=== PATIENT | male | born 1975 | race Caucasian/White ===

== ENCOUNTER 2022-01-27 23:40 | Inpatient (IN) | payer SELFPAY ==
[2022-01-27] MEDS ORDERED: NITROGLYCERIN OINT 1 INCH/GM PACKET TOPICAL STA (23:46)
[2022-01-27] MEDS ORDERED: ASPIRIN 81 MG PO STA (23:46)
--- NOTE | 2022-01-27 23:49 | ED ---
General Adult HPI - General Chief complaint: Chest Pain Stated complaint: Chest pain Time Seen by Provider: 01/27/22 23:41 Source: patient, EMS, RN notes reviewed Mode of arrival: EMS Limitations: no limitations - History of Present Illness Initial comments: Patient is a pleasant 46-year-old male presenting to the emergency Department with chest discomfort. Onset of symptoms was prior to arrival while mopping at work. Patient had pressure in his chest that was rated 7/10. Discomfort is now resolved with nitroglycerin by EMS. A marroquin did have some mild dyspnea, nausea and was diaphoretic. No history of previous cardiac disease. No leg pain or leg swelling. No radiation of pain. - Related Data Allergies Allergy/AdvReac Type Severity Reaction Status Date / Time No Known Allergies Allergy Verified 01/27/22 23:44 Review of Systems ROS Statement: Those systems with pertinent positive or pertinent negative responses have been documented in the HPI. ROS Other: All systems not noted in ROS Statement are negative. Constitutional: Denies: fever Eyes: Denies: eye pain ENT: Denies: ear pain Respiratory: Reports: as per HPI. Denies: cough Cardiovascular: Reports: as per HPI, chest pain Endocrine: Denies: fatigue Gastrointestinal: Reports: nausea. Denies: abdominal pain, vomiting Genitourinary: Denies: dysuria Musculoskeletal: Denies: back pain Skin: Denies: rash Neurological: Denies: weakness Past Medical History History of Any Multi-Drug Resistant Organisms: None Reported Past Psychological History: No Psychological Hx Reported Smoking Status: Current every day smoker Past Alcohol Use History: Occasional Past Drug Use History: Heroin General Exam Limitations: no limitations General appearance: alert, in no apparent distress Head exam: Present: normocephalic Eye exam: Present: normal appearance Neck exam: Present: normal inspection Respiratory exam: Present: normal lung sounds bilaterally Cardiovascular Exam: Present: regular rate, normal rhythm Expanded Peripheral pulses: 2+: Radial (R), Radial (L), Dorsalis Pedis (R), Dorsalis Pedis (L) GI/Abdominal exam: Present: soft. Absent: tenderness Extremities exam: Present: normal inspection. Absent: pedal edema, calf tenderness Neurological exam: Present: alert Psychiatric exam: Present: normal affect, normal mood Skin exam: Present: normal color Course Vital Signs 01/27/22 23:40 Temperature 98.2 F Pulse Rate 105 H Respiratory 22 Rate Blood Pressure 169/100 O2 Sat by Pulse 98 Oximetry EKG Findings - EKG Comments: EKG Findings:: Sinus tachycardia 104. ND 149. QRS 96. QT 326. QTc 37. Normal axis. Normal QRS. No acute ST change. Medical Decision Making - Medical Decision Making Patient reevaluated and updated. [facility] physician group has been paged covering for hospital admission. Case was discussed with Dr. blue, who will admit - Lab Data Result diagrams: 01/27/22 23:47 01/27/22 23:47 Lab Results 01/27/22 01/27/22 01/27/22 Range/Units 23:47 23:47 23:47 WBC 15.5 H (3.8-10.6) k/uL RBC 5.29 (4.30-5.90) m/uL Hgb 16.1 (13.0-17.5) gm/dL Hct 48.2 (39.0-53.0) % MCV 91.1 (80.0-100.0) fL MCH 30.5 (25.0-35.0) pg MCHC 33.5 (31.0-37.0) g/dL RDW 12.8 (11.5-15.5) % Plt Count 300 (150-450) k/uL MPV 7.7 Neutrophils % 84 % Lymphocytes % 7 % Monocytes % 6 % Eosinophils % 1 % Basophils % 1 % Neutrophils # 13.1 H (1.3-7.7) k/uL Lymphocytes # 1.1 (1.0-4.8) k/uL Monocytes # 1.0 (0-1.0) k/uL Eosinophils # 0.1 (0-0.7) k/uL Basophils # 0.1 (0-0.2) k/uL PT 9.7 (9.0-12.0) sec INR 0.9 (<1.2) APTT 22.5 (22.0-30.0) sec Sodium 132 L (137-145) mmol/L Potassium 4.2 (3.5-5.1) mmol/L Chloride 103 (98-107) mmol/L Carbon Dioxide 22 (22-30) mmol/L Anion Gap 7 mmol/L BUN 20 (9-20) mg/dL Creatinine 0.85 (0.66-1.25) mg/dL Est GFR (CKD-EPI)AfAm >90 (>60 ml/min/1.73 sqM) Est GFR (CKD-EPI)NonAf >90 (>60 ml/min/1.73 sqM) Glucose 125 H (74-99) mg/dL Calcium 9.9 (8.4-10.2) mg/dL Magnesium 1.6 (1.6-2.3) mg/dL Total Bilirubin 0.6 (0.2-1.3) mg/dL AST 28 (17-59) U/L ALT 22 (4-49) U/L Alkaline Phosphatase 47 (38-126) U/L Troponin I (0.000-0.034) ng/mL Total Protein 7.2 (6.3-8.2) g/dL Albumin 4.7 (3.5-5.0) g/dL 01/27/22 Range/Units 23:47 WBC (3.8-10.6) k/uL RBC (4.30-5.90) m/uL Hgb (13.0-17.5) gm/dL Hct (39.0-53.0) % MCV (80.0-100.0) fL MCH (25.0-35.0) pg MCHC (31.0-37.0) g/dL RDW (11.5-15.5) % Plt Count (150-450) k/uL MPV Neutrophils % % Lymphocytes % % Monocytes % % Eosinophils % % Basophils % % Neutrophils # (1.3-7.7) k/uL Lymphocytes # (1.0-4.8) k/uL Monocytes # (0-1.0) k/uL Eosinophils # (0-0.7) k/uL Basophils # (0-0.2) k/uL PT (9.0-12.0) sec INR (<1.2) APTT (22.0-30.0) sec Sodium (137-145) mmol/L Potassium (3.5-5.1) mmol/L Chloride (98-107) mmol/L Carbon Dioxide (22-30) mmol/L Anion Gap mmol/L BUN (9-20) mg/dL Creatinine (0.66-1.25) mg/dL Est GFR (CKD-EPI)AfAm (>60 ml/min/1.73 sqM) Est GFR (CKD-EPI)NonAf (>60 ml/min/1.73 sqM) Glucose (74-99) mg/dL Calcium (8.4-10.2) mg/dL Magnesium (1.6-2.3) mg/dL Total Bilirubin (0.2-1.3) mg/dL AST (17-59) U/L ALT (4-49) U/L Alkaline Phosphatase (38-126) U/L Troponin I 0.034 (0.000-0.034) ng/mL Total Protein (6.3-8.2) g/dL Albumin (3.5-5.0) g/dL - Radiology Data Radiology results: image reviewed (Chest x-ray shows no acute process) Disposition Clinical Impression: Chest pain Disposition: ADMITTED IP TO THIS HOSP Is patient prescribed a controlled substance at d/c from ED?: No Time of Disposition: 00:27
[2022-01-28] LABS: Basophils # (A) 0.1 k/uL (0-0.2); Basophils % (A) 1 %; Eosinophils # (A) 0.1 k/uL (0-0.7); Eosinophils % (A) 1 %; HCT 48.2 % (39.0-53.0); HGB 16.1 gm/dL (13.0-17.5); Lymphocytes # (A) 1.1 k/uL (1.0-4.8); Lymphocytes % (A) 7 %; MCH 30.5 pg (25.0-35.0); MCHC 33.5 g/dL (31.0-37.0); MCV 91.1 fL (80.0-100.0); Mean Platelet Volume 7.7; Monocytes % (A) 6 %; Neutrophils # (A) 13.1 k/uL (1.3-7.7); Neutrophils % (A) 84 %; Platelet Count 300 k/uL (150-450); RBC 5.29 m/uL (4.30-5.90); RDW 12.8 % (11.5-15.5); WBC 15.5 k/uL (3.8-10.6)
[2022-01-28 00:12] LABS: ALT 22 U/L (4-49); AST 28 U/L (17-59); African American GFR (CKD) >90 (>60 ml/min/1.73 sqM); Albumin 4.7 g/dL (3.5-5.0); Alkaline Phosphatase 47 U/L (38-126); Anion Gap 7 mmol/L; Blood Urea Nitrogen 20 mg/dL (9-20); Calcium 9.9 mg/dL (8.4-10.2); Carbon Dioxide 22 mmol/L (22-30); Chloride 103 mmol/L (98-107); Glucose 125 mg/dL (74-99); Magnesium 1.6 mg/dL (1.6-2.3); Non-African American GFR(CKD) >90 (>60 ml/min/1.73 sqM); Potassium 4.2 mmol/L (3.5-5.1); Sodium 132 mmol/L (137-145); Total Bilirubin 0.6 mg/dL (0.2-1.3); Total Protein 7.2 g/dL (6.3-8.2)
--- NOTE | 2022-01-28 00:16 | XR ---
EXAMINATION TYPE: XR chest 2V DATE OF EXAM: 01/27/2022 COMPARISON: NONE HISTORY: Chest pain TECHNIQUE: 2 views FINDINGS: Heart and mediastinum are normal. Lungs are clear. Diaphragm is normal. Bony thorax appears normal. There are chest leads. IMPRESSION: Normal chest.
[2022-01-28 00:17] LABS: INR 0.9 (<1.2); Partial Thromboplastin Time 22.5 sec (22.0-30.0); Prothrombin Time 9.7 sec (9.0-12.0)
[2022-01-28] MEDS ORDERED: NITROGLYCERIN SL TABS 0.4 MG TAB SUBLINGUAL PRN (00:27)
[2022-01-28] MEDS ORDERED: hydrALAZINE HCL 25 MG TAB PO STA (02:17)
--- NOTE | 2022-01-28 02:19 | P.HPIM ---
History of Present Illness H&P Date: 01/28/22 The patient is a 46-year-old male with a PMH of hypertension who presented to the emergency room with complaints of chest discomfort. Patient reports that he was in his usual state of health until about 11 PM earlier tonight when he arrived at his work and attempted to mop that he suddenly developed substernal chest tightness. He reports that the tightness was 10 out of 10 at maximal intensity, exertional, substernal, relieved with rest, nonpleuritic, nonradiating, with associated diaphoresis and nausea. Patient reports that his pain had resolved at the time of interview. Denied experiencing shortness of breath, dizziness, vomiting. He reports smoking 1 pack of cigarettes daily. Denied experiencing fever, chills, cough, lower extremity swelling, or extremity pain. Chest x-ray the emergency room was unremarkable. EKG showing sinus tachycardia 104 bpm with no acute ST/T-wave changes noted as reviewed by me. Laboratory evaluation was remarkable for troponin 0.034, sodium 132, and WBC count 15.5. Review of systems: Pertinent positives and negatives as discussed in HPI, a complete review of systems was performed and all other systems are negative. Physical examination: General: non toxic, no distress, appears at stated age, obese Derm: no unusual rashes/lesions, warm Head: atraumatic, normocephalic, symmetric Eyes: EOMI, no lid lag, anicteric sclera, pupils equal round reactive to light ENT: Nose and ears atraumatic Neck: No cervical lymphadenopathy, trachea midline, supple Mouth: no lip lesion, mucus membranes moist Cardiovascular: S1S2 reg, no murmur, positive dorsalis pedis pulse bilateral, no edema Lungs: CTA bilateral, no rhonchi, no rales, no accessory muscle use Abdominal: soft, nontender to palpation, no guarding Ext: muscle strength 5 out of 5 in all 4 extremities grossly, no gross muscle atrophy, no contractures, Neuro: CN II-XI grossly intact, no gross focal neuro deficits Psych: Alert, oriented, appropriate affect Assessment/plan Chest pain, rule out ACS -Cardiology consulted -Cardiac monitoring -Continue with aspirin, statin -Trend troponin Leukocytosis -Likely due to acute distress her -No signs of active infection at this time Chronic conditions: Hypertension -Patient notes that he has not been taking his antihypertensive medications for several month -Start Norvasc 10 mg by mouth daily DVT prophylaxis -Heparin subcu The patient is admitted with an anticipated less than 2 midnight stay for evaluation of chest pain. CODE STATUS: Full Code Discussed with: Patient Anticipated discharge date: In a.m. Anticipated discharge place: Home Past Medical History History of Any Multi-Drug Resistant Organisms: None Reported Past Psychological History: No Psychological Hx Reported Smoking Status: Current every day smoker Past Alcohol Use History: Occasional Past Drug Use History: Heroin - Past Family History Mother Family Medical History: Diabetes Mellitus Medications and Allergies Allergies Allergy/AdvReac Type Severity Reaction Status Date / Time No Known Allergies Allergy Verified 01/27/22 23:44 Physical Exam Vitals: Vital Signs Temp Pulse Resp BP Pulse Ox 01/28/22 01:14 77 22 157/81 97 01/27/22 23:40 98.2 F 105 H 22 169/100 98 Intake and Output 01/27/22 01/27/22 01/28/22 14:59 22:59 06:59 Other: Weight 81.647 kg Results CBC & Chem 7: 01/27/22 23:47 01/27/22 23:47 Labs: Abnormal Lab Results - Last 24 Hours (Table) 01/27/22 01/27/22 Range/Units 23:47 23:47 WBC 15.5 H (3.8-10.6) k/uL Neutrophils # 13.1 H (1.3-7.7) k/uL Sodium 132 L (137-145) mmol/L Glucose 125 H (74-99) mg/dL
[2022-01-28] MEDS ORDERED: HEPARIN SODIUM 1,000 UN/ML (10ML VL) IV ONE (03:29)
[2022-01-28] MEDS: HEPARIN SOD,PORK IN 0.45% NACL 25,000 UNIT in 0.45% NACL 1 250ML.BAG IV SCH (03:41)
[2022-01-28] MEDS: NITROGLYCERIN OINT 1 INCH/GM PACKET TOPICAL SCH ×3 (06:26→19:25)
[2022-01-28] MEDS ORDERED: ALPRAZolam 0.25 MG TAB PO PRN (07:46)
[2022-01-28] MEDS ORDERED: IV FLUID CONTINUATION 1,000 ML IV ONE (08:16)
[2022-01-28] MEDS ORDERED: LIDOCAINE 1% INJ 10MG/ML (5 ML VIAL-PF) SQ ONE (08:39)
[2022-01-28] MEDS ORDERED: METOPROLOL TARTRATE 5 MG/5 ML VIAL IVP ONE (08:40)
[2022-01-28] MEDS ORDERED: hydrALAZINE HCL 20 MG/ML 1 ML VIAL IV ONE (08:40)
[2022-01-28] MEDS: MIDAZOLAM 2 MG/2 ML VIAL IV ONE ×2 (08:41→08:42)
[2022-01-28] MEDS ORDERED: VERAPAMIL SYRINGE (5 MG/10 ML) INTRAARTER ONE (08:42)
[2022-01-28] MEDS ORDERED: IOPAMIDOL-370 125ML BTL INJ ONE (08:56)
[2022-01-28] MEDS ORDERED: RX INFO: IV CONTRAST WAS GIVEN 1 EACH MISC MISCELLANE PRN (08:59)
[2022-01-28] MEDS ORDERED: SODIUM CHLORIDE 0.9% 1,000 ML IV SCH (09:00)
--- NOTE | 2022-01-28 09:06 | P.PCN ---
Date of Procedure: 01/28/22 Operative Findings: CARDIAC CATHETERIZATION PERFORMING PHYSICIAN: Erick Woo MD, RPVI PROCEDURE PERFORMED: 1. Selective right and left coronary angiogram 2. Left heart catheterization INDICATION: This is a 46-year-old gentleman with significant history of smoking as well as hypertension who was not receiving any medication presented to the hospital with chest discomfort and ruled in for acute coronary syndrome. Also his pressure was elevated. In the light of that heart catheterization was advised to rule out severe CAD COMPLICATION: None APPROACH: Right radial artery LEVEL OF SEDATION: Moderate with a sedation length of 17 minutes PROCEDURE DESCRIPTION: After obtaining an informed consent, the patient was brought to cardiac photo lab technician. Local anesthesia was performed using lidocaine subcutaneously. The right radial artery was cannulated using Seldinger technique, the guidewire passed easily, following that we advanced a 5-[place] sheath dilator assembly, the wire and dilator were removed and sheath was flushed. Selective right and left coronary angiogram using a 6-[place] JR4 and JL 3.5 catheters. Following that we did left heart catheterization using 6-[place] pigtail catheter. The procedure was completed there was no complication. SELECTIVE CORONARY ANGIOGRAM: The right coronary artery: Is a large caliber vessel and a dominant vessel. The RCA is chronically occluded in the midportion and fills by contralateral collaterals. Left main: Large fiber vessel with mild disease. Bifurcates into LCx and ramus intermedius and LAD The left circumflex: Is a large caliber vessel and appears to be codominant vessel. The proximal LCx has mild disease only. Gives rises into an OM1 which has mild disease. The left circumflex distally is chronically occluded and fills by bridging collateral. The ramus intermedius, Is a large caliber vessel. It does have intermediate to severe lesion appeared to be tubular in the proximal portion The left anterior descending artery: Is a large caliber vessel. The proximal LAD has a tubular lesion appeared to be in the range of 80-90%. The LAD proximally gives rises into a medium size diagonal branch which has intermediate to severe disease as well. The mid LAD has a focal lesion appears to be in the range of 80-90%. The LAD distal to that is diffusely disease. HEMODYNAMICS: The LVEDP was 12 mmHg was no significant gradient across aortic valve CONCLUSION: 1. Severe triple-vessel coronary artery disease. Chronic total occlusion of the RCA and LCx. Critical disease involving the proximal and mid LAD 2. Normal left-sided filling pressure POSTPROCEDURE MANAGEMENT: Giving the above anatomy advised the patient to be seen by cardiothoracic a surgeon for the evaluation off coronary artery bypass grafting
[2022-01-28 09:52] LABS: Glucose,Whole Blood 94 mg/dL (70-110)
[2022-01-28] MEDS: amLODIPine 10 MG TAB PO SCH (10:25)
--- NOTE | 2022-01-28 10:29 | P.CRDCN ---
History of Present Illness History of present illness: This is a pleasant 46 year old male with a past medical history of hypertension (not on medications secondary to insurance issues), chronic nicotine dependence. He does not follow with a data analyst. We are consulted for NSTEMI. He presented to the emergency room with complaints of chest discomfort. Patient states yesterday around 11 PM he arrived at his work and attempted to mop that he suddenly developed substernal chest tightness. He rates pain 10/10. It was exertional. Located substernal. Relieved with rest. Non-radiating. He had associated diaphoresis and nausea, some mild shortness of breath. In ER his pain was also relieved by Nitro. Denied lightheadedness, dizziness, syncope or near syncope. No abdominal pain, vomiting. He denies any history of CAD, CT, Stroke, Diabetes. He does smoke 1 PPD. Family history includes mother and father both had coronary artery disease. DIAGNOSTICS * EKG this morning revealed sinus rhythm, heart rate 67, biphasic T waves noted, progressive ST changes in inferior and anterior leads. No prior EKG to compare * Telemetry tracings at bedside indicate sinus rhythm * Chest xray no acute cardiopulmonary process * Laboratory reviewed, troponin 0.034, 0.85, 1.9, sodium 132, potassium 4.3, BUN 20, serum and 0.8, magnesium 1.6, WBC 15.5, hemoglobin 16.1, platelets 300 * Current home medications include none REVIEW OF SYSTEMS At the time of my exam: CONSTITUTIONAL: Denies fever or chills. CARDIOVASCULAR: + chest pain, +shortness of breath, Denies orthopnea, PND or palpitations. RESPIRATORY: Denies cough. GASTROINTESTINAL: Denies abdominal pain, diarrhea, constipation, +nausea Denies vomiting. MUSCULOSKELETAL: Denies myalgias. NEUROLOGIC: Denies numbness, tingling, headacbe or weakness. ENDOCRINE: Denies fatigue, weight change, polydipsia or polyurina. GENITOURINARY: Denies burning, hematuria or urgency with micturation. HEMATOLOGIC: Denies history of anemia or bleeding. PHYSICAL EXAMINATION Blood pressure 177/88, heart rate 74, afebrile, oxygen saturation 79% on 2 L nasal cannula CONSTITUTIONAL: No apparent distress. HEENT: Head is normocephalic. Pupils are equal, round. Sclerae anicteric. Mucous membranes of the mouth are moist. No JVD. No carotid bruit. CHEST EXAMINATION: Lungs are clear to auscultation. No chest wall tenderness is noted on palpation or with deep breathing. HEART EXAMINATION: Regular rate and rhythm. S1, S2 heard. No murmurs, gallops or rub. ABDOMEN: Soft, nontender. Positive bowel sounds. EXTREMITIES: 2+ peripheral pulses, no lower extremity edema and no calf tenderness. NEUROLOGIC EXAMINATION: Patient is awake, alert and oriented x3. ASSESSMENT NSTEMI Hypertension Chronic nicotine dependence Family history of coronary artery disease PLAN Plan for cardiac catheterization with Dr. Woo this morning, patient is agreeable. Continue IV heparin, statin, aspirin I have discussed the risks, benefits and alternative therapies for the above- mentioned procedure and for both sedation/analgesia as well as necessary blood product administration, if indicated, as they pertain to this patient. The patient has indicated understanding and acceptance of the risks and procedures discussed. Questions have been answered appropriately and he is agreeable to move forward with the above-stated procedure. Obtain 2D echocardiogram and doppler study to assess cardiac structure and function. Further recommendations based on clinical course Nurse practitioner note has been reviewed by physician. Signing provider agrees with the documented findings, assessment, and plan of care. Past Medical History History of Any Multi-Drug Resistant Organisms: None Reported Past Psychological History: No Psychological Hx Reported Smoking Status: Current every day smoker Past Alcohol Use History: Occasional Past Drug Use History: Heroin - Past Family History Mother Family Medical History: Diabetes Mellitus Medications and Allergies Home Medications Medication Instructions Recorded Confirmed Type No Known Home Medications 01/28/22 01/28/22 History Allergies Allergy/AdvReac Type Severity Reaction Status Date / Time No Known Allergies Allergy Verified 01/28/22 07:28 Physical Exam Vitals: Vital Signs Temp Pulse Resp BP Pulse Ox 01/28/22 06:46 74 22 177/88 99 01/28/22 06:00 98.3 F 77 20 163/87 100 01/28/22 05:00 99 20 145/79 98 01/28/22 03:00 101 H 22 148/82 96 01/28/22 02:00 98.5 F 82 20 155/78 97 01/28/22 01:14 77 22 157/81 97 01/27/22 23:40 98.2 F 105 H 22 169/100 98 Intake and Output 01/27/22 01/28/22 01/28/22 22:59 06:59 14:59 Other: Weight 81.647 kg Results 01/27/22 23:47 01/27/22 23:47 Cardiac Enzymes 01/27/22 01/27/22 01/28/22 Range/Units 23:47 23:47 02:33 AST 28 (17-59) U/L Troponin I 0.034 0.850 H* (0.000-0.034) ng/mL 01/28/22 Range/Units 05:33 AST (17-59) U/L Troponin I 1.930 H* (0.000-0.034) ng/mL Coagulation 01/27/22 Range/Units 23:47 PT 9.7 (9.0-12.0) sec APTT 22.5 (22.0-30.0) sec CBC 01/27/22 Range/Units 23:47 WBC 15.5 H (3.8-10.6) k/uL RBC 5.29 (4.30-5.90) m/uL Hgb 16.1 (13.0-17.5) gm/dL Hct 48.2 (39.0-53.0) % Plt Count 300 (150-450) k/uL Comprehensive Metabolic Panel 01/27/22 Range/Units 23:47 Sodium 132 L (137-145) mmol/L Potassium 4.2 (3.5-5.1) mmol/L Chloride 103 (98-107) mmol/L Carbon Dioxide 22 (22-30) mmol/L BUN 20 (9-20) mg/dL Creatinine 0.85 (0.66-1.25) mg/dL Glucose 125 H (74-99) mg/dL Calcium 9.9 (8.4-10.2) mg/dL AST 28 (17-59) U/L ALT 22 (4-49) U/L Alkaline Phosphatase 47 (38-126) U/L Total Protein 7.2 (6.3-8.2) g/dL Albumin 4.7 (3.5-5.0) g/dL Current Medications Generic Name Dose Route Start Last Admin Trade Name Freq PRN Reason Stop Dose Admin Amlodipine Besylate 10 mg 01/28/22 09:00 Amlodipine 10 Mg Tab PO DAILY [facility] Aspirin 325 mg 01/29/22 09:00 Aspirin 325 Mg Tab PO DAILY [facility] Atorvastatin Calcium 80 mg 01/28/22 21:00 Atorvastatin 80 Mg Tab PO HS NUBIA Heparin Sodium/Sodium Chloride 250 mls @ 9.798 mls/hr 01/28/22 03:30 01/28/22 03:41 25,000 unit/ Sodium Chloride IV 12 units/kg/hr .Q24H NUBIA 9.798 mls/hr Administration Protocol 12 UNITS/KG/HR Nitroglycerin 0.4 mg 01/28/22 00:27 Nitroglycerin Sl Tabs 0.4 Mg Tab SUBLINGUAL Q5M PRN Chest Pain Nitroglycerin 1 inch 01/28/22 06:00 01/28/22 06:26 Nitroglycerin Oint 1 Inch/Gm Packet TOPICAL 1 inch Q6HR [facility] Administration Sodium Chloride 10 ml 01/28/22 09:00 Sodium Chloride 0.9% Flush 10 Ml Syringe IV BID [facility] Intake and Output 01/27/22 01/28/22 01/28/22 22:59 06:59 14:59 Other: Weight 81.647 kg 01/27/22 23:47 01/27/22 23:47
--- NOTE | 2022-01-28 11:09 | P.GSCN ---
History of Present Illness Consult date: 01/28/22 Reason for Consult: Coronary artery disease, recommendations for surgical revascularization Requesting physician: Erick Woo History of present illness: This is a 46-year-old gentleman who does not follow on an outpatient basis with a primary care physician. He has a previous medical history of hypertension, current tobacco dependence, current marijuana use, current EtOH use greater than 8 drinks per week, seizure approximately 3 years ago, neurofibromatosis, and previous heroin use with cessation 10 years ago, as well as family history of premature coronary artery disease with father having PCI in his 50s and mother from SC/CVA at 51 years old. He presented to [facility] emergency room with complaints of chest pain with radiation down his left arm, relieved with sublingual nitroglycerin. Denied any significant shortness of breath, nausea, lower extremity edema, or any other symptomatology. WBC 15.5, hemoglobin 16.1, creatinine 0.85. Chest x-ray demonstrated no acute process. EKG demonstrated sinus rhythm with nonspecific T-wave changes. Troponins were drawn, elevated as high as 1.93 and patient was ruled in for non-STEMI. He went to the [facility] today with Dr. Woo revealing mid RCA complete occlusion which filled by collaterals, chronic total occlusion of the distal circumflex coronary artery, severe disease in the proximal ramus, and 80-90% stenosis to the proximal and mid LAD with no gradient across the aortic valve. Due to these findings consultation was placed to cardiothoracic surgery for revascularization recommendations. Review of Systems Review of systems was completed and was negative except as noted Past Medical History Past Medical History: Coronary Artery Disease (CAD), Hypertension Additional Past Medical History / Comment(s): Seizure approximately 3 years ago; neurofibromatosis History of Any Multi-Drug Resistant Organisms: None Reported Past Surgical History: No Surgical Hx Reported Past Psychological History: No Psychological Hx Reported Smoking Status: Current every day smoker Past Alcohol Use History: Occasional Additional Past Alcohol Use History / Comment(s): Greater than 8 drinks per week Past Drug Use History: Heroin, Marijuana Additional Drug Use History / Comment(s): Uses marijuana regularly; quit heroin approximately 10 years ago Additional History: Smokes 1 pack per day 30 years - Past Family History Mother Family Medical History: Coronary Artery Disease (CAD), CVA/TIA, Diabetes Mellitus, Myocardial Infarction ([place]) Additional Family Medical History / Comment(s): from myocardial infarction/CVA at 51 years old Father Family Medical History: Coronary Artery Disease (CAD) Additional Family Medical History / Comment(s): Brother had PCI in his 50s; from sepsis Medications and Allergies Home Medications Medication Instructions Recorded Confirmed Type No Known Home Medications 01/28/22 01/28/22 History Allergies Allergy/AdvReac Type Severity Reaction Status Date / Time No Known Allergies Allergy Verified 01/28/22 07:28 Surgical - Exam Vital Signs Temp Pulse Resp BP Pulse Ox 98.2 F 105 H 22 169/100 98 01/27/22 23:40 01/27/22 23:40 01/27/22 23:40 01/27/22 23:40 01/27/22 23:40 CONSTITUTIONAL: Awake and alert, appears comfortable, cooperative, well- developed, well-nourished, no pain, no acute distress EYES: Pupils equal, round, reactive to light, normal ocular movement ENT: Moist mucous membranes; very poor dentition with broken/missing teeth NECK: No masses, no bruits, trachea midline RESPIRATORY: Lungs sounds diminished bilaterally. Respirations even, nonlabored. Currently on room air with oxygen saturation 96%. Strong cough. CARDIOVASCULAR: S1, S2 present. Regular rate and rhythm, sinus rhythm on telemetry. Palpable peripheral pulses bilaterally. No edema present. No calf pain or tenderness noted. No significant lower extremity varicosities noted. Left radial Ludin's test less than 8 seconds. GASTROINTESTINAL: Abdomen soft, nontender, nondistended without masses or organomegaly noted. There is no rebound or guarding present. Active bowel sounds present 4 quadrants. GENITOURINARY: Deferred INTEGUMENTARY: Skin is warm and dry with evidence of good perfusion. NEUROLOGIC: Cranial nerves II through XII intact, normal coordination, no ob vious motor or sensory deficits, speech is normal MUSKULOSKELETAL: Able to move all extremities, strength equal bilaterally, normal posture PSYCHIATRIC: Alert and oriented to person place and time, appropriate affect, intact judgment and insight Results - Labs 01/29/22 03:56 01/29/22 03:56 Abnormal Lab Results - Last 24 Hours (Table) 01/27/22 01/27/22 01/28/22 Range/Units 23:47 23:47 02:33 WBC 15.5 H (3.8-10.6) k/uL Neutrophils # 13.1 H (1.3-7.7) k/uL Sodium 132 L (137-145) mmol/L Glucose 125 H (74-99) mg/dL Troponin I 0.850 H* (0.000-0.034) ng/mL 01/28/22 Range/Units 05:33 WBC (3.8-10.6) k/uL Neutrophils # (1.3-7.7) k/uL Sodium (137-145) mmol/L Glucose (74-99) mg/dL Troponin I 1.930 H* (0.000-0.034) ng/mL Diabetes panel 01/27/22 Range/Units 23:47 Sodium 132 L (137-145) mmol/L Potassium 4.2 (3.5-5.1) mmol/L Chloride 103 (98-107) mmol/L Carbon Dioxide 22 (22-30) mmol/L BUN 20 (9-20) mg/dL Creatinine 0.85 (0.66-1.25) mg/dL Glucose 125 H (74-99) mg/dL Calcium 9.9 (8.4-10.2) mg/dL AST 28 (17-59) U/L ALT 22 (4-49) U/L Alkaline Phosphatase 47 (38-126) U/L Total Protein 7.2 (6.3-8.2) g/dL Albumin 4.7 (3.5-5.0) g/dL Calcium panel 01/27/22 Range/Units 23:47 Calcium 9.9 (8.4-10.2) mg/dL Albumin 4.7 (3.5-5.0) g/dL Pituitary panel 01/27/22 Range/Units 23:47 Sodium 132 L (137-145) mmol/L Potassium 4.2 (3.5-5.1) mmol/L Chloride 103 (98-107) mmol/L Carbon Dioxide 22 (22-30) mmol/L BUN 20 (9-20) mg/dL Creatinine 0.85 (0.66-1.25) mg/dL Glucose 125 H (74-99) mg/dL Calcium 9.9 (8.4-10.2) mg/dL Adrenal panel 01/27/22 Range/Units 23:47 Sodium 132 L (137-145) mmol/L Potassium 4.2 (3.5-5.1) mmol/L Chloride 103 (98-107) mmol/L Carbon Dioxide 22 (22-30) mmol/L BUN 20 (9-20) mg/dL Creatinine 0.85 (0.66-1.25) mg/dL Glucose 125 H (74-99) mg/dL Calcium 9.9 (8.4-10.2) mg/dL Total Bilirubin 0.6 (0.2-1.3) mg/dL AST 28 (17-59) U/L ALT 22 (4-49) U/L Alkaline Phosphatase 47 (38-126) U/L Total Protein 7.2 (6.3-8.2) g/dL Albumin 4.7 (3.5-5.0) g/dL - Imaging Chest x-ray: report reviewed, image reviewed Additional studies: Cardiac catheterization films reviewed Assessment and Plan Assessment: 1. Triple-vessel coronary artery disease, non-STEMI this admission 2. Hypertension 3. Current tobacco dependence 4. Current marijuana use 5. Current EtOH use greater than 8 drinks per week 6. Seizure approximately 3 years ago 7. Neurofibromatosis 8. Previous heroin use with cessation 10 years ago 9. Family history of premature coronary artery disease Plan: The patient was seen and examined at the bedside in the intensive care unit where he is currently a 3 S. overflow patient. Chart/diagnostics were reviewed. The case will be discussed in detail with Dr. Aragon. The usual perioperative course of open heart surgery was discussed with the patient, risks and benefits were reviewed, all questions were answered. Preoperative testing was initiated, once completed will calculate STS risk score and discuss with the patient. 5 m walk test will be completed. Recommend aspirin, statin, beta marie therapy. Smoking cessation counseling offered, will provide educational materials and resources. Patient was also counseled regarding the need to cut back his drinking, cut out smoking marijuana, and continue to refrain from heroin use. Pulmonology consult placed. Medical management of other comorbidities per primary care service. Thank you Dr. Woo for this consult. More recommendations to follow. I have personally seen and examined the patient, performed the documentation and the assessment and plan as written. Number of minutes spent on the visit: 30. PAVAN Martínez Time with Patient: Greater than 30 (Patient studies were reviewed and patient was examined and counseled. I agree with the findings as noted by the RELATIONS COORDINATOR. Time spent with patient over 45 minutes.)
[2022-01-28 11:10] LABS: Basophils # (A) 0.1 k/uL (0-0.2); Basophils % (A) 1 %; Eosinophils % (A) 0 %; HCT 48.9 % (39.0-53.0); HGB 16.3 gm/dL (13.0-17.5); Lymphocytes # (A) 0.7 k/uL (1.0-4.8); Lymphocytes % (A) 8 %; MCH 31.1 pg (25.0-35.0); MCHC 33.4 g/dL (31.0-37.0); MCV 93.1 fL (80.0-100.0); Mean Platelet Volume 8.2; Monocytes # (A) 0.6 k/uL (0-1.0); Monocytes % (A) 6 %; Neutrophils # (A) 7.7 k/uL (1.3-7.7); Neutrophils % (A) 84 %; Platelet Count 267 k/uL (150-450); RBC 5.26 m/uL (4.30-5.90); RDW 13.3 % (11.5-15.5); WBC 9.1 k/uL (3.8-10.6)
[2022-01-28 11:15] LABS: ALT 21 U/L (4-49); AST 41 U/L (17-59); African American GFR (CKD) >90 (>60 ml/min/1.73 sqM); Albumin 4.2 g/dL (3.5-5.0); Alkaline Phosphatase 44 U/L (38-126); Anion Gap 4 mmol/L; Blood Urea Nitrogen 17 mg/dL (9-20); Calcium 9.1 mg/dL (8.4-10.2); Carbon Dioxide 19 mmol/L (22-30); Chloride 110 mmol/L (98-107); Glucose 95 mg/dL (74-99); Magnesium 1.8 mg/dL (1.6-2.3); Non-African American GFR(CKD) >90 (>60 ml/min/1.73 sqM); Potassium 3.9 mmol/L (3.5-5.1); Sodium 133 mmol/L (137-145); Total Bilirubin 1.1 mg/dL (0.2-1.3); Total Protein 6.7 g/dL (6.3-8.2)
[2022-01-28 11:22] LABS: INR 0.9 (<1.2); Prothrombin Time 10.2 sec (9.0-12.0)
[2022-01-28] MEDS: lisinopriL 10 MG TAB PO SCH (12:13)
[2022-01-28] MEDS: METOPROLOL SUCCINATE (ER) 25 MG TAB.ER.24H PO SCH (12:13)
[2022-01-28] MEDS: SODIUM CHLORIDE 0.9% 1,000 ML in EMPTY BAG 1 BAG IV SCH ×2 (12:14→21:50)
--- NOTE | 2022-01-28 13:32 | US ---
EXAMINATION TYPE: US carotid duplex BILAT DATE OF EXAM: 01/28/2022 COMPARISON: NONE CLINICAL HISTORY: preop cardiac surgery. no h/o stroke TECHNIQUE: Carotid duplex ultrasound examination. Indirect Doppler criteria was utilized. FINDINGS: EXAM MEASUREMENTS: RIGHT: Peak Systolic Velocity (PSV) cm/sec ----- Right CCA: 103 ----- Right ICA: 269 ----- Right ECA: 269 ICA/CCA ratio: 2.6 RIGHT: End Diastole cm/sec ----- Right CCA: 14.3 ----- Right ICA: 59 ----- Right ECA: 16.6 LEFT: Peak Systolic Velocity (PSV) cm/sec ----- Left CCA: 113.0 ----- Left ICA: 154 ----- Left ECA: 167 ICA/CCA ratio: 1.4 LEFT: End Diastole cm/sec ----- Left CCA: 14.9 ----- Left ICA: 41.0 ----- Left ECA: 14.5 VERTEBRALS (direction of flow): Right Vertebral: Antegrade Left Vertebral: Antegrade Rhythm: Normal LIFT SUPERVISOR NOTES: Heterogeneous plaque with increased velocities seen at distal right ICA Grayscale, color Doppler, spectral Doppler imaging performed of the carotid arteries. Waveform analys is shows hemodynamic significant stenosis of the internal carotid artery on the right. There is spect ral broadening, loss of the systolic window on waveform analysis. Mild elevation of the systolic [place] in an outside velocity of the proximal internal carotid artery on the left as well, ICA/CCA rati o is not elevated IMPRESSION: Hemodynamic significant stenosis of the proximal internal carotid artery corresponds to approximately 50-69% diameter reduction by Doppler criteria, an indirect measurement of carotid stenosis Criteria for Assigning % of Stenosis / Diameter reduction (Estimation based on the indirect measurements of the internal carotid artery velocities (ICA PSV). 1. Normal (no stenosis)=ICA PSV < 125 cm/s: ratio < 2.0: ICA EDV<40 cm/s. 2. Less than 50% stenosis=ICA PSV < 125 cm/s: ratio < 2.0: ICA EDV<40 cm/s. 3. 50 to 69% stenosis=ICA PSV of 125 to 230 cm/s: ration 2.0 ? 4.0: ICA EDV 40-100 cm/s. 4. Greater than 70% stenosis to near occlusion= ICA PSV > 230 cm/s: ratio > 4.0: ICA EDV > 100 cm/s. 5. Near occlusion= ICA PSV velocities may be low or undetectable: variable ratio and ICA EDV. 6. Total occlusion=unable to detect flow.
[2022-01-28 13:36] LABS: Appearance,Urine Clear (Clear); Bacteria,Urine Rare /hpf; Bilirubin,Urine Negative (Negative); Blood,Urine Trace (Negative); Color,Urine Yellow; Glucose,Urine (UA) Negative (Negative); Ketones,Urine 2+ (Negative); Leukocyte Esterase,Urine Negative (Negative); Nitrite,Urine Negative (Negative); Protein,Urine Negative (Negative); RBC,Urine 28 /hpf (0-5); Specific Gravity,Urine 1.041 (1.001-1.035); Urobilinogen,Urine <2.0 mg/dL (<2.0); WBC,Urine 1 /hpf (0-5)
--- NOTE | 2022-01-28 13:52 | P.CNPUL ---
History of Present Illness Consult date: 01/28/22 Requesting physician: Brenda Bella Reason for consult: chest pain Chief complaint: Chest pain History of present illness: Pulmonary consult dated 01/28/2022. 46-year-old male admitted to the emergency department, on January 27. The patient apparently came to the emergency room complaining of chest discomfort. The patient described the pain as a pressure, rated 7 out of 10. The patient apparently received nitroglycerin from EMS, and the pain went away. The patient also admitted to some mild shortness of breath, nausea, and diaphoresis. The patient apparently has no prior history of cardiac disease. We were asked to see the patient for preoperative evaluation. Currently, the patient's getting saline at 75 mL an hour, and not receiving any supplemental oxygen. A spirometry was ordered. The patient is a current every day smoker, and apparently she was IV drugs in the past. He has no known ALLERGIES. He takes no medications at home on a regular basis. His cardiac catheterization showed severe triple vessel disease, with chronic total occlusion of right coronary artery and circumflex coronary artery, critical disease involving the proximal and mid LAD. The patient's chest x-ray was normal. Laboratory data includes a white count of 9.1, hemoglobin 16.3, hematocrit 48.9, and a platelet count of 267,000. Coagulation studies were normal. Sodium was 133, potassium 3.9, ch lorides 110, CO2 19, BUN 17, and creatinine 0.63. Troponins were 0.034, 0.850, and 1.930. Thyroid function was normal. Review of Systems REVIEW OF SYSTEMS: CONSTITUTIONAL: Diaphoresis. NEUROLOGIC: [ Negative.] HEENT: [ Negative.] CARDIAC: Chest pressure. PULMONARY: Shortness of breath. GI: Mild nausea. : [Negative.] RHEUMATOLOGIC: [ Negative.] IMMUNOLOGIC: [ Negative.] ENDOCRINE: [Negative. ] DERMATOLOGIC: [Negative.] Past Medical History Past Medical History: Coronary Artery Disease (CAD), Hypertension Additional Past Medical History / Comment(s): Seizure approximately 3 years ago; neurofibromatosis History of Any Multi-Drug Resistant Organisms: None Reported Past Surgical History: No Surgical Hx Reported Past Anesthesia/Blood Transfusion Reactions: No Reported Reaction Past Psychological History: No Psychological Hx Reported Smoking Status: Current every day smoker Past Alcohol Use History: Occasional Additional Past Alcohol Use History / Comment(s): Greater than 8 drinks per week Past Drug Use History: Heroin, Marijuana Additional Drug Use History / Comment(s): Uses marijuana regularly; quit heroin approximately 10 years ago - Past Family History Mother Family Medical History: Coronary Artery Disease (CAD), CVA/TIA, Diabetes Mellitus, Myocardial Infarction ([place]) Additional Family Medical History / Comment(s): from myocardial infarction/CVA at 51 years old Father Family Medical History: Coronary Artery Disease (CAD) Additional Family Medical History / Comment(s): Brother had PCI in his 50s; from sepsis Medications and Allergies Home Medications Medication Instructions Recorded Confirmed Type No Known Home Medications 01/28/22 01/28/22 History Allergies Allergy/AdvReac Type Severity Reaction Status Date / Time No Known Allergies Allergy Verified 01/28/22 07:28 Physical Exam Osteopathic Statement: *. No significant issues noted on an osteopathic structural exam other than those noted in the History and Physical/Consult. Vitals: Vital Signs Temp Pulse Resp BP Pulse Ox 01/28/22 12:30 82 24 163/112 96 01/28/22 12:00 98.4 F 85 18 169/88 96 01/28/22 11:30 101 H 171/90 96 01/28/22 11:00 81 22 164/89 96 01/28/22 10:30 76 161/89 96 01/28/22 10:00 98.2 F 85 19 117/84 96 01/28/22 07:40 75 16 187/108 100 01/28/22 06:46 74 22 177/88 99 01/28/22 06:00 98.3 F 77 20 163/87 100 01/28/22 05:00 99 20 145/79 98 01/28/22 03:00 101 H 22 148/82 96 01/28/22 02:00 98.5 F 82 20 155/78 97 01/28/22 01:14 77 22 157/81 97 01/27/22 23:40 98.2 F 105 H 22 169/100 98 Intake and Output 01/27/22 01/28/22 01/28/22 22:59 06:59 14:59 Intake Total 100 Balance 100 Intake: IV 100 Other: Weight 81.647 kg 81.647 kg No acute distress, oriented 3. Room air saturation is 96%. HEENT examination is grossly unremarkable. Neck supple. Full range of motion. No adenopathy thyromegaly or neck vein distention. Cardiovascular examination reveals regular rhythm rate. S1-S2 normal. No S3 or S4. No discernible murmur noted. Heart rate 82 bpm. Lungs reveal clear breath sounds. Breath sounds are equal bilaterally. No adventitious lung sounds including wheezes rhonchi or crackles. Abdomen soft bowel sounds are heard. No masses or tenderness. Extremities are intact. No cyanosis clubbing or edema. Skin is without rash or lesion. Neurologic examination is brief but nonfocal. Results - Laboratory Findings CBC and BMP: 01/28/22 09:54 01/28/22 09:54 PT/INR, D-dimer PT 10.2 sec (9.0-12.0) 01/28/22 09:54 INR 0.9 (<1.2) 01/28/22 09:54 Abnormal lab findings: Abnormal Labs 01/27/22 01/27/22 01/28/22 23:47 23:47 02:33 WBC 15.5 H Neutrophils # 13.1 H Lymphocytes # Sodium 132 L Chloride Carbon Dioxide Creatinine Glucose 125 H Troponin I 0.850 H* Ur Specific Loris Urine Ketones Urine Blood Urine RBC Urine Bacteria 01/28/22 01/28/22 01/28/22 05:33 09:54 09:54 WBC Neutrophils # Lymphocytes # 0.7 L Sodium 133 L Chloride 110 H Carbon Dioxide 19 L Creatinine 0.63 L Glucose Troponin I 1.930 H* Ur Specific [place] Urine Ketones Urine Blood Urine RBC Urine Bacteria 01/28/22 13:05 WBC Neutrophils # Lymphocytes # Sodium Chloride Carbon Dioxide Creatinine Glucose Troponin I Ur Specific [place] 1.041 H Urine Ketones 2+ H Urine Blood Trace H Urine RBC 28 H Urine Bacteria Rare H - Diagnostic Findings Chest x-ray: image reviewed Assessment and Plan Assessment: Non-ST segment elevation myocardial infarction. Severe three-vessel coronary disease. History of chronic nicotine dependence. Family history of CAD. Prior history of heroin use. Plan: Plan dated 01/28/2022. The patient is seen and evaluated. A spirometry has been ordered but have not seen it as yet. The patient does smoke cigarettes on a daily basis. Apparently he has no prior history of any medical issues. He was not taking any medications at home on a regular basis. He has used heroin in the past. We'll await the results of the spirometry. Anticipated bypass grafting this week. Time with Patient: Greater than 30
--- NOTE | 2022-01-28 14:10 | P.PN ---
Subjective Progress Note Date: 01/28/22 Principal diagnosis: chest pain The patient is a 46-year-old male withhypertension who presented to the emergency room with complaints of chest discomfort. On arrival to the emergency department his pulse was 105 and blood pressure was 169/100. He was satting 98% on room air. Chest x-ray the emergency room was unremarkable. EKG showed sinus tachycardia 104 bpm with no acute ST/T-wave changes noted as reviewed by me. Laboratory evaluation was remarkable for troponin 0.034, sodium 132, and WBC count 15.5. He is admitted for chest pain observation. His troponin began to elevate on the morning of was 1.93. He was taken urgently for cardiac catheterization was found to have triple-vessel disease, with total occlusion of the RCA and left circumflex. There is critical disease involving the proximal and mid LAD. Cardiology did recommend cardiothoracic consult which has been obtained. Pulmonary consulted for pre-op PFTs. Patient seen and examined at bedside. He denies any current chest pain but is feeling very tired and overwhelmed. He is currently have carotid dopplers completed. General: non toxic, no distress, appears at stated age Derm: warm, dry Head: atraumatic, normocephalic, symmetric Eyes: EOMI, no lid lag, anicteric sclera Mouth: no lip lesion, mucus membranes moist Psych: Alert, oriented, appropriate affect Assessment/plan: NSTEMI with triple-vessel CAD HTN urgency - ASA, Lipitor, Lisinopril, metoprolol - await echo - CT surgery recs: testing underway for pre-op evaluation Hyponatremia, mild - increasing chloride, change to LR - repeat labs in AM Nicotine dependency ETOH misuse Marijuana use - encourage cessation Leukocytosis, resolved 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 No charge associated with this note, patient's admission done after mid night by Dr. Bella. Objective - Vital Signs Vital signs: Vital Signs Temp 98.4 F 01/28/22 12:00 Pulse 82 01/28/22 12:30 Resp 24 01/28/22 12:30 BP 163/112 01/28/22 12:30 Pulse Ox 96 01/28/22 12:30 FiO2 Intake & Output 01/27/22 01/28/22 01/28/22 18:59 06:59 18:59 Intake Total 100 Balance 100 Weight 81.647 kg 81.647 kg Intake: IV 100 - Labs CBC & Chem 7: 01/28/22 09:54 01/28/22 09:54 Labs: Abnormal Lab Results - Last 24 Hours (Table) 01/27/22 01/27/22 01/28/22 Range/Units 23:47 23:47 02:33 WBC 15.5 H (3.8-10.6) k/uL Neutrophils # 13.1 H (1.3-7.7) k/uL Lymphocytes # (1.0-4.8) k/uL Sodium 132 L (137-145) mmol/L Chloride (98-107) mmol/L Carbon Dioxide (22-30) mmol/L Creatinine (0.66-1.25) mg/dL Glucose 125 H (74-99) mg/dL Troponin I 0.850 H* (0.000-0.034) ng/mL Ur Specific Isabel (1.001-1.035) Urine Ketones (Negative) Urine Blood (Negative) Urine RBC (0-5) /hpf Urine Bacteria (None) /hpf 01/28/22 01/28/22 01/28/22 Range/Units 05:33 09:54 09:54 WBC (3.8-10.6) k/uL Neutrophils # (1.3-7.7) k/uL Lymphocytes # 0.7 L (1.0-4.8) k/uL Sodium 133 L (137-145) mmol/L Chloride 110 H (98-107) mmol/L Carbon Dioxide 19 L (22-30) mmol/L Creatinine 0.63 L (0.66-1.25) mg/dL Glucose (74-99) mg/dL Troponin I 1.930 H* (0.000-0.034) ng/mL Ur Specific [place] (1.001-1.035) Urine Ketones (Negative) Urine Blood (Negative) Urine RBC (0-5) /hpf Urine Bacteria (None) /hpf 01/28/22 Range/Units 13:05 WBC (3.8-10.6) k/uL Neutrophils # (1.3-7.7) k/uL Lymphocytes # (1.0-4.8) k/uL Sodium (137-145) mmol/L Chloride (98-107) mmol/L Carbon Dioxide (22-30) mmol/L Creatinine (0.66-1.25) mg/dL Glucose (74-99) mg/dL Troponin I (0.000-0.034) ng/mL Ur Specific Isabel 1.041 H (1.001-1.035) Urine Ketones 2+ H (Negative) Urine Blood Trace H (Negative) Urine RBC 28 H (0-5) /hpf Urine Bacteria Rare H (None) /hpf
--- NOTE | 2022-01-28 17:03 | CA ---
Transthoracic Echo Report Name: Dong López Age: 46 Gender: M : 1975 Exam Date: 01/28/2022 13:34 Exam Location: [facility] Ht (in): 64 Wt (lb): 180 Ordering Physician: Sandy Dougherty Attending/Referring Phys: Collision Repair Technician Tabitha Hudson RDCS Procedure CPT: Indications: nstemi Cardiac Hx: Cath Technical Quality: Good Contrast 1: Total Dose (mL): Contrast 2: Total Dose (mL): MEASUREMENTS (Male / Female) Normal Values 2D ECHO LV Diastolic Diameter PLAX 4.5 cm 4.2 - 5.9 / 3.9 - 5.3 cm LV Systolic Diameter PLAX 2.1 cm IVS Diastolic Thickness 1.3 cm 0.6 - 1.0 / 0.6 - 0.9 cm LVPW Diastolic Thickness 1.4 cm 0.6 - 1.0 / 0.6 - 0.9 cm LV Relative Wall Thickness 0.6 LA Volume 37.4 cm??? 18 - 58 / 22 - 52 cm??? M-MODE Aortic Root Diameter MM 3.5 cm LA Systolic Diameter MM 3.1 cm LA Ao Ratio MM 0.9 MV E Point Septal Separation 0.6 cm AV Cusp Separation MM 2.1 cm DOPPLER AV Peak Velocity 126.7 cm/s AV Peak Gradient 6.4 mmHg MV Area PHT 3.0 cm??? Mitral E Point Velocity 96.0 cm/s Mitral A Point Velocity 83.4 cm/s Mitral E to A Ratio 1.2 MV Deceleration Time 249.4 ms MV E' Velocity 6.5 cm/s Mitral E to MV E' Ratio 14.8 TR Peak Velocity 106.0 cm/s TR Peak Gradient 4.5 mmHg Right Ventricular Systolic Press 9.0 mmHg FINDINGS Left Ventricle Mildly increased septal wall thickness. Left ventricular ejection fraction is estimated at 50-55%. Grade 1 diastolic dysfunction. Mild Apical Septal hypokinesis Right Ventricle The right ventricle is normal in size and function. Right Atrium The right atrium is normal in size. Left Atrium The left atrium is normal in size. Mitral Valve Structurally normal mitral valve without significant stenosis or prolapse. There is trace mitral regurgitation. Mitral valve thickened. Aortic Valve Structurally normal aortic valve without significant sclerosis or stenosis. There is no aortic regurgitation. Tricuspid Valve Structurally normal tricuspid valve without significant stenosis. Pulmonary artery systolic pressure is normal. Trace tricuspid regurgitation. Pulmonic Valve Structurally normal pulmonic valve without significant stenosis. There is no pulmonic regurgitation. Pericardium Normal pericardium without effusion. Aorta Normal aortic root dimension. CONCLUSIONS Left total hypertrophy Preserved LV systolic function Mild septal hypokinesis extending into the apex Previewed by: Dr. Jhonny Griggs MD (Electronically Signed) Final Date: 28 January 2022 17:02
[2022-01-28 18:05] LABS: Hepatitis A Antibody IgM Nonreactive (Nonreactive); Hepatitis B Core IgM Nonreactive (Nonreactive); Hepatitis C IgG Antibody Reactive (Nonreactive)
[2022-01-28 18:12] LABS: Chol/HDL Ratio 2.81 Ratio; LDL Cholesterol,Calculated 144.3 mg/dL (0.0-131.0)
[2022-01-28] MEDS ORDERED: LORazepam 2 MG/ML INJ IV PRN ×3 (18:44)
[2022-01-28] MEDS: THIAMINE 100 MG TAB PO SCH (19:25)
[2022-01-28] MEDS: ATORVASTATIN 80 MG TAB PO SCH (20:47)
[2022-01-28] MEDS: ACETAMINOPHEN TAB 325 MG TAB PO PRN (20:49)
[2022-01-28] MEDS ORDERED: ATORVASTATIN 80 MG TAB PO SCH (21:00)
--- NOTE | 2022-01-28 21:59 | US ---
EXAMINATION TYPE: Pre-Operative Non-Invasive Evaluation of the hand for Potential Radial Artery Kayleen ramirez, Measurements only DATE OF EXAM: 01/28/2022 1:03 PM CLINICAL HISTORY: measurements only. pre open heart SIDE PERFORMED: left TECHNIQUE: Radial artery is measured utilizing real time linear array sonography. Dominant hand: right Duplex Findings: Radial Artery: Color flow seen Measurements in mm, transverse view: Right Radial: heart cath site Left Radial: Proximal: 3.0 x 3.5 mm Mid: 3.0 x 3.4 mm Distal: 3.1 x 3.3 mm IMPRESSION: 1. Left radial artery measurements as listed above. 2. Performing surgeon to determine viability as conduit.
--- NOTE | 2022-01-28 21:59 | US ---
EXAMINATION TYPE: US vein mapping BIL DATE OF EXAM: 01/28/2022 1:03 PM COMPARISON: NONE CLINICAL HISTORY: preop cardiac surgery. pre bypass SIDE PERFORMED: Bilateral TECHNIQUE: Lower extremity saphenous vein is examined and measured utilizing real time linear array sonography. Patient History: Smoker: y Heart Disease: y Previous DVT: n Vascular Surgery: n Discoloration: n Hypertension: y Diabetes: n Paralysis: n Varicosities: n Edema: n DUPLEX FINDINGS: Greater Saphenous: Color flow seen Measurements in mm: Right Greater Saphenous: Groin: 7.0 x 5.6 mm High Thigh: 2.5 x 2.4 mm Mid Thigh: too small to see Above Knee: too small to see Knee: too small to see Below Knee: too small to see Mid Calf: too small to see At Ankle: 1.5 x 2.1 mm Left Greater Saphenous: Groin: 3.8 x 3.7 mm High Thigh: 1.2 x 1.8 mm Mid Thigh: 2.1 x 3.5 mm Above Knee: 3.5 x 3.5 mm Knee: 3.3 x 3.4 mm Below Knee: 1.5 x 1.5 mm Mid Calf: 1.1 x 1.1 mm At Ankle: 2.3 x 2.4 mm IMPRESSION: 1. Bilateral GSV measurements listed above. 2. Performing surgeon to determine viability as conduit.
[2022-01-29] MEDS: NITROGLYCERIN OINT 1 INCH/GM PACKET TOPICAL SCH ×4 (00:33→17:00)
[2022-01-29 04:16] LABS: INR 0.9 (<1.2); Partial Thromboplastin Time 32.1 sec (22.0-30.0); Prothrombin Time 10.1 sec (9.0-12.0)
[2022-01-29 04:28] LABS: African American GFR (CKD) >90 (>60 ml/min/1.73 sqM); Anion Gap 4 mmol/L; Blood Urea Nitrogen 13 mg/dL (9-20); Calcium 8.6 mg/dL (8.4-10.2); Carbon Dioxide 19 mmol/L (22-30); Chloride 112 mmol/L (98-107); Glucose 100 mg/dL (74-99); Non-African American GFR(CKD) >90 (>60 ml/min/1.73 sqM); Potassium 4.1 mmol/L (3.5-5.1); Sodium 135 mmol/L (137-145)
[2022-01-29 04:34] LABS: Basophils % (A) 1 %; Eosinophils # (A) 0.1 k/uL (0-0.7); Eosinophils % (A) 1 %; HCT 48.8 % (39.0-53.0); HGB 16.5 gm/dL (13.0-17.5); Lymphocytes # (A) 0.8 k/uL (1.0-4.8); Lymphocytes % (A) 11 %; MCH 31.2 pg (25.0-35.0); MCHC 33.8 g/dL (31.0-37.0); MCV 92.4 fL (80.0-100.0); Mean Platelet Volume 8.1; Monocytes # (A) 0.6 k/uL (0-1.0); Monocytes % (A) 8 %; Neutrophils # (A) 5.9 k/uL (1.3-7.7); Neutrophils % (A) 78 %; Platelet Count 260 k/uL (150-450); RBC 5.28 m/uL (4.30-5.90); RDW 13.4 % (11.5-15.5); WBC 7.6 k/uL (3.8-10.6)
[2022-01-29] MEDS: HEPARIN SOD,PORK IN 0.45% NACL 25,000 UNIT in 0.45% NACL 1 250ML.BAG IV SCH ×2 (04:56→11:49)
[2022-01-29] MEDS: HEPARIN SODIUM 1,000 UN/ML (10ML VL) IV PRN (05:37)
[2022-01-29] MEDS: ACETAMINOPHEN TAB 325 MG TAB PO PRN (05:46)
[2022-01-29] MEDS: THIAMINE 100 MG TAB PO SCH ×2 (06:30→17:00)
[2022-01-29] MEDS ORDERED: HEPARIN SODIUM,PORCINE 2,500 UNIT in SODIUM CHLORIDE 0.9% 250 ML IRRIGATION PRN (07:00)
[2022-01-29] MEDS ORDERED: HEPARIN SODIUM,PORCINE 10,000 UNIT in SODIUM CHLORIDE 0.9% 1,000 ML IRRIGATION PRN (07:00)
--- NOTE | 2022-01-29 07:38 | P.PN ---
Subjective Progress Note Date: 01/29/22 Principal diagnosis: Acute coronary event This is a 46-year-old gentleman with significant history of smoking as well as hypertension and dyslipidemia presented to the hospital with a chest discomfort and ruled in for acute coronary event. He underwent heart catheterization and was found to have severe triple-vessel coronary artery disease. Cardiothoracic surgeon evaluated the patient and the plan is to pursue with coronary artery bypass grafting this coming Friday. The patient was seen this morning. Currently he is asymptomatic. He has no more chest pain or chest discomfort. He is hemodynamically stable and the pressure has improved significantly. Currently he is on aspirin as well as high intensity statin as well as beta marie as well as LOPEZ inhibitor. Currently also he is on heparin IV which I would continue for additional 24 hours. He underwent an echo which revealed normal LV function was no significant valvular pathology. Objective - Vital Signs Vital signs: Vital Signs Temp 98.0 F 01/29/22 00:00 Pulse 71 01/29/22 03:00 Resp 37 H 01/29/22 03:00 BP 136/85 01/29/22 03:00 Pulse Ox 96 01/29/22 03:00 FiO2 Intake & Output 01/28/22 01/29/22 01/29/22 18:59 06:59 18:59 Intake Total 1035.258 717.739 Output Total 650 800 Balance 385.258 -82.261 Weight 81.647 kg 77.7 kg Intake: IV 775 600 Sodium Chloride 0.9% 1, 675 600 000 ml @ 75 mls/hr IV . [id number] [facility] Rx#:[id number] Intake, IV Titration 60.258 117.739 Amount Heparin Sod,Pork in 0.45% 60.258 117.739 NaCl 25,000 unit In 0.45 % NaCl 1 250ml.bag @ 12 UNITS/KG/HR 9.798 mls/hr IV .Q24H [facility] Rx#: [id number] Oral 200 Output: Urine 650 800 - Constitutional General appearance: Present: no acute distress - Respiratory Respiratory: bilateral: CTA - Cardiovascular Rhythm: regular Heart sounds: normal: S1, S2 - Labs CBC & Chem 7: 01/29/22 03:56 01/29/22 03:56 Labs: Abnormal Lab Results - Last 24 Hours (Table) 01/28/22 01/28/22 01/28/22 Range/Units 09:54 09:54 09:54 Lymphocytes # 0.7 L (1.0-4.8) k/uL APTT (22.0-30.0) sec Sodium 133 L (137-145) mmol/L Chloride 110 H (98-107) mmol/L Carbon Dioxide 19 L (22-30) mmol/L Creatinine 0.63 L (0.66-1.25) mg/dL Glucose (74-99) mg/dL Troponin I (0.000-0.034) ng/mL Cholesterol 264.00 H (0.00-200.00) mg/dL LDL Cholesterol, Calc 144.3 H (0.0-131.0) mg/dL HDL Cholesterol 94.10 H (40.00-60.00) mg/dL Ur Specific [place] (1.001-1.035) Urine Ketones (Negative) Urine Blood (Negative) Urine RBC (0-5) /hpf Urine Bacteria (None) /hpf Hep C IgG Ab Reactive A (Nonreactive) 01/28/22 01/29/22 01/29/22 Range/Units 13:05 03:56 03:56 Lymphocytes # 0.8 L (1.0-4.8) k/uL APTT (22.0-30.0) sec Sodium 135 L (137-145) mmol/L Chloride 112 H (98-107) mmol/L Carbon Dioxide 19 L (22-30) mmol/L Creatinine 0.62 L (0.66-1.25) mg/dL Glucose 100 H (74-99) mg/dL Troponin I (0.000-0.034) ng/mL Cholesterol (0.00-200.00) mg/dL LDL Cholesterol, Calc (0.0-131.0) mg/dL HDL Cholesterol (40.00-60.00) mg/dL Ur Specific [place] 1.041 H (1.001-1.035) Urine Ketones 2+ H (Negative) Urine Blood Trace H (Negative) Urine RBC 28 H (0-5) /hpf Urine Bacteria Rare H (None) /hpf Hep C IgG Ab (Nonreactive) 01/29/22 01/29/22 Range/Units 03:56 03:56 Lymphocytes # (1.0-4.8) k/uL APTT 32.1 H (22.0-30.0) sec Sodium (137-145) mmol/L Chloride (98-107) mmol/L Carbon Dioxide (22-30) mmol/L Creatinine (0.66-1.25) mg/dL Glucose (74-99) mg/dL Troponin I 0.634 H* (0.000-0.034) ng/mL Cholesterol (0.00-200.00) mg/dL LDL Cholesterol, Calc (0.0-131.0) mg/dL HDL Cholesterol (40.00-60.00) mg/dL Ur Specific [place] (1.001-1.035) Urine Ketones (Negative) Urine Blood (Negative) Urine RBC (0-5) /hpf Urine Bacteria (None) /hpf Hep C IgG Ab (Nonreactive) Microbiology - Last 24 Hours (Table) 01/28/22 22:10 Nasal Screen MRSA/MSSA - Preliminary Nasal Swab Assessment and Plan Assessment: Assessment #1 acute coronary event #2 severe triple-vessel CAD #3 significant history of smoking #4 hypertension #5 dyslipidemia #6 carotid atherosclerosis Plan #1 continue the current medical regimen including aspirin and high intensity statin as well as beta marie and also LOPEZ inhibitor #2 the echo was reviewed with and showed preserved left ventricular systolic function with no significant valvular abnormalities #3 continue IV heparin for additional 24 hours #4 the patient is going to undergo bypass surgery this coming Friday
[2022-01-29] MEDS ORDERED: lisinopriL 10 MG TAB PO SCH (09:00)
[2022-01-29] MEDS ORDERED: METOPROLOL SUCCINATE (ER) 25 MG TAB.ER.24H PO SCH (09:00)
--- NOTE | 2022-01-29 09:36 | P.PN ---
Subjective Progress Note Date: 01/29/22 Principal diagnosis: Coronary artery disease. Pulmonary consult dated 01/28/2022. 46-year-old male admitted to the emergency department, on January 27. The patient apparently came to the emergency room complaining of chest discomfort. The patient described the pain as a pressure, rated 7 out of 10. The patient apparently received nitroglycerin from EMS, and the pain went away. The patient also admitted to some mild shortness of breath, nausea, and diaphoresis. The patient apparently has no prior history of cardiac disease. We were asked to see the patient for preoperative evaluation. Currently, the patient's getting saline at 75 mL an hour, and not receiving any supplemental oxygen. A spirometry was ordered. The patient is a current every day smoker, and apparen tly she was IV drugs in the past. He has no known ALLERGIES. He takes no medications at home on a regular basis. His cardiac catheterization showed severe triple vessel disease, with chronic total occlusion of right coronary artery and circumflex coronary artery, critical disease involving the proximal and mid LAD. The patient's chest x-ray was normal. Laboratory data includes a white count of 9.1, hemoglobin 16.3, hematocrit 48.9, and a platelet count of 267,000. Coagulation studies were normal. Sodium was 133, potassium 3.9, chlorides 110, CO2 19, BUN 17, and creatinine 0.63. Troponins were 0.034, 0.850, and 1.930. Thyroid function was normal. Progress note dated 01/29/2022. 46-year-old male the emergency department on January 27. He came with chest discomfort. The patient was found to have significant coronary disease, and cardiothoracic surgery is planning to do a bypass grafting on him sometime this week. Because he is a current every day smoker, I was asked to see him for preoperative clearance. His FEV1 was 3.79 L. His FVC was 4.96 L. His MVV was 142 L/m. Based on these data, the patient said no increased operative risk. Currently, he's on room air, IV heparin via weightbase protocol, and saline at 75 mL an hour. He did smoke one pack a day for 31-32 years. He was smoking up until the time of his admission. White count 7.6, hemoglobin 16.5, hematocrit 48.8, and platelet count 2 years 60,000. PTT is 32.1. Sodium 135, potassium 4.1, chlorides 112, CO2 19, anion gap 4, BUN 13, and creatinine 0.62. Objective - Vital Signs Vital signs: Vital Signs Temp 98.0 F 01/29/22 00:00 Pulse 71 01/29/22 03:00 Resp 37 H 01/29/22 03:00 BP 136/85 01/29/22 03:00 Pulse Ox 96 01/29/22 03:00 FiO2 Intake & Output 01/28/22 01/29/22 01/29/22 18:59 06:59 18:59 Intake Total 1035.258 717.739 Output Total 650 800 Balance 385.258 -82.261 Weight 81.647 kg 77.7 kg Intake: IV 775 600 Sodium Chloride 0.9% 1, 675 600 000 ml @ 75 mls/hr IV . [id number] [facility] Rx#:[id number] Intake, IV Titration 60.258 117.739 Amount Heparin Sod,Pork in 0.45% 60.258 117.739 NaCl 25,000 unit In 0.45 % NaCl 1 250ml.bag @ 12 UNITS/KG/HR 9.798 mls/hr IV .Q24H [facility] Rx#: [id number] Oral 200 Output: Urine 650 800 - Exam No acute distress, oriented 3. Room air saturation is 96%. HEENT examination is grossly unremarkable. Neck supple. Full range of motion. No adenopathy thyromegaly or neck vein distention. Cardiovascular examination reveals regular rhythm rate. S1-S2 normal. No S3 or S4. No discernible murmur noted. Heart rate 71 bpm. Lungs reveal clear breath sounds. Breath sounds are equal bilaterally. No adventitious lung sounds including wheezes rhonchi or crackles. Abdomen soft bowel sounds are heard. No masses or tenderness. Extremities are intact. No cyanosis clubbing or edema. Skin is without rash or lesion. Neurologic examination is brief but nonfocal. - Labs CBC & Chem 7: 01/29/22 03:56 01/29/22 03:56 Labs: Abnormal Lab Results - Last 24 Hours (Table) 01/28/22 01/28/22 01/28/22 Range/Units 09:54 09:54 09:54 Lymphocytes # 0.7 L (1.0-4.8) k/uL APTT (22.0-30.0) sec Sodium 133 L (137-145) mmol/L Chloride 110 H (98-107) mmol/L Carbon Dioxide 19 L (22-30) mmol/L Creatinine 0.63 L (0.66-1.25) mg/dL Glucose (74-99) mg/dL Troponin I (0.000-0.034) ng/mL Cholesterol 264.00 H (0.00-200.00) mg/dL LDL Cholesterol, Calc 144.3 H (0.0-131.0) mg/dL HDL Cholesterol 94.10 H (40.00-60.00) mg/dL Ur Specific [place] (1.001-1.035) Urine Ketones (Negative) Urine Blood (Negative) Urine RBC (0-5) /hpf Urine Bacteria (None) /hpf Hep C IgG Ab Reactive A (Nonreactive) 01/28/22 01/29/22 01/29/22 Range/Units 13:05 03:56 03:56 Lymphocytes # 0.8 L (1.0-4.8) k/uL APTT (22.0-30.0) sec Sodium 135 L (137-145) mmol/L Chloride 112 H (98-107) mmol/L Carbon Dioxide 19 L (22-30) mmol/L Creatinine 0.62 L (0.66-1.25) mg/dL Glucose 100 H (74-99) mg/dL Troponin I (0.000-0.034) ng/mL Cholesterol (0.00-200.00) mg/dL LDL Cholesterol, Calc (0.0-131.0) mg/dL HDL Cholesterol (40.00-60.00) mg/dL Ur Specific [place] 1.041 H (1.001-1.035) Urine Ketones 2+ H (Negative) Urine Blood Trace H (Negative) Urine RBC 28 H (0-5) /hpf Urine Bacteria Rare H (None) /hpf Hep C IgG Ab (Nonreactive) 01/29/22 01/29/22 Range/Units 03:56 03:56 Lymphocytes # (1.0-4.8) k/uL APTT 32.1 H (22.0-30.0) sec Sodium (137-145) mmol/L Chloride (98-107) mmol/L Carbon Dioxide (22-30) mmol/L Creatinine (0.66-1.25) mg/dL Glucose (74-99) mg/dL Troponin I 0.634 H* (0.000-0.034) ng/mL Cholesterol (0.00-200.00) mg/dL LDL Cholesterol, Calc (0.0-131.0) mg/dL HDL Cholesterol (40.00-60.00) mg/dL Ur Specific [place] (1.001-1.035) Urine Ketones (Negative) Urine Blood (Negative) Urine RBC (0-5) /hpf Urine Bacteria (None) /hpf Hep C IgG Ab (Nonreactive) Microbiology - Last 24 Hours (Table) 01/28/22 22:10 Nasal Screen MRSA/MSSA - Preliminary Nasal Swab Assessment and Plan Assessment: Non-ST segment elevation myocardial infarction. Severe three-vessel coronary disease. History of chronic nicotine dependence. Excellent pulmonary function testing, suggesting the patient at no increased o perative risk for bypass grafting. Family history of CAD. Prior history of heroin use. Plan: Plan dated 01/28/2022. The patient is seen and evaluated. A spirometry has been ordered but have not seen it as yet. The patient does smoke cigarettes on a daily basis. Apparently he has no prior history of any medical issues. He was not taking any medications at home on a regular basis. He has used heroin in the past. We'll await the results of the spirometry. Anticipated bypass grafting this week. Plan dated 01/29/2022. The patient is doing well. The patient's on room air, and IV heparin. Lung function were reviewed, and are excellent. Based on the FEV1, and the MVV, the patient is at no increased operative risk for general anesthesia or bypass grafting. No surgical date has been set as yet. We will continue to follow along and make recommendations. Time with Patient: Less than 30
[2022-01-29] MEDS: ASPIRIN 325 MG TAB PO SCH (10:31)
[2022-01-29] MEDS: amLODIPine 10 MG TAB PO SCH (10:31)
[2022-01-29] MEDS: lisinopriL 10 MG TAB PO SCH (10:31)
[2022-01-29] MEDS ORDERED: MD COMMUNICATION TO PHARMACY 1 EACH MISC PO ONE ×2 (10:31)
[2022-01-29] MEDS: METOPROLOL SUCCINATE (ER) 25 MG TAB.ER.24H PO SCH (10:31)
--- NOTE | 2022-01-29 11:37 | P.PN ---
Subjective Progress Note Date: 01/29/22 Principal diagnosis: Coronary artery disease with non-ST elevated myocardial infarction this admission and hepatitis C IgG Ab reactive. Past medical history significant for hypertension, chronic ongoing tobacco dependence, current marijuana use, EtOH use with greater than 8 drinks per week, seizure approximately 3 years ago, neurofibromatosis, remote history of heroin use with cessation 10 years ago, and family history of premature coronary artery disease with his father having PCI in his 50s and his mother from [place]/CVA at age 5151 years old. The patient was seen and examined today 01/29/2022 at his bedside in the intensive care unit. He denies any further complaints of pain or shortness of breath at this time. Currently he is lying in bed, is awake, alert, oriented 3 and is in no acute distress. Oxygen saturation are 96% on room air and he is achieving 4000 mL on his incentive spirometry. Bedside telemetry showing normal sinus rhythm heart rate 71 BPM. Heparin drip remains infusing per protocol. He remains cemented in a medically stable and is currently on no inotropic pressor support. The patient has been having some continued hypertension with his current blood pressure 179/106 mmHg. He continues on aspirin, high-intensity statin, LOPEZ inhibitor and beta marie. A transthoracic 2-D echocardiogram was completed yesterday which showed mildly increased septal wall thickness, left ventricular ejection fraction estimated at 50-55% with a grade 1 diastolic dysfunction, mild apical septal hypokinesis, trace mitral valve regurgitation, trace tricuspid valve regurgitation, no pericardial effusion and a normal aortic root dimension. As part of his preoperative workup he underwent a carotid duplex study which showed a hemodynamically significant stenosis of the proximal internal carotid artery corresponds to approximately 50-69% diameter reduction by Doppler criteria. A bedside FEV1 was completed with the patient which showed a predictive value of 113% with a base of 3.79 L. Preoperative teaching has been reinforced with the patient as he is tentatively scheduled for off-pump coronary artery bypass grafting surgery for 02/01/2022 to be performed by Dr. Dong Aragon. Preoperative workup is in progress. Objective - Vital Signs Vital signs: Vital Signs Temp 97.9 F 01/29/22 08:00 Pulse 68 01/29/22 09:00 Resp 16 01/29/22 09:00 BP 139/74 01/29/22 09:00 Pulse Ox 96 01/29/22 09:00 FiO2 Intake & Output 01/28/22 01/29/22 01/29/22 18:59 06:59 18:59 Intake Total 1035.258 717.739 Output Total 650 800 Balance 385.258 -82.261 Weight 81.647 kg 77.7 kg Intake: IV 775 600 Sodium Chloride 0.9% 1, 675 600 000 ml @ 75 mls/hr IV . [id number] [facility] Rx#:[id number] Intake, IV Titration 60.258 117.739 Amount Heparin Sod,Pork in 0.45% 60.258 117.739 NaCl 25,000 unit In 0.45 % NaCl 1 250ml.bag @ 12 UNITS/KG/HR 9.798 mls/hr IV .Q24H [facility] Rx#: [id number] Oral 200 Output: Urine 650 800 - Exam CONSTITUTIONAL: Awake and alert, appears comfortable, cooperative, well-develope d, well-nourished, no pain, no acute distress. EYES: Pupils equal, round, reactive to light, normal ocular movement. ENT: Moist mucous membranes; very poor dentition with broken/missing teeth. NECK: No masses, no bruits, trachea midline. RESPIRATORY: Lungs sounds diminished bilaterally. Respirations are symmetrical and nonlabored. Currently on room air with oxygen saturation 96% on room air. Achieving 4000 mL on his incentive spirometry. Strong cough. CARDIOVASCULAR: S1, S2 present. Regular rate and rhythm, sinus rhythm on telemetry. Palpable peripheral pulses bilaterally. No edema present. No calf pain or tenderness noted. No significant lower extremity varicosities noted. GASTROINTESTINAL: Abdomen soft, nontender, nondistended without masses or organomegaly appreciated. There is no rebound or guarding present. Active bowel sounds present 4 quadrants. GENITOURINARY: Continues to void. INTEGUMENTARY: Skin is warm and dry, no clubbing or cyanosis is present. NEUROLOGIC: Cranial nerves II through XII intact, normal coordination, no obvious motor or sensory deficits, speech is normal MUSKULOSKELETAL: Able to move all extremities, strength equal bilaterally, n ormal posture. PSYCHIATRIC: Alert and oriented to person place and time, appropriate affect, intact judgment and insight. - Allied health notes Allied health notes reviewed: nursing - Labs CBC & Chem 7: 01/29/22 03:56 01/29/22 03:56 Labs: Abnormal Lab Results - Last 24 Hours (Table) 01/28/22 01/28/22 01/28/22 Range/Units 09:54 09:54 09:54 Lymphocytes # 0.7 L (1.0-4.8) k/uL APTT (22.0-30.0) sec Sodium 133 L (137-145) mmol/L Chloride 110 H (98-107) mmol/L Carbon Dioxide 19 L (22-30) mmol/L Creatinine 0.63 L (0.66-1.25) mg/dL Glucose (74-99) mg/dL Troponin I (0.000-0.034) ng/mL Cholesterol 264.00 H (0.00-200.00) mg/dL LDL Cholesterol, Calc 144.3 H (0.0-131.0) mg/dL HDL Cholesterol 94.10 H (40.00-60.00) mg/dL Ur Specific [place] (1.001-1.035) Urine Ketones (Negative) Urine Blood (Negative) Urine RBC (0-5) /hpf Urine Bacteria (None) /hpf Hep C IgG Ab Reactive A (Nonreactive) 01/28/22 01/29/22 01/29/22 Range/Units 13:05 03:56 03:56 Lymphocytes # 0.8 L (1.0-4.8) k/uL APTT (22.0-30.0) sec Sodium 135 L (137-145) mmol/L Chloride 112 H (98-107) mmol/L Carbon Dioxide 19 L (22-30) mmol/L Creatinine 0.62 L (0.66-1.25) mg/dL Glucose 100 H (74-99) mg/dL Troponin I (0.000-0.034) ng/mL Cholesterol (0.00-200.00) mg/dL LDL Cholesterol, Calc (0.0-131.0) mg/dL HDL Cholesterol (40.00-60.00) mg/dL Ur Specific [place] 1.041 H (1.001-1.035) Urine Ketones 2+ H (Negative) Urine Blood Trace H (Negative) Urine RBC 28 H (0-5) /hpf Urine Bacteria Rare H (None) /hpf Hep C IgG Ab (Nonreactive) 01/29/22 01/29/22 Range/Units 03:56 03:56 Lymphocytes # (1.0-4.8) k/uL APTT 32.1 H (22.0-30.0) sec Sodium (137-145) mmol/L Chloride (98-107) mmol/L Carbon Dioxide (22-30) mmol/L Creatinine (0.66-1.25) mg/dL Glucose (74-99) mg/dL Troponin I 0.634 H* (0.000-0.034) ng/mL Cholesterol (0.00-200.00) mg/dL LDL Cholesterol, Calc (0.0-131.0) mg/dL HDL Cholesterol (40.00-60.00) mg/dL Ur Specific [place] (1.001-1.035) Urine Ketones (Negative) Urine Blood (Negative) Urine RBC (0-5) /hpf Urine Bacteria (None) /hpf Hep C IgG Ab (Nonreactive) Microbiology - Last 24 Hours (Table) 01/28/22 22:10 Nasal Screen MRSA/MSSA - Preliminary Nasal Swab - Imaging and Cardiology Transthoracic 2-D echocardiogram results reviewed. Carotid duplex study results reviewed. Assessment and Plan Assessment: 1. Triple-vessel coronary artery disease, non-STEMI this admission 2. Hypertension 3. Current tobacco dependence, preoperative FEV1 113% predicted value with a base volume of 3.79 L 4. Current marijuana use 5. Current EtOH use greater than 8 drinks per week 6. Seizure approximately 3 years ago 7. Neurofibromatosis 8. Previous heroin use with cessation 10 years ago 9. Family history of premature coronary artery disease 10. Hepatitis C IgG Ab reactive on his preoperative lab workup Plan: 1. The patient is tentatively scheduled for myocardial revascularization surgery with left internal mammary artery, right internal mammary artery, left radial endoscopic harvest, exclusion of left atrial appendage and intraoperative transesophageal echocardiogram for 02/01/2022 to be performed by Dr. Dong Aragon. 2. Preoperative teaching has been reinforced with the patient. 3. Once all of his preoperative testing has been collected an STS risk score will be calculated and discussed with the patient. 4. A 5 m walk test was completed with the patient, Time 1: 2.35 Seconds, Time 2: 2.55 Seconds, Time 3: 2.78 Seconds. 5. Continue to encourage use of his incentive spirometry 10 times every hour while awake. Bedside FEV1 was completed. 6. Continue to maximize medical therapy with aspirin, statin, LOPEZ inhibitor and beta marie. 7. Heparin drip management per cardiology recommendations. 8. Medical management and other comorbidities per primary care service. 9. Importance of risk modification including smoking cessation, cessation of smoking marijuana and cutting back on his EtOH use has been discussed with the patient. He has been provided with educational materials and resources. 10. More recommendations to follow based on patient's clinical course. Time with Patient: Greater than 30
--- NOTE | 2022-01-29 12:21 | P.PN ---
Subjective Progress Note Date: 01/29/22 Principal diagnosis: chest pain The patient is a 46-year-old male withhypertension who presented to the emergency room with complaints of chest discomfort. On arrival to the emergency department his pulse was 105 and blood pressure was 169/100. He was satting 98% on room air. Chest x-ray the emergency room was unremarkable. EKG showed sinus tachycardia 104 bpm with no acute ST/T-wave changes noted as reviewed by me. Laboratory evaluation was remarkable for troponin 0.034, sodium 132, and WBC count 15.5. He is admitted for chest pain observation. His troponin began to elevate on the morning of 81 was 1.93. He was taken urgently for cardiac catheterization was found to have triple-vessel disease, with total occlusion of the RCA and left circumflex. There is critical disease involving the proximal and mid LAD. Cardiology did recommend cardiothoracic consult which has been obtained. Pulmonary consulted for pre-op PFTs which came back normal Patient seen and examined at bedside. He denies any current chest pain but is feeling very tired and overwhelmed. General: nontoxic, no distress, appears at stated age Derm: warm, dry Head: atraumatic, normocephalic, symmetric Eyes: EOMI, no lid lag, anicteric sclera Mouth: no lip lesion, mucus membranes moist Cardiovascular: S1S2 reg, no murmur, positive posterior tibial pulse bilateral, Lungs: CTA bilateral, no rhonchi, no rales , no accessory muscle use Abdominal: soft, nontender to palpation, no guarding, no appreciable organomegaly Ext: no gross muscle atrophy, no edema, no contractures Neuro: CN II-XI grossly intact, no focal neuro deficits Psych: Alert, oriented, appropriate affect Assessment/plan: NSTEMI with triple-vessel CAD HTN urgency RIght ICA stenosis HLD - ASA, Lipitor, Lisinopril, metoprolol, norvasc - echo with preserved EF, PFT with normal lung function - CT surgery recs: Plan is for CABG on 02/01/22 Nicotine dependency ETOH misuse Marijuana use - encourage cessation Hep C Antibody + - check viral RNA to assess if current or past infection Leukocytosis, resolved 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 Hyponatremia, improved Active Medications Generic Name Dose Route Start Last Admin Trade Name Freq PRN Reason Stop Dose Admin Acetaminophen 650 mg 01/28/22 18:43 01/29/22 05:46 Acetaminophen Tab 325 Mg Tab PO 650 mg Q6HR PRN Administration Fever and/ or Pain Alprazolam 0.25 mg 01/28/22 07:46 Alprazolam 0.25 Mg Tab PO Q6HR PRN Mild Anxiety Alprazolam 0.5 mg 01/28/22 07:46 Alprazolam 0.5 Mg Tab PO Q6HR PRN Moderate Anxiety Amlodipine Besylate 10 mg 01/28/22 09:00 01/29/22 10:31 Amlodipine 10 Mg Tab PO 10 mg DAILY NUBIA Administration Aspirin 325 mg 01/29/22 09:00 01/29/22 10:31 Aspirin 325 Mg Tab PO 325 mg DAILY NUBIA Administration Atorvastatin Calcium 80 mg 01/28/22 21:00 01/28/22 20:47 Atorvastatin 80 Mg Tab PO 80 mg HS NUBIA Administration Heparin Sodium (Porcine) 0 unit 01/29/22 04:58 01/29/22 05:37 Heparin Sodium 1,000 Un/Ml (10ml Vl) IV 3,885 unit PER PROTOCOL PRN Administration Low PTT Protocol Heparin Sodium/Sodium Chloride 250 mls @ 9.798 mls/hr 01/28/22 03:30 01/29/22 11:49 25,000 unit/ Sodium Chloride IV 15 units/kg/hr .Q24H NUBIA 12.247 mls/hr Administration Protocol 12 UNITS/KG/HR Heparin Sodium (Porcine) 10, 1,001 mls @ 999 mls/hr 01/29/22 07:00 000 unit/ Sodium Chloride IRRIGATION 01/29/22 23:00 ONCE PRN INTRA-OP Heparin Sodium (Porcine) 2,500 250.5 mls @ 250 mls/hr 01/29/22 07:00 unit/ Sodium Chloride IRRIGATION 01/29/22 23:00 ONCE PRN INTRA-OP Sodium Chloride 1,000 ml/ IV 1,000 mls @ 81.647 mls/hr 01/28/22 08:00 01/28/22 21:50 Solution IV Not Given .[id number] NUBIA 1 ML/KG/HR Lisinopril 10 mg 01/28/22 12:08 01/29/22 10:31 Lisinopril 10 Mg Tab PO 10 mg DAILY NUBIA Administration Lorazepam 1 mg 01/28/22 18:44 Lorazepam 2 Mg/Ml Inj IV Q2HR PRN CIWA 8 or 9 Lorazepam 1 mg 01/28/22 18:44 Lorazepam 2 Mg/Ml Inj IV Q1HR PRN CIWA 10 to 15 Lorazepam 2 mg 01/28/22 18:44 Lorazepam 2 Mg/Ml Inj IV 01/30/22 18:44 Q10M PRN CIWA 16 or higher Metoprolol Succinate 25 mg 01/28/22 11:58 01/29/22 10:31 Metoprolol Succinate (Er) 25 Mg Tab.Er.24h PO 25 mg DAILY NUBIA Administration Miscellaneous Information 1 each 01/28/22 08:59 Rx Info: Iv Contrast Was Given 1 Each Mis MISCELLANE 01/30/22 08:59 DAILY PRN Per Protocol Mupirocin 1 applic 01/29/22 21:00 Mupirocin 2% Oint 22 Gm Tube NASAL 02/03/22 21:01 BID NUBIA Nitroglycerin 0.4 mg 01/28/22 00:27 Nitroglycerin Sl Tabs 0.4 Mg Tab SUBLINGUAL Q5M PRN Chest Pain Nitroglycerin 1 inch 01/28/22 06:00 01/29/22 05:37 Nitroglycerin Oint 1 Inch/Gm Packet TOPICAL 1 inch Q6HR NUBIA Administration Sodium Chloride 10 ml 01/28/22 09:00 01/29/22 10:31 Sodium Chloride 0.9% Flush 10 Ml Syringe IV 10 ml BID NUBIA Administration Thiamine HCl 100 mg 01/28/22 17:30 01/29/22 06:30 Thiamine 100 Mg Tab PO 100 mg BID-W/MEALS NUBIA Administration Objective - Vital Signs Vital signs: Vital Signs Temp 97.9 F 01/29/22 08:00 Pulse 68 01/29/22 09:00 Resp 16 01/29/22 09:00 BP 139/74 01/29/22 09:00 Pulse Ox 96 01/29/22 09:00 FiO2 Intake & Output 01/28/22 01/29/22 01/29/22 18:59 06:59 18:59 Intake Total 1035.258 717.739 72.003 Output Total 650 800 Balance 385.258 -82.261 72.003 Weight 81.647 kg 77.7 kg Intake: IV 775 600 Sodium Chloride 0.9% 1, 675 600 000 ml @ 75 mls/hr IV . [id number] NUBIA Rx#:[id number] Intake, IV Titration 60.258 117.739 72.003 Amount Heparin Sod,Pork in 0.45% 60.258 117.739 72.003 NaCl 25,000 unit In 0.45 % NaCl 1 250ml.bag @ 12 UNITS/KG/HR 9.798 mls/hr IV .Q24H NUBIA Rx#: [id number] Oral 200 Output: Urine 650 800 - Labs CBC & Chem 7: 01/29/22 03:56 01/29/22 03:56 Labs: Abnormal Lab Results - Last 24 Hours (Table) 01/28/22 01/28/22 01/28/22 Range/Units 09:54 09:54 13:05 Lymphocytes # (1.0-4.8) k/uL APTT (22.0-30.0) sec Sodium (137-145) mmol/L Chloride (98-107) mmol/L Carbon Dioxide (22-30) mmol/L Creatinine (0.66-1.25) mg/dL Glucose (74-99) mg/dL Troponin I (0.000-0.034) ng/mL Cholesterol 264.00 H (0.00-200.00) mg/dL LDL Cholesterol, Calc 144.3 H (0.0-131.0) mg/dL HDL Cholesterol 94.10 H (40.00-60.00) mg/dL Ur Specific Williams 1.041 H (1.001-1.035) Urine Ketones 2+ H (Negative) Urine Blood Trace H (Negative) Urine RBC 28 H (0-5) /hpf Urine Bacteria Rare H (None) /hpf Hep C IgG Ab Reactive A (Nonreactive) 01/29/22 01/29/22 01/29/22 Range/Units 03:56 03:56 03:56 Lymphocytes # 0.8 L (1.0-4.8) k/uL APTT (22.0-30.0) sec Sodium 135 L (137-145) mmol/L Chloride 112 H (98-107) mmol/L Carbon Dioxide 19 L (22-30) mmol/L Creatinine 0.62 L (0.66-1.25) mg/dL Glucose 100 H (74-99) mg/dL Troponin I 0.634 H* (0.000-0.034) ng/mL Cholesterol (0.00-200.00) mg/dL LDL Cholesterol, Calc (0.0-131.0) mg/dL HDL Cholesterol (40.00-60.00) mg/dL Ur Specific Williams (1.001-1.035) Urine Ketones (Negative) Urine Blood (Negative) Urine RBC (0-5) /hpf Urine Bacteria (None) /hpf Hep C IgG Ab (Nonreactive) 01/29/22 01/29/22 Range/Units 03:56 10:47 Lymphocytes # (1.0-4.8) k/uL APTT 32.1 H 53.4 H (22.0-30.0) sec Sodium (137-145) mmol/L Chloride (98-107) mmol/L Carbon Dioxide (22-30) mmol/L Creatinine (0.66-1.25) mg/dL Glucose (74-99) mg/dL Troponin I (0.000-0.034) ng/mL Cholesterol (0.00-200.00) mg/dL LDL Cholesterol, Calc (0.0-131.0) mg/dL HDL Cholesterol (40.00-60.00) mg/dL Ur Specific Williams (1.001-1.035) Urine Ketones (Negative) Urine Blood (Negative) Urine RBC (0-5) /hpf Urine Bacteria (None) /hpf Hep C IgG Ab (Nonreactive) Microbiology - Last 24 Hours (Table) 01/28/22 22:10 Nasal Screen MRSA/MSSA - Preliminary Nasal Swab
[2022-01-29] MEDS: SODIUM CHLORIDE 0.9% 1,000 ML in EMPTY BAG 1 BAG IV SCH (16:19)
[2022-01-29] MEDS: ATORVASTATIN 80 MG TAB PO SCH (20:31)
[2022-01-29] MEDS: MUPIROCIN 2% OINT 22 GM TUBE NASAL SCH (20:32)
[2022-01-29 21:58] LABS: Hepatitis B Surface Antigen Nonreactive (Nonreactive)
[2022-01-30] MEDS: NITROGLYCERIN OINT 1 INCH/GM PACKET TOPICAL SCH ×5 (00:07→23:22)
[2022-01-30] MEDS: ALPRAZolam 0.5 MG TAB PO PRN ×2 (00:19→21:22)
[2022-01-30] MEDS: HEPARIN SODIUM 1,000 UN/ML (10ML VL) IV PRN (06:37)
[2022-01-30] MEDS: THIAMINE 100 MG TAB PO SCH ×2 (06:40→16:12)
--- NOTE | 2022-01-30 07:27 | P.PN ---
Subjective Progress Note Date: 01/30/22 Principal diagnosis: Acute coronary event This is a 46-year-old gentleman with significant history of smoking as well as hypertension and dyslipidemia presented to the hospital with a chest discomfort and ruled in for acute coronary event. He underwent heart catheterization and was found to have severe triple-vessel coronary artery disease. Cardiothoracic surgeon evaluated the patient and the plan is to pursue with coronary artery bypass grafting this coming Friday. The patient was seen this morning. He was sitting in the chair and seems very constable. He denies any chest pain or chest discomfort or shortness of breath. He is euvolemic on examination. The pressure continues to be slightly elevated and seems to be consistent with stage II hypertension. Currently he is on beta marie as well as LOPEZ inhibitor and also he is on amlodipine. I would avoid any aggressive blood pressure lowering at this point. Continue aspirin as well as high intensity statin. An echo was performed and revealed preserved left ventricular systolic function. Carotid duplex study was performed and showed an intermediate disease bilaterally. The ratio was below 4. The plan is to pursue with the surgery this coming Friday. Objective - Vital Signs Vital signs: Vital Signs Temp 98.3 F 01/30/22 00:00 Pulse 65 01/30/22 02:00 Resp 13 01/30/22 02:00 BP 143/79 01/30/22 02:00 Pulse Ox 92 L 01/30/22 02:00 FiO2 Intake & Output 01/29/22 01/30/22 01/30/22 18:59 06:59 18:59 Intake Total 997.003 409.631 Output Total 600 750 Balance 397.003 -340.369 Weight 77.3 kg Intake: IV 675 180 Sodium Chloride 0.9% 1, 675 180 000 ml @ 75 mls/hr IV . [id number] NUBIA Rx#:[id number] Intake, IV Titration 72.003 229.631 Amount Heparin Sod,Pork in 0.45% 72.003 229.631 NaCl 25,000 unit In 0.45 % NaCl 1 250ml.bag @ 12 UNITS/KG/HR 9.798 mls/hr IV .Q24H NUBIA Rx#: [id number] Oral 250 Output: Urine 600 750 Other: Voiding Method Toilet Toilet Urinal Urinal # Voids 1 - Constitutional General appearance: Present: no acute distress - Respiratory Respiratory: bilateral: CTA - Cardiovascular Rhythm: regular Heart sounds: normal: S1, S2 - Labs CBC & Chem 7: 01/29/22 03:56 01/29/22 03:56 Labs: Abnormal Lab Results - Last 24 Hours (Table) 01/29/22 01/30/22 01/30/22 Range/Units 10:47 05:50 05:50 APTT 53.4 H 42.9 H (22.0-30.0) sec Troponin I 0.401 H* (0.000-0.034) ng/mL Assessment and Plan Assessment: Assessment #1 acute coronary event #2 severe triple-vessel CAD #3 significant history of smoking #4 hypertension #5 dyslipidemia #6 carotid atherosclerosis Plan #1 continue the current medical regimen including aspirin and high intensity statin as well as beta marie and also LOPEZ inhibitor #2 the echo was reviewed with and showed preserved left ventricular systolic function with no significant valvular abnormalities #3 DC heparin. The patient has been on heparin for 48 hours. #4 avoid aggressive blood pressure control at this point #5 carotid duplex study was reviewed and showed intermediate disease bilaterally #6 follow-up with the patient
--- NOTE | 2022-01-30 08:26 | P.PN ---
Subjective Progress Note Date: 01/30/22 Patient's only complaint is mild headache today. Otherwise, no chest pain, palpitations. Gen: awake, alert HEENT: normocephalic, atraumatic, good hearing acuity, moist mucous membranes Resp: good air exchange, breathing comfortably with no accessory muscle use CVS: good distal perfusion x 4, GI: soft, NTTP, ND : no SPT, no CVAT, stack catheter not present MSK: no pitting edema, no clubbing Neuro: non-focal, moving all extremities Psych: cooperative, euthymic mood Assessment/plan: NSTEMI with triple-vessel CAD HTN urgency RIght ICA stenosis HLD - ASA, Lipitor, Lisinopril, metoprolol, norvasc - echo with preserved EF, PFT with normal lung function - CT surgery recs: Plan is for CABG on 02/01/22 Nicotine dependency ETOH misuse Marijuana use - encourage cessation Hep C Antibody + - check viral RNA to assess if current or past infection, pending Leukocytosis, resolved 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 Hyponatremia, improved Objective - Vital Signs Vital signs: Vital Signs Temp 98.3 F 01/30/22 00:00 Pulse 65 01/30/22 02:00 Resp 13 01/30/22 02:00 BP 143/79 01/30/22 02:00 Pulse Ox 92 L 01/30/22 02:00 FiO2 Intake & Output 01/29/22 01/30/22 01/30/22 18:59 06:59 18:59 Intake Total 997.003 409.631 Output Total 600 750 Balance 397.003 -340.369 Weight 77.3 kg Intake: IV 675 180 Sodium Chloride 0.9% 1, 675 180 000 ml @ 75 mls/hr IV . [id number] NUBIA Rx#:[id number] Intake, IV Titration 72.003 229.631 Amount Heparin Sod,Pork in 0.45% 72.003 229.631 NaCl 25,000 unit In 0.45 % NaCl 1 250ml.bag @ 12 UNITS/KG/HR 9.798 mls/hr IV .Q24H NUBIA Rx#: [id number] Oral 250 Output: Urine 600 750 Other: Voiding Method Toilet Toilet Urinal Urinal # Voids 1 - Labs CBC & Chem 7: 01/29/22 03:56 01/29/22 03:56 Labs: Abnormal Lab Results - Last 24 Hours (Table) 01/29/22 01/30/22 01/30/22 Range/Units 10:47 05:50 05:50 APTT 53.4 H 42.9 H (22.0-30.0) sec Troponin I 0.401 H* (0.000-0.034) ng/mL
--- NOTE | 2022-01-30 08:34 | P.PN ---
Subjective Progress Note Date: 01/30/22 Principal diagnosis: Coronary artery disease. Pulmonary consult dated 01/28/2022. 46-year-old male admitted to the emergency department, on January 27. The patient apparently came to the emergency room complaining of chest discomfort. The patient described the pain as a pressure, rated 7 out of 10. The patient apparently received nitroglycerin from EMS, and the pain went away. The patient also admitted to some mild shortness of breath, nausea, and diaphoresis. The patient apparently has no prior history of cardiac disease. We were asked to see the patient for preoperative evaluation. Currently, the patient's getting saline at 75 mL an hour, and not receiving any supplemental oxygen. A spirometry was ordered. The patient is a current every day smoker, and apparen tly she was IV drugs in the past. He has no known ALLERGIES. He takes no medications at home on a regular basis. His cardiac catheterization showed severe triple vessel disease, with chronic total occlusion of right coronary artery and circumflex coronary artery, critical disease involving the proximal and mid LAD. The patient's chest x-ray was normal. Laboratory data includes a white count of 9.1, hemoglobin 16.3, hematocrit 48.9, and a platelet count of 267,000. Coagulation studies were normal. Sodium was 133, potassium 3.9, chlorides 110, CO2 19, BUN 17, and creatinine 0.63. Troponins were 0.034, 0.850, and 1.930. Thyroid function was normal. Progress note dated 01/29/2022. 46-year-old male the emergency department on January 27. He came with chest discomfort. The patient was found to have significant coronary disease, and cardiothoracic surgery is planning to do a bypass grafting on him sometime this week. Because he is a current every day smoker, I was asked to see him for preoperative clearance. His FEV1 was 3.79 L. His FVC was 4.96 L. His MVV was 142 L/m. Based on these data, the patient said no increased operative risk. Currently, he's on room air, IV heparin via weightbase protocol, and saline at 75 mL an hour. He did smoke one pack a day for 31-32 years. He was smoking up until the time of his admission. White count 7.6, hemoglobin 16.5, hematocrit 48.8, and platelet count 2 years 60,000. PTT is 32.1. Sodium 135, potassium 4.1, chlorides 112, CO2 19, anion gap 4, BUN 13, and creatinine 0.62. Progress note dated 01/30/2022. 46-year-old male who is going to have open heart surgery on Friday. The patient is currently on room air. He's getting saline at 20 mL an hour. He is on IV heparin. He is resting comfortably in the intensive care unit, without any chest pain or chest discomfort. PTT is 42.9. Troponin 0.401. According to the nurse, the patient had a very uneventful night. Objective - Vital Signs Vital signs: Vital Signs Temp 98.3 F 01/30/22 00:00 Pulse 65 01/30/22 02:00 Resp 13 01/30/22 02:00 BP 143/79 01/30/22 02:00 Pulse Ox 92 L 01/30/22 02:00 FiO2 Intake & Output 01/29/22 01/30/22 01/30/22 18:59 06:59 18:59 Intake Total 997.003 409.631 Output Total 600 750 Balance 397.003 -340.369 Weight 77.3 kg Intake: IV 675 180 Sodium Chloride 0.9% 1, 675 180 000 ml @ 75 mls/hr IV . [id number] NUBIA Rx#:[id number] Intake, IV Titration 72.003 229.631 Amount Heparin Sod,Pork in 0.45% 72.003 229.631 NaCl 25,000 unit In 0.45 % NaCl 1 250ml.bag @ 12 UNITS/KG/HR 9.798 mls/hr IV .Q24H NUBIA Rx#: [id number] Oral 250 Output: Urine 600 750 Other: Voiding Method Toilet Toilet Urinal Urinal # Voids 1 - Exam No acute distress, oriented 3. Room air saturation is 95%. HEENT examination is grossly unremarkable. Neck supple. Full range of motion. No adenopathy thyromegaly or neck vein distention. Cardiovascular examination reveals regular rhythm rate. S1-S2 normal. No S3 or S4. No discernible murmur noted. Heart rate 65 bpm. Lungs reveal clear breath sounds. Breath sounds are equal bilaterally. No adventitious lung sounds including wheezes rhonchi or crackles. Abdomen soft bowel sounds are heard. No masses or tenderness. Extremities are intact. No cyanosis clubbing or edema. Skin is without rash or lesion. Neurologic examination is brief but nonfocal. - Labs CBC & Chem 7: 01/29/22 03:56 01/29/22 03:56 Labs: Abnormal Lab Results - Last 24 Hours (Table) 01/29/22 01/30/22 01/30/22 Range/Units 10:47 05:50 05:50 APTT 53.4 H 42.9 H (22.0-30.0) sec Troponin I 0.401 H* (0.000-0.034) ng/mL Assessment and Plan Assessment: Non-ST segment elevation myocardial infarction. Severe three-vessel coronary disease. History of chronic nicotine dependence. Excellent pulmonary function testing, suggesting the patient at no increased operative risk for bypass grafting. Family history of CAD. Prior history of heroin use. Plan: Plan dated 01/28/2022. The patient is seen and evaluated. A spirometry has been ordered but have not seen it as yet. The patient does smoke cigarettes on a daily basis. Apparently he has no prior history of any medical issues. He was not taking any medications at home on a regular basis. He has used heroin in the past. We'll await the results of the spirometry. Anticipated bypass grafting this week. Plan dated 01/29/2022. The patient is doing well. The patient's on room air, and IV heparin. Lung function were reviewed, and are excellent. Based on the FEV1, and the MVV, the patient is at no increased operative risk for general anesthesia or bypass grafting. No surgical date has been set as yet. We will continue to follow along and make recommendations. Plan dated 01/30/2022. The patient is doing well. He remains on room air. He is receiving saline at 20 mL an hour. He is also receiving IV heparin. The patient will apparently have open heart surgery on Friday. Based on lung function, that I shared with the patient today, the patient is at no increased operative risk. Since he is so very stable, I will see him again until Friday, after surgery. Time with Patient: Less than 30
--- NOTE | 2022-01-30 09:15 | P.PN ---
Subjective Progress Note Date: 01/30/22 Principal diagnosis: Triple-vessel coronary artery disease, non-STEMI this admission. Previous medical history of hypertension, hyperlipidemia, bilateral internal carotid artery stenosis 50-69%, hepatitis C, current tobacco dependence, current marijuana use, current EtOH use, seizure approximately 3 years ago, neurofibromatosis, previous heroin use with cessation 10 years ago and family history of premature coronary artery disease The patient was seen and examined this morning laying in bed in the intensive care unit in no acute distress. Denies any chest pain or shortness of breath in the last 24 hours. States he has been ambulatory in his room and to the bathroom without any difficulty. Preoperative teaching continues, patient anticipate surgery this Friday, no new questions at this time. Remains on room air, in sinus rhythm. Hepatitis C IgG antibody was reactive, hep C virus RNA sent. No other new concerns. Objective - Vital Signs Vital signs: Vital Signs Temp 98.3 F 01/30/22 00:00 Pulse 65 01/30/22 02:00 Resp 13 01/30/22 02:00 BP 143/79 01/30/22 02:00 Pulse Ox 92 L 01/30/22 02:00 FiO2 Intake & Output 01/29/22 01/30/22 01/30/22 18:59 06:59 18:59 Intake Total 997.003 409.631 Output Total 600 750 Balance 397.003 -340.369 Weight 77.3 kg Intake: IV 675 180 Sodium Chloride 0.9% 1, 675 180 000 ml @ 75 mls/hr IV . [id number] NUBIA Rx#:[id number] Intake, IV Titration 72.003 229.631 Amount Heparin Sod,Pork in 0.45% 72.003 229.631 NaCl 25,000 unit In 0.45 % NaCl 1 250ml.bag @ 12 UNITS/KG/HR 9.798 mls/hr IV .Q24H NUBIA Rx#: [id number] Oral 250 Output: Urine 600 750 Other: Voiding Method Toilet Toilet Urinal Urinal # Voids 1 - Exam CONSTITUTIONAL: Appears comfortable, cooperative, no acute distress RESPIRATORY: Lungs sounds diminished bilaterally. Respirations even, nonlabored. Currently on room air with oxygen saturation 92%. Able to achieve 2000 mL on incentive spirometry. Strong cough. CARDIOVASCULAR: S1, S2 present. Regular rate and rhythm, sinus rhythm on telemetry. Palpable peripheral pulses bilaterally. No edema present. No calf pain or tenderness noted. GASTROINTESTINAL: Abdomen soft, nontender, nondistended. Active bowel sounds present 4 quadrants. Tolerating diet. GENITOURINARY: Continues to void INTEGUMENTARY: Skin is warm and dry with evidence of good perfusion NEUROLOGIC: Cranial nerves II through XII intact MUSKULOSKELETAL: Able to move all extremities, strength equal bilaterally, gait normal PSYCHIATRIC: Alert and oriented to person place and time, appropriate affect, intact judgment and insight - Allied health notes Allied health notes reviewed: nursing - Labs CBC & Chem 7: 01/29/22 03:56 01/29/22 03:56 Labs: Abnormal Lab Results - Last 24 Hours (Table) 01/29/22 01/30/22 01/30/22 Range/Units 10:47 05:50 05:50 APTT 53.4 H 42.9 H (22.0-30.0) sec Troponin I 0.401 H* (0.000-0.034) ng/mL Assessment and Plan Assessment: 1. Triple-vessel coronary artery disease, non-STEMI this admission 2. Hypertension 3. Hyperlipidemia, previously untreated, cholesterol 264, LDL 144 4. Bilateral internal carotid artery stenosis 50-69% 5. Hepatitis C, IgG Ab reactive, hep C virus RNA sent to determine current versus past infection 6. Current tobacco dependence, preoperative FEV1 113% of predicted 7. Current marijuana use 8. Current EtOH use greater than 8 drinks per week 9. Seizure approximately 3 years ago 10. Neurofibromatosis 11. Previous heroin use with cessation 10 years ago 12. Family history of premature coronary artery disease Plan: 1. The patient is tentatively scheduled for off-pump myocardial revascularization surgery with left internal mammary artery, right internal mammary artery, left radial endoscopic harvest, exclusion of left atrial appendage and intraoperative transesophageal echocardiogram for 02/01/[address] Aragon. 2. Continue preoperative teaching 3. Continue to encourage use of his incentive spirometry 10 times every hour while awake 4. Continue to maximize medical therapy with aspirin, statin, beta marie 5. Heparin drip management per cardiology 6. Smoking cessation education and counseling provided, patient strongly encouraged to quit smoking including marijuana, decrease 7. Increase activity, ambulate as tolerated EtOH use 8. Medical management of other comorbidities per primary care service 9. More recommendations to follow
[2022-01-30] MEDS: ASPIRIN 325 MG TAB PO SCH (09:27)
[2022-01-30] MEDS: METOPROLOL SUCCINATE (ER) 25 MG TAB.ER.24H PO SCH (09:27)
[2022-01-30] MEDS: amLODIPine 10 MG TAB PO SCH (09:27)
[2022-01-30] MEDS: lisinopriL 10 MG TAB PO SCH (09:27)
[2022-01-30] MEDS: MUPIROCIN 2% OINT 22 GM TUBE NASAL SCH ×2 (09:28→20:14)
[2022-01-30] MEDS: ATORVASTATIN 80 MG TAB PO SCH (20:14)
[2022-01-31] MEDS: ACETAMINOPHEN TAB 325 MG TAB PO PRN (03:30)
[2022-01-31] MEDS ORDERED: CLEVIDIPINE BUTYRATE 25 MG in EMPTY BAG 1 BAG IV ONE (05:00)
[2022-01-31 06:20] LABS: Basophils # (A) 0.1 k/uL (0-0.2); Basophils % (A) 1 %; Eosinophils # (A) 0.1 k/uL (0-0.7); Eosinophils % (A) 2 %; HCT 52.4 % (39.0-53.0); HGB 17.1 gm/dL (13.0-17.5); Lymphocytes # (A) 0.8 k/uL (1.0-4.8); Lymphocytes % (A) 13 %; MCH 30.5 pg (25.0-35.0); MCHC 32.6 g/dL (31.0-37.0); MCV 93.6 fL (80.0-100.0); Mean Platelet Volume 7.7; Monocytes # (A) 0.7 k/uL (0-1.0); Monocytes % (A) 11 %; Neutrophils # (A) 4.5 k/uL (1.3-7.7); Neutrophils % (A) 70 %; Platelet Count 253 k/uL (150-450); RBC 5.59 m/uL (4.30-5.90); RDW 13.1 % (11.5-15.5); WBC 6.4 k/uL (3.8-10.6)
[2022-01-31] MEDS: NITROGLYCERIN OINT 1 INCH/GM PACKET TOPICAL SCH ×4 (06:27→23:36)
[2022-01-31] MEDS: THIAMINE 100 MG TAB PO SCH ×2 (06:30→18:05)
[2022-01-31 06:43] LABS: ALT 25 U/L (4-49); AST 26 U/L (17-59); African American GFR (CKD) >90 (>60 ml/min/1.73 sqM); Albumin 4.4 g/dL (3.5-5.0); Alkaline Phosphatase 45 U/L (38-126); Anion Gap 4 mmol/L; Blood Urea Nitrogen 15 mg/dL (9-20); Calcium 9.2 mg/dL (8.4-10.2); Carbon Dioxide 22 mmol/L (22-30); Chloride 109 mmol/L (98-107); Glucose 93 mg/dL (74-99); Magnesium 1.9 mg/dL (1.6-2.3); Non-African American GFR(CKD) >90 (>60 ml/min/1.73 sqM); Potassium 4.2 mmol/L (3.5-5.1); Sodium 135 mmol/L (137-145); Total Bilirubin 0.9 mg/dL (0.2-1.3); Total Protein 6.9 g/dL (6.3-8.2)
[2022-01-31 06:51] LABS: INR 0.9 (<1.2); Partial Thromboplastin Time 25.1 sec (22.0-30.0); Prothrombin Time 10.1 sec (9.0-12.0)
--- NOTE | 2022-01-31 07:52 | P.PN ---
Subjective Progress Note Date: 01/31/22 Principal diagnosis: Acute coronary event This is a 46-year-old gentleman with significant history of smoking as well as hypertension and dyslipidemia presented to the hospital with a chest discomfort and ruled in for acute coronary event. He underwent heart catheterization and was found to have severe triple-vessel coronary artery disease. Cardiothoracic surgeon evaluated the patient and the plan is to pursue with coronary artery bypass grafting this coming Friday. He was seen this morning. He is asymptomatic from a cardiovascular standpoint overview. He is hemodynamically stable beside being slightly hypertensive and finding consistent with stage II hypertension with a systolic pressure of 1 40 mmHg. Currently he is on maximize medical treatment. I would avoid aggressive blood pressure lowering on this patient before the open-heart surgery. He underwent an echocardiogram which revealed normal LV function with evidence of hypertensive heart disease and no significant valvular abnormalities. He also underwent carotid duplex study which revealed intermediate disease bilaterally. At this point I would continue the current medical regimen and follow-up with the patient. Objective - Vital Signs Vital signs: Vital Signs Temp 98.4 F 01/31/22 02:00 Pulse 59 L 01/31/22 04:00 Resp 15 01/31/22 04:00 BP 152/86 01/31/22 03:00 Pulse Ox 96 01/31/22 04:00 FiO2 Intake & Output 01/30/22 01/31/22 01/31/22 18:59 06:59 18:59 Intake Total 1040.369 Output Total 1250 500 Balance -209.631 -500 Intake: Intake, IV Titration 20.369 Amount Heparin Sod,Pork in 0.45% 20.369 NaCl 25,000 unit In 0.45 % NaCl 1 250ml.bag @ 12 UNITS/KG/HR 9.798 mls/hr IV .Q24H [facility] Rx#: [id number] Oral 1020 Output: Urine 1250 500 Other: Voiding Method Toilet Toilet Urinal Urinal # Bowel Movements 1 - Constitutional General appearance: Present: no acute distress - Respiratory Respiratory: bilateral: CTA - Cardiovascular Rhythm: regular Heart sounds: normal: S1, S2 - Labs CBC & Chem 7: 01/31/22 05:46 01/31/22 05:46 Labs: Abnormal Lab Results - Last 24 Hours (Table) 01/31/22 01/31/22 Range/Units 05:46 05:46 Lymphocytes # 0.8 L (1.0-4.8) k/uL Sodium 135 L (137-145) mmol/L Chloride 109 H (98-107) mmol/L Microbiology - Last 24 Hours (Table) 01/28/22 22:10 Nasal Screen MRSA/MSSA - Final Nasal Swab Assessment and Plan Assessment: Assessment #1 acute coronary event #2 severe triple-vessel CAD #3 significant history of smoking #4 hypertension #5 dyslipidemia #6 carotid atherosclerosis Plan #1 continue the current medical regimen including aspirin and high intensity statin as well as beta marie and also LOPEZ inhibitor #2 the echo was reviewed with and showed preserved left ventricular systolic function with no significant valvular abnormalities #3 avoid aggressive blood pressure lowering #4 follow-up with the patient
--- NOTE | 2022-01-31 08:24 | P.PN ---
Subjective Progress Note Date: 01/31/22 Principal diagnosis: Triple-vessel coronary artery disease, non-STEMI this admission. Previous medical history of hypertension, hyperlipidemia, bilateral internal carotid artery stenosis 50-69%, hepatitis C, current tobacco dependence, current marijuana use, current EtOH use, seizure approximately 3 years ago, neurofibromatosis, previous heroin use with cessation 10 years ago and family history of premature coronary artery disease The patient was seen and examined this morning sitting up in a recliner in the intensive care unit in no acute distress eating breakfast. Denies any chest pain or shortness of breath in the last 24 hours. States he has been ambulatory in his room and to the bathroom without any difficulty. Preoperative teaching continues, patient anticipate surgery tomorrow, no new questions at this time. Remains on room air, in sinus rhythm. STS risk was calculated, patient was felt to be low risk. No other new concerns. Objective - Vital Signs Vital signs: Vital Signs Temp 98.4 F 01/31/22 02:00 Pulse 59 L 01/31/22 04:00 Resp 15 01/31/22 04:00 BP 152/86 01/31/22 03:00 Pulse Ox 96 01/31/22 04:00 FiO2 Intake & Output 01/30/22 01/31/22 01/31/22 18:59 06:59 18:59 Intake Total 1040.369 Output Total 1250 500 Balance -209.631 -500 Intake: Intake, IV Titration 20.369 Amount Heparin Sod,Pork in 0.45% 20.369 NaCl 25,000 unit In 0.45 % NaCl 1 250ml.bag @ 12 UNITS/KG/HR 9.798 mls/hr IV .Q24H [facility] Rx#: [id number] Oral 1020 Output: Urine 1250 500 Other: Voiding Method Toilet Toilet Urinal Urinal # Bowel Movements 1 - Exam CONSTITUTIONAL: Appears comfortable, cooperative, no acute distress RESPIRATORY: Lungs sounds diminished bilaterally. Respirations even, nonlabored. Currently on room air with oxygen saturation 96%. Able to achieve 2750 mL on incentive spirometry. Strong cough. CARDIOVASCULAR: S1, S2 present. Regular rate and rhythm, sinus rhythm on telemetry. Palpable peripheral pulses bilaterally. No edema present. No calf pain or tenderness noted. GASTROINTESTINAL: Abdomen soft, nontender, nondistended. Active bowel sounds present 4 quadrants. Tolerating diet. GENITOURINARY: Continues to void INTEGUMENTARY: Skin is warm and dry with evidence of good perfusion NEUROLOGIC: Cranial nerves II through XII intact MUSKULOSKELETAL: Able to move all extremities, strength equal bilaterally, gait normal PSYCHIATRIC: Alert and oriented to person place and time, appropriate affect, intact judgment and insight - Allied health notes Allied health notes reviewed: nursing - Labs CBC & Chem 7: 01/31/22 05:46 01/31/22 05:46 Labs: Abnormal Lab Results - Last 24 Hours (Table) 01/31/22 01/31/22 Range/Units 05:46 05:46 Lymphocytes # 0.8 L (1.0-4.8) k/uL Sodium 135 L (137-145) mmol/L Chloride 109 H (98-107) mmol/L Microbiology - Last 24 Hours (Table) 01/28/22 22:10 Nasal Screen MRSA/MSSA - Final Nasal Swab Assessment and Plan Assessment: 1. Triple-vessel coronary artery disease, non-STEMI this admission 2. Hypertension 3. Hyperlipidemia, previously untreated, cholesterol 264, LDL 144 4. Bilateral internal carotid artery stenosis 50-69% 5. Hepatitis C, IgG Ab reactive, hep C virus RNA sent to determine current versus past infection 6. Current tobacco dependence, preoperative FEV1 113% of predicted 7. Current marijuana use 8. Current EtOH use greater than 8 drinks per week 9. Seizure approximately 3 years ago 10. Neurofibromatosis 11. Previous heroin use with cessation 10 years ago 12. Family history of premature coronary artery disease Plan: 1. The patient is scheduled for off-pump myocardial revascularization surgery with left internal mammary artery, right internal mammary artery, left radial endoscopic harvest, exclusion of left atrial appendage and intraoperative harvey sesophageal echocardiogram for 02/01/[address] Aragon. NPO after midnight 2. Continue preoperative teaching 3. Continue to encourage use of his incentive spirometry 10 times every hour wh ile awake 4. Continue to maximize medical therapy with aspirin, statin, beta marie 5. Smoking cessation education and counseling provided, patient strongly encouraged to quit smoking including marijuana, decrease 6. Increase activity, ambulate as tolerated EtOH use 7. Medical management of other comorbidities per primary care service 8. More recommendations to follow
[2022-01-31] MEDS: MUPIROCIN 2% OINT 22 GM TUBE NASAL SCH ×2 (09:05→20:45)
[2022-01-31] MEDS: lisinopriL 10 MG TAB PO SCH (09:05)
[2022-01-31] MEDS: METOPROLOL SUCCINATE (ER) 25 MG TAB.ER.24H PO SCH (09:05)
[2022-01-31] MEDS: ASPIRIN 325 MG TAB PO SCH (09:05)
[2022-01-31] MEDS: amLODIPine 10 MG TAB PO SCH (09:05)
--- NOTE | 2022-01-31 09:39 | P.PN ---
Subjective Progress Note Date: 01/31/22 Principal diagnosis: Coronary artery disease. Pulmonary consult dated 01/28/2022. 46-year-old male admitted to the emergency department, on January 27. The patient apparently came to the emergency room complaining of chest discomfort. The patient described the pain as a pressure, rated 7 out of 10. The patient apparently received nitroglycerin from EMS, and the pain went away. The patient also admitted to some mild shortness of breath, nausea, and diaphoresis. The patient apparently has no prior history of cardiac disease. We were asked to see the patient for preoperative evaluation. Currently, the patient's getting saline at 75 mL an hour, and not receiving any supplemental oxygen. A spirometry was ordered. The patient is a current every day smoker, and apparen tly she was IV drugs in the past. He has no known ALLERGIES. He takes no medications at home on a regular basis. His cardiac catheterization showed severe triple vessel disease, with chronic total occlusion of right coronary artery and circumflex coronary artery, critical disease involving the proximal and mid LAD. The patient's chest x-ray was normal. Laboratory data includes a white count of 9.1, hemoglobin 16.3, hematocrit 48.9, and a platelet count of 267,000. Coagulation studies were normal. Sodium was 133, potassium 3.9, chlorides 110, CO2 19, BUN 17, and creatinine 0.63. Troponins were 0.034, 0.850, and 1.930. Thyroid function was normal. Progress note dated 01/29/2022. 46-year-old male the emergency department on January 27. He came with chest discomfort. The patient was found to have significant coronary disease, and cardiothoracic surgery is planning to do a bypass grafting on him sometime this week. Because he is a current every day smoker, I was asked to see him for preoperative clearance. His FEV1 was 3.79 L. His FVC was 4.96 L. His MVV was 142 L/m. Based on these data, the patient said no increased operative risk. Currently, he's on room air, IV heparin via weightbase protocol, and saline at 75 mL an hour. He did smoke one pack a day for 31-32 years. He was smoking up until the time of his admission. White count 7.6, hemoglobin 16.5, hematocrit 48.8, and platelet count 2 years 60,000. PTT is 32.1. Sodium 135, potassium 4.1, chlorides 112, CO2 19, anion gap 4, BUN 13, and creatinine 0.62. Progress note dated 01/30/2022. 46-year-old male who is going to have open heart surgery on Friday. The patient is currently on room air. He's getting saline at 20 mL an hour. He is on IV heparin. He is resting comfortably in the intensive care unit, without any chest pain or chest discomfort. PTT is 42.9. Troponin 0.401. According to the nurse, the patient had a very uneventful night. [place] note dated 01/31/2022. This patient is a 46-year-old male, scheduled for bypass grafting, on February 01. The patient's currently on room air. IV heparin has been turned off. There are no fluids running at this time. Labs include a normal CBC. PTT is normal. INR and PT are normal. Sodium 135, potassium 4.2, chlorides 109, CO2 22, with a no rmal anion gap, BUN, and creatinine. Objective - Vital Signs Vital signs: Vital Signs Temp 97.9 F 01/31/22 08:00 Pulse 66 01/31/22 08:00 Resp 16 01/31/22 08:00 BP 175/87 01/31/22 08:00 Pulse Ox 96 01/31/22 08:26 FiO2 Intake & Output 01/30/22 01/31/22 01/31/22 18:59 06:59 18:59 Intake Total 1040.369 240 Output Total 1250 500 150 Balance -209.631 -500 90 Intake: Intake, IV Titration 20.369 Amount Heparin Sod,Pork in 0.45% 20.369 NaCl 25,000 unit In 0.45 % NaCl 1 250ml.bag @ 12 UNITS/KG/HR 9.798 mls/hr IV .Q24H [facility] Rx#: [id number] Oral 1020 240 Output: Urine 1250 500 150 Other: Voiding Method Toilet Toilet Toilet Urinal Urinal Urinal # Bowel Movements 1 - Exam No acute distress, oriented 3. Room air saturation is 96 %. HEENT examination is grossly unremarkable. Neck supple. Full range of motion. No adenopathy thyromegaly or neck vein distention. Cardiovascular examination reveals regular rhythm rate. S1-S2 normal. No S3 or S4. No discernible murmur noted. Heart rate 71 bpm. Lungs reveal clear breath sounds. Breath sounds are equal bilaterally. No adventitious lung sounds including wheezes rhonchi or crackles. Abdomen soft bowel sounds are heard. No masses or tenderness. Extremities are intact. No cyanosis clubbing or edema. Skin is without rash or lesion. Neurologic examination is brief but nonfocal. - Labs CBC & Chem 7: 01/31/22 05:46 01/31/22 05:46 Labs: Abnormal Lab Results - Last 24 Hours (Table) 01/31/22 01/31/22 Range/Units 05:46 05:46 Lymphocytes # 0.8 L (1.0-4.8) k/uL Sodium 135 L (137-145) mmol/L Chloride 109 H (98-107) mmol/L Microbiology - Last 24 Hours (Table) 01/28/22 22:10 Nasal Screen MRSA/MSSA - Final Nasal Swab Assessment and Plan Assessment: Non-ST segment elevation myocardial infarction. Severe three-vessel coronary disease, with anticipated bypass grafting, 02/02/20 22. History of chronic nicotine dependence. Excellent pulmonary function testing, suggesting the patient at no increased operative risk for bypass grafting. Family history of CAD. Prior history of heroin use. Plan: Plan dated 01/28/2022. The patient is seen and evaluated. A spirometry has been ordered but have not seen it as yet. The patient does smoke cigarettes on a daily basis. Apparently he has no prior history of any medical issues. He was not taking any medications at home on a regular basis. He has used heroin in the past. We'll await the results of the spirometry. Anticipated bypass grafting this week. Plan dated 01/29/2022. The patient is doing well. The patient's on room air, and IV heparin. Lung function were reviewed, and are excellent. Based on the FEV1, and the MVV, the patient is at no increased operative risk for general anesthesia or bypass grafting. No surgical date has been set as yet. We will continue to follow along and make recommendations. Plan dated 01/30/2022. The patient is doing well. He remains on room air. He is receiving saline at 20 mL an hour. He is also receiving IV heparin. The patient will apparently have open heart surgery on Friday. Based on lung function, that I shared with the patient today, the patient is at no increased operative risk. Since he is so very stable, I will see him again until Friday, after surgery. Plan dated 01/31/2022. Labs, x-rays, and medications are reviewed. Lung function are excellent. Based on lung function, the patient's at no increased operative risk for the proce dure, and general anesthetic. We will continue to follow. I explained my role to the patient. He understands the importance of incentive spirometry. No additional recommendations are made. The patient's IV heparin has been discontinued. The patient is not receiving any IV fluids. Time with Patient: Less than 30
--- NOTE | 2022-01-31 11:01 | P.PN ---
Subjective Progress Note Date: 01/31/22 Patient has no complaints today. Hep gtt was turned off. Plan is for surgery tomorrow. Gen: awake, alert HEENT: normocephalic, atraumatic, good hearing acuity, moist mucous membranes Resp: good air exchange, breathing comfortably with no accessory muscle use CVS: good distal perfusion x 4, GI: soft, NTTP, ND : no SPT, no CVAT, stack catheter not present MSK: no pitting edema, no clubbing Neuro: non-focal, moving all extremities Psych: cooperative, euthymic mood Assessment/plan: NSTEMI with triple-vessel CAD HTN urgency RIght ICA stenosis HLD - ASA, Lipitor, Lisinopril, metoprolol, norvasc - echo with preserved EF, PFT with normal lung function - CT surgery recs: Plan is for CABG on 02/01/22 Nicotine dependency ETOH misuse Marijuana use - encourage cessation Hep C Antibody + - check viral RNA to assess if current or past infection, pending Leukocytosis, resolved 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 Hyponatremia, improved Objective - Vital Signs Vital signs: Vital Signs Temp 97.9 F 01/31/22 08:00 Pulse 66 01/31/22 08:00 Resp 16 01/31/22 08:00 BP 175/87 01/31/22 08:00 Pulse Ox 96 01/31/22 08:26 FiO2 Intake & Output 01/30/22 01/31/22 01/31/22 18:59 06:59 18:59 Intake Total 1040.369 240 Output Total 1250 500 400 Balance -209.631 -500 -160 Intake: Intake, IV Titration 20.369 Amount Heparin Sod,Pork in 0.45% 20.369 NaCl 25,000 unit In 0.45 % NaCl 1 250ml.bag @ 12 UNITS/KG/HR 9.798 mls/hr IV .Q24H [facility] Rx#: [id number] Oral 1020 240 Output: Urine 1250 500 400 Other: Voiding Method Toilet Toilet Toilet Urinal Urinal Urinal # Bowel Movements 1 - Labs CBC & Chem 7: 01/31/22 05:46 01/31/22 05:46 Labs: Abnormal Lab Results - Last 24 Hours (Table) 01/31/22 01/31/22 01/31/22 Range/Units 05:46 05:46 05:46 Lymphocytes # 0.8 L (1.0-4.8) k/uL Sodium 135 L (137-145) mmol/L Chloride 109 H (98-107) mmol/L Crossmatch See Detail Microbiology - Last 24 Hours (Table) 01/28/22 22:10 Nasal Screen MRSA/MSSA - Final Nasal Swab
[2022-01-31] MEDS: ALPRAZolam 0.5 MG TAB PO PRN ×2 (12:09→20:37)
[2022-01-31] MEDS: ATORVASTATIN 80 MG TAB PO SCH (20:36)
[2022-02-01] MEDS ORDERED: ALBUMIN HUMAN 25% 50 ML in EMPTY BAG 1 BAG IVPB ONE (05:00)
[2022-02-01] MEDS ORDERED: CHLORHEXIDINE GLUCONATE 15 ML CUP MUCOUS MEM ONE (05:00)
[2022-02-01] MEDS ORDERED: PAPAVERINE 360 MG in SODIUM CHLORIDE 0.9% 90 ML IV ONE ×2 (05:00→09:19)
[2022-02-01] MEDS ORDERED: CLEVIDIPINE BUTYRATE 25 MG in EMPTY BAG 1 BAG IV ONE (05:00)
[2022-02-01] MEDS ORDERED: ceFAZolin 1,000 MG in SODIUM CHLORIDE 0.9% IRRIGATIO 1,000 ML IRRIGATION ONE (05:00)
[2022-02-01] MEDS ORDERED: ASPIRIN 325 MG TAB PO ONE (05:00)
[2022-02-01] MEDS ORDERED: HEPARIN SODIUM 1,000 UN/ML (10ML VL) IV ONE (05:00)
[2022-02-01] MEDS ORDERED: CARDIOPLEGIC SOLN (K+ 16 MEQ/L 1,000 ML with SOD BICARB SYR 8.4% (1 MEQ/ML) 20 ML, LIDO... PERFUSION NR ×3 (05:00)
[2022-02-01] MEDS ORDERED: LACTATED RINGERS 1,000 ML IV ONE (05:00)
[2022-02-01] MEDS ORDERED: TRANEXAMIC ACID 2,000 MG in SODIUM CHLORIDE 0.9% 80 ML IV ONE (05:00)
[2022-02-01] MEDS ORDERED: ALBUMIN HUMAN 5% 500 ML in EMPTY BAG 1 BAG IVPB ONE ×7 (05:00→06:31)
[2022-02-01] MEDS ORDERED: DILTIAZEM 125 MG in SODIUM CHLORIDE 0.9% 100 ML IV ONE (05:00)
[2022-02-01] MEDS ORDERED: INSULIN REGULAR 100 UNIT in SODIUM CHLORIDE 0.9% 100 ML IV ONE (05:00)
[2022-02-01] MEDS ORDERED: NITROGLYCERIN-D5W PMX 25 MG/250 ML BTL IV ONE (05:00)
[2022-02-01] MEDS ORDERED: PROTAMINE SULFATE 10 MG/ML 25 ML VIAL IV ONE ×2 (05:00→07:40)
[2022-02-01] MEDS ORDERED: CALCIUM CHLORIDE 100 MG/ML 10 ML SYRINGE IVP ONE (05:00)
[2022-02-01] MEDS ORDERED: NITROGLYCERIN-D5W PMX 50 MG in DEXTROSE/WATER 1 250ML.BAG IV ONE (05:00)
[2022-02-01] MEDS ORDERED: METOPROLOL TARTRATE 12.5 MG TAB PO ONE (05:00)
[2022-02-01] MEDS ORDERED: MANNITOL 25% 12.5 GM/50 ML VIAL IV ONE ×2 (05:00)
[2022-02-01] MEDS ORDERED: ATORVASTATIN 10 MG TAB PO ONE (05:00)
[2022-02-01] MEDS ORDERED: SODIUM BICARB 8.4% 50 ML SYR (1 MEQ/ML) IV ONE (05:00)
[2022-02-01] MEDS ORDERED: NOREPINEPHRINE 4 MG in SODIUM CHLORIDE 0.9% 250 ML IV ONE (05:00)
[2022-02-01] MEDS ORDERED: MAGNESIUM SULFATE 16.24 MEQ in EMPTY SYRINGE 1 SYR IV ONE (05:00)
[2022-02-01] MEDS ORDERED: PHENYLEPHRINE 40 MG in SODIUM CHLORIDE 0.9% 250 ML IV ONE (05:00)
[2022-02-01] MEDS ORDERED: HEPARIN SODIUM,PORCINE 5,000 UNIT in SODIUM CHLORIDE 0.9% 500 ML 500 ML IV ONE (05:00)
[2022-02-01] MEDS ORDERED: PROTAMINE SULFATE 250 MG in EMPTY BAG 1 BAG IV ONE (05:00)
[2022-02-01] MEDS ORDERED: PHENYLEPHRINE 10 MG/ML VIAL IV ONE (05:22)
[2022-02-01] MEDS: NITROGLYCERIN OINT 1 INCH/GM PACKET TOPICAL SCH (05:42)
[2022-02-01] MEDS ORDERED: POTASSIUM CHLORIDE 20 MEQ in WATER FOR INJECTION 1 100ML.BAG IVPB ONE (07:00)
--- NOTE | 2022-02-01 07:34 | P.PN ---
Subjective Progress Note Date: 02/01/22 Principal diagnosis: Acute coronary event This is a 46-year-old gentleman with significant history of smoking as well as hypertension and dyslipidemia presented to the hospital with a chest discomfort and ruled in for acute coronary event. He underwent heart catheterization and was found to have severe triple-vessel coronary artery disease. Cardiothoracic surgeon evaluated the patient and the plan is to pursue with coronary artery bypass grafting this coming Friday. The patient was seen this morning. He is in process of having open heart surgery later on today. He denies any chest pain or chest discomfort or shortness of breath. He is hemodynamically stable with the pressure being on the higher side. Objective - Vital Signs Vital signs: Vital Signs Temp 98.2 F 02/01/22 04:00 Pulse 69 02/01/22 04:00 Resp 10 L 02/01/22 04:00 BP 162/98 02/01/22 04:00 Pulse Ox 97 02/01/22 04:00 FiO2 Intake & Output 01/31/22 02/01/22 02/01/22 18:59 06:59 18:59 Intake Total 240 Output Total 1300 1300 Balance -1060 -1300 Weight 76.8 kg Intake: Oral 240 Output: Urine 1300 1300 Other: Voiding Method Toilet Toilet Urinal Urinal - Constitutional General appearance: Present: no acute distress - Respiratory Respiratory: bilateral: CTA - Cardiovascular Rhythm: regular Heart sounds: normal: S1, S2 - Labs CBC & Chem 7: 01/31/22 05:46 01/31/22 05:46 Labs: Abnormal Lab Results - Last 24 Hours (Table) 01/31/22 Range/Units 05:46 Crossmatch See Detail Assessment and Plan Assessment: Assessment #1 acute coronary event #2 severe triple-vessel CAD #3 significant history of smoking #4 hypertension #5 dyslipidemia #6 carotid atherosclerosis Plan #1 continue the current medical regimen including aspirin and high intensity statin as well as beta marie and also LOPEZ inhibitor #2 the echo was reviewed with and showed preserved left ventricular systolic function with no significant valvular abnormalities #3 the patient is in process of having open heart surgery later on today
[2022-02-01] MEDS ORDERED: MIDAZOLAM 2 MG/2 ML VIAL ONE (07:40)
[2022-02-01] MEDS ORDERED: ceFAZolin 1,000 MG VIAL ONE (07:40)
[2022-02-01] MEDS ORDERED: HEPARIN SODIUM,PORCINE 10,000 UNIT/ML 1 ML VIAL ONE (07:40)
[2022-02-01] MEDS ORDERED: SODIUM CHLORIDE 0.9% IRRIG 1,000 ML BTL IRRIGATION ONE (07:40)
[2022-02-01] MEDS ORDERED: PROPOFOL 10 MG/ML 20 ML VIAL IV ONE (07:40)
[2022-02-01] MEDS ORDERED: WATER FOR INJECTION, STERILE 10 ML VIAL IV ONE (07:40)
[2022-02-01] MEDS ORDERED: PHENYLEPHRINE-0.9% NACL SYG 1,000 MCG/10 ML SYRINGE ONE (07:40)
[2022-02-01] MEDS ORDERED: POTASSIUM CHLORIDE OPEN HEART 20 MEQ/50 ML BAG IVPB ONE (07:40)
[2022-02-01] MEDS ORDERED: CALCIUM CHLORIDE 100 MG/ML 10 ML SYRINGE ONE (07:40)
[2022-02-01] MEDS ORDERED: fentaNYL (PF) 50 MCG/ML 50 ML VIAL ONE (07:40)
[2022-02-01] MEDS ORDERED: ALBUMIN HUMAN 5% (25gm) 500 ML VIAL IVPB ONE (07:40)
[2022-02-01] MEDS ORDERED: SODIUM BICARB 8.4% 50 ML SYR (1 MEQ/ML) ONE (07:40)
[2022-02-01] MEDS ORDERED: SODIUM CHLORIDE 0.9% 100 ML BAG ONE (07:40)
[2022-02-01] MEDS ORDERED: LIDOCAINE 2% SYG (PF) 100 MG/5 ML ONE (07:40)
[2022-02-01] MEDS ORDERED: VECURONIUM 10 MG VIAL IV ONE (07:40)
[2022-02-01] MEDS ORDERED: FUROSEMIDE 10 MG/ML 2 ML VIAL ONE (07:40)
[2022-02-01 08:30] LABS: ABG Base Excess -2.7 mmol/L; ABG Glucose Whole Blood 96 mg/dL (75-99); ABG HCO3 23 mmol/L (21-25); ABG Hematocrit 50 % (34.0-46.0); ABG Ionized Calcium 4.8 mg/dL (4.5-5.3); ABG Lactic Acid Whole Blood 0.8 mmol/L (0.5-1.6); ABG Oxygen Saturation 99.6 % (94-97); ABG PCO2 40 mmHg (35-45); ABG PH 7.36 (7.35-7.45); ABG PO2 257 mmHg (83-108); ABG Potassium Whole Blood 3.7 mmol/L (3.4-4.5); ABG Sodium Whole Blood 139 mmol/L (135-146); ABG TCO2 24 mmol/L (19-24)
[2022-02-01] MEDS ORDERED: SODIUM CHLORIDE 0.9% 500 ML 500 ML with HEPARIN SODIUM,PORCINE 5,000 UNIT IV ONE ×2 (09:18)
[2022-02-01] MEDS ORDERED: ceFAZolin 1,000 MG in SODIUM CHLORIDE 0.9% 1,000 ML IRRIGATION ONE ×2 (09:19→09:36)
--- NOTE | 2022-02-01 09:22 | P.PN ---
Subjective Progress Note Date: 02/01/22 Principal diagnosis: Coronary artery disease. Pulmonary consult dated 01/28/2022. 46-year-old male admitted to the emergency department, on January 27. The patient apparently came to the emergency room complaining of chest discomfort. The patient described the pain as a pressure, rated 7 out of 10. The patient apparently received nitroglycerin from EMS, and the pain went away. The patient also admitted to some mild shortness of breath, nausea, and diaphoresis. The patient apparently has no prior history of cardiac disease. We were asked to see the patient for preoperative evaluation. Currently, the patient's getting saline at 75 mL an hour, and not receiving any supplemental oxygen. A spirometry was ordered. The patient is a current every day smoker, and apparen tly she was IV drugs in the past. He has no known ALLERGIES. He takes no medications at home on a regular basis. His cardiac catheterization showed severe triple vessel disease, with chronic total occlusion of right coronary artery and circumflex coronary artery, critical disease involving the proximal and mid LAD. The patient's chest x-ray was normal. Laboratory data includes a white count of 9.1, hemoglobin 16.3, hematocrit 48.9, and a platelet count of 267,000. Coagulation studies were normal. Sodium was 133, potassium 3.9, chlorides 110, CO2 19, BUN 17, and creatinine 0.63. Troponins were 0.034, 0.850, and 1.930. Thyroid function was normal. Progress note dated 01/29/2022. 46-year-old male the emergency department on January 27. He came with chest discomfort. The patient was found to have significant coronary disease, and cardiothoracic surgery is planning to do a bypass grafting on him sometime this week. Because he is a current every day smoker, I was asked to see him for preoperative clearance. His FEV1 was 3.79 L. His FVC was 4.96 L. His MVV was 142 L/m. Based on these data, the patient said no increased operative risk. Currently, he's on room air, IV heparin via weightbase protocol, and saline at 75 mL an hour. He did smoke one pack a day for 31-32 years. He was smoking up until the time of his admission. White count 7.6, hemoglobin 16.5, hematocrit 48.8, and platelet count 2 years 60,000. PTT is 32.1. Sodium 135, potassium 4.1, chlorides 112, CO2 19, anion gap 4, BUN 13, and creatinine 0.62. Progress note dated 01/30/2022. 46-year-old male who is going to have open heart surgery on Friday. The patient is currently on room air. He's getting saline at 20 mL an hour. He is on IV heparin. He is resting comfortably in the intensive care unit, without any chest pain or chest discomfort. PTT is 42.9. Troponin 0.401. According to the nurse, the patient had a very uneventful night. Equality note dated 01/31/2022. This patient is a 46-year-old male, scheduled for bypass grafting, on February 01. The patient's currently on room air. IV heparin has been turned off. There are no fluids running at this time. Labs include a normal CBC. PTT is normal. INR and PT are normal. Sodium 135, potassium 4.2, chlorides 109, CO2 22, with a no rmal anion gap, BUN, and creatinine. Progress note dated January 2022. 46-year-old male, scheduled for bypass grafting today. Patient is currently on room air. He is not receiving any IV fluids. Labs, x-rays, and medications are all reviewed. In addition, preoperative spirometry were excellent. Lab data from January 31 shows a white count 6.4, hemoglobin 17.1, hematocrit 52.4, and a platelet count was normal. Sodium 135, potassium 4.2, chlorides 109, CO2 22, with a BUN of 15 and creatinine 0.66. Objective - Vital Signs Vital signs: Vital Signs Temp 98.2 F 02/01/22 04:00 Pulse 69 02/01/22 04:00 Resp 10 L 02/01/22 04:00 BP 162/98 02/01/22 04:00 Pulse Ox 97 02/01/22 04:00 FiO2 Intake & Output 01/31/22 02/01/22 02/01/22 18:59 06:59 18:59 Intake Total 240 Output Total 1300 1300 Balance -1060 -1300 Weight 76.8 kg Intake: Oral 240 Output: Urine 1300 1300 Other: Voiding Method Toilet Toilet Urinal Urinal - Exam No acute distress, oriented 3. Room air saturation is 97 %. HEENT examination is grossly unremarkable. Neck supple. Full range of motion. No adenopathy thyromegaly or neck vein distention. Cardiovascular examination reveals regular rhythm rate. S1-S2 normal. No S3 or S4. No discernible murmur noted. Heart rate 69 bpm. Lungs reveal clear breath sounds. Breath sounds are equal bilaterally. No adventitious lung sounds including wheezes rhonchi or crackles. Abdomen soft bowel sounds are heard. No masses or tenderness. Extremities are intact. No cyanosis clubbing or edema. Skin is without rash or lesion. Neurologic examination is brief but nonfocal. - Labs CBC & Chem 7: 01/31/22 05:46 01/31/22 05:46 Labs: Abnormal Lab Results - Last 24 Hours (Table) 01/31/22 Range/Units 05:46 Crossmatch See Detail Assessment and Plan Assessment: Non-ST segment elevation myocardial infarction. Severe three-vessel coronary disease, with anticipated bypass grafting, 02/01/2022. History of chronic nicotine dependence. Excellent pulmonary function testing, suggesting the patient at no increased operative risk for bypass grafting. Family history of CAD. Prior history of heroin use. Plan: Plan dated 01/28/2022. The patient is seen and evaluated. A spirometry has been ordered but have not seen it as yet. The patient does smoke cigarettes on a daily basis. Apparently he has no prior history of any medical issues. He was not taking any medications at home on a regular basis. He has used heroin in the past. We'll await the results of the spirometry. Anticipated bypass grafting this week. Plan dated 01/29/2022. The patient is doing well. The patient's on room air, and IV heparin. Lung function were reviewed, and are excellent. Based on the FEV1, and the MVV, the patient is at no increased operative risk for general anesthesia or bypass grafting. No surgical date has been set as yet. We will continue to follow along and make recommendations. Plan dated 01/30/2022. The patient is doing well. He remains on room air. He is receiving saline at 20 mL an hour. He is also receiving IV heparin. The patient will apparently have open heart surgery on Friday. Based on lung function, that I shared with the patient today, the patient is at no increased operative risk. Since he is so very stable, I will see him again until Friday, after surgery. Plan dated 01/31/2022. Labs, x-rays, and medications are reviewed. Lung function are excellent. Based on lung function, the patient's at no increased operative risk for the procedure, and general anesthetic. We will continue to follow. I explained my role to the patient. He understands the importance of incentive spirometry. No additional recommendations are made. The patient's IV heparin has been di scontinued. The patient is not receiving any IV fluids. Plan dated 02/01/2022. Labs, x-rays, and medications reviewed. Also, preoperative spirometry were reviewed, and are excellent. That was passed along to the patient. I explained my role in this case, to the patient, and explained to him that we would attempt to get the patient extubated as soon as possible, and also follow him throughout his hospitalization, to make sure that his long stay healthy. This would include deep breathing, coughing, clearing of secretions, breathing treatments, and hourly use of incentive spirometer. Time with Patient: Less than 30
--- NOTE | 2022-02-01 10:29 | P.PN ---
Progress Note - Text Progress Note Date: 02/01/22 Pt not seen today, as he was in the OR during my rounds.
[2022-02-01 11:00] LABS: ABG Base Excess -4.7 mmol/L; ABG Glucose Whole Blood 106 mg/dL (75-99); ABG HCO3 23 mmol/L (21-25); ABG Hematocrit 43 % (34.0-46.0); ABG Ionized Calcium 4.5 mg/dL (4.5-5.3); ABG Lactic Acid Whole Blood <0.4 mmol/L (0.5-1.6); ABG Oxygen Saturation 99.1 % (94-97); ABG PCO2 49 mmHg (35-45); ABG PH 7.27 (7.35-7.45); ABG PO2 201 mmHg (83-108); ABG Potassium Whole Blood 4.4 mmol/L (3.4-4.5); ABG Sodium Whole Blood 139 mmol/L (135-146); ABG TCO2 24 mmol/L (19-24)
[2022-02-01 11:28] LABS: ABG Base Excess -3.3 mmol/L; ABG Glucose Whole Blood 116 mg/dL (75-99); ABG HCO3 24 mmol/L (21-25); ABG Hematocrit 40 % (34.0-46.0); ABG Ionized Calcium 4.4 mg/dL (4.5-5.3); ABG Lactic Acid Whole Blood 0.6 mmol/L (0.5-1.6); ABG Oxygen Saturation 99.1 % (94-97); ABG PCO2 48 mmHg (35-45); ABG PO2 184 mmHg (83-108); ABG Potassium Whole Blood 4.3 mmol/L (3.4-4.5); ABG Sodium Whole Blood 140 mmol/L (135-146); ABG TCO2 25 mmol/L (19-24)
[2022-02-01 12:07] LABS: ABG Base Excess -2.8 mmol/L; ABG Glucose Whole Blood 122 mg/dL (75-99); ABG HCO3 24 mmol/L (21-25); ABG Hematocrit 40 % (34.0-46.0); ABG Ionized Calcium 4.4 mg/dL (4.5-5.3); ABG Lactic Acid Whole Blood 0.6 mmol/L (0.5-1.6); ABG Oxygen Saturation 98.7 % (94-97); ABG PCO2 46 mmHg (35-45); ABG PH 7.32 (7.35-7.45); ABG PO2 146 mmHg (83-108); ABG Potassium Whole Blood 4.1 mmol/L (3.4-4.5); ABG Sodium Whole Blood 141 mmol/L (135-146); ABG TCO2 25 mmol/L (19-24)
--- NOTE | 2022-02-01 12:20 | P.ANPRN ---
Procedure Note - Anesthesia - Invasive Line Right Central Line Time Out Performed: Yes (0732) Date of Procedure: 02/01/22 Time of Procedure: 07:33 Location of Patient: PreOp Preparation: Sterile Prep, Sterile Dressing Arterial Line Location: Radial Ultrasound Used: Yes Purpose - Visualization and Identification of Vasculature: Yes Needle Guage: [id number] Image Stored and Saved: Yes Narrative: Central line placement per sterile protocol utilized. +local +us +angio + cvp +jwire + uneventful dilation and introduction right IJ cordis. Lumen bled and flushed. Non pulsitle
--- NOTE | 2022-02-01 12:22 | P.ANPRN ---
Procedure Note - Anesthesia - Invasive Line Right [place] Daija Time Out Performed: Yes (0733) Date of Procedure: 02/01/22 Time of Procedure: 07:45 Location of Patient: PreOp Preparation: Sterile Prep, Sterile Dressing Arterial Line Location: Radial Ultrasound Used: No Purpose - Visualization and Identification of Vasculature: No Image Stored and Saved: No Narrative: Central line placement per sterile protocol utilized. swan floated in sheath in one attempt to wedge at 53cm. b/d. w/d 5cm. Left at 47cm. patient tolerated procedure well.
[2022-02-01 12:45] LABS: ABG Glucose Whole Blood 125 mg/dL (75-99); ABG HCO3 23 mmol/L (21-25); ABG Hematocrit 36 % (34.0-46.0); ABG Ionized Calcium 4.9 mg/dL (4.5-5.3); ABG Lactic Acid Whole Blood 0.4 mmol/L (0.5-1.6); ABG Oxygen Saturation 98.8 % (94-97); ABG PCO2 45 mmHg (35-45); ABG PH 7.32 (7.35-7.45); ABG PO2 129 mmHg (83-108); ABG Potassium Whole Blood 3.8 mmol/L (3.4-4.5); ABG Sodium Whole Blood 141 mmol/L (135-146); ABG TCO2 25 mmol/L (19-24)
--- NOTE | 2022-02-01 13:13 | P.OP ---
Date of Procedure: 02/01/22 Preoperative Diagnosis: [place] artery disease, non-ST elevation myocardial infarction Postoperative Diagnosis: Same Procedure(s) Performed: Off-pump CABG 3 with NICHOLS to LAD, TOMMY to RCA, left radial artery graft to intermediate coronary artery with Endo radial harvest and ligation of the left atrial appendage with a 40 mm AtriCure clip Implants: 40 mm AtriCure clip Anesthesia: GETA Surgeon: Dong Aragon Marriage And Family Counselor #1: Олег Magallanes Marriage And Family Counselor #2: Viet Warren Estimated Blood Loss (ml): 500 IV fluids (ml): 3,000 Urine output (ml): 75 Pathology: none sent Condition: stable Disposition: ICU Indications for Procedure: 46-year-old male known history of hypertension noncompliant with medical therapy long history of drug and substance abuse presents with unstable anginal symptomatology. Troponins were markedly elevated. Catheterization demonstrated left main and triple-vessel coronary artery disease. Patient was recommended to undergo bypass surgery. He was given several days to allow his troponins to normalize and brought to the operating room. Operative Findings: Preoperative testing had demonstrated poor saphenous vein. 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 Left radial and bilateral internal mammary arteries were good conduits. Left ventricular function was essentially normal as was valvular function by ALEKSEY. Coronary arteries were diffusely diseased and calcific. Good spots were identified for coronary anastomosis. Description of Procedure: Patient was brought to the operating room, placed supine on the operating table, anesthetized and intubated. Monitoring lines been started in preop holding. Aldrich catheter was placed. The anterior torso and bilateral lower extremities and left upper extremity were sterilely prepped and draped. Preoperative testing demonstrated good collateral flow to the hand with intact palmar arch by modified Ludin's testing with pulse oximetry. Following appropriate timeout the left radial artery was harvested with minimally invasive endovascular technique. Was an excellent conduit. Was prepared on the back table. The wound was closed with Vicryl suture and the arm tucked at the side. Simultaneously midline sternotomy was performed. The left hemisternum was retracted upwards. The left pleural space was entered and partial lysis of the pleural adhesions was performed in order to allow for VIVI takedown, mobilization of the heart, drainage of the pleural space. The left internal mammary artery was harvested on a vascularized pedicle left intact on its origin from the subclavian. Was an excellent conduit. Left pleural space was drained with a 32-Burmese chest tube. Following completion of the radial harvested tucking of the left arm, Rultract retractor was moved from the left to the right side and the right internal mammary artery was harvested on a vascularized pedicle, left intact on its origin from the subclavian and divided distally. Adhesions within the pleural space were taken down and were not as extensive as on the left side. The right internal mammary was an excellent conduit. Right pleural space was drained with a 32-Burmese chest tube. Standard sternal retractor was placed. Midline pericardiotomy was performed. The heart was exposed with pericardial sutures. Patient was systemically heparinized and a CTs were maintained greater than 250 during grafting. We began with the placement of a 40 mm AtriCure clip at the base of the left atrial appendage. This proceeded without event. Next the LAD was explored it was a heavily calcified vessel there was a soft area in the midportion and the vessel was stabilized and opened here. Blood flow was controlled with a 1.5 mm flow through was a 1.75 mm vessel. End-to-side anastomosis between the NICHOLS and the LAD was performed with running 8-0 Prolene suture. On completion anastomosis the flow through was removed effectively probing the proximal and distal portion of the anastomosis. Suture was tied with good result and hemostasis. VIVI pedicle was tacked surrounding epicardium with 6-0 silk sutures. Next the right coronary artery was explored. It was also a diffusely diseased and somewhat calcified vessel. It was grafted on the inferior wall beyond the acute margin of the heart but prior to its bifurcation. Here a soft area was identified and opened and blood flow control with a 1.5 mm flow through. Distal branches of the right coronary artery on the inferior wall the heart were quite small. The internal mammary artery was anastomosed to the right coronary artery in end-to-side fashion with running 8-0 Prolene suture. On completion of the anastomosis the flow through was removed effectively probing the proximal distal portion of the anastomosis. Suture was tied with good result and hemostasis and the inflow was open. The VIVI pedicle was tacked surrounding epicardium with 6-0 silk sutures. Heart was lowered into anatomic position and the TOMMY graft was noted to be of adequate length without tension. Next the lateral wall of the heart was exposed. The lateral circumflex branch was a very small vessel not appropriate for bypass surgery. There was a large intermediate branch which ran intramyocardially and subserve the lateral wall. This was diffusely diseased. We dissected it out from its intramyocardial position and identified a soft portion of the vessel about half way along its length. Here we opened it and blood flow was controlled with a 2 mm flow through was a 2.25 mm vessel. The radial artery was anastomosed in end-to-side fashion with running 7-0 Prolene suture. On completion of the anastomosis the flow through was removed effectively probing the proximal distal portion anastomosis. Good backbleeding was noted into the radial artery graft controlled with a bulldog clamp. The heart was lowered into anatomic position the radial cut to appropriately to reach the ascending aorta. The heartstring device was placed in the mid ascending aorta. Proximal anastomosis was constructed with running 5-0 Prolene suture. On completion anastomosis the heartstring device was removed and the inflow open. Good hemostasis was obtained throughout. Heparin was reversed with protamine. Chest was irrigated gated with antibiotic solution. The mediastinum was drained with a 36-Burmese chest tube. Sternum was closed with 8 sternal wires. Fascia was closed with 0 Ethibond. Subcutaneous and subcuticular layers were closed with layers of Vicryl suture. Dry sterile dressings were applied the patient was transferred to the ICU in stable condition.
[2022-02-01] MEDS ORDERED: NITROGLYCERIN-D5W PMX 50 MG in DEXTROSE/WATER 1 250ML.BAG IV SCH (13:28)
[2022-02-01] MEDS ORDERED: Potassium Replacement Protocol 1 EACH MISC MISCELLANE PRN (13:28)
[2022-02-01] MEDS ORDERED: BENZOCAINE/MENTHOL LOZENG 1 EACH LOZENGE MUCOUS MEM PRN (13:28)
[2022-02-01] MEDS ORDERED: DEXMEDETOMIDINE/0.9% NACL(PMX) 400 MCG in EMPTY BAG 1 BAG IV SCH (13:28)
[2022-02-01] MEDS ORDERED: Magnesium Replacement Protocol 1 EACH MISC MISCELLANE PRN (13:28)
[2022-02-01] MEDS ORDERED: DEXTROSE 50% SYRINGE 50 ML IVP PRN ×2 (13:28)
[2022-02-01] MEDS ORDERED: hydrALAZINE HCL 20 MG/ML 1 ML VIAL IVP PRN (13:28)
[2022-02-01] MEDS ORDERED: IPRATROPIUM-ALBUTEROL 3 ML NEB INHALATION PRN (13:28)
[2022-02-01] MEDS ORDERED: AMIODARONE 360 MG in DEXTROSE 5% IN WATER 200 ML IV ONE ×2 (13:28)
[2022-02-01] MEDS ORDERED: DEXTROSE 5% IN WATER 100 ML with AMIODARONE 150 MG IV PRN (13:28)
[2022-02-01] MEDS ORDERED: CALCIUM GLUCONATE IN NACL 2 GM in SALINE 1 100ML.BAG IVPB PRN (13:28)
[2022-02-01] MEDS ORDERED: INSULIN REGULAR 100 UNIT in SODIUM CHLORIDE 0.9% 100 ML IV SCH (13:28)
[2022-02-01] MEDS ORDERED: ONDANSETRON 4 MG/2 ML VIAL IVP PRN (13:28)
[2022-02-01] MEDS ORDERED: METOCLOPRAMIDE 5 MG/ML 2 ML VIAL IVP PRN (13:28)
[2022-02-01] MEDS: THIAMINE 100 MG TAB PO SCH ×2 (13:35→18:11)
[2022-02-01] MEDS: LACTATED RINGERS 1,000 ML IV SCH (13:40)
[2022-02-01] MEDS: CLEVIDIPINE BUTYRATE 25 MG in EMPTY BAG 1 BAG IV SCH ×2 (13:50→16:03)
[2022-02-01] MEDS: hydrALAZINE HCL 20 MG/ML 1 ML VIAL IVP PRN (13:59)
[2022-02-01] MEDS ORDERED: fentaNYL (PF) 50 MCG/ML 2 ML AMP IVP PRN (13:59)
[2022-02-01 14:06] LABS: Glucose,Whole Blood 149 mg/dL (70-110)
[2022-02-01] MEDS ORDERED: METOPROLOL TARTRATE 5 MG/5 ML VIAL IVP ONE (14:21)
[2022-02-01] MEDS ORDERED: BENZOCAINE SPRAY 1 CAN TOPICAL STA (14:21)
[2022-02-01 14:24] LABS: ABG HCO3 23 mmol/L (21-25); ABG Oxygen Saturation 98.1 % (94-97); ABG PCO2 48 mmHg (35-45); ABG PO2 101 mmHg (83-108); ABG TCO2 25 mmol/L (19-24)
[2022-02-01 14:25] LABS: Allen Test Performed? no
[2022-02-01] MEDS: METOPROLOL TARTRATE 5 MG/5 ML VIAL IVP SCH ×3 (14:25→18:11)
[2022-02-01 14:28] LABS: Basophils # (A) 0.1 k/uL (0-0.2); Basophils % (A) 0 %; Eosinophils # (A) 0.2 k/uL (0-0.7); Eosinophils % (A) 1 %; HCT 41.6 % (39.0-53.0); Lymphocytes # (A) 1.1 k/uL (1.0-4.8); Lymphocytes % (A) 7 %; MCH 31.4 pg (25.0-35.0); MCHC 33.4 g/dL (31.0-37.0); MCV 93.9 fL (80.0-100.0); Mean Platelet Volume 7.6; Monocytes # (A) 1.1 k/uL (0-1.0); Monocytes % (A) 7 %; Neutrophils % (A) 84 %; Platelet Count 228 k/uL (150-450); RBC 4.43 m/uL (4.30-5.90); RDW 13.2 % (11.5-15.5); WBC 16.7 k/uL (3.8-10.6)
[2022-02-01 14:29] LABS: Ionized Calcium 4.7 mg/dL (4.5-5.3)
[2022-02-01 14:30] LABS: HGB 13.9 gm/dL (13.0-17.5)
--- NOTE | 2022-02-01 14:30 | XR ---
EXAMINATION TYPE: XR chest 1V portable DATE OF EXAM: 02/01/2022 2:21 PM COMPARISON: Multiple radiographs, with the most recent on 01/27/2022 TECHNIQUE: XR chest 1V portable Portable AP radiograph of the chest. CLINICAL INDICATION:Male, 46 years old with history of Post Operative Cardiac Surgery; FINDINGS: Lungs/Pleura: There is no evidence of pleural effusion, focal consolidation, or pneumothorax. Pulmonary vascularity: Unremarkable. Heart/mediastinum: Cardiomediastinal silhouette is enlarged and stable. Left atrial appendage occlusi on device is present. Musculoskeletal: No acute osseous pathology. Lines/Tubes: Endotracheal tube with distal tip 5.6 cm above the lobo Nasogastric tube with its distal tip and side-port projecting under the diaphragm. Drainage tubes with tips projecting over the mediastinum. There is a [place]-Daija catheter with tip projecting over the spine. Bilateral thoracotomy tubes are present without evidence of pneumothorax. IMPRESSION: Postsurgical changes without evidence of pneumothorax.
[2022-02-01 14:32] LABS: Partial Thromboplastin Time 29.2 sec (22.0-30.0); Prothrombin Time 11.2 sec (9.0-12.0)
[2022-02-01 14:37] LABS: ALT 28 U/L (4-49); AST 36 U/L (17-59); African American GFR (CKD) >90 (>60 ml/min/1.73 sqM); Albumin 4.2 g/dL (3.5-5.0); Alkaline Phosphatase 29 U/L (38-126); Anion Gap 8 mmol/L; Blood Urea Nitrogen 18 mg/dL (9-20); Carbon Dioxide 23 mmol/L (22-30); Chloride 110 mmol/L (98-107); Glucose 141 mg/dL (74-99); Magnesium 1.4 mg/dL (1.6-2.3); Non-African American GFR(CKD) >90 (>60 ml/min/1.73 sqM); Potassium 4.2 mmol/L (3.5-5.1); Sodium 141 mmol/L (137-145); Total Bilirubin 1.2 mg/dL (0.2-1.3); Total Protein 5.8 g/dL (6.3-8.2)
[2022-02-01] MEDS: MAGNESIUM SULFATE-D5W PMX 1 GM in DEXTROSE/WATER 1 100ML.BAG IVPB SCH ×4 (15:04→18:40)
[2022-02-01 15:18] LABS: Glucose,Whole Blood 158 mg/dL (70-110)
[2022-02-01] MEDS ORDERED: IPRATROPIUM-ALBUTEROL 3 ML NEB INHALATION SCH (16:00)
[2022-02-01 16:19] LABS: Glucose,Whole Blood 164 mg/dL (70-110)
[2022-02-01] MEDS ORDERED: ALBUMIN HUMAN 5% 250 ML IVPB ONE (16:22)
[2022-02-01] MEDS ORDERED: ALBUMIN HUMAN 5% 250 ML in EMPTY BAG 1 BAG IVPB ONE ×3 (16:45→18:16)
--- NOTE | 2022-02-01 16:45 | P.PN ---
Subjective Progress Note Date: 02/01/22 Pt was seen s/p CABG, which went well. Has 2 pleural chest tubes, 1 mediastinal tube, stack, swan noble. Pt is doing well, but nursing tells me they are having some sedation issues which are improving. Gen: intubated, sedated HEENT: normocephalic, atraumatic, good hearing acuity, moist mucous membranes Resp: ventilator AC 500, FiO2 50%, CVS: good distal perfusion x 4, GI: soft, NTTP, ND : no SPT, no CVAT, stack catheter not present MSK: no pitting edema, no clubbing Neuro: non-focal, moving all extremities Assessment/plan: NSTEMI with triple-vessel CAD HTN urgency RIght ICA stenosis HLD - ASA, Lipitor, Lisinopril, metoprolol, norvasc - echo with preserved EF, PFT with normal lung function - CT surgery recs: Plan is for CABG on 02/01/22 - insulin gtt for tight BS control Nicotine dependency ETOH misuse Marijuana use - encourage cessation Hep C Antibody + - check viral RNA to assess if current or past infection, pending Leukocytosis, resolved 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 Hyponatremia, improved Objective - Vital Signs Vital signs: Vital Signs Temp 99.0 F 02/01/22 16:00 Pulse 66 02/01/22 16:20 Resp 22 02/01/22 16:00 BP 86/43 02/01/22 16:00 Pulse Ox 100 02/01/22 16:00 FiO2 80 02/01/22 16:21 Intake & Output 01/31/22 02/01/22 02/01/22 18:59 06:59 18:59 Intake Total 240 569.976 Output Total 1300 1300 2910 Balance -1060 -1300 -2340.024 Weight 76.8 kg Intake: IV 5 Intake, IV Titration 564.976 Amount Amiodarone 360 mg In 66.6 Dextrose 5% in Water 200 ml @ 1 MG/MIN 33.333 mls/ hr IV .Q6H [facility] Rx#: [id number] Clevidipine Butyrate 25 54.034 mg In Empty Bag 1 bag @ 1 MG/HR 2 mls/hr IV .Q24H [facility] Rx#:[id number] Dexmedetomidine/0.9% NaCl 22.144 (Pmx) 400 mcg In Empty Bag 1 bag @ Titrate IV . Q0M [facility] Rx#:[id number] Insulin Regular 100 unit 2.636 In Sodium Chloride 0.9% 100 ml @ Per Protocol IV .Q0M [facility] Rx#:[id number] Lactated Ringers 1,000 ml 100 @ 50 mls/hr IV .Q20H [facility] Rx#:[id number] Magnesium Sulfate-D5w Pmx 200 1 gm In Dextrose/Water 1 100ml.bag @ 100 mls/hr IVPB Q1H [facility] Rx#: [id number] Nitroglycerin-D5w Pmx 50 3.0 mg In Dextrose/Water 1 250ml.bag @ 5 MCG/MIN 1.5 mls/hr IV .Q24H [facility] Rx#: [id number] ceFAZolin 2 gm In Sodium 50 Chloride 0.9% 50 ml @ 100 mls/hr IVPB Q8HR [facility] Rx# :[id number] propofoL 1,000 mg In 66.562 Empty Bag 1 bag @ Titrate IV .Q0M [facility] Rx#: [id number] Oral 240 Output: Chest Tube Drainage 505 RT and LT Pleural 105 medistinal 400 Drainage 20 Left Arm 20 Urine 1300 1300 785 Estimated Blood Loss 1600 Other: Voiding Method Toilet Toilet Urinal Urinal ABP, PAP, CO, CI - Last Documented Arterial Blood Pressure 107/42 Pulmonary Artery Pressure 25/14 Cardiac Output 6.9 Cardiac Index 3.8 - Labs CBC & Chem 7: 02/01/22 14:02 02/01/22 14:02 Labs: Abnormal Lab Results - Last 24 Hours (Table) 01/31/22 02/01/22 02/01/22 Range/Units 05:46 08:32 11:02 WBC (3.8-10.6) k/uL Neutrophils # (1.3-7.7) k/uL Monocytes # (0-1.0) k/uL ABG pH 7.27 L (7.35-7.45) ABG pCO2 49 H (35-45) mmHg ABG pO2 257 H 201 H (83-108) mmHg ABG Total CO2 (19-24) mmol/L ABG O2 Saturation 99.6 H 99.1 H (94-97) % ABG Hematocrit 50 H (34.0-46.0) % ABG Ionized Calcium (4.5-5.3) mg/dL ABG Glucose 106 H (75-99) mg/dL ABG Lactic Acid <0.4 L (0.5-1.6) mmol/L Hemoglobin (13.0-17.5) gm/dL Chloride (98-107) mmol/L Glucose (74-99) mg/dL POC Glucose (mg/dL) (70-110) mg/dL Calcium (8.4-10.2) mg/dL Magnesium (1.6-2.3) mg/dL Alkaline Phosphatase (38-126) U/L Total Protein (6.3-8.2) g/dL Arterial Blood Glucose 106 H (75-99) mg/dL Crossmatch See Detail 02/01/22 02/01/22 02/01/22 Range/Units 11:30 12:09 12:47 WBC (3.8-10.6) k/uL Neutrophils # (1.3-7.7) k/uL Monocytes # (0-1.0) k/uL ABG pH 7.30 L 7.32 L 7.32 L (7.35-7.45) ABG pCO2 48 H 46 H (35-45) mmHg ABG pO2 184 H 146 H 129 H (83-108) mmHg ABG Total CO2 25 H 25 H 25 H (19-24) mmol/L ABG O2 Saturation 99.1 H 98.7 H 98.8 H (94-97) % ABG Hematocrit (34.0-46.0) % ABG Ionized Calcium 4.4 L 4.4 L (4.5-5.3) mg/dL ABG Glucose 116 H 122 H 125 H (75-99) mg/dL ABG Lactic Acid 0.4 L (0.5-1.6) mmol/L Hemoglobin 11.7 L (13.0-17.5) gm/dL Chloride (98-107) mmol/L Glucose (74-99) mg/dL POC Glucose (mg/dL) (70-110) mg/dL Calcium (8.4-10.2) mg/dL Magnesium (1.6-2.3) mg/dL Alkaline Phosphatase (38-126) U/L Total Protein (6.3-8.2) g/dL Arterial Blood Glucose 116 H 122 H 125 H (75-99) mg/dL Crossmatch 02/01/22 02/01/22 02/01/22 Range/Units 14:02 14:02 14:04 WBC 16.7 H (3.8-10.6) k/uL Neutrophils # 14.0 H (1.3-7.7) k/uL Monocytes # 1.1 H (0-1.0) k/uL ABG pH (7.35-7.45) ABG pCO2 (35-45) mmHg ABG pO2 (83-108) mmHg ABG Total CO2 (19-24) mmol/L ABG O2 Saturation (94-97) % ABG Hematocrit (34.0-46.0) % ABG Ionized Calcium (4.5-5.3) mg/dL ABG Glucose (75-99) mg/dL ABG Lactic Acid (0.5-1.6) mmol/L Hemoglobin (13.0-17.5) gm/dL Chloride 110 H (98-107) mmol/L Glucose 141 H (74-99) mg/dL POC Glucose (mg/dL) 149 H (70-110) mg/dL Calcium 8.0 L (8.4-10.2) mg/dL Magnesium 1.4 L (1.6-2.3) mg/dL Alkaline Phosphatase 29 L (38-126) U/L Total Protein 5.8 L (6.3-8.2) g/dL Arterial Blood Glucose (75-99) mg/dL Crossmatch 02/01/22 02/01/22 02/01/22 Range/Units 14:19 15:17 16:17 WBC (3.8-10.6) k/uL Neutrophils # (1.3-7.7) k/uL Monocytes # (0-1.0) k/uL ABG pH 7.30 L (7.35-7.45) ABG pCO2 48 H (35-45) mmHg ABG pO2 (83-108) mmHg ABG Total CO2 25 H (19-24) mmol/L ABG O2 Saturation 98.1 H (94-97) % ABG Hematocrit (34.0-46.0) % ABG Ionized Calcium (4.5-5.3) mg/dL ABG Glucose (75-99) mg/dL ABG Lactic Acid (0.5-1.6) mmol/L Hemoglobin (13.0-17.5) gm/dL Chloride (98-107) mmol/L Glucose (74-99) mg/dL POC Glucose (mg/dL) 158 H 164 H (70-110) mg/dL Calcium (8.4-10.2) mg/dL Magnesium (1.6-2.3) mg/dL Alkaline Phosphatase (38-126) U/L Total Protein (6.3-8.2) g/dL Arterial Blood Glucose (75-99) mg/dL Crossmatch
[2022-02-01] MEDS: HEPARIN SODIUM,PORCINE/PF 5,000 UNIT/0.5 ML SYRINGE SQ SCH ×2 (16:51→23:26)
[2022-02-01 17:16] LABS: Glucose,Whole Blood 150 mg/dL (70-110)
[2022-02-01] MEDS: KETOROLAC 15 MG/ML 1 ML VIAL IVP SCH ×2 (17:19→23:25)
[2022-02-01] MEDS: ACETAMINOPHEN IV (For NPO) 1,000 MG in EMPTY BAG 1 BAG IVPB SCH ×2 (17:20→23:25)
[2022-02-01 17:46] LABS: Basophils % (A) 0 %; Eosinophils % (A) 0 %; Lymphocytes # (A) 0.3 k/uL (1.0-4.8); Lymphocytes % (A) 3 %; MCH 31.9 pg (25.0-35.0); MCHC 34.3 g/dL (31.0-37.0); MCV 93.1 fL (80.0-100.0); Mean Platelet Volume 7.8; Monocytes # (A) 0.8 k/uL (0-1.0); Monocytes % (A) 7 %; Neutrophils # (A) 10.2 k/uL (1.3-7.7); Neutrophils % (A) 89 %; Platelet Count 201 k/uL (150-450); RBC 3.76 m/uL (4.30-5.90); RDW 13.3 % (11.5-15.5); WBC 11.5 k/uL (3.8-10.6)
[2022-02-01 18:28] LABS: Glucose,Whole Blood 137 mg/dL (70-110)
[2022-02-01 18:46] LABS: ABG HCO3 25 mmol/L (21-25); ABG Oxygen Saturation 99.7 % (94-97); ABG PCO2 35 mmHg (35-45); ABG PH 7.46 (7.35-7.45); ABG PO2 131 mmHg (83-108); ABG TCO2 26 mmol/L (19-24); Allen Test Performed? Yes
[2022-02-01 19:49] LABS: Glucose,Whole Blood 148 mg/dL (70-110)
[2022-02-01] MEDS: IPRATROPIUM-ALBUTEROL 3 ML NEB INHALATION SCH (19:57)
[2022-02-01] MEDS: AMIODARONE 450 MG in DEXTROSE 5% IN WATER 250 ML IV SCH ×2 (20:02)
[2022-02-01 20:03] LABS: Basophils % (A) 0 %; Eosinophils % (A) 0 %; HGB 11.7 gm/dL (13.0-17.5); Lymphocytes # (A) 0.3 k/uL (1.0-4.8); Lymphocytes % (A) 3 %; MCH 31.8 pg (25.0-35.0); MCHC 34.5 g/dL (31.0-37.0); MCV 92.2 fL (80.0-100.0); Mean Platelet Volume 8.7; Monocytes # (A) 0.8 k/uL (0-1.0); Monocytes % (A) 7 %; Neutrophils # (A) 9.6 k/uL (1.3-7.7); Neutrophils % (A) 89 %; Platelet Count 192 k/uL (150-450); RBC 3.69 m/uL (4.30-5.90); RDW 13.1 % (11.5-15.5); WBC 10.8 k/uL (3.8-10.6)
[2022-02-01 21:03] LABS: Glucose,Whole Blood 137 mg/dL (70-110)
[2022-02-01 21:54] LABS: Glucose,Whole Blood 123 mg/dL (70-110)
[2022-02-01 22:54] LABS: Glucose,Whole Blood 124 mg/dL (70-110)
[2022-02-02 00:01] LABS: Glucose,Whole Blood 125 mg/dL (70-110)
[2022-02-02 01:27] LABS: Glucose,Whole Blood 127 mg/dL (70-110)
[2022-02-02 01:57] LABS: Glucose,Whole Blood 115 mg/dL (70-110)
[2022-02-02 02:58] LABS: Glucose,Whole Blood 113 mg/dL (70-110)
[2022-02-02 03:55] LABS: Glucose,Whole Blood 126 mg/dL (70-110)
[2022-02-02] MEDS: hydrALAZINE HCL 20 MG/ML 1 ML VIAL IVP PRN (04:03)
[2022-02-02 04:05] LABS: Basophils % (A) 0 %; Eosinophils % (A) 0 %; HGB 11.6 gm/dL (13.0-17.5); Lymphocytes # (A) 0.6 k/uL (1.0-4.8); Lymphocytes % (A) 5 %; MCH 31.5 pg (25.0-35.0); MCHC 34.1 g/dL (31.0-37.0); MCV 92.3 fL (80.0-100.0); Mean Platelet Volume 8.8; Monocytes # (A) 0.9 k/uL (0-1.0); Monocytes % (A) 8 %; Neutrophils # (A) 10.3 k/uL (1.3-7.7); Neutrophils % (A) 86 %; Platelet Count 180 k/uL (150-450); RBC 3.68 m/uL (4.30-5.90); RDW 13.2 % (11.5-15.5)
[2022-02-02 04:16] LABS: Ionized Calcium 4.4 mg/dL (4.5-5.3)
[2022-02-02 04:23] LABS: ALT 25 U/L (4-49); AST 40 U/L (17-59); African American GFR (CKD) >90 (>60 ml/min/1.73 sqM); Albumin 3.8 g/dL (3.5-5.0); Alkaline Phosphatase 26 U/L (38-126); Anion Gap 6 mmol/L; Blood Urea Nitrogen 19 mg/dL (9-20); Calcium 7.9 mg/dL (8.4-10.2); Carbon Dioxide 23 mmol/L (22-30); Chloride 106 mmol/L (98-107); Glucose 107 mg/dL (74-99); Magnesium 2.5 mg/dL (1.6-2.3); Non-African American GFR(CKD) >90 (>60 ml/min/1.73 sqM); Potassium 3.5 mmol/L (3.5-5.1); Sodium 135 mmol/L (137-145); Total Bilirubin 1.1 mg/dL (0.2-1.3); Total Protein 5.3 g/dL (6.3-8.2)
[2022-02-02] MEDS: POTASSIUM BICARBONATE/CIT AC 20 MEQ TABLET.EFF NG-TUBE SCH ×2 (04:34→06:06)
[2022-02-02 04:56] LABS: Glucose,Whole Blood 121 mg/dL (70-110)
[2022-02-02 05:59] LABS: Glucose,Whole Blood 127 mg/dL (70-110)
[2022-02-02] MEDS: KETOROLAC 15 MG/ML 1 ML VIAL IVP SCH ×3 (06:06→18:13)
[2022-02-02 06:54] LABS: Glucose,Whole Blood 123 mg/dL (70-110)
[2022-02-02] MEDS: THIAMINE 100 MG TAB PO SCH ×2 (06:56→18:14)
[2022-02-02] MEDS: HYDROcodone/APAP 5-325MG 1 EACH TAB PO PRN ×3 (07:09→18:13)
[2022-02-02] MEDS: CLEVIDIPINE BUTYRATE 25 MG in EMPTY BAG 1 BAG IV SCH ×2 (07:11→10:05)
--- NOTE | 2022-02-02 07:21 | XR ---
EXAMINATION TYPE: XR chest 1V portable DATE OF EXAM: 02/02/2022 5:25 AM COMPARISON: Chest radiographs from 02/01/2022. TECHNIQUE: XR chest 1V portable Frontal view of the chest. CLINICAL INDICATION:Male, 46 years old with history of Post Operative Cardiac Surgery; FINDINGS: Lungs/Pleura: Or scattered atelectasis seen throughout the lungs. There is no evidence of pleural eff usion, focal consolidation, or pneumothorax. Pulmonary vascularity: Pulmonary vascular congestion. Heart/mediastinum: Cardiomediastinal silhouette is prominent in size. Left atrial appendage occlusion device is present. Musculoskeletal: No acute osseous pathology. Midline sternotomy wires are noted and stable. Other findings: None Lines/Tubes: Endotracheal tube with distal tip xx cm above the lobo Nasogastric tube with its distal tip and side-port projecting under the diaphragm. There is a [place]-Daija catheter with tip projecting over the spine. Drainage tubes with tips projecting over the mediastinum. Bilateral thoracotomy tube is present without evidence of pneumothorax. IMPRESSION: Stable support lines and tubes, stable scattered atelectasis/pulmonary edema.
[2022-02-02] MEDS: IPRATROPIUM-ALBUTEROL 3 ML NEB INHALATION SCH ×4 (08:02→19:39)
[2022-02-02 08:19] LABS: Glucose,Whole Blood 169 mg/dL (70-110)
[2022-02-02] MEDS: HEPARIN SODIUM,PORCINE/PF 5,000 UNIT/0.5 ML SYRINGE SQ SCH ×2 (08:20→18:13)
[2022-02-02] MEDS: ASPIRIN 325 MG TAB PO SCH (08:21)
[2022-02-02] MEDS: CLOPIDOGREL 75 MG TAB PO SCH (08:21)
[2022-02-02] MEDS ORDERED: METOPROLOL TARTRATE 12.5 MG TAB PO SCH (09:00)
[2022-02-02] MEDS ORDERED: MAGNESIUM HYDROXIDE 2,400 MG/10 ML CUP PO PRN (09:00)
[2022-02-02] MEDS ORDERED: METOPROLOL SUCCINATE (ER) 25 MG TAB.ER.24H PO SCH (09:00)
[2022-02-02] MEDS ORDERED: amLODIPine 5 MG TAB PO SCH (09:00)
[2022-02-02] MEDS ORDERED: PANTOPRAZOLE 40 MG/10 ML VIAL IVP SCH (09:00)
[2022-02-02] MEDS ORDERED: bisacodyL 10 MG SUPP RECTAL PRN (09:00)
[2022-02-02] MEDS ORDERED: METOPROLOL TARTRATE 25 MG TAB PO SCH (09:00)
[2022-02-02] MEDS ORDERED: ATORVASTATIN 40 MG TAB PO SCH (09:00)
--- NOTE | 2022-02-02 09:08 | P.PN ---
Subjective Progress Note Date: 02/02/22 Principal diagnosis: Acute coronary event This is a 46-year-old gentleman with significant history of smoking as well as hypertension and dyslipidemia presented to the hospital with a chest discomfort and ruled in for acute coronary event. He underwent heart catheterization and was found to have severe triple-vessel coronary artery disease. The patient underwent yesterday CABG 3 with NICHOLS to LAD and TOMMY to RCA and radiated graft to intermediate artery. He was seen this morning. He was extubated yesterday. Overall he's stable beside the blood pressure being elevated. He is on aspirin as well as intermediate intensity statin become going to increase the dose of statin to high intensity. The hemoglobin is a stable with the kidney function is stable. We need to continue adjusting his blood pressure medication to get the pressure under control. The pressure through the A-line is more than 200 mmHg systolic Objective - Vital Signs Vital signs: Vital Signs Temp 99.9 F H 02/02/22 08:00 Pulse 98 02/02/22 08:14 Resp 18 02/02/22 08:00 BP 140/65 02/02/22 08:00 Pulse Ox 93 L 02/02/22 08:00 FiO2 50 02/01/22 18:06 Intake & Output 02/01/22 02/02/22 02/02/22 18:59 06:59 18:59 Intake Total 6799.661 1524.823 1.956 Output Total 3300 1390 Balance -1819.022 -388.177 1.956 Weight 75.296 kg Intake: IV 5 740 Co/CI 140 Lactated Ringers 1,000 ml 600 @ 50 mls/hr IV .Q20H [facility] Rx#:[id number] Intake, IV Titration 1475.978 211.823 1.956 Amount ACETAMINOPHEN IV (For NPO 100 ) 1,000 mg In Empty Bag 1 bag @ 400 mls/hr IVPB Q6HR [facility] Rx#:[id number] Albumin Human 5% 250 ml 250 In Empty Bag 1 bag @ 250 mls/hr IVPB ONCE ONE Rx#: [id number] Albumin Human 5% 250 ml 250 In Empty Bag 1 bag @ 250 mls/hr IVPB ONCE ONE Rx#: [id number] Amiodarone 360 mg In 133.2 33.3 Dextrose 5% in Water 200 ml @ 1 MG/MIN 33.333 mls/ hr IV .Q6H [facility] Rx#: [id number] Clevidipine Butyrate 25 57.434 1.266 mg In Empty Bag 1 bag @ 1 MG/HR 2 mls/hr IV .Q24H [facility] Rx#:[id number] Dexmedetomidine/0.9% NaCl 52.544 13.472 (Pmx) 400 mcg In Empty Bag 1 bag @ Titrate IV . Q0M [facility] Rx#:[id number] Insulin Regular 100 unit 7.089 13.551 0.69 In Sodium Chloride 0.9% 100 ml @ Per Protocol IV .Q0M [facility] Rx#:[id number] Lactated Ringers 1,000 ml 200 50 @ 50 mls/hr IV .Q20H [facility] Rx#:[id number] Magnesium Sulfate-D5w Pmx 300 100 1 gm In Dextrose/Water 1 100ml.bag @ 100 mls/hr IVPB Q1H [facility] Rx#: [id number] Nitroglycerin-D5w Pmx 50 6.0 1.5 mg In Dextrose/Water 1 250ml.bag @ 5 MCG/MIN 1.5 mls/hr IV .Q24H [facility] Rx#: [id number] ceFAZolin 2 gm In Sodium 50 Chloride 0.9% 50 ml @ 100 mls/hr IVPB Q8HR [facility] Rx# :[id number] propofoL 1,000 mg In 69.711 Empty Bag 1 bag @ Titrate IV .Q0M [facility] Rx#: [id number] Oral 50 Output: Chest Tube Drainage 745 610 RT and LT Pleural 205 200 medistinal 540 410 Drainage 20 Left Arm 20 Urine 935 780 Estimated Blood Loss 1600 Other: Voiding Method Indwelling Catheter Indwelling Catheter ABP, PAP, CO, CI - Last Documented Arterial Blood Pressure 171/63 Pulmonary Artery Pressure 17/8 Cardiac Output 12.2 Cardiac Index 6.7 - Constitutional General appearance: Present: no acute distress - Respiratory Respiratory: bilateral: diminished - Cardiovascular Rhythm: regular - Labs CBC & Chem 7: 02/02/22 03:05 02/02/22 03:05 Labs: Abnormal Lab Results - Last 24 Hours (Table) 01/31/22 02/01/22 02/01/22 Range/Units 05:46 08:32 11:02 WBC (3.8-10.6) k/uL RBC (4.30-5.90) m/uL Hgb (13.0-17.5) gm/dL Hct (39.0-53.0) % Neutrophils # (1.3-7.7) k/uL Lymphocytes # (1.0-4.8) k/uL Monocytes # (0-1.0) k/uL ABG pH 7.27 L (7.35-7.45) ABG pCO2 49 H (35-45) mmHg ABG pO2 257 H 201 H (83-108) mmHg ABG Total CO2 (19-24) mmol/L ABG O2 Saturation 99.6 H 99.1 H (94-97) % ABG Hematocrit 50 H (34.0-46.0) % ABG Ionized Calcium (4.5-5.3) mg/dL ABG Glucose 106 H (75-99) mg/dL ABG Lactic Acid <0.4 L (0.5-1.6) mmol/L Hemoglobin (13.0-17.5) gm/dL Sodium (137-145) mmol/L Chloride (98-107) mmol/L Glucose (74-99) mg/dL POC Glucose (mg/dL) (70-110) mg/dL Calcium (8.4-10.2) mg/dL Ionized Calcium Debra (4.5-5.3) mg/dL Magnesium (1.6-2.3) mg/dL Alkaline Phosphatase (38-126) U/L Total Protein (6.3-8.2) g/dL Arterial Blood Glucose 106 H (75-99) mg/dL Crossmatch See Detail 02/01/22 02/01/22 02/01/22 Range/Units 11:30 12:09 12:47 WBC (3.8-10.6) k/uL RBC (4.30-5.90) m/uL Hgb (13.0-17.5) gm/dL Hct (39.0-53.0) % Neutrophils # (1.3-7.7) k/uL Lymphocytes # (1.0-4.8) k/uL Monocytes # (0-1.0) k/uL ABG pH 7.30 L 7.32 L 7.32 L (7.35-7.45) ABG pCO2 48 H 46 H (35-45) mmHg ABG pO2 184 H 146 H 129 H (83-108) mmHg ABG Total CO2 25 H 25 H 25 H (19-24) mmol/L ABG O2 Saturation 99.1 H 98.7 H 98.8 H (94-97) % ABG Hematocrit (34.0-46.0) % ABG Ionized Calcium 4.4 L 4.4 L (4.5-5.3) mg/dL ABG Glucose 116 H 122 H 125 H (75-99) mg/dL ABG Lactic Acid 0.4 L (0.5-1.6) mmol/L Hemoglobin 11.7 L (13.0-17.5) gm/dL Sodium (137-145) mmol/L Chloride (98-107) mmol/L Glucose (74-99) mg/dL POC Glucose (mg/dL) (70-110) mg/dL Calcium (8.4-10.2) mg/dL Ionized Calcium Debra (4.5-5.3) mg/dL Magnesium (1.6-2.3) mg/dL Alkaline Phosphatase (38-126) U/L Total Protein (6.3-8.2) g/dL Arterial Blood Glucose 116 H 122 H 125 H (75-99) mg/dL Crossmatch 02/01/22 02/01/22 02/01/22 Range/Units 14:02 14:02 14:04 WBC 16.7 H (3.8-10.6) k/uL RBC (4.30-5.90) m/uL Hgb (13.0-17.5) gm/dL Hct (39.0-53.0) % Neutrophils # 14.0 H (1.3-7.7) k/uL Lymphocytes # (1.0-4.8) k/uL Monocytes # 1.1 H (0-1.0) k/uL ABG pH (7.35-7.45) ABG pCO2 (35-45) mmHg ABG pO2 (83-108) mmHg ABG Total CO2 (19-24) mmol/L ABG O2 Saturation (94-97) % ABG Hematocrit (34.0-46.0) % ABG Ionized Calcium (4.5-5.3) mg/dL ABG Glucose (75-99) mg/dL ABG Lactic Acid (0.5-1.6) mmol/L Hemoglobin (13.0-17.5) gm/dL Sodium (137-145) mmol/L Chloride 110 H (98-107) mmol/L Glucose 141 H (74-99) mg/dL POC Glucose (mg/dL) 149 H (70-110) mg/dL Calcium 8.0 L (8.4-10.2) mg/dL Ionized Calcium Debra (4.5-5.3) mg/dL Magnesium 1.4 L (1.6-2.3) mg/dL Alkaline Phosphatase 29 L (38-126) U/L Total Protein 5.8 L (6.3-8.2) g/dL Arterial Blood Glucose (75-99) mg/dL Crossmatch 02/01/22 02/01/22 02/01/22 Range/Units 14:19 15:17 16:17 WBC (3.8-10.6) k/uL RBC (4.30-5.90) m/uL Hgb (13.0-17.5) gm/dL Hct (39.0-53.0) % Neutrophils # (1.3-7.7) k/uL Lymphocytes # (1.0-4.8) k/uL Monocytes # (0-1.0) k/uL ABG pH 7.30 L (7.35-7.45) ABG pCO2 48 H (35-45) mmHg ABG pO2 (83-108) mmHg ABG Total CO2 25 H (19-24) mmol/L ABG O2 Saturation 98.1 H (94-97) % ABG Hematocrit (34.0-46.0) % ABG Ionized Calcium (4.5-5.3) mg/dL ABG Glucose (75-99) mg/dL ABG Lactic Acid (0.5-1.6) mmol/L Hemoglobin (13.0-17.5) gm/dL Sodium (137-145) mmol/L Chloride (98-107) mmol/L Glucose (74-99) mg/dL POC Glucose (mg/dL) 158 H 164 H (70-110) mg/dL Calcium (8.4-10.2) mg/dL Ionized Calcium Debra (4.5-5.3) mg/dL Magnesium (1.6-2.3) mg/dL Alkaline Phosphatase (38-126) U/L Total Protein (6.3-8.2) g/dL Arterial Blood Glucose (75-99) mg/dL Crossmatch 02/01/22 02/01/22 02/01/22 Range/Units 16:55 17:15 18:27 WBC 11.5 H (3.8-10.6) k/uL RBC 3.76 L (4.30-5.90) m/uL Hgb 12.0 L (13.0-17.5) gm/dL Hct 35.0 L (39.0-53.0) % Neutrophils # 10.2 H (1.3-7.7) k/uL Lymphocytes # 0.3 L (1.0-4.8) k/uL Monocytes # (0-1.0) k/uL ABG pH (7.35-7.45) ABG pCO2 (35-45) mmHg ABG pO2 (83-108) mmHg ABG Total CO2 (19-24) mmol/L ABG O2 Saturation (94-97) % ABG Hematocrit (34.0-46.0) % ABG Ionized Calcium (4.5-5.3) mg/dL ABG Glucose (75-99) mg/dL ABG Lactic Acid (0.5-1.6) mmol/L Hemoglobin (13.0-17.5) gm/dL Sodium (137-145) mmol/L Chloride (98-107) mmol/L Glucose (74-99) mg/dL POC Glucose (mg/dL) 150 H 137 H (70-110) mg/dL Calcium (8.4-10.2) mg/dL Ionized Calcium Debra (4.5-5.3) mg/dL Magnesium (1.6-2.3) mg/dL Alkaline Phosphatase (38-126) U/L Total Protein (6.3-8.2) g/dL Arterial Blood Glucose (75-99) mg/dL Crossmatch 02/01/22 02/01/22 02/01/22 Range/Units 18:38 19:48 19:48 WBC 10.8 H (3.8-10.6) k/uL RBC 3.69 L (4.30-5.90) m/uL Hgb 11.7 L (13.0-17.5) gm/dL Hct 34.0 L (39.0-53.0) % Neutrophils # 9.6 H (1.3-7.7) k/uL Lymphocytes # 0.3 L (1.0-4.8) k/uL Monocytes # (0-1.0) k/uL ABG pH 7.46 H (7.35-7.45) ABG pCO2 (35-45) mmHg ABG pO2 131 H (83-108) mmHg ABG Total CO2 26 H (19-24) mmol/L ABG O2 Saturation 99.7 H (94-97) % ABG Hematocrit (34.0-46.0) % ABG Ionized Calcium (4.5-5.3) mg/dL ABG Glucose (75-99) mg/dL ABG Lactic Acid (0.5-1.6) mmol/L Hemoglobin (13.0-17.5) gm/dL Sodium (137-145) mmol/L Chloride (98-107) mmol/L Glucose (74-99) mg/dL POC Glucose (mg/dL) 148 H (70-110) mg/dL Calcium (8.4-10.2) mg/dL Ionized Calcium Debra (4.5-5.3) mg/dL Magnesium (1.6-2.3) mg/dL Alkaline Phosphatase (38-126) U/L Total Protein (6.3-8.2) g/dL Arterial Blood Glucose (75-99) mg/dL Crossmatch 02/01/22 02/01/22 02/01/22 Range/Units 21:01 21:52 22:52 WBC (3.8-10.6) k/uL RBC (4.30-5.90) m/uL Hgb (13.0-17.5) gm/dL Hct (39.0-53.0) % Neutrophils # (1.3-7.7) k/uL Lymphocytes # (1.0-4.8) k/uL Monocytes # (0-1.0) k/uL ABG pH (7.35-7.45) ABG pCO2 (35-45) mmHg ABG pO2 (83-108) mmHg ABG Total CO2 (19-24) mmol/L ABG O2 Saturation (94-97) % ABG Hematocrit (34.0-46.0) % ABG Ionized Calcium (4.5-5.3) mg/dL ABG Glucose (75-99) mg/dL ABG Lactic Acid (0.5-1.6) mmol/L Hemoglobin (13.0-17.5) gm/dL Sodium (137-145) mmol/L Chloride (98-107) mmol/L Glucose (74-99) mg/dL POC Glucose (mg/dL) 137 H 123 H 124 H (70-110) mg/dL Calcium (8.4-10.2) mg/dL Ionized Calcium Debra (4.5-5.3) mg/dL Magnesium (1.6-2.3) mg/dL Alkaline Phosphatase (38-126) U/L Total Protein (6.3-8.2) g/dL Arterial Blood Glucose (75-99) mg/dL Crossmatch 02/01/22 02/02/22 02/02/22 Range/Units 23:59 01:26 01:56 WBC (3.8-10.6) k/uL RBC (4.30-5.90) m/uL Hgb (13.0-17.5) gm/dL Hct (39.0-53.0) % Neutrophils # (1.3-7.7) k/uL Lymphocytes # (1.0-4.8) k/uL Monocytes # (0-1.0) k/uL ABG pH (7.35-7.45) ABG pCO2 (35-45) mmHg ABG pO2 (83-108) mmHg ABG Total CO2 (19-24) mmol/L ABG O2 Saturation (94-97) % ABG Hematocrit (34.0-46.0) % ABG Ionized Calcium (4.5-5.3) mg/dL ABG Glucose (75-99) mg/dL ABG Lactic Acid (0.5-1.6) mmol/L Hemoglobin (13.0-17.5) gm/dL Sodium (137-145) mmol/L Chloride (98-107) mmol/L Glucose (74-99) mg/dL POC Glucose (mg/dL) 125 H 127 H 115 H (70-110) mg/dL Calcium (8.4-10.2) mg/dL Ionized Calcium Debra (4.5-5.3) mg/dL Magnesium (1.6-2.3) mg/dL Alkaline Phosphatase (38-126) U/L Total Protein (6.3-8.2) g/dL Arterial Blood Glucose (75-99) mg/dL Crossmatch 02/02/22 02/02/22 02/02/22 Range/Units 02:56 03:05 03:05 WBC 12.0 H (3.8-10.6) k/uL RBC 3.68 L (4.30-5.90) m/uL Hgb 11.6 L (13.0-17.5) gm/dL Hct 34.0 L (39.0-53.0) % Neutrophils # 10.3 H (1.3-7.7) k/uL Lymphocytes # 0.6 L (1.0-4.8) k/uL Monocytes # (0-1.0) k/uL ABG pH (7.35-7.45) ABG pCO2 (35-45) mmHg ABG pO2 (83-108) mmHg ABG Total CO2 (19-24) mmol/L ABG O2 Saturation (94-97) % ABG Hematocrit (34.0-46.0) % ABG Ionized Calcium (4.5-5.3) mg/dL ABG Glucose (75-99) mg/dL ABG Lactic Acid (0.5-1.6) mmol/L Hemoglobin (13.0-17.5) gm/dL Sodium 135 L (137-145) mmol/L Chloride (98-107) mmol/L Glucose 107 H (74-99) mg/dL POC Glucose (mg/dL) 113 H (70-110) mg/dL Calcium 7.9 L (8.4-10.2) mg/dL Ionized Calcium Debra 4.4 L (4.5-5.3) mg/dL Magnesium 2.5 H (1.6-2.3) mg/dL Alkaline Phosphatase 26 L (38-126) U/L Total Protein 5.3 L (6.3-8.2) g/dL Arterial Blood Glucose (75-99) mg/dL Crossmatch 02/02/22 02/02/22 02/02/22 Range/Units 03:50 04:54 05:58 WBC (3.8-10.6) k/uL RBC (4.30-5.90) m/uL Hgb (13.0-17.5) gm/dL Hct (39.0-53.0) % Neutrophils # (1.3-7.7) k/uL Lymphocytes # (1.0-4.8) k/uL Monocytes # (0-1.0) k/uL ABG pH (7.35-7.45) ABG pCO2 (35-45) mmHg ABG pO2 (83-108) mmHg ABG Total CO2 (19-24) mmol/L ABG O2 Saturation (94-97) % ABG Hematocrit (34.0-46.0) % ABG Ionized Calcium (4.5-5.3) mg/dL ABG Glucose (75-99) mg/dL ABG Lactic Acid (0.5-1.6) mmol/L Hemoglobin (13.0-17.5) gm/dL Sodium (137-145) mmol/L Chloride (98-107) mmol/L Glucose (74-99) mg/dL POC Glucose (mg/dL) 126 H 121 H 127 H (70-110) mg/dL Calcium (8.4-10.2) mg/dL Ionized Calcium Debra (4.5-5.3) mg/dL Magnesium (1.6-2.3) mg/dL Alkaline Phosphatase (38-126) U/L Total Protein (6.3-8.2) g/dL Arterial Blood Glucose (75-99) mg/dL Crossmatch 02/02/22 02/02/22 Range/Units 06:52 08:17 WBC (3.8-10.6) k/uL RBC (4.30-5.90) m/uL Hgb (13.0-17.5) gm/dL Hct (39.0-53.0) % Neutrophils # (1.3-7.7) k/uL Lymphocytes # (1.0-4.8) k/uL Monocytes # (0-1.0) k/uL ABG pH (7.35-7.45) ABG pCO2 (35-45) mmHg ABG pO2 (83-108) mmHg ABG Total CO2 (19-24) mmol/L ABG O2 Saturation (94-97) % ABG Hematocrit (34.0-46.0) % ABG Ionized Calcium (4.5-5.3) mg/dL ABG Glucose (75-99) mg/dL ABG Lactic Acid (0.5-1.6) mmol/L Hemoglobin (13.0-17.5) gm/dL Sodium (137-145) mmol/L Chloride (98-107) mmol/L Glucose (74-99) mg/dL POC Glucose (mg/dL) 123 H 169 H (70-110) mg/dL Calcium (8.4-10.2) mg/dL Ionized Calcium Debra (4.5-5.3) mg/dL Magnesium (1.6-2.3) mg/dL Alkaline Phosphatase (38-126) U/L Total Protein (6.3-8.2) g/dL Arterial Blood Glucose (75-99) mg/dL Crossmatch Assessment and Plan Assessment: Assessment #1 acute coronary event #2 severe triple-vessel CAD status post CABG #3 significant history of smoking #4 hypertension #5 dyslipidemia #6 carotid atherosclerosis Plan #1 continue adjusting the pressure medication to get the pressure under control #2 continue antiplatelet #3 increase the dose of statin
[2022-02-02] MEDS ORDERED: METOPROLOL TARTRATE 25 MG TAB PO STA (09:11)
[2022-02-02] MEDS: AMIODARONE 200 MG TAB PO SCH ×2 (10:05→20:49)
[2022-02-02 10:10] LABS: Glucose,Whole Blood 130 mg/dL (70-110)
--- NOTE | 2022-02-02 10:51 | P.PN ---
Subjective Progress Note Date: 02/02/22 Principal diagnosis: Triple-vessel coronary artery disease, non-STEMI this admission. Previous medical history of hypertension, hyperlipidemia, bilateral internal carotid artery stenosis 50-69%, hepatitis C, current tobacco dependence, current marijuana use, current EtOH use, seizure approximately 3 years ago, neurofibromatosis, previous heroin use with cessation 10 years ago and family history of premature coronary artery disease POD #1 off-pump CABG 3 with left internal mammary artery to the left anterior descending artery, right internal mammary artery to the right coronary artery, left radial artery graft to the intermediate coronary artery with endovascular radial artery harvest and ligation of the left atrial appendage with 40 mm AtriCure clip The patient was seen and examined this morning with Dr. Cat sitting up in a recliner in the intensive care unit in no acute distress. He was successfully extubated yesterday at 18:55. Remains in sinus rhythm to sinus tach with hypertension on arterial line (felt to be inaccurate due to with whip on the arterial line), on IV Cleviprex and amiodarone as well as IV nitro. Patient states pain is controlled on current medication regimen, denies shortness of breath. Currently on room air with oxygen saturation in the mid 90s, able to achieve 2500 mL on his incentive spirometry. Good urine output. Right internal jugular Foley/Cordis, right radial arterial line, mediastinal/left/right pleural chest tubes all remaining present. No other new concerns. Objective - Vital Signs Vital signs: Vital Signs Temp 99.9 F H 02/02/22 08:00 Pulse 99 02/02/22 09:00 Resp 19 02/02/22 09:00 BP 117/57 02/02/22 09:00 Pulse Ox 96 02/02/22 09:00 FiO2 50 02/01/22 18:06 Intake & Output 02/01/22 02/02/22 02/02/22 18:59 06:59 18:59 Intake Total 4806.081 5131.823 61.956 Output Total 3300 1390 295 Balance -1819.022 -388.177 -233.044 Weight 75.296 kg Intake: IV 5 740 60 Co/CI 140 10 Lactated Ringers 1,000 ml 600 50 @ 20 mls/hr IV .Q24H [facility] Rx#:[id number] Intake, IV Titration 1475.978 211.823 1.956 Amount ACETAMINOPHEN IV (For NPO 100 ) 1,000 mg In Empty Bag 1 bag @ 400 mls/hr IVPB Q6HR [facility] Rx#:[id number] Albumin Human 5% 250 ml 250 In Empty Bag 1 bag @ 250 mls/hr IVPB ONCE ONE Rx#: [id number] Albumin Human 5% 250 ml 250 In Empty Bag 1 bag @ 250 mls/hr IVPB ONCE ONE Rx#: [id number] Amiodarone 360 mg In 133.2 33.3 Dextrose 5% in Water 200 ml @ 1 MG/MIN 33.333 mls/ hr IV .Q6H ONE Rx#: [id number] Clevidipine Butyrate 25 57.434 1.266 mg In Empty Bag 1 bag @ 1 MG/HR 2 mls/hr IV .Q24H [facility] Rx#:[id number] Dexmedetomidine/0.9% NaCl 52.544 13.472 (Pmx) 400 mcg In Empty Bag 1 bag @ Titrate IV . Q0M [facility] Rx#:[id number] Insulin Regular 100 unit 7.089 13.551 0.69 In Sodium Chloride 0.9% 100 ml @ Per Protocol IV .Q0M [facility] Rx#:[id number] Lactated Ringers 1,000 ml 200 50 @ 20 mls/hr IV .Q24H [facility] Rx#:[id number] Magnesium Sulfate-D5w Pmx 300 100 1 gm In Dextrose/Water 1 100ml.bag @ 100 mls/hr IVPB Q1H [facility] Rx#: [id number] Nitroglycerin-D5w Pmx 50 6.0 1.5 mg In Dextrose/Water 1 250ml.bag @ 5 MCG/MIN 1.5 mls/hr IV .Q24H [facility] Rx#: [id number] ceFAZolin 2 gm In Sodium 50 Chloride 0.9% 50 ml @ 100 mls/hr IVPB Q8HR [facility] Rx# :[id number] propofoL 1,000 mg In 69.711 Empty Bag 1 bag @ Titrate IV .Q0M [facility] Rx#: [id number] Oral 50 Output: Chest Tube Drainage 745 610 50 RT and LT Pleural 205 200 10 medistinal 540 410 40 Drainage 20 20 Left Arm 20 20 Urine 935 780 225 Estimated Blood Loss 1600 Other: Voiding Method Indwelling Catheter Indwelling Catheter Indwelling Catheter ABP, PAP, CO, CI - Last Documented Arterial Blood Pressure 171/63 Pulmonary Artery Pressure 19/7 Cardiac Output 12.2 Cardiac Index 6.7 - Exam CONSTITUTIONAL: Appears comfortable, cooperative, no acute distress RESPIRATORY: Lungs sounds diminished bilaterally. Respirations even, nonlabore d. Currently on room air with oxygen saturation 94%. Able to achieve 2500 mL on incentive spirometry. Strong cough. CARDIOVASCULAR: S1, S2 present. Regular rate and rhythm, sinus rhythm to sinus tach on telemetry. Sternum stable. Palpable peripheral pulses bilaterally. No edema present. No calf pain or tenderness noted. Heart hugger in place with patient demonstrating appropriate use. Antiembolism stockings, SCDs present. GASTROINTESTINAL: Abdomen soft, nontender, nondistended. Active bowel sounds present 4 quadrants. Tolerating diet. Positive flatus GENITOURINARY: Aldrich present draining clear, yellow urine. Output overnight 45-100 mL per hour INTEGUMENTARY: Skin is warm and dry with evidence of good perfusion. Anterior chest incision well approximated and covered with dry intact dressing. Left radial artery harvest site site well approximated without redness, minimal drainage in KELLIE drain NEUROLOGIC: Cranial nerves II through XII intact MUSKULOSKELETAL: Able to move all extremities, strength equal bilaterally, gait normal PSYCHIATRIC: Alert and oriented to person place and time, appropriate affect, intact judgment and insight INVASIVE LINES AND TUBES: Mediastinal/left/right pleural chest tubes present and connected to wall suction, intermittent air leak present in the mediastinal chest tube. Mediastinal tube with 290 mL serosanguineous drainage overnight, 1050 mL since surgery. Left/right pleural chest tubes with 150 mL serosanguineous drainage overnight, 400 mL since surgery. Right internal jugular Foley/Cordis, right radial arterial line present. Last CO/CI 12.2/6.7, PA 19/8, CVP 5. - Allied health notes Allied health notes reviewed: nursing - Labs CBC & Chem 7: 02/02/22 03:05 02/02/22 03:05 Labs: Abnormal Lab Results - Last 24 Hours (Table) 01/31/22 02/01/22 02/01/22 Range/Units 05:46 08:32 11:02 WBC (3.8-10.6) k/uL RBC (4.30-5.90) m/uL Hgb (13.0-17.5) gm/dL Hct (39.0-53.0) % Neutrophils # (1.3-7.7) k/uL Lymphocytes # (1.0-4.8) k/uL Monocytes # (0-1.0) k/uL ABG pH 7.27 L (7.35-7.45) ABG pCO2 49 H (35-45) mmHg ABG pO2 257 H 201 H (83-108) mmHg ABG Total CO2 (19-24) mmol/L ABG O2 Saturation 99.6 H 99.1 H (94-97) % ABG Hematocrit 50 H (34.0-46.0) % ABG Ionized Calcium (4.5-5.3) mg/dL ABG Glucose 106 H (75-99) mg/dL ABG Lactic Acid <0.4 L (0.5-1.6) mmol/L Hemoglobin (13.0-17.5) gm/dL Sodium (137-145) mmol/L Chloride (98-107) mmol/L Glucose (74-99) mg/dL POC Glucose (mg/dL) (70-110) mg/dL Calcium (8.4-10.2) mg/dL Ionized Calcium Debra (4.5-5.3) mg/dL Magnesium (1.6-2.3) mg/dL Alkaline Phosphatase (38-126) U/L Total Protein (6.3-8.2) g/dL Arterial Blood Glucose 106 H (75-99) mg/dL Crossmatch See Detail 02/01/22 02/01/22 02/01/22 Range/Units 11:30 12:09 12:47 WBC (3.8-10.6) k/uL RBC (4.30-5.90) m/uL Hgb (13.0-17.5) gm/dL Hct (39.0-53.0) % Neutrophils # (1.3-7.7) k/uL Lymphocytes # (1.0-4.8) k/uL Monocytes # (0-1.0) k/uL ABG pH 7.30 L 7.32 L 7.32 L (7.35-7.45) ABG pCO2 48 H 46 H (35-45) mmHg ABG pO2 184 H 146 H 129 H (83-108) mmHg ABG Total CO2 25 H 25 H 25 H (19-24) mmol/L ABG O2 Saturation 99.1 H 98.7 H 98.8 H (94-97) % ABG Hematocrit (34.0-46.0) % ABG Ionized Calcium 4.4 L 4.4 L (4.5-5.3) mg/dL ABG Glucose 116 H 122 H 125 H (75-99) mg/dL ABG Lactic Acid 0.4 L (0.5-1.6) mmol/L Hemoglobin 11.7 L (13.0-17.5) gm/dL Sodium (137-145) mmol/L Chloride (98-107) mmol/L Glucose (74-99) mg/dL POC Glucose (mg/dL) (70-110) mg/dL Calcium (8.4-10.2) mg/dL Ionized Calcium Debra (4.5-5.3) mg/dL Magnesium (1.6-2.3) mg/dL Alkaline Phosphatase (38-126) U/L Total Protein (6.3-8.2) g/dL Arterial Blood Glucose 116 H 122 H 125 H (75-99) mg/dL Crossmatch 02/01/22 02/01/22 02/01/22 Range/Units 14:02 14:02 14:04 WBC 16.7 H (3.8-10.6) k/uL RBC (4.30-5.90) m/uL Hgb (13.0-17.5) gm/dL Hct (39.0-53.0) % Neutrophils # 14.0 H (1.3-7.7) k/uL Lymphocytes # (1.0-4.8) k/uL Monocytes # 1.1 H (0-1.0) k/uL ABG pH (7.35-7.45) ABG pCO2 (35-45) mmHg ABG pO2 (83-108) mmHg ABG Total CO2 (19-24) mmol/L ABG O2 Saturation (94-97) % ABG Hematocrit (34.0-46.0) % ABG Ionized Calcium (4.5-5.3) mg/dL ABG Glucose (75-99) mg/dL ABG Lactic Acid (0.5-1.6) mmol/L Hemoglobin (13.0-17.5) gm/dL Sodium (137-145) mmol/L Chloride 110 H (98-107) mmol/L Glucose 141 H (74-99) mg/dL POC Glucose (mg/dL) 149 H (70-110) mg/dL Calcium 8.0 L (8.4-10.2) mg/dL Ionized Calcium Debra (4.5-5.3) mg/dL Magnesium 1.4 L (1.6-2.3) mg/dL Alkaline Phosphatase 29 L (38-126) U/L Total Protein 5.8 L (6.3-8.2) g/dL Arterial Blood Glucose (75-99) mg/dL Crossmatch 02/01/22 02/01/22 02/01/22 Range/Units 14:19 15:17 16:17 WBC (3.8-10.6) k/uL RBC (4.30-5.90) m/uL Hgb (13.0-17.5) gm/dL Hct (39.0-53.0) % Neutrophils # (1.3-7.7) k/uL Lymphocytes # (1.0-4.8) k/uL Monocytes # (0-1.0) k/uL ABG pH 7.30 L (7.35-7.45) ABG pCO2 48 H (35-45) mmHg ABG pO2 (83-108) mmHg ABG Total CO2 25 H (19-24) mmol/L ABG O2 Saturation 98.1 H (94-97) % ABG Hematocrit (34.0-46.0) % ABG Ionized Calcium (4.5-5.3) mg/dL ABG Glucose (75-99) mg/dL ABG Lactic Acid (0.5-1.6) mmol/L Hemoglobin (13.0-17.5) gm/dL Sodium (137-145) mmol/L Chloride (98-107) mmol/L Glucose (74-99) mg/dL POC Glucose (mg/dL) 158 H 164 H (70-110) mg/dL Calcium (8.4-10.2) mg/dL Ionized Calcium Debra (4.5-5.3) mg/dL Magnesium (1.6-2.3) mg/dL Alkaline Phosphatase (38-126) U/L Total Protein (6.3-8.2) g/dL Arterial Blood Glucose (75-99) mg/dL Crossmatch 02/01/22 02/01/22 02/01/22 Range/Units 16:55 17:15 18:27 WBC 11.5 H (3.8-10.6) k/uL RBC 3.76 L (4.30-5.90) m/uL Hgb 12.0 L (13.0-17.5) gm/dL Hct 35.0 L (39.0-53.0) % Neutrophils # 10.2 H (1.3-7.7) k/uL Lymphocytes # 0.3 L (1.0-4.8) k/uL Monocytes # (0-1.0) k/uL ABG pH (7.35-7.45) ABG pCO2 (35-45) mmHg ABG pO2 (83-108) mmHg ABG Total CO2 (19-24) mmol/L ABG O2 Saturation (94-97) % ABG Hematocrit (34.0-46.0) % ABG Ionized Calcium (4.5-5.3) mg/dL ABG Glucose (75-99) mg/dL ABG Lactic Acid (0.5-1.6) mmol/L Hemoglobin (13.0-17.5) gm/dL Sodium (137-145) mmol/L Chloride (98-107) mmol/L Glucose (74-99) mg/dL POC Glucose (mg/dL) 150 H 137 H (70-110) mg/dL Calcium (8.4-10.2) mg/dL Ionized Calcium Debra (4.5-5.3) mg/dL Magnesium (1.6-2.3) mg/dL Alkaline Phosphatase (38-126) U/L Total Protein (6.3-8.2) g/dL Arterial Blood Glucose (75-99) mg/dL Crossmatch 02/01/22 02/01/22 02/01/22 Range/Units 18:38 19:48 19:48 WBC 10.8 H (3.8-10.6) k/uL RBC 3.69 L (4.30-5.90) m/uL Hgb 11.7 L (13.0-17.5) gm/dL Hct 34.0 L (39.0-53.0) % Neutrophils # 9.6 H (1.3-7.7) k/uL Lymphocytes # 0.3 L (1.0-4.8) k/uL Monocytes # (0-1.0) k/uL ABG pH 7.46 H (7.35-7.45) ABG pCO2 (35-45) mmHg ABG pO2 131 H (83-108) mmHg ABG Total CO2 26 H (19-24) mmol/L ABG O2 Saturation 99.7 H (94-97) % ABG Hematocrit (34.0-46.0) % ABG Ionized Calcium (4.5-5.3) mg/dL ABG Glucose (75-99) mg/dL ABG Lactic Acid (0.5-1.6) mmol/L Hemoglobin (13.0-17.5) gm/dL Sodium (137-145) mmol/L Chloride (98-107) mmol/L Glucose (74-99) mg/dL POC Glucose (mg/dL) 148 H (70-110) mg/dL Calcium (8.4-10.2) mg/dL Ionized Calcium Debra (4.5-5.3) mg/dL Magnesium (1.6-2.3) mg/dL Alkaline Phosphatase (38-126) U/L Total Protein (6.3-8.2) g/dL Arterial Blood Glucose (75-99) mg/dL Crossmatch 02/01/22 02/01/22 02/01/22 Range/Units 21:01 21:52 22:52 WBC (3.8-10.6) k/uL RBC (4.30-5.90) m/uL Hgb (13.0-17.5) gm/dL Hct (39.0-53.0) % Neutrophils # (1.3-7.7) k/uL Lymphocytes # (1.0-4.8) k/uL Monocytes # (0-1.0) k/uL ABG pH (7.35-7.45) ABG pCO2 (35-45) mmHg ABG pO2 (83-108) mmHg ABG Total CO2 (19-24) mmol/L ABG O2 Saturation (94-97) % ABG Hematocrit (34.0-46.0) % ABG Ionized Calcium (4.5-5.3) mg/dL ABG Glucose (75-99) mg/dL ABG Lactic Acid (0.5-1.6) mmol/L Hemoglobin (13.0-17.5) gm/dL Sodium (137-145) mmol/L Chloride (98-107) mmol/L Glucose (74-99) mg/dL POC Glucose (mg/dL) 137 H 123 H 124 H (70-110) mg/dL Calcium (8.4-10.2) mg/dL Ionized Calcium Debra (4.5-5.3) mg/dL Magnesium (1.6-2.3) mg/dL Alkaline Phosphatase (38-126) U/L Total Protein (6.3-8.2) g/dL Arterial Blood Glucose (75-99) mg/dL Crossmatch 02/01/22 02/02/22 02/02/22 Range/Units 23:59 01:26 01:56 WBC (3.8-10.6) k/uL RBC (4.30-5.90) m/uL Hgb (13.0-17.5) gm/dL Hct (39.0-53.0) % Neutrophils # (1.3-7.7) k/uL Lymphocytes # (1.0-4.8) k/uL Monocytes # (0-1.0) k/uL ABG pH (7.35-7.45) ABG pCO2 (35-45) mmHg ABG pO2 (83-108) mmHg ABG Total CO2 (19-24) mmol/L ABG O2 Saturation (94-97) % ABG Hematocrit (34.0-46.0) % ABG Ionized Calcium (4.5-5.3) mg/dL ABG Glucose (75-99) mg/dL ABG Lactic Acid (0.5-1.6) mmol/L Hemoglobin (13.0-17.5) gm/dL Sodium (137-145) mmol/L Chloride (98-107) mmol/L Glucose (74-99) mg/dL POC Glucose (mg/dL) 125 H 127 H 115 H (70-110) mg/dL Calcium (8.4-10.2) mg/dL Ionized Calcium Debra (4.5-5.3) mg/dL Magnesium (1.6-2.3) mg/dL Alkaline Phosphatase (38-126) U/L Total Protein (6.3-8.2) g/dL Arterial Blood Glucose (75-99) mg/dL Crossmatch 02/02/22 02/02/22 02/02/22 Range/Units 02:56 03:05 03:05 WBC 12.0 H (3.8-10.6) k/uL RBC 3.68 L (4.30-5.90) m/uL Hgb 11.6 L (13.0-17.5) gm/dL Hct 34.0 L (39.0-53.0) % Neutrophils # 10.3 H (1.3-7.7) k/uL Lymphocytes # 0.6 L (1.0-4.8) k/uL Monocytes # (0-1.0) k/uL ABG pH (7.35-7.45) ABG pCO2 (35-45) mmHg ABG pO2 (83-108) mmHg ABG Total CO2 (19-24) mmol/L ABG O2 Saturation (94-97) % ABG Hematocrit (34.0-46.0) % ABG Ionized Calcium (4.5-5.3) mg/dL ABG Glucose (75-99) mg/dL ABG Lactic Acid (0.5-1.6) mmol/L Hemoglobin (13.0-17.5) gm/dL Sodium 135 L (137-145) mmol/L Chloride (98-107) mmol/L Glucose 107 H (74-99) mg/dL POC Glucose (mg/dL) 113 H (70-110) mg/dL Calcium 7.9 L (8.4-10.2) mg/dL Ionized Calcium Debra 4.4 L (4.5-5.3) mg/dL Magnesium 2.5 H (1.6-2.3) mg/dL Alkaline Phosphatase 26 L (38-126) U/L Total Protein 5.3 L (6.3-8.2) g/dL Arterial Blood Glucose (75-99) mg/dL Crossmatch 02/02/22 02/02/22 02/02/22 Range/Units 03:50 04:54 05:58 WBC (3.8-10.6) k/uL RBC (4.30-5.90) m/uL Hgb (13.0-17.5) gm/dL Hct (39.0-53.0) % Neutrophils # (1.3-7.7) k/uL Lymphocytes # (1.0-4.8) k/uL Monocytes # (0-1.0) k/uL ABG pH (7.35-7.45) ABG pCO2 (35-45) mmHg ABG pO2 (83-108) mmHg ABG Total CO2 (19-24) mmol/L ABG O2 Saturation (94-97) % ABG Hematocrit (34.0-46.0) % ABG Ionized Calcium (4.5-5.3) mg/dL ABG Glucose (75-99) mg/dL ABG Lactic Acid (0.5-1.6) mmol/L Hemoglobin (13.0-17.5) gm/dL Sodium (137-145) mmol/L Chloride (98-107) mmol/L Glucose (74-99) mg/dL POC Glucose (mg/dL) 126 H 121 H 127 H (70-110) mg/dL Calcium (8.4-10.2) mg/dL Ionized Calcium Debra (4.5-5.3) mg/dL Magnesium (1.6-2.3) mg/dL Alkaline Phosphatase (38-126) U/L Total Protein (6.3-8.2) g/dL Arterial Blood Glucose (75-99) mg/dL Crossmatch 02/02/22 02/02/22 Range/Units 06:52 08:17 WBC (3.8-10.6) k/uL RBC (4.30-5.90) m/uL Hgb (13.0-17.5) gm/dL Hct (39.0-53.0) % Neutrophils # (1.3-7.7) k/uL Lymphocytes # (1.0-4.8) k/uL Monocytes # (0-1.0) k/uL ABG pH (7.35-7.45) ABG pCO2 (35-45) mmHg ABG pO2 (83-108) mmHg ABG Total CO2 (19-24) mmol/L ABG O2 Saturation (94-97) % ABG Hematocrit (34.0-46.0) % ABG Ionized Calcium (4.5-5.3) mg/dL ABG Glucose (75-99) mg/dL ABG Lactic Acid (0.5-1.6) mmol/L Hemoglobin (13.0-17.5) gm/dL Sodium (137-145) mmol/L Chloride (98-107) mmol/L Glucose (74-99) mg/dL POC Glucose (mg/dL) 123 H 169 H (70-110) mg/dL Calcium (8.4-10.2) mg/dL Ionized Calcium Debra (4.5-5.3) mg/dL Magnesium (1.6-2.3) mg/dL Alkaline Phosphatase (38-126) U/L Total Protein (6.3-8.2) g/dL Arterial Blood Glucose (75-99) mg/dL Crossmatch - Imaging and Cardiology Chest x-ray: report reviewed, image reviewed Assessment and Plan Assessment: 1. Triple-vessel coronary artery disease, non-STEMI this admission, status post three-vessel CABG 2. Hypertension 3. Hyperlipidemia, previously untreated, cholesterol 264, LDL 144 4. Bilateral internal carotid artery stenosis 50-69% 5. Hepatitis C, IgG Ab reactive, hep C virus RNA negative 6. Current tobacco dependence, preoperative FEV1 113% of predicted 7. Current marijuana use 8. Current EtOH use greater than 8 drinks per week 9. Seizure approximately 3 years ago 10. Neurofibromatosis 11. Previous heroin use with cessation 10 years ago 12. Family history of premature coronary artery disease Plan: 1. Continue to maximize medical therapy with aspirin, statin, Plavix, beta marie. Will increase beta marie therapy as tolerated, increase to 50 mg twice daily today. 2. Discontinue IV nitro. Start oral calcium channel marie for radial artery spasm prophylaxis 3. Continue amiodarone for A. fib prophylaxis, will transition to oral 4. Encourage incentive spirometry 10 times every hour while awake. Bronchodilators per pulmonology 5. Increase activity, ambulate as tolerated. PT/OT/cardiac rehab consulted 6. Will monitor daily labs and x-rays. Electric replacement per protocol 7. Pain control with current medication regimen 8. Insulin management per primary care service. Patient is not a diabetic, hem oglobin A1c 4.9% 9. Discontinue Foley. Connect Cordis to continuous CVP monitoring. KELLIE drain discontinued 10. Continue chest tubes for another 24 hours. Monitor for cessation of air leak and mediastinal tube 11. Continue Aldrich catheter for another 24 hours for strict accurate intake and output. Daily weights 12. Smoking cessation education and counseling provided, patient strongly encouraged to quit smoking including marijuana, decrease EtOH use 13. More recommendations to follow
--- NOTE | 2022-02-02 10:59 | P.PN ---
Subjective Progress Note Date: 02/02/22 Principal diagnosis: Coronary artery disease. Pulmonary consult dated 01/28/2022. 46-year-old male admitted to the emergency department, on January 27. The patient apparently came to the emergency room complaining of chest discomfort. The patient described the pain as a pressure, rated 7 out of 10. The patient apparently received nitroglycerin from EMS, and the pain went away. The patient also admitted to some mild shortness of breath, nausea, and diaphoresis. The patient apparently has no prior history of cardiac disease. We were asked to see the patient for preoperative evaluation. Currently, the patient's getting saline at 75 mL an hour, and not receiving any supplemental oxygen. A spirometry was ordered. The patient is a current every day smoker, and apparen tly she was IV drugs in the past. He has no known ALLERGIES. He takes no medications at home on a regular basis. His cardiac catheterization showed severe triple vessel disease, with chronic total occlusion of right coronary artery and circumflex coronary artery, critical disease involving the proximal and mid LAD. The patient's chest x-ray was normal. Laboratory data includes a white count of 9.1, hemoglobin 16.3, hematocrit 48.9, and a platelet count of 267,000. Coagulation studies were normal. Sodium was 133, potassium 3.9, chlorides 110, CO2 19, BUN 17, and creatinine 0.63. Troponins were 0.034, 0.850, and 1.930. Thyroid function was normal. Progress note dated 01/29/2022. 46-year-old male the emergency department on January 27. He came with chest discomfort. The patient was found to have significant coronary disease, and cardiothoracic surgery is planning to do a bypass grafting on him sometime this week. Because he is a current every day smoker, I was asked to see him for preoperative clearance. His FEV1 was 3.79 L. His FVC was 4.96 L. His MVV was 142 L/m. Based on these data, the patient said no increased operative risk. Currently, he's on room air, IV heparin via weightbase protocol, and saline at 75 mL an hour. He did smoke one pack a day for 31-32 years. He was smoking up until the time of his admission. White count 7.6, hemoglobin 16.5, hematocrit 48.8, and platelet count 2 years 60,000. PTT is 32.1. Sodium 135, potassium 4.1, chlorides 112, CO2 19, anion gap 4, BUN 13, and creatinine 0.62. Progress note dated 01/30/2022. 46-year-old male who is going to have open heart surgery on Friday. The patient is currently on room air. He's getting saline at 20 mL an hour. He is on IV heparin. He is resting comfortably in the intensive care unit, without any chest pain or chest discomfort. PTT is 42.9. Troponin 0.401. According to the nurse, the patient had a very uneventful night. Laird note dated 01/31/2022. This patient is a 46-year-old male, scheduled for bypass grafting, on February 01. The patient's currently on room air. IV heparin has been turned off. There are no fluids running at this time. Labs include a normal CBC. PTT is normal. INR and PT are normal. Sodium 135, potassium 4.2, chlorides 109, CO2 22, with a no rmal anion gap, BUN, and creatinine. Progress note dated January 2022. 46-year-old male, scheduled for bypass grafting today. Patient is currently on room air. He is not receiving any IV fluids. Labs, x-rays, and medications are all reviewed. In addition, preoperative spirometry were excellent. Lab data from January 31 shows a white count 6.4, hemoglobin 17.1, hematocrit 52.4, and a platelet count was normal. Sodium 135, potassium 4.2, chlorides 109, CO2 22, with a BUN of 15 and creatinine 0.66. Progress note dated 02/02/2022. 46-year-old male, postop day #1, status post three-vessel bypass grafting. Currently, the patient's on room air. He is getting lactated Ringer's at 50 mL an hour, Cleveprex at 6 mg an hour, nitroglycerin at 5 mcg/m, amiodarone at 0.5 mg/m, and insulin drip 0.5 units an hour. Labs today include a white count of 12, hemoglobin 11.6, hematocrit 34, and a normal platelet count. Sodium 135, potassium 3.5, chlorides 106, CO2 23, BUN and creatinine were 19 and 0.78. Calcium 7.9. Ionized calcium 4.4. Chest x-ray show some postsurgical changes, and appropriate lines and tubes. Objective - Vital Signs Vital signs: Vital Signs Temp 99.9 F H 02/02/22 08:00 Pulse 89 02/02/22 10:00 Resp 25 H 02/02/22 10:00 BP 133/67 02/02/22 10:00 Pulse Ox 95 02/02/22 10:00 FiO2 50 02/01/22 18:06 Intake & Output 02/01/22 02/02/22 02/02/22 18:59 06:59 18:59 Intake Total 9770.676 3875.823 155.156 Output Total 3300 1390 620 Balance -1819.022 -388.177 -464.844 Weight 75.296 kg Intake: IV 5 740 120 Co/CI 140 30 Lactated Ringers 1,000 ml 600 90 @ 20 mls/hr IV .Q24H [facility] Rx#:[id number] Intake, IV Titration 1475.978 211.823 35.156 Amount ACETAMINOPHEN IV (For NPO 100 ) 1,000 mg In Empty Bag 1 bag @ 400 mls/hr IVPB Q6HR [facility] Rx#:[id number] Albumin Human 5% 250 ml 250 In Empty Bag 1 bag @ 250 mls/hr IVPB ONCE ONE Rx#: [id number] Albumin Human 5% 250 ml 250 In Empty Bag 1 bag @ 250 mls/hr IVPB ONCE ONE Rx#: [id number] Amiodarone 360 mg In 133.2 33.3 Dextrose 5% in Water 200 ml @ 1 MG/MIN 33.333 mls/ hr IV .Q6H ONE Rx#: [id number] Clevidipine Butyrate 25 57.434 34.466 mg In Empty Bag 1 bag @ 1 MG/HR 2 mls/hr IV .Q24H [facility] Rx#:[id number] Dexmedetomidine/0.9% NaCl 52.544 13.472 (Pmx) 400 mcg In Empty Bag 1 bag @ Titrate IV . Q0M [facility] Rx#:[id number] Insulin Regular 100 unit 7.089 13.551 0.69 In Sodium Chloride 0.9% 100 ml @ Per Protocol IV .Q0M [facility] Rx#:[id number] Lactated Ringers 1,000 ml 200 50 @ 20 mls/hr IV .Q24H [facility] Rx#:[id number] Magnesium Sulfate-D5w Pmx 300 100 1 gm In Dextrose/Water 1 100ml.bag @ 100 mls/hr IVPB Q1H [facility] Rx#: [id number] Nitroglycerin-D5w Pmx 50 6.0 1.5 mg In Dextrose/Water 1 250ml.bag @ 5 MCG/MIN 1.5 mls/hr IV .Q24H [facility] Rx#: [id number] ceFAZolin 2 gm In Sodium 50 Chloride 0.9% 50 ml @ 100 mls/hr IVPB Q8HR [facility] Rx# :[id number] propofoL 1,000 mg In 69.711 Empty Bag 1 bag @ Titrate IV .Q0M [facility] Rx#: [id number] Oral 50 Output: Chest Tube Drainage 745 610 50 RT and LT Pleural 205 200 10 medistinal 540 410 40 Drainage 20 20 Left Arm 20 20 Urine 935 780 550 Estimated Blood Loss 1600 Other: Voiding Method Indwelling Catheter Indwelling Catheter Indwelling Catheter ABP, PAP, CO, CI - Last Documented Arterial Blood Pressure 171/63 Pulmonary Artery Pressure 19/8 Cardiac Output 12.2 Cardiac Index 6.7 - Exam No acute distress, oriented 3. Room air saturation is 95 %. HEENT examination is grossly unremarkable. Neck supple. Full range of motion. No adenopathy thyromegaly or neck vein distention. Cardiovascular examination reveals regular rhythm rate. S1-S2 normal. No S3 or S4. No discernible murmur noted. Heart rate 89 bpm. Lungs reveal mostly clear breath sounds. Mild scattered rhonchi. No wheezes or crackles. Breath sounds equal bilaterally. Abdomen soft bowel sounds are heard. No masses or tenderness. Extremities are intact. No cyanosis clubbing or edema. Skin is without rash or lesion. Neurologic examination is brief but nonfocal. - Labs CBC & Chem 7: 02/02/22 03:05 02/02/22 03:05 Labs: Abnormal Lab Results - Last 24 Hours (Table) 01/31/22 02/01/22 02/01/22 Range/Units 05:46 08:32 11:02 WBC (3.8-10.6) k/uL RBC (4.30-5.90) m/uL Hgb (13.0-17.5) gm/dL Hct (39.0-53.0) % Neutrophils # (1.3-7.7) k/uL Lymphocytes # (1.0-4.8) k/uL Monocytes # (0-1.0) k/uL ABG pH 7.27 L (7.35-7.45) ABG pCO2 49 H (35-45) mmHg ABG pO2 257 H 201 H (83-108) mmHg ABG Total CO2 (19-24) mmol/L ABG O2 Saturation 99.6 H 99.1 H (94-97) % ABG Hematocrit 50 H (34.0-46.0) % ABG Ionized Calcium (4.5-5.3) mg/dL ABG Glucose 106 H (75-99) mg/dL ABG Lactic Acid <0.4 L (0.5-1.6) mmol/L Hemoglobin (13.0-17.5) gm/dL Sodium (137-145) mmol/L Chloride (98-107) mmol/L Glucose (74-99) mg/dL POC Glucose (mg/dL) (70-110) mg/dL Calcium (8.4-10.2) mg/dL Ionized Calcium Debra (4.5-5.3) mg/dL Magnesium (1.6-2.3) mg/dL Alkaline Phosphatase (38-126) U/L Total Protein (6.3-8.2) g/dL Arterial Blood Glucose 106 H (75-99) mg/dL Crossmatch See Detail 02/01/22 02/01/22 02/01/22 Range/Units 11:30 12:09 12:47 WBC (3.8-10.6) k/uL RBC (4.30-5.90) m/uL Hgb (13.0-17.5) gm/dL Hct (39.0-53.0) % Neutrophils # (1.3-7.7) k/uL Lymphocytes # (1.0-4.8) k/uL Monocytes # (0-1.0) k/uL ABG pH 7.30 L 7.32 L 7.32 L (7.35-7.45) ABG pCO2 48 H 46 H (35-45) mmHg ABG pO2 184 H 146 H 129 H (83-108) mmHg ABG Total CO2 25 H 25 H 25 H (19-24) mmol/L ABG O2 Saturation 99.1 H 98.7 H 98.8 H (94-97) % ABG Hematocrit (34.0-46.0) % ABG Ionized Calcium 4.4 L 4.4 L (4.5-5.3) mg/dL ABG Glucose 116 H 122 H 125 H (75-99) mg/dL ABG Lactic Acid 0.4 L (0.5-1.6) mmol/L Hemoglobin 11.7 L (13.0-17.5) gm/dL Sodium (137-145) mmol/L Chloride (98-107) mmol/L Glucose (74-99) mg/dL POC Glucose (mg/dL) (70-110) mg/dL Calcium (8.4-10.2) mg/dL Ionized Calcium Debra (4.5-5.3) mg/dL Magnesium (1.6-2.3) mg/dL Alkaline Phosphatase (38-126) U/L Total Protein (6.3-8.2) g/dL Arterial Blood Glucose 116 H 122 H 125 H (75-99) mg/dL Crossmatch 02/01/22 02/01/22 02/01/22 Range/Units 14:02 14:02 14:04 WBC 16.7 H (3.8-10.6) k/uL RBC (4.30-5.90) m/uL Hgb (13.0-17.5) gm/dL Hct (39.0-53.0) % Neutrophils # 14.0 H (1.3-7.7) k/uL Lymphocytes # (1.0-4.8) k/uL Monocytes # 1.1 H (0-1.0) k/uL ABG pH (7.35-7.45) ABG pCO2 (35-45) mmHg ABG pO2 (83-108) mmHg ABG Total CO2 (19-24) mmol/L ABG O2 Saturation (94-97) % ABG Hematocrit (34.0-46.0) % ABG Ionized Calcium (4.5-5.3) mg/dL ABG Glucose (75-99) mg/dL ABG Lactic Acid (0.5-1.6) mmol/L Hemoglobin (13.0-17.5) gm/dL Sodium (137-145) mmol/L Chloride 110 H (98-107) mmol/L Glucose 141 H (74-99) mg/dL POC Glucose (mg/dL) 149 H (70-110) mg/dL Calcium 8.0 L (8.4-10.2) mg/dL Ionized Calcium Debra (4.5-5.3) mg/dL Magnesium 1.4 L (1.6-2.3) mg/dL Alkaline Phosphatase 29 L (38-126) U/L Total Protein 5.8 L (6.3-8.2) g/dL Arterial Blood Glucose (75-99) mg/dL Crossmatch 02/01/22 02/01/22 02/01/22 Range/Units 14:19 15:17 16:17 WBC (3.8-10.6) k/uL RBC (4.30-5.90) m/uL Hgb (13.0-17.5) gm/dL Hct (39.0-53.0) % Neutrophils # (1.3-7.7) k/uL Lymphocytes # (1.0-4.8) k/uL Monocytes # (0-1.0) k/uL ABG pH 7.30 L (7.35-7.45) ABG pCO2 48 H (35-45) mmHg ABG pO2 (83-108) mmHg ABG Total CO2 25 H (19-24) mmol/L ABG O2 Saturation 98.1 H (94-97) % ABG Hematocrit (34.0-46.0) % ABG Ionized Calcium (4.5-5.3) mg/dL ABG Glucose (75-99) mg/dL ABG Lactic Acid (0.5-1.6) mmol/L Hemoglobin (13.0-17.5) gm/dL Sodium (137-145) mmol/L Chloride (98-107) mmol/L Glucose (74-99) mg/dL POC Glucose (mg/dL) 158 H 164 H (70-110) mg/dL Calcium (8.4-10.2) mg/dL Ionized Calcium Debra (4.5-5.3) mg/dL Magnesium (1.6-2.3) mg/dL Alkaline Phosphatase (38-126) U/L Total Protein (6.3-8.2) g/dL Arterial Blood Glucose (75-99) mg/dL Crossmatch 02/01/22 02/01/22 02/01/22 Range/Units 16:55 17:15 18:27 WBC 11.5 H (3.8-10.6) k/uL RBC 3.76 L (4.30-5.90) m/uL Hgb 12.0 L (13.0-17.5) gm/dL Hct 35.0 L (39.0-53.0) % Neutrophils # 10.2 H (1.3-7.7) k/uL Lymphocytes # 0.3 L (1.0-4.8) k/uL Monocytes # (0-1.0) k/uL ABG pH (7.35-7.45) ABG pCO2 (35-45) mmHg ABG pO2 (83-108) mmHg ABG Total CO2 (19-24) mmol/L ABG O2 Saturation (94-97) % ABG Hematocrit (34.0-46.0) % ABG Ionized Calcium (4.5-5.3) mg/dL ABG Glucose (75-99) mg/dL ABG Lactic Acid (0.5-1.6) mmol/L Hemoglobin (13.0-17.5) gm/dL Sodium (137-145) mmol/L Chloride (98-107) mmol/L Glucose (74-99) mg/dL POC Glucose (mg/dL) 150 H 137 H (70-110) mg/dL Calcium (8.4-10.2) mg/dL Ionized Calcium Debra (4.5-5.3) mg/dL Magnesium (1.6-2.3) mg/dL Alkaline Phosphatase (38-126) U/L Total Protein (6.3-8.2) g/dL Arterial Blood Glucose (75-99) mg/dL Crossmatch 02/01/22 02/01/22 02/01/22 Range/Units 18:38 19:48 19:48 WBC 10.8 H (3.8-10.6) k/uL RBC 3.69 L (4.30-5.90) m/uL Hgb 11.7 L (13.0-17.5) gm/dL Hct 34.0 L (39.0-53.0) % Neutrophils # 9.6 H (1.3-7.7) k/uL Lymphocytes # 0.3 L (1.0-4.8) k/uL Monocytes # (0-1.0) k/uL ABG pH 7.46 H (7.35-7.45) ABG pCO2 (35-45) mmHg ABG pO2 131 H (83-108) mmHg ABG Total CO2 26 H (19-24) mmol/L ABG O2 Saturation 99.7 H (94-97) % ABG Hematocrit (34.0-46.0) % ABG Ionized Calcium (4.5-5.3) mg/dL ABG Glucose (75-99) mg/dL ABG Lactic Acid (0.5-1.6) mmol/L Hemoglobin (13.0-17.5) gm/dL Sodium (137-145) mmol/L Chloride (98-107) mmol/L Glucose (74-99) mg/dL POC Glucose (mg/dL) 148 H (70-110) mg/dL Calcium (8.4-10.2) mg/dL Ionized Calcium Debra (4.5-5.3) mg/dL Magnesium (1.6-2.3) mg/dL Alkaline Phosphatase (38-126) U/L Total Protein (6.3-8.2) g/dL Arterial Blood Glucose (75-99) mg/dL Crossmatch 02/01/22 02/01/22 02/01/22 Range/Units 21:01 21:52 22:52 WBC (3.8-10.6) k/uL RBC (4.30-5.90) m/uL Hgb (13.0-17.5) gm/dL Hct (39.0-53.0) % Neutrophils # (1.3-7.7) k/uL Lymphocytes # (1.0-4.8) k/uL Monocytes # (0-1.0) k/uL ABG pH (7.35-7.45) ABG pCO2 (35-45) mmHg ABG pO2 (83-108) mmHg ABG Total CO2 (19-24) mmol/L ABG O2 Saturation (94-97) % ABG Hematocrit (34.0-46.0) % ABG Ionized Calcium (4.5-5.3) mg/dL ABG Glucose (75-99) mg/dL ABG Lactic Acid (0.5-1.6) mmol/L Hemoglobin (13.0-17.5) gm/dL Sodium (137-145) mmol/L Chloride (98-107) mmol/L Glucose (74-99) mg/dL POC Glucose (mg/dL) 137 H 123 H 124 H (70-110) mg/dL Calcium (8.4-10.2) mg/dL Ionized Calcium Debra (4.5-5.3) mg/dL Magnesium (1.6-2.3) mg/dL Alkaline Phosphatase (38-126) U/L Total Protein (6.3-8.2) g/dL Arterial Blood Glucose (75-99) mg/dL Crossmatch 02/01/22 02/02/22 02/02/22 Range/Units 23:59 01:26 01:56 WBC (3.8-10.6) k/uL RBC (4.30-5.90) m/uL Hgb (13.0-17.5) gm/dL Hct (39.0-53.0) % Neutrophils # (1.3-7.7) k/uL Lymphocytes # (1.0-4.8) k/uL Monocytes # (0-1.0) k/uL ABG pH (7.35-7.45) ABG pCO2 (35-45) mmHg ABG pO2 (83-108) mmHg ABG Total CO2 (19-24) mmol/L ABG O2 Saturation (94-97) % ABG Hematocrit (34.0-46.0) % ABG Ionized Calcium (4.5-5.3) mg/dL ABG Glucose (75-99) mg/dL ABG Lactic Acid (0.5-1.6) mmol/L Hemoglobin (13.0-17.5) gm/dL Sodium (137-145) mmol/L Chloride (98-107) mmol/L Glucose (74-99) mg/dL POC Glucose (mg/dL) 125 H 127 H 115 H (70-110) mg/dL Calcium (8.4-10.2) mg/dL Ionized Calcium Debra (4.5-5.3) mg/dL Magnesium (1.6-2.3) mg/dL Alkaline Phosphatase (38-126) U/L Total Protein (6.3-8.2) g/dL Arterial Blood Glucose (75-99) mg/dL Crossmatch 02/02/22 02/02/22 02/02/22 Range/Units 02:56 03:05 03:05 WBC 12.0 H (3.8-10.6) k/uL RBC 3.68 L (4.30-5.90) m/uL Hgb 11.6 L (13.0-17.5) gm/dL Hct 34.0 L (39.0-53.0) % Neutrophils # 10.3 H (1.3-7.7) k/uL Lymphocytes # 0.6 L (1.0-4.8) k/uL Monocytes # (0-1.0) k/uL ABG pH (7.35-7.45) ABG pCO2 (35-45) mmHg ABG pO2 (83-108) mmHg ABG Total CO2 (19-24) mmol/L ABG O2 Saturation (94-97) % ABG Hematocrit (34.0-46.0) % ABG Ionized Calcium (4.5-5.3) mg/dL ABG Glucose (75-99) mg/dL ABG Lactic Acid (0.5-1.6) mmol/L Hemoglobin (13.0-17.5) gm/dL Sodium 135 L (137-145) mmol/L Chloride (98-107) mmol/L Glucose 107 H (74-99) mg/dL POC Glucose (mg/dL) 113 H (70-110) mg/dL Calcium 7.9 L (8.4-10.2) mg/dL Ionized Calcium Debra 4.4 L (4.5-5.3) mg/dL Magnesium 2.5 H (1.6-2.3) mg/dL Alkaline Phosphatase 26 L (38-126) U/L Total Protein 5.3 L (6.3-8.2) g/dL Arterial Blood Glucose (75-99) mg/dL Crossmatch 02/02/22 02/02/22 02/02/22 Range/Units 03:50 04:54 05:58 WBC (3.8-10.6) k/uL RBC (4.30-5.90) m/uL Hgb (13.0-17.5) gm/dL Hct (39.0-53.0) % Neutrophils # (1.3-7.7) k/uL Lymphocytes # (1.0-4.8) k/uL Monocytes # (0-1.0) k/uL ABG pH (7.35-7.45) ABG pCO2 (35-45) mmHg ABG pO2 (83-108) mmHg ABG Total CO2 (19-24) mmol/L ABG O2 Saturation (94-97) % ABG Hematocrit (34.0-46.0) % ABG Ionized Calcium (4.5-5.3) mg/dL ABG Glucose (75-99) mg/dL ABG Lactic Acid (0.5-1.6) mmol/L Hemoglobin (13.0-17.5) gm/dL Sodium (137-145) mmol/L Chloride (98-107) mmol/L Glucose (74-99) mg/dL POC Glucose (mg/dL) 126 H 121 H 127 H (70-110) mg/dL Calcium (8.4-10.2) mg/dL Ionized Calcium Debra (4.5-5.3) mg/dL Magnesium (1.6-2.3) mg/dL Alkaline Phosphatase (38-126) U/L Total Protein (6.3-8.2) g/dL Arterial Blood Glucose (75-99) mg/dL Crossmatch 02/02/22 02/02/22 02/02/22 Range/Units 06:52 08:17 10:09 WBC (3.8-10.6) k/uL RBC (4.30-5.90) m/uL Hgb (13.0-17.5) gm/dL Hct (39.0-53.0) % Neutrophils # (1.3-7.7) k/uL Lymphocytes # (1.0-4.8) k/uL Monocytes # (0-1.0) k/uL ABG pH (7.35-7.45) ABG pCO2 (35-45) mmHg ABG pO2 (83-108) mmHg ABG Total CO2 (19-24) mmol/L ABG O2 Saturation (94-97) % ABG Hematocrit (34.0-46.0) % ABG Ionized Calcium (4.5-5.3) mg/dL ABG Glucose (75-99) mg/dL ABG Lactic Acid (0.5-1.6) mmol/L Hemoglobin (13.0-17.5) gm/dL Sodium (137-145) mmol/L Chloride (98-107) mmol/L Glucose (74-99) mg/dL POC Glucose (mg/dL) 123 H 169 H 130 H (70-110) mg/dL Calcium (8.4-10.2) mg/dL Ionized Calcium Debra (4.5-5.3) mg/dL Magnesium (1.6-2.3) mg/dL Alkaline Phosphatase (38-126) U/L Total Protein (6.3-8.2) g/dL Arterial Blood Glucose (75-99) mg/dL Crossmatch Assessment and Plan Assessment: Non-ST segment elevation myocardial infarction. Severe three-vessel coronary disease, S/P 3 vessel bypass grafting, including NICHOLS to LAD, TOMMY to RCA, and left radial artery to ramus intermedius. Routine postoperative ventilator management. History of chronic nicotine dependence. Excellent pulmonary function testing, suggesting the patient at no increased operative risk for bypass grafting. Family history of CAD. Prior history of heroin use. Plan: Plan dated 01/28/2022. The patient is seen and evaluated. A spirometry has been ordered but have not seen it as yet. The patient does smoke cigarettes on a daily basis. Apparently he has no prior history of any medical issues. He was not taking any medications at home on a regular basis. He has used heroin in the past. We'll await the results of the spirometry. Anticipated bypass grafting this week. Plan dated 01/29/2022. The patient is doing well. The patient's on room air, and IV heparin. Lung function were reviewed, and are excellent. Based on the FEV1, and the MVV, the patient is at no increased operative risk for general anesthesia or bypass grafting. No surgical date has been set as yet. We will continue to follow along and make recommendations. Plan dated 01/30/2022. The patient is doing well. He remains on room air. He is receiving saline at 20 mL an hour. He is also receiving IV heparin. The patient will apparently have open heart surgery on Friday. Based on lung function, that I shared with the patient today, the patient is at no increased operative risk. Since he is so very stable, I will see him again until Friday, after surgery. Plan dated 01/31/2022. Labs, x-rays, and medications are reviewed. Lung function are excellent. Based on lung function, the patient's at no increased operative risk for the procedure, and general anesthetic. We will continue to follow. I explained my role to the patient. He understands the importance of incentive spirometry. No additional recommendations are made. The patient's IV heparin has been discontinued. The patient is not receiving any IV fluids. Plan dated 02/01/2022. Labs, x-rays, and medications reviewed. Also, preoperative spirometry were reviewed, and are excellent. That was passed along to the patient. I explained my role in this case, to the patient, and explained to him that we would attempt to get the patient extubated as soon as possible, and also follow him throughout his hospitalization, to make sure that his long stay healthy. This would include deep breathing, coughing, clearing of secretions, breathing treatments, and hourly use of incentive spirometer. Plan dated 02/02/2022. The patient remains on lactated Ringer's at 50 mL an hour, Cleveprex at 6 mg an hour, nitroglycerin at 5 mcg/m, amiodarone at 0.5 mg/m, and insulin at 0.5 units an hour. Clinically, the patient looks reasonably well. He was extubated without difficulty. Chest x-ray shows postsurgical changes. He's currently on room air. He had a three-vessel bypass grafting as noted. We will continue to follow and make recommendations along the way. Prognosis is thought to be good. Encourage deep breathing, coughing, and clearing of secretions, along with hourly use of the incentive spirometer. Time with Patient: Greater than 30
--- NOTE | 2022-02-02 11:07 | P.PN ---
Subjective Progress Note Date: 02/02/22 Principal diagnosis: Follow-up CABG Patient is seen and examined by the bedside today. Patient is still in the surgical ICU. No evidence overnight. Patient is alert and oriented. Denied chest pain nausea vomiting or abdominal pain. Objective - Vital Signs Vital signs: Vital Signs Temp 99.9 F H 02/02/22 08:00 Pulse 89 02/02/22 10:00 Resp 25 H 02/02/22 10:00 BP 133/67 02/02/22 10:00 Pulse Ox 95 02/02/22 10:00 FiO2 50 02/01/22 18:06 Intake & Output 02/01/22 02/02/22 02/02/22 18:59 06:59 18:59 Intake Total 4509.702 2397.823 155.156 Output Total 3300 1390 620 Balance -1819.022 -388.177 -464.844 Weight 75.296 kg Intake: IV 5 740 120 Co/CI 140 30 Lactated Ringers 1,000 ml 600 90 @ 20 mls/hr IV .Q24H [facility] Rx#:[id number] Intake, IV Titration 1475.978 211.823 35.156 Amount ACETAMINOPHEN IV (For NPO 100 ) 1,000 mg In Empty Bag 1 bag @ 400 mls/hr IVPB Q6HR [facility] Rx#:[id number] Albumin Human 5% 250 ml 250 In Empty Bag 1 bag @ 250 mls/hr IVPB ONCE ONE Rx#: [id number] Albumin Human 5% 250 ml 250 In Empty Bag 1 bag @ 250 mls/hr IVPB ONCE ONE Rx#: [id number] Amiodarone 360 mg In 133.2 33.3 Dextrose 5% in Water 200 ml @ 1 MG/MIN 33.333 mls/ hr IV .Q6H ONE Rx#: [id number] Clevidipine Butyrate 25 57.434 34.466 mg In Empty Bag 1 bag @ 1 MG/HR 2 mls/hr IV .Q24H [facility] Rx#:[id number] Dexmedetomidine/0.9% NaCl 52.544 13.472 (Pmx) 400 mcg In Empty Bag 1 bag @ Titrate IV . Q0M [facility] Rx#:[id number] Insulin Regular 100 unit 7.089 13.551 0.69 In Sodium Chloride 0.9% 100 ml @ Per Protocol IV .Q0M [facility] Rx#:[id number] Lactated Ringers 1,000 ml 200 50 @ 20 mls/hr IV .Q24H [facility] Rx#:[id number] Magnesium Sulfate-D5w Pmx 300 100 1 gm In Dextrose/Water 1 100ml.bag @ 100 mls/hr IVPB Q1H [facility] Rx#: [id number] Nitroglycerin-D5w Pmx 50 6.0 1.5 mg In Dextrose/Water 1 250ml.bag @ 5 MCG/MIN 1.5 mls/hr IV .Q24H [facility] Rx#: [id number] ceFAZolin 2 gm In Sodium 50 Chloride 0.9% 50 ml @ 100 mls/hr IVPB Q8HR [facility] Rx# :[id number] propofoL 1,000 mg In 69.711 Empty Bag 1 bag @ Titrate IV .Q0M [facility] Rx#: [id number] Oral 50 Output: Chest Tube Drainage 745 610 50 RT and LT Pleural 205 200 10 medistinal 540 410 40 Drainage 20 20 Left Arm 20 20 Urine 935 780 550 Estimated Blood Loss 1600 Other: Voiding Method Indwelling Catheter Indwelling Catheter Indwelling Catheter ABP, PAP, CO, CI - Last Documented Arterial Blood Pressure 171/63 Pulmonary Artery Pressure 19/8 Cardiac Output 12.2 Cardiac Index 6.7 - Exam General: The patient is alert and oriented 4. Noted distress. Significant bed looks comfortable. Neck supple no JVD. Central line. Chest, multiple tubes. Surgical dressing. Heart in sinus rhythm. Lungs: There is auscultation. No crackles or wheezing Abdomen: Soft. Nondistended nontender positive bowel sounds genitourinary: Aldrich catheter in place. Extremities: No swelling bilaterally. - Labs CBC & Chem 7: 02/02/22 03:05 02/02/22 03:05 Labs: Abnormal Lab Results - Last 24 Hours (Table) 01/31/22 02/01/22 02/01/22 Range/Units 05:46 08:32 11:02 WBC (3.8-10.6) k/uL RBC (4.30-5.90) m/uL Hgb (13.0-17.5) gm/dL Hct (39.0-53.0) % Neutrophils # (1.3-7.7) k/uL Lymphocytes # (1.0-4.8) k/uL Monocytes # (0-1.0) k/uL ABG pH 7.27 L (7.35-7.45) ABG pCO2 49 H (35-45) mmHg ABG pO2 257 H 201 H (83-108) mmHg ABG Total CO2 (19-24) mmol/L ABG O2 Saturation 99.6 H 99.1 H (94-97) % ABG Hematocrit 50 H (34.0-46.0) % ABG Ionized Calcium (4.5-5.3) mg/dL ABG Glucose 106 H (75-99) mg/dL ABG Lactic Acid <0.4 L (0.5-1.6) mmol/L Hemoglobin (13.0-17.5) gm/dL Sodium (137-145) mmol/L Chloride (98-107) mmol/L Glucose (74-99) mg/dL POC Glucose (mg/dL) (70-110) mg/dL Calcium (8.4-10.2) mg/dL Ionized Calcium Debra (4.5-5.3) mg/dL Magnesium (1.6-2.3) mg/dL Alkaline Phosphatase (38-126) U/L Total Protein (6.3-8.2) g/dL Arterial Blood Glucose 106 H (75-99) mg/dL Crossmatch See Detail 02/01/22 02/01/22 02/01/22 Range/Units 11:30 12:09 12:47 WBC (3.8-10.6) k/uL RBC (4.30-5.90) m/uL Hgb (13.0-17.5) gm/dL Hct (39.0-53.0) % Neutrophils # (1.3-7.7) k/uL Lymphocytes # (1.0-4.8) k/uL Monocytes # (0-1.0) k/uL ABG pH 7.30 L 7.32 L 7.32 L (7.35-7.45) ABG pCO2 48 H 46 H (35-45) mmHg ABG pO2 184 H 146 H 129 H (83-108) mmHg ABG Total CO2 25 H 25 H 25 H (19-24) mmol/L ABG O2 Saturation 99.1 H 98.7 H 98.8 H (94-97) % ABG Hematocrit (34.0-46.0) % ABG Ionized Calcium 4.4 L 4.4 L (4.5-5.3) mg/dL ABG Glucose 116 H 122 H 125 H (75-99) mg/dL ABG Lactic Acid 0.4 L (0.5-1.6) mmol/L Hemoglobin 11.7 L (13.0-17.5) gm/dL Sodium (137-145) mmol/L Chloride (98-107) mmol/L Glucose (74-99) mg/dL POC Glucose (mg/dL) (70-110) mg/dL Calcium (8.4-10.2) mg/dL Ionized Calcium Debra (4.5-5.3) mg/dL Magnesium (1.6-2.3) mg/dL Alkaline Phosphatase (38-126) U/L Total Protein (6.3-8.2) g/dL Arterial Blood Glucose 116 H 122 H 125 H (75-99) mg/dL Crossmatch 02/01/22 02/01/22 02/01/22 Range/Units 14:02 14:02 14:04 WBC 16.7 H (3.8-10.6) k/uL RBC (4.30-5.90) m/uL Hgb (13.0-17.5) gm/dL Hct (39.0-53.0) % Neutrophils # 14.0 H (1.3-7.7) k/uL Lymphocytes # (1.0-4.8) k/uL Monocytes # 1.1 H (0-1.0) k/uL ABG pH (7.35-7.45) ABG pCO2 (35-45) mmHg ABG pO2 (83-108) mmHg ABG Total CO2 (19-24) mmol/L ABG O2 Saturation (94-97) % ABG Hematocrit (34.0-46.0) % ABG Ionized Calcium (4.5-5.3) mg/dL ABG Glucose (75-99) mg/dL ABG Lactic Acid (0.5-1.6) mmol/L Hemoglobin (13.0-17.5) gm/dL Sodium (137-145) mmol/L Chloride 110 H (98-107) mmol/L Glucose 141 H (74-99) mg/dL POC Glucose (mg/dL) 149 H (70-110) mg/dL Calcium 8.0 L (8.4-10.2) mg/dL Ionized Calcium Debra (4.5-5.3) mg/dL Magnesium 1.4 L (1.6-2.3) mg/dL Alkaline Phosphatase 29 L (38-126) U/L Total Protein 5.8 L (6.3-8.2) g/dL Arterial Blood Glucose (75-99) mg/dL Crossmatch 02/01/22 02/01/22 02/01/22 Range/Units 14:19 15:17 16:17 WBC (3.8-10.6) k/uL RBC (4.30-5.90) m/uL Hgb (13.0-17.5) gm/dL Hct (39.0-53.0) % Neutrophils # (1.3-7.7) k/uL Lymphocytes # (1.0-4.8) k/uL Monocytes # (0-1.0) k/uL ABG pH 7.30 L (7.35-7.45) ABG pCO2 48 H (35-45) mmHg ABG pO2 (83-108) mmHg ABG Total CO2 25 H (19-24) mmol/L ABG O2 Saturation 98.1 H (94-97) % ABG Hematocrit (34.0-46.0) % ABG Ionized Calcium (4.5-5.3) mg/dL ABG Glucose (75-99) mg/dL ABG Lactic Acid (0.5-1.6) mmol/L Hemoglobin (13.0-17.5) gm/dL Sodium (137-145) mmol/L Chloride (98-107) mmol/L Glucose (74-99) mg/dL POC Glucose (mg/dL) 158 H 164 H (70-110) mg/dL Calcium (8.4-10.2) mg/dL Ionized Calcium Debra (4.5-5.3) mg/dL Magnesium (1.6-2.3) mg/dL Alkaline Phosphatase (38-126) U/L Total Protein (6.3-8.2) g/dL Arterial Blood Glucose (75-99) mg/dL Crossmatch 02/01/22 02/01/22 02/01/22 Range/Units 16:55 17:15 18:27 WBC 11.5 H (3.8-10.6) k/uL RBC 3.76 L (4.30-5.90) m/uL Hgb 12.0 L (13.0-17.5) gm/dL Hct 35.0 L (39.0-53.0) % Neutrophils # 10.2 H (1.3-7.7) k/uL Lymphocytes # 0.3 L (1.0-4.8) k/uL Monocytes # (0-1.0) k/uL ABG pH (7.35-7.45) ABG pCO2 (35-45) mmHg ABG pO2 (83-108) mmHg ABG Total CO2 (19-24) mmol/L ABG O2 Saturation (94-97) % ABG Hematocrit (34.0-46.0) % ABG Ionized Calcium (4.5-5.3) mg/dL ABG Glucose (75-99) mg/dL ABG Lactic Acid (0.5-1.6) mmol/L Hemoglobin (13.0-17.5) gm/dL Sodium (137-145) mmol/L Chloride (98-107) mmol/L Glucose (74-99) mg/dL POC Glucose (mg/dL) 150 H 137 H (70-110) mg/dL Calcium (8.4-10.2) mg/dL Ionized Calcium Debra (4.5-5.3) mg/dL Magnesium (1.6-2.3) mg/dL Alkaline Phosphatase (38-126) U/L Total Protein (6.3-8.2) g/dL Arterial Blood Glucose (75-99) mg/dL Crossmatch 02/01/22 02/01/22 02/01/22 Range/Units 18:38 19:48 19:48 WBC 10.8 H (3.8-10.6) k/uL RBC 3.69 L (4.30-5.90) m/uL Hgb 11.7 L (13.0-17.5) gm/dL Hct 34.0 L (39.0-53.0) % Neutrophils # 9.6 H (1.3-7.7) k/uL Lymphocytes # 0.3 L (1.0-4.8) k/uL Monocytes # (0-1.0) k/uL ABG pH 7.46 H (7.35-7.45) ABG pCO2 (35-45) mmHg ABG pO2 131 H (83-108) mmHg ABG Total CO2 26 H (19-24) mmol/L ABG O2 Saturation 99.7 H (94-97) % ABG Hematocrit (34.0-46.0) % ABG Ionized Calcium (4.5-5.3) mg/dL ABG Glucose (75-99) mg/dL ABG Lactic Acid (0.5-1.6) mmol/L Hemoglobin (13.0-17.5) gm/dL Sodium (137-145) mmol/L Chloride (98-107) mmol/L Glucose (74-99) mg/dL POC Glucose (mg/dL) 148 H (70-110) mg/dL Calcium (8.4-10.2) mg/dL Ionized Calcium Debra (4.5-5.3) mg/dL Magnesium (1.6-2.3) mg/dL Alkaline Phosphatase (38-126) U/L Total Protein (6.3-8.2) g/dL Arterial Blood Glucose (75-99) mg/dL Crossmatch 02/01/22 02/01/22 02/01/22 Range/Units 21:01 21:52 22:52 WBC (3.8-10.6) k/uL RBC (4.30-5.90) m/uL Hgb (13.0-17.5) gm/dL Hct (39.0-53.0) % Neutrophils # (1.3-7.7) k/uL Lymphocytes # (1.0-4.8) k/uL Monocytes # (0-1.0) k/uL ABG pH (7.35-7.45) ABG pCO2 (35-45) mmHg ABG pO2 (83-108) mmHg ABG Total CO2 (19-24) mmol/L ABG O2 Saturation (94-97) % ABG Hematocrit (34.0-46.0) % ABG Ionized Calcium (4.5-5.3) mg/dL ABG Glucose (75-99) mg/dL ABG Lactic Acid (0.5-1.6) mmol/L Hemoglobin (13.0-17.5) gm/dL Sodium (137-145) mmol/L Chloride (98-107) mmol/L Glucose (74-99) mg/dL POC Glucose (mg/dL) 137 H 123 H 124 H (70-110) mg/dL Calcium (8.4-10.2) mg/dL Ionized Calcium Debra (4.5-5.3) mg/dL Magnesium (1.6-2.3) mg/dL Alkaline Phosphatase (38-126) U/L Total Protein (6.3-8.2) g/dL Arterial Blood Glucose (75-99) mg/dL Crossmatch 02/01/22 02/02/22 02/02/22 Range/Units 23:59 01:26 01:56 WBC (3.8-10.6) k/uL RBC (4.30-5.90) m/uL Hgb (13.0-17.5) gm/dL Hct (39.0-53.0) % Neutrophils # (1.3-7.7) k/uL Lymphocytes # (1.0-4.8) k/uL Monocytes # (0-1.0) k/uL ABG pH (7.35-7.45) ABG pCO2 (35-45) mmHg ABG pO2 (83-108) mmHg ABG Total CO2 (19-24) mmol/L ABG O2 Saturation (94-97) % ABG Hematocrit (34.0-46.0) % ABG Ionized Calcium (4.5-5.3) mg/dL ABG Glucose (75-99) mg/dL ABG Lactic Acid (0.5-1.6) mmol/L Hemoglobin (13.0-17.5) gm/dL Sodium (137-145) mmol/L Chloride (98-107) mmol/L Glucose (74-99) mg/dL POC Glucose (mg/dL) 125 H 127 H 115 H (70-110) mg/dL Calcium (8.4-10.2) mg/dL Ionized Calcium Debra (4.5-5.3) mg/dL Magnesium (1.6-2.3) mg/dL Alkaline Phosphatase (38-126) U/L Total Protein (6.3-8.2) g/dL Arterial Blood Glucose (75-99) mg/dL Crossmatch 02/02/22 02/02/22 02/02/22 Range/Units 02:56 03:05 03:05 WBC 12.0 H (3.8-10.6) k/uL RBC 3.68 L (4.30-5.90) m/uL Hgb 11.6 L (13.0-17.5) gm/dL Hct 34.0 L (39.0-53.0) % Neutrophils # 10.3 H (1.3-7.7) k/uL Lymphocytes # 0.6 L (1.0-4.8) k/uL Monocytes # (0-1.0) k/uL ABG pH (7.35-7.45) ABG pCO2 (35-45) mmHg ABG pO2 (83-108) mmHg ABG Total CO2 (19-24) mmol/L ABG O2 Saturation (94-97) % ABG Hematocrit (34.0-46.0) % ABG Ionized Calcium (4.5-5.3) mg/dL ABG Glucose (75-99) mg/dL ABG Lactic Acid (0.5-1.6) mmol/L Hemoglobin (13.0-17.5) gm/dL Sodium 135 L (137-145) mmol/L Chloride (98-107) mmol/L Glucose 107 H (74-99) mg/dL POC Glucose (mg/dL) 113 H (70-110) mg/dL Calcium 7.9 L (8.4-10.2) mg/dL Ionized Calcium Debra 4.4 L (4.5-5.3) mg/dL Magnesium 2.5 H (1.6-2.3) mg/dL Alkaline Phosphatase 26 L (38-126) U/L Total Protein 5.3 L (6.3-8.2) g/dL Arterial Blood Glucose (75-99) mg/dL Crossmatch 02/02/22 02/02/22 02/02/22 Range/Units 03:50 04:54 05:58 WBC (3.8-10.6) k/uL RBC (4.30-5.90) m/uL Hgb (13.0-17.5) gm/dL Hct (39.0-53.0) % Neutrophils # (1.3-7.7) k/uL Lymphocytes # (1.0-4.8) k/uL Monocytes # (0-1.0) k/uL ABG pH (7.35-7.45) ABG pCO2 (35-45) mmHg ABG pO2 (83-108) mmHg ABG Total CO2 (19-24) mmol/L ABG O2 Saturation (94-97) % ABG Hematocrit (34.0-46.0) % ABG Ionized Calcium (4.5-5.3) mg/dL ABG Glucose (75-99) mg/dL ABG Lactic Acid (0.5-1.6) mmol/L Hemoglobin (13.0-17.5) gm/dL Sodium (137-145) mmol/L Chloride (98-107) mmol/L Glucose (74-99) mg/dL POC Glucose (mg/dL) 126 H 121 H 127 H (70-110) mg/dL Calcium (8.4-10.2) mg/dL Ionized Calcium Debra (4.5-5.3) mg/dL Magnesium (1.6-2.3) mg/dL Alkaline Phosphatase (38-126) U/L Total Protein (6.3-8.2) g/dL Arterial Blood Glucose (75-99) mg/dL Crossmatch 02/02/22 02/02/22 02/02/22 Range/Units 06:52 08:17 10:09 WBC (3.8-10.6) k/uL RBC (4.30-5.90) m/uL Hgb (13.0-17.5) gm/dL Hct (39.0-53.0) % Neutrophils # (1.3-7.7) k/uL Lymphocytes # (1.0-4.8) k/uL Monocytes # (0-1.0) k/uL ABG pH (7.35-7.45) ABG pCO2 (35-45) mmHg ABG pO2 (83-108) mmHg ABG Total CO2 (19-24) mmol/L ABG O2 Saturation (94-97) % ABG Hematocrit (34.0-46.0) % ABG Ionized Calcium (4.5-5.3) mg/dL ABG Glucose (75-99) mg/dL ABG Lactic Acid (0.5-1.6) mmol/L Hemoglobin (13.0-17.5) gm/dL Sodium (137-145) mmol/L Chloride (98-107) mmol/L Glucose (74-99) mg/dL POC Glucose (mg/dL) 123 H 169 H 130 H (70-110) mg/dL Calcium (8.4-10.2) mg/dL Ionized Calcium Debra (4.5-5.3) mg/dL Magnesium (1.6-2.3) mg/dL Alkaline Phosphatase (38-126) U/L Total Protein (6.3-8.2) g/dL Arterial Blood Glucose (75-99) mg/dL Crossmatch Assessment and Plan Plan: NSTEMI with triple-vessel CAD HTN urgency RIght ICA stenosis HLD - ASA, Lipitor, Lisinopril, metoprolol, norvasc - echo with preserved EF, PFT with normal lung function - CT surgery recs: Status post CABG 02/01/2022. Currently management is under ICU care. - insulin gtt for tight BS control. 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
[2022-02-02] MEDS ORDERED: amLODIPine 5 MG TAB PO ONE (12:00)
[2022-02-02] MEDS: AMIODARONE 450 MG in DEXTROSE 5% IN WATER 250 ML IV SCH ×2 (12:05)
[2022-02-02 12:09] LABS: Glucose,Whole Blood 133 mg/dL (70-110)
[2022-02-02 12:41] VITALS: BMI 28.5
[2022-02-02 13:15] LABS: Glucose,Whole Blood 155 mg/dL (70-110)
[2022-02-02] MEDS: LACTATED RINGERS 1,000 ML IV SCH (14:57)
[2022-02-02 15:10] LABS: Glucose,Whole Blood 132 mg/dL (70-110)
[2022-02-02 17:04] LABS: Glucose,Whole Blood 147 mg/dL (70-110)
[2022-02-02] MEDS ORDERED: DEXTROSE 50% SYRINGE 50 ML IVP PRN ×2 (19:20)
[2022-02-02 19:22] LABS: Glucose,Whole Blood 145 mg/dL (70-110)
[2022-02-02 20:42] LABS: Glucose,Whole Blood 157 mg/dL (70-110)
[2022-02-02] MEDS: INSULIN ASPART (NovoLOG) 100 UNIT/ML VIAL SQ SCH (20:50)
[2022-02-02] MEDS: METOPROLOL TARTRATE 50 MG TAB PO SCH (20:50)
[2022-02-02] MEDS: SENNOSIDES-DOCUSATE SODIUM 1 EACH TAB PO SCH (20:50)
[2022-02-03] MEDS: HEPARIN SODIUM,PORCINE/PF 5,000 UNIT/0.5 ML SYRINGE SQ SCH ×4 (00:02→23:17)
[2022-02-03] MEDS: KETOROLAC 15 MG/ML 1 ML VIAL IVP SCH ×5 (00:02→23:17)
[2022-02-03] MEDS ORDERED: MELATONIN 3 MG TABLET PO ONE (00:28)
[2022-02-03] MEDS: HYDROcodone/APAP 5-325MG 1 EACH TAB PO PRN ×2 (01:54→19:42)
[2022-02-03 04:11] LABS: Basophils % (A) 0 %; Eosinophils # (A) 0.1 k/uL (0-0.7); Eosinophils % (A) 1 %; HCT 31.7 % (39.0-53.0); HGB 10.7 gm/dL (13.0-17.5); Lymphocytes # (A) 0.7 k/uL (1.0-4.8); Lymphocytes % (A) 5 %; MCH 31.6 pg (25.0-35.0); MCHC 33.9 g/dL (31.0-37.0); MCV 93.1 fL (80.0-100.0); Mean Platelet Volume 9.4; Monocytes % (A) 8 %; Neutrophils # (A) 11.5 k/uL (1.3-7.7); Neutrophils % (A) 85 %; Platelet Count 193 k/uL (150-450); RDW 13.4 % (11.5-15.5); WBC 13.5 k/uL (3.8-10.6)
[2022-02-03 04:22] LABS: Ionized Calcium 4.8 mg/dL (4.5-5.3)
[2022-02-03 04:28] LABS: ALT 21 U/L (4-49); AST 37 U/L (17-59); African American GFR (CKD) >90 (>60 ml/min/1.73 sqM); Albumin 3.1 g/dL (3.5-5.0); Alkaline Phosphatase 38 U/L (38-126); Anion Gap 6 mmol/L; Blood Urea Nitrogen 15 mg/dL (9-20); Carbon Dioxide 22 mmol/L (22-30); Chloride 105 mmol/L (98-107); Glucose 113 mg/dL (74-99); Magnesium 1.8 mg/dL (1.6-2.3); Non-African American GFR(CKD) >90 (>60 ml/min/1.73 sqM); Potassium 3.9 mmol/L (3.5-5.1); Sodium 133 mmol/L (137-145); Total Bilirubin 0.9 mg/dL (0.2-1.3)
[2022-02-03 05:50] LABS: Glucose,Whole Blood 116 mg/dL (70-110)
[2022-02-03] MEDS: INSULIN ASPART (NovoLOG) 100 UNIT/ML VIAL SQ SCH ×4 (05:51→20:50)
[2022-02-03] MEDS ORDERED: POTASSIUM CHLORIDE ER 20 MEQ TAB.ER PO SCH (06:00)
[2022-02-03] MEDS: PANTOPRAZOLE 40 MG TABLET PO SCH (06:02)
[2022-02-03] MEDS: MAGNESIUM SULFATE-D5W PMX 1 GM in DEXTROSE/WATER 1 100ML.BAG IVPB SCH ×2 (06:03→08:39)
[2022-02-03] MEDS: THIAMINE 100 MG TAB PO SCH ×2 (06:03→16:41)
--- NOTE | 2022-02-03 07:07 | XR ---
EXAMINATION TYPE: XR chest 1V portable DATE OF EXAM: 02/03/2022 5:55 AM COMPARISON: Chest radiographs from 02/02/2022 TECHNIQUE: XR chest 1V portable Portable AP radiograph of the chest. CLINICAL INDICATION:Male, 46 years old with history of Post Operative Cardiac Surgery; FINDINGS: Lungs/Pleura: There is no evidence of pleural effusion, focal consolidation, or pneumothorax. Pulmonary vascularity: Unremarkable. Heart/mediastinum: Cardiomediastinal silhouette is enlarged and stable. Left atrial appendage occlusi on device is present. Musculoskeletal: No acute osseous pathology. Midline sternotomy wires are noted. Other findings: None Lines/Tubes: Drainage tubes with tips projecting over the mediastinum. Bilateral thoracotomy tubes are present without evidence of pneumothorax. IMPRESSION: Postsurgical changes with thoracotomy tubes in place without evidence pneumothorax.
--- NOTE | 2022-02-03 07:42 | P.PN ---
Subjective Progress Note Date: 02/03/22 Principal diagnosis: Acute coronary event This is a 46-year-old gentleman with significant history of smoking as well as hypertension and dyslipidemia presented to the hospital with a chest discomfort and ruled in for acute coronary event. He underwent heart catheterization and was found to have severe triple-vessel coronary artery disease. The patient underwent yesterday CABG 3 with NICHOLS to LAD and TOMMY to RCA and radiated graft to intermediate artery. This is postoperative elevation day #2. The patient overall is a stable. He has been maintaining normal sinus mechanism. His pressure has improved. Hemoglobin this morning is 10.7. GFR remains above 60. Urine output has been normal. He is on dual antiplatelet therapy with aspirin as well as Plavix and also he is on high intensity statin as well as beta marie and calcium channel marie for the radial graft. He is in process of being transferred to the third floor. Objective - Vital Signs Vital signs: Vital Signs Temp 98.8 F 02/03/22 04:00 Pulse 90 02/03/22 07:00 Resp 23 02/03/22 07:00 BP 127/77 02/03/22 07:00 Pulse Ox 97 02/03/22 07:00 FiO2 50 02/01/22 18:06 Intake & Output 02/02/22 02/03/22 02/03/22 18:59 06:59 18:59 Intake Total 091.556 5561 Output Total 1930 1550 Balance -1584.828 -318 Weight 75.296 kg 75 kg Intake: IV 300 332 Co/CI 50 Lactated Ringers 1,000 ml 250 260 @ 20 mls/hr IV .Q24H [facility] Rx#:[id number] pressure bag 72 Intake, IV Titration 45.172 150 Amount Clevidipine Butyrate 25 34.466 50 mg In Empty Bag 1 bag @ 1 MG/HR 2 mls/hr IV .Q24H [facility] Rx#:[id number] Insulin Regular 100 unit 10.706 In Sodium Chloride 0.9% 100 ml @ Per Protocol IV .Q0M [facility] Rx#:[id number] Magnesium Sulfate-D5w Pmx 100 1 gm In Dextrose/Water 1 100ml.bag @ 100 mls/hr IVPB Q1H [facility] Rx#: [id number] Oral 750 Output: Chest Tube Drainage 410 400 RT and LT Pleural 40 150 medistinal 370 250 Drainage 20 Left Arm 20 Urine 1500 1150 Other: Voiding Method Indwelling Catheter Indwelling Catheter ABP, PAP, CO, CI - Last Documented Arterial Blood Pressure 156/68 Pulmonary Artery Pressure 19/8 Cardiac Output 11.1 Cardiac Index 6.1 - Constitutional General appearance: Present: no acute distress - Respiratory Respiratory: bilateral: diminished - Cardiovascular Rhythm: regular - Labs CBC & Chem 7: 02/03/22 04:00 02/03/22 04:00 Labs: Abnormal Lab Results - Last 24 Hours (Table) 02/02/22 02/02/22 02/02/22 Range/Units 08:17 10:09 12:07 WBC (3.8-10.6) k/uL RBC (4.30-5.90) m/uL Hgb (13.0-17.5) gm/dL Hct (39.0-53.0) % Neutrophils # (1.3-7.7) k/uL Lymphocytes # (1.0-4.8) k/uL Sodium (137-145) mmol/L Creatinine (0.66-1.25) mg/dL Glucose (74-99) mg/dL POC Glucose (mg/dL) 169 H 130 H 133 H (70-110) mg/dL Calcium (8.4-10.2) mg/dL Total Protein (6.3-8.2) g/dL Albumin (3.5-5.0) g/dL 02/02/22 02/02/22 02/02/22 Range/Units 13:13 15:08 17:01 WBC (3.8-10.6) k/uL RBC (4.30-5.90) m/uL Hgb (13.0-17.5) gm/dL Hct (39.0-53.0) % Neutrophils # (1.3-7.7) k/uL Lymphocytes # (1.0-4.8) k/uL Sodium (137-145) mmol/L Creatinine (0.66-1.25) mg/dL Glucose (74-99) mg/dL POC Glucose (mg/dL) 155 H 132 H 147 H (70-110) mg/dL Calcium (8.4-10.2) mg/dL Total Protein (6.3-8.2) g/dL Albumin (3.5-5.0) g/dL 02/02/22 02/02/22 02/03/22 Range/Units 19:20 20:40 04:00 WBC (3.8-10.6) k/uL RBC (4.30-5.90) m/uL Hgb (13.0-17.5) gm/dL Hct (39.0-53.0) % Neutrophils # (1.3-7.7) k/uL Lymphocytes # (1.0-4.8) k/uL Sodium 133 L (137-145) mmol/L Creatinine 0.64 L (0.66-1.25) mg/dL Glucose 113 H (74-99) mg/dL POC Glucose (mg/dL) 145 H 157 H (70-110) mg/dL Calcium 8.0 L (8.4-10.2) mg/dL Total Protein 5.0 L (6.3-8.2) g/dL Albumin 3.1 L (3.5-5.0) g/dL 02/03/22 02/03/22 Range/Units 04:00 05:49 WBC 13.5 H (3.8-10.6) k/uL RBC 3.40 L (4.30-5.90) m/uL Hgb 10.7 L (13.0-17.5) gm/dL Hct 31.7 L (39.0-53.0) % Neutrophils # 11.5 H (1.3-7.7) k/uL Lymphocytes # 0.7 L (1.0-4.8) k/uL Sodium (137-145) mmol/L Creatinine (0.66-1.25) mg/dL Glucose (74-99) mg/dL POC Glucose (mg/dL) 116 H (70-110) mg/dL Calcium (8.4-10.2) mg/dL Total Protein (6.3-8.2) g/dL Albumin (3.5-5.0) g/dL Assessment and Plan Assessment: Assessment #1 acute coronary event #2 severe triple-vessel CAD status post CABG 3 as described above #3 significant history of smoking #4 hypertension #5 dyslipidemia #6 carotid atherosclerosis Plan #1 continue the current medical regimen including dual antiplatelet therapy along with high intensity statin and beta marie and calcium channel marie for the radial graft #2 continue monitor the hemoglobin. This morning the hemoglobin is 10.7. #3 continue monitor the kidney function be GFR remains above 60 #4 the patient is in process to be transferred to the third floor #5 follow-up with the patient
--- NOTE | 2022-02-03 08:21 | P.PN ---
Subjective Progress Note Date: 02/03/22 Principal diagnosis: Triple-vessel coronary artery disease, non-STEMI this admission. Previous medical history of hypertension, hyperlipidemia, bilateral internal carotid artery stenosis 50-69%, hepatitis C, current tobacco dependence, current marijuana use, current EtOH use, seizure approximately 3 years ago, neurofibromatosis, previous heroin use with cessation 10 years ago and family history of premature coronary artery disease POD #2 off-pump CABG 3 with left internal mammary artery to the left anterior descending artery, right internal mammary artery to the right coronary artery, left radial artery graft to the intermediate coronary artery with endovascular radial artery harvest and ligation of the left atrial appendage with 40 mm AtriCure clip The patient was seen and examined this morning sitting up in a recliner in the intensive care unit in no acute distress eating breakfast. Remains in sinus rhythm and hemodynamically stable off Cleviprex since last night. Patient states pain is controlled on current medication regimen, denies shortness of breath. Currently on room air with oxygen saturation in the mid 90s, able to achieve 2250 mL on his incentive spirometry. Good urine output. Patient has ambulated multiple times all the way around the hallway without difficulty. Right internal jugular Cordis, right radial arterial line, mediastinal/lef t/right pleural chest tubes all remaining present. No other new concerns. Objective - Vital Signs Vital signs: Vital Signs Temp 98.8 F 02/03/22 04:00 Pulse 90 02/03/22 07:00 Resp 23 02/03/22 07:00 BP 127/77 02/03/22 07:00 Pulse Ox 97 02/03/22 07:00 FiO2 50 02/01/22 18:06 Intake & Output 02/02/22 02/03/22 02/03/22 18:59 06:59 18:59 Intake Total 937.172 8434 Output Total 1930 1550 Balance -1584.828 -318 Weight 75.296 kg 75 kg Intake: IV 300 332 Co/CI 50 Lactated Ringers 1,000 ml 250 260 @ 20 mls/hr IV .Q24H [facility] Rx#:[id number] pressure bag 72 Intake, IV Titration 45.172 150 Amount Clevidipine Butyrate 25 34.466 50 mg In Empty Bag 1 bag @ 1 MG/HR 2 mls/hr IV .Q24H [facility] Rx#:[id number] Insulin Regular 100 unit 10.706 In Sodium Chloride 0.9% 100 ml @ Per Protocol IV .Q0M [facility] Rx#:[id number] Magnesium Sulfate-D5w Pmx 100 1 gm In Dextrose/Water 1 100ml.bag @ 100 mls/hr IVPB Q1H [facility] Rx#: [id number] Oral 750 Output: Chest Tube Drainage 410 400 RT and LT Pleural 40 150 medistinal 370 250 Drainage 20 Left Arm 20 Urine 1500 1150 Other: Voiding Method Indwelling Catheter Indwelling Catheter ABP, PAP, CO, CI - Last Documented Arterial Blood Pressure 156/68 Pulmonary Artery Pressure 19/8 Cardiac Output 11.1 Cardiac Index 6.1 - Exam CONSTITUTIONAL: Appears comfortable, cooperative, no acute distress RESPIRATORY: Lungs sounds diminished bilaterally. Respirations even, nonlabored. Currently on room air with oxygen saturation 97%. Able to achieve 2250 mL on incentive spirometry. Strong cough. CARDIOVASCULAR: S1, S2 present. Regular rate and rhythm, sinus rhythm on telemetry. Sternum stable. Palpable peripheral pulses bilaterally. No edema present. No calf pain or tenderness noted. Heart hugger in place with patient demonstrating appropriate use. Antiembolism stockings, SCDs present. GASTROINTESTINAL: Abdomen soft, nontender, nondistended. Active bowel sounds present 4 quadrants. Tolerating diet. Positive flatus GENITOURINARY: Aldrich present draining clear, yellow urine. Output overnight 30-75 mL per hour, 2620 mL in the last 24 hours INTEGUMENTARY: Skin is warm and dry with evidence of good perfusion. Anterior chest incision well approximated and covered with dry intact dressing. Left radial artery harvest site site well approximated without redness NEUROLOGIC: Cranial nerves II through XII intact MUSKULOSKELETAL: Able to move all extremities, strength equal bilaterally, gait normal PSYCHIATRIC: Alert and oriented to person place and time, appropriate affect, intact judgment and insight INVASIVE LINES AND TUBES: Mediastinal/left/right pleural chest tubes present and connected to wall suction, intermittent air leak present in the mediastinal chest tube. Mediastinal tube with 190 mL serosanguineous drainage overnight, 550 mL in the last 24 hours. Left/right pleural chest tubes with 130 mL serosanguineous drainage overnight, 200 mL in the last 24 hours. Right internal jugular Cordis, right radial arterial line present. - Allied health notes Allied health notes reviewed: nursing - Labs CBC & Chem 7: 02/03/22 04:00 02/03/22 04:00 Labs: Abnormal Lab Results - Last 24 Hours (Table) 02/02/22 02/02/22 02/02/22 Range/Units 08:17 10:09 12:07 WBC (3.8-10.6) k/uL RBC (4.30-5.90) m/uL Hgb (13.0-17.5) gm/dL Hct (39.0-53.0) % Neutrophils # (1.3-7.7) k/uL Lymphocytes # (1.0-4.8) k/uL Sodium (137-145) mmol/L Creatinine (0.66-1.25) mg/dL Glucose (74-99) mg/dL POC Glucose (mg/dL) 169 H 130 H 133 H (70-110) mg/dL Calcium (8.4-10.2) mg/dL Total Protein (6.3-8.2) g/dL Albumin (3.5-5.0) g/dL 02/02/22 02/02/22 02/02/22 Range/Units 13:13 15:08 17:01 WBC (3.8-10.6) k/uL RBC (4.30-5.90) m/uL Hgb (13.0-17.5) gm/dL Hct (39.0-53.0) % Neutrophils # (1.3-7.7) k/uL Lymphocytes # (1.0-4.8) k/uL Sodium (137-145) mmol/L Creatinine (0.66-1.25) mg/dL Glucose (74-99) mg/dL POC Glucose (mg/dL) 155 H 132 H 147 H (70-110) mg/dL Calcium (8.4-10.2) mg/dL Total Protein (6.3-8.2) g/dL Albumin (3.5-5.0) g/dL 02/02/22 02/02/22 02/03/22 Range/Units 19:20 20:40 04:00 WBC (3.8-10.6) k/uL RBC (4.30-5.90) m/uL Hgb (13.0-17.5) gm/dL Hct (39.0-53.0) % Neutrophils # (1.3-7.7) k/uL Lymphocytes # (1.0-4.8) k/uL Sodium 133 L (137-145) mmol/L Creatinine 0.64 L (0.66-1.25) mg/dL Glucose 113 H (74-99) mg/dL POC Glucose (mg/dL) 145 H 157 H (70-110) mg/dL Calcium 8.0 L (8.4-10.2) mg/dL Total Protein 5.0 L (6.3-8.2) g/dL Albumin 3.1 L (3.5-5.0) g/dL 02/03/22 02/03/22 Range/Units 04:00 05:49 WBC 13.5 H (3.8-10.6) k/uL RBC 3.40 L (4.30-5.90) m/uL Hgb 10.7 L (13.0-17.5) gm/dL Hct 31.7 L (39.0-53.0) % Neutrophils # 11.5 H (1.3-7.7) k/uL Lymphocytes # 0.7 L (1.0-4.8) k/uL Sodium (137-145) mmol/L Creatinine (0.66-1.25) mg/dL Glucose (74-99) mg/dL POC Glucose (mg/dL) 116 H (70-110) mg/dL Calcium (8.4-10.2) mg/dL Total Protein (6.3-8.2) g/dL Albumin (3.5-5.0) g/dL - Imaging and Cardiology Chest x-ray: report reviewed, image reviewed Assessment and Plan Assessment: 1. Triple-vessel coronary artery disease, non-STEMI this admission, status post three-vessel CABG 2. Hypertension 3. Hyperlipidemia, previously untreated, cholesterol 264, LDL 144 4. Bilateral internal carotid artery stenosis 50-69% 5. Hepatitis C, IgG Ab reactive, hep C virus RNA negative 6. Current tobacco dependence, preoperative FEV1 113% of predicted 7. Current marijuana use 8. Current EtOH use greater than 8 drinks per week 9. Seizure approximately 3 years ago 10. Neurofibromatosis 11. Previous heroin use with cessation 10 years ago 12. Family history of premature coronary artery disease Plan: 1. Continue to maximize medical therapy with aspirin, statin, Plavix, beta marie. Will increase beta marie therapy as tolerated 2. Continue oral calcium channel marie for radial artery spasm prophylaxis 3. Continue amiodarone for A. fib prophylaxis 4. Encourage incentive spirometry 10 times every hour while awake. Bronchodilators per pulmonology 5. Increase activity, ambulate as tolerated. PT/OT/cardiac rehab following 6. Will monitor daily labs and x-rays. Electric replacement per protocol 7. Pain control with current medication regimen 8. Insulin management per primary care service. Patient is not a diabetic, hemoglobin A1c 4.9% 9. Discontinue Cordis, arterial line 10. Continue chest tubes for another 24 hours. Monitor for cessation of air leak in mediastinal tube 11. Discontinue Aldrich catheter, made bladder scan and straight cath for greater than 300 mL residual 12. Strict accurate intake and output. Daily weights 13. Smoking cessation education and counseling provided, patient strongly encouraged to quit smoking including marijuana, decrease EtOH use 14. Will place transfer orders for 3 [facility] cardiac stepdown unit. May transfer when bed available 15. More recommendations to follow
--- NOTE | 2022-02-03 08:22 | P.PN ---
Subjective Progress Note Date: 02/03/22 Principal diagnosis: Coronary artery disease. Pulmonary consult dated 01/28/2022. 46-year-old male admitted to the emergency department, on January 27. The patient apparently came to the emergency room complaining of chest discomfort. The patient described the pain as a pressure, rated 7 out of 10. The patient apparently received nitroglycerin from EMS, and the pain went away. The patient also admitted to some mild shortness of breath, nausea, and diaphoresis. The patient apparently has no prior history of cardiac disease. We were asked to see the patient for preoperative evaluation. Currently, the patient's getting saline at 75 mL an hour, and not receiving any supplemental oxygen. A spirometry was ordered. The patient is a current every day smoker, and apparen tly she was IV drugs in the past. He has no known ALLERGIES. He takes no medications at home on a regular basis. His cardiac catheterization showed severe triple vessel disease, with chronic total occlusion of right coronary artery and circumflex coronary artery, critical disease involving the proximal and mid LAD. The patient's chest x-ray was normal. Laboratory data includes a white count of 9.1, hemoglobin 16.3, hematocrit 48.9, and a platelet count of 267,000. Coagulation studies were normal. Sodium was 133, potassium 3.9, chlorides 110, CO2 19, BUN 17, and creatinine 0.63. Troponins were 0.034, 0.850, and 1.930. Thyroid function was normal. Progress note dated 01/29/2022. 46-year-old male the emergency department on January 27. He came with chest discomfort. The patient was found to have significant coronary disease, and cardiothoracic surgery is planning to do a bypass grafting on him sometime this week. Because he is a current every day smoker, I was asked to see him for preoperative clearance. His FEV1 was 3.79 L. His FVC was 4.96 L. His MVV was 142 L/m. Based on these data, the patient said no increased operative risk. Currently, he's on room air, IV heparin via weightbase protocol, and saline at 75 mL an hour. He did smoke one pack a day for 31-32 years. He was smoking up until the time of his admission. White count 7.6, hemoglobin 16.5, hematocrit 48.8, and platelet count 2 years 60,000. PTT is 32.1. Sodium 135, potassium 4.1, chlorides 112, CO2 19, anion gap 4, BUN 13, and creatinine 0.62. Progress note dated 01/30/2022. 46-year-old male who is going to have open heart surgery on Friday. The patient is currently on room air. He's getting saline at 20 mL an hour. He is on IV heparin. He is resting comfortably in the intensive care unit, without any chest pain or chest discomfort. PTT is 42.9. Troponin 0.401. According to the nurse, the patient had a very uneventful night. [place] note dated 01/31/2022. This patient is a 46-year-old male, scheduled for bypass grafting, on February 01. The patient's currently on room air. IV heparin has been turned off. There are no fluids running at this time. Labs include a normal CBC. PTT is normal. INR and PT are normal. Sodium 135, potassium 4.2, chlorides 109, CO2 22, with a no rmal anion gap, BUN, and creatinine. Progress note dated January 2022. 46-year-old male, scheduled for bypass grafting today. Patient is currently on room air. He is not receiving any IV fluids. Labs, x-rays, and medications are all reviewed. In addition, preoperative spirometry were excellent. Lab data from January 31 shows a white count 6.4, hemoglobin 17.1, hematocrit 52.4, and a platelet count was normal. Sodium 135, potassium 4.2, chlorides 109, CO2 22, with a BUN of 15 and creatinine 0.66. Progress note dated 02/02/2022. 46-year-old male, postop day #1, status post three-vessel bypass grafting. Currently, the patient's on room air. He is getting lactated Ringer's at 50 mL an hour, Cleveprex at 6 mg an hour, nitroglycerin at 5 mcg/m, amiodarone at 0.5 mg/m, and insulin drip 0.5 units an hour. Labs today include a white count of 12, hemoglobin 11.6, hematocrit 34, and a normal platelet count. Sodium 135, potassium 3.5, chlorides 106, CO2 23, BUN and creatinine were 19 and 0.78. Calcium 7.9. Ionized calcium 4.4. Chest x-ray show some postsurgical changes, and appropriate lines and tubes. Progress note dated 02/03/2022 46-year-old male who is postop day #2, status post three-vessel bypass grafting. Currently, he's on room air. He is getting lactated Ringer's at 20 mL an hour. Patient's doing well without complaints. No drips her other IVs running at this time. White count 13.5, hemoglobin 10.7, hematocrit 31.7, with a normal platelet count. Sodium 133, potassium 0.9, chlorides 105, CO2 22, BUN 15, creatinine 0.64. Chest x-ray shows postsurgical changes, without obvious pneumothorax. Objective - Vital Signs Vital signs: Vital Signs Temp 98.8 F 02/03/22 04:00 Pulse 90 02/03/22 07:00 Resp 23 02/03/22 07:00 BP 127/77 02/03/22 07:00 Pulse Ox 97 02/03/22 07:00 FiO2 50 02/01/22 18:06 Intake & Output 02/02/22 02/03/22 02/03/22 18:59 06:59 18:59 Intake Total 415.226 2368 Output Total 1930 1550 Balance -1584.828 -318 Weight 75.296 kg 75 kg Intake: IV 300 332 Co/CI 50 Lactated Ringers 1,000 ml 250 260 @ 20 mls/hr IV .Q24H [facility] Rx#:[id number] pressure bag 72 Intake, IV Titration 45.172 150 Amount Clevidipine Butyrate 25 34.466 50 mg In Empty Bag 1 bag @ 1 MG/HR 2 mls/hr IV .Q24H [facility] Rx#:[id number] Insulin Regular 100 unit 10.706 In Sodium Chloride 0.9% 100 ml @ Per Protocol IV .Q0M [facility] Rx#:[id number] Magnesium Sulfate-D5w Pmx 100 1 gm In Dextrose/Water 1 100ml.bag @ 100 mls/hr IVPB Q1H [facility] Rx#: [id number] Oral 750 Output: Chest Tube Drainage 410 400 RT and LT Pleural 40 150 medistinal 370 250 Drainage 20 Left Arm 20 Urine 1500 1150 Other: Voiding Method Indwelling Catheter Indwelling Catheter ABP, PAP, CO, CI - Last Documented Arterial Blood Pressure 156/68 Pulmonary Artery Pressure 19/8 Cardiac Output 11.1 Cardiac Index 6.1 - Exam No acute distress, oriented 3. Room air saturation is 96 %. HEENT examination is grossly unremarkable. Neck supple. Full range of motion. No adenopathy thyromegaly or neck vein distention. Cardiovascular examination reveals regular rhythm rate. S1-S2 normal. No S3 or S4. No discernible murmur noted. Heart rate 90 bpm. Lungs reveal mostly clear breath sounds. Mild scattered rhonchi. No wheezes or crackles. Breath sounds equal bilaterally. Abdomen soft bowel sounds are heard. No masses or tenderness. Extremities are intact. No cyanosis clubbing or edema. Skin is without rash or lesion. Neurologic examination is brief but nonfocal. - Labs CBC & Chem 7: 02/03/22 04:00 02/03/22 04:00 Labs: Abnormal Lab Results - Last 24 Hours (Table) 02/02/22 02/02/22 02/02/22 Range/Units 08:17 10:09 12:07 WBC (3.8-10.6) k/uL RBC (4.30-5.90) m/uL Hgb (13.0-17.5) gm/dL Hct (39.0-53.0) % Neutrophils # (1.3-7.7) k/uL Lymphocytes # (1.0-4.8) k/uL Sodium (137-145) mmol/L Creatinine (0.66-1.25) mg/dL Glucose (74-99) mg/dL POC Glucose (mg/dL) 169 H 130 H 133 H (70-110) mg/dL Calcium (8.4-10.2) mg/dL Total Protein (6.3-8.2) g/dL Albumin (3.5-5.0) g/dL 02/02/22 02/02/22 02/02/22 Range/Units 13:13 15:08 17:01 WBC (3.8-10.6) k/uL RBC (4.30-5.90) m/uL Hgb (13.0-17.5) gm/dL Hct (39.0-53.0) % Neutrophils # (1.3-7.7) k/uL Lymphocytes # (1.0-4.8) k/uL Sodium (137-145) mmol/L Creatinine (0.66-1.25) mg/dL Glucose (74-99) mg/dL POC Glucose (mg/dL) 155 H 132 H 147 H (70-110) mg/dL Calcium (8.4-10.2) mg/dL Total Protein (6.3-8.2) g/dL Albumin (3.5-5.0) g/dL 02/02/22 02/02/22 02/03/22 Range/Units 19:20 20:40 04:00 WBC (3.8-10.6) k/uL RBC (4.30-5.90) m/uL Hgb (13.0-17.5) gm/dL Hct (39.0-53.0) % Neutrophils # (1.3-7.7) k/uL Lymphocytes # (1.0-4.8) k/uL Sodium 133 L (137-145) mmol/L Creatinine 0.64 L (0.66-1.25) mg/dL Glucose 113 H (74-99) mg/dL POC Glucose (mg/dL) 145 H 157 H (70-110) mg/dL Calcium 8.0 L (8.4-10.2) mg/dL Total Protein 5.0 L (6.3-8.2) g/dL Albumin 3.1 L (3.5-5.0) g/dL 02/03/22 02/03/22 Range/Units 04:00 05:49 WBC 13.5 H (3.8-10.6) k/uL RBC 3.40 L (4.30-5.90) m/uL Hgb 10.7 L (13.0-17.5) gm/dL Hct 31.7 L (39.0-53.0) % Neutrophils # 11.5 H (1.3-7.7) k/uL Lymphocytes # 0.7 L (1.0-4.8) k/uL Sodium (137-145) mmol/L Creatinine (0.66-1.25) mg/dL Glucose (74-99) mg/dL POC Glucose (mg/dL) 116 H (70-110) mg/dL Calcium (8.4-10.2) mg/dL Total Protein (6.3-8.2) g/dL Albumin (3.5-5.0) g/dL Assessment and Plan Assessment: Non-ST segment elevation myocardial infarction. Severe three-vessel coronary disease, S/P 3 vessel bypass grafting, including NICHOLS to LAD, TOMMY to RCA, and left radial artery to ramus intermedius, Postop day # 2. the2 Routine postoperative ventilator management. History of chronic nicotine dependence. Excellent pulmonary function testing, suggesting the patient at no increased operative risk for bypass grafting. Family history of CAD. Prior history of heroin use. Plan: Plan dated 01/28/2022. The patient is seen and evaluated. A spirometry has been ordered but have not seen it as yet. The patient does smoke cigarettes on a daily basis. Apparently he has no prior history of any medical issues. He was not taking any medications at home on a regular basis. He has used heroin in the past. We'll await the results of the spirometry. Anticipated bypass grafting this week. Plan dated 01/29/2022. The patient is doing well. The patient's on room air, and IV heparin. Lung function were reviewed, and are excellent. Based on the FEV1, and the MVV, the patient is at no increased operative risk for general anesthesia or bypass grafting. No surgical date has been set as yet. We will continue to follow along and make recommendations. Plan dated 01/30/2022. The patient is doing well. He remains on room air. He is receiving saline at 20 mL an hour. He is also receiving IV heparin. The patient will apparently have open heart surgery on Friday. Based on lung function, that I shared with the patient today, the patient is at no increased operative risk. Since he is so very stable, I will see him again until Friday, after surgery. Plan dated 01/31/2022. Labs, x-rays, and medications are reviewed. Lung function are excellent. Based on lung function, the patient's at no increased operative risk for the procedure, and general anesthetic. We will continue to follow. I explained my role to the patient. He understands the importance of incentive spirometry. No additional recommendations are made. The patient's IV heparin has been discontinued. The patient is not receiving any IV fluids. Plan dated 02/01/2022. Labs, x-rays, and medications reviewed. Also, preoperative spirometry were reviewed, and are excellent. That was passed along to the patient. I explained my role in this case, to the patient, and explained to him that we would attempt to get the patient extubated as soon as possible, and also follow him throughout his hospitalization, to make sure that his long stay healthy. This would include deep breathing, coughing, clearing of secretions, breathing treatments, and hourly use of incentive spirometer. Plan dated 02/02/2022. The patient remains on lactated Ringer's at 50 mL an hour, Cleveprex at 6 mg an hour, nitroglycerin at 5 mcg/m, amiodarone at 0.5 mg/m, and insulin at 0.5 units an hour. Clinically, the patient looks reasonably well. He was extubated without difficulty. Chest x-ray shows postsurgical changes. He's currently on room air. He had a three-vessel bypass grafting as noted. We will continue to follow and make recommendations along the way. Prognosis is thought to be good. Encourage deep breathing, coughing, and clearing of secretions, along with hourly use of the incentive spirometer. Plan dated 02/03/2022. The patient's on room air. He is getting lactated Ringer's at 20 mL an hour. The patient's doing well on his incentive spirometer. Chest x-ray shows postsurgical changes, and some bibasilar atelectasis. Labs, x-rays, and medications are reviewed. We encourage deep breathing, coughing, clearing of secretions. We will continue to follow the patient. He may be discharged out of the intensive care unit today. We will leave that up to cardiothoracic surgery. Time with Patient: Less than 30
[2022-02-03] MEDS: ATORVASTATIN 80 MG TAB PO SCH (08:40)
[2022-02-03] MEDS: METOPROLOL TARTRATE 50 MG TAB PO SCH (08:40)
[2022-02-03] MEDS: AMIODARONE 200 MG TAB PO SCH ×2 (08:40→20:55)
[2022-02-03] MEDS: ASPIRIN 325 MG TAB PO SCH (08:40)
[2022-02-03] MEDS: CLOPIDOGREL 75 MG TAB PO SCH (08:40)
[2022-02-03] MEDS: IPRATROPIUM-ALBUTEROL 3 ML NEB INHALATION SCH ×4 (08:41→19:10)
[2022-02-03] MEDS ORDERED: METOPROLOL TARTRATE 25 MG TAB PO STA (09:23)
[2022-02-03 11:23] LABS: Glucose,Whole Blood 112 mg/dL (70-110)
[2022-02-03] MEDS: amLODIPine 10 MG TAB PO SCH (12:28)
[2022-02-03 16:39] LABS: Glucose,Whole Blood 132 mg/dL (70-110)
[2022-02-03 20:28] LABS: Glucose,Whole Blood 138 mg/dL (70-110)
[2022-02-03] MEDS: METOPROLOL TARTRATE 25 MG TAB PO SCH (20:55)
[2022-02-03] MEDS: SENNOSIDES-DOCUSATE SODIUM 1 EACH TAB PO SCH (20:55)
[2022-02-04 06:07] LABS: Glucose,Whole Blood 105 mg/dL (70-110)
[2022-02-04] MEDS: INSULIN ASPART (NovoLOG) 100 UNIT/ML VIAL SQ SCH ×4 (06:12→20:40)
[2022-02-04] MEDS: KETOROLAC 15 MG/ML 1 ML VIAL IVP SCH ×2 (06:18→12:08)
[2022-02-04] MEDS: THIAMINE 100 MG TAB PO SCH ×2 (06:18→16:40)
[2022-02-04] MEDS: PANTOPRAZOLE 40 MG TABLET PO SCH (06:18)
[2022-02-04 07:09] LABS: ALT 21 U/L (4-49); AST 29 U/L (17-59); African American GFR (CKD) >90 (>60 ml/min/1.73 sqM); Albumin 3.4 g/dL (3.5-5.0); Alkaline Phosphatase 45 U/L (38-126); Anion Gap 7 mmol/L; Blood Urea Nitrogen 18 mg/dL (9-20); Calcium 8.3 mg/dL (8.4-10.2); Carbon Dioxide 22 mmol/L (22-30); Chloride 107 mmol/L (98-107); Glucose 98 mg/dL (74-99); Non-African American GFR(CKD) >90 (>60 ml/min/1.73 sqM); Potassium 4.1 mmol/L (3.5-5.1); Sodium 136 mmol/L (137-145); Total Bilirubin 0.8 mg/dL (0.2-1.3); Total Protein 5.5 g/dL (6.3-8.2)
[2022-02-04 07:18] LABS: Basophils # (A) 0.1 k/uL (0-0.2); Basophils % (A) 0 %; Eosinophils # (A) 0.3 k/uL (0-0.7); Eosinophils % (A) 3 %; HCT 30.2 % (39.0-53.0); HGB 10.3 gm/dL (13.0-17.5); Lymphocytes # (A) 0.8 k/uL (1.0-4.8); Lymphocytes % (A) 7 %; MCH 32.4 pg (25.0-35.0); MCHC 34.2 g/dL (31.0-37.0); MCV 94.7 fL (80.0-100.0); Monocytes # (A) 0.9 k/uL (0-1.0); Monocytes % (A) 8 %; Neutrophils % (A) 79 %; Platelet Count 259 k/uL (150-450); RBC 3.19 m/uL (4.30-5.90); RDW 13.9 % (11.5-15.5); WBC 11.4 k/uL (3.8-10.6)
--- NOTE | 2022-02-04 07:20 | XR ---
EXAMINATION TYPE: XR chest 1V portable DATE OF EXAM: 02/04/2022 COMPARISON: 02/03/2022 HISTORY: Postop TECHNIQUE: Single frontal view of the chest is obtained. FINDINGS: Left-sided chest tube is seen with postsurgical changes. Mediastinal drain noted. Small am ount of pneumomediastinum suspected. Bilateral consolidation and small effusion. Right-sided chest tu be seen. There is subcutaneous emphysema. Suspect 5% right apical pneumothorax. Heart mildly enlarged . Correlate for mild venous congestion. Underlying COPD suspected. Chronic rib deformities noted. Sub cutaneous emphysema along the soft tissues of the right neck. IMPRESSION: 1. Postsurgical changes with bilateral small effusion greater on the left correlate for mild CHF. 2. Approximate 5% right-sided pneumothorax.
[2022-02-04] MEDS: IPRATROPIUM-ALBUTEROL 3 ML NEB INHALATION SCH ×4 (07:29→22:33)
--- NOTE | 2022-02-04 07:34 | P.PN ---
Subjective Progress Note Date: 02/04/22 PROGRESS NOTE The patient is a 46-year-old male who presented with non-STEMI, underwent cardiac catheterization and was found to have severe CAD, underwent CABG. He received a NICHOLS to the LAD, TOMMY to the RCA and left radial to the intermediate was closure of the appendix. His echocardiogram showed mild septal hypokinesis pre-surgery. He is feeling well this morning, sitting up in chair, he ambulated without difficulties. He is in sinus mechanism. He denies any anginal pain but has mild soreness in the chest. He has no PND or significant dyspnea. Hemodynamically stable. Medications: Aspirin, amlodipine 10 mg daily, Plavix 7580 mg daily, Lipitor 80 mg daily, insulin, metoprolol 75 mg twice a day. PHYSICAL EXAMINATION: Blood pressure 120/70 heart rate 70 LUNGS: Clear to auscultation HEART: Regular rate and rhythm, S1, S2. No S3. No systolic murmur ABDOMEN: Soft, nontender, no organomegaly EXTREMETIES: No edema LAB: Hemoglobin 10.3, BUN 18, creatinine 0.76, potassium 4.1 IMPRESSION: 1. Status post CABG with 3 vessel bypass, arterial conduit 2. History of tobacco use 3. Prior history of hypertension 4. Family history of premature CAD PLAN: 1. Continue present therapy 2. Increase physical activity 3. Follow blood pressure and add LOPEZ inhibitor as tolerated 4. Probable removal of chest tube Objective - Vital Signs Vital signs: Vital Signs Temp 97.7 F 02/04/22 04:00 Pulse 75 02/04/22 02:00 Resp 19 02/04/22 04:00 BP 121/71 02/04/22 04:00 Pulse Ox 96 02/04/22 04:00 FiO2 50 02/01/22 18:06 Intake & Output 02/03/22 02/04/22 02/04/22 18:59 06:59 18:59 Intake Total 20 Output Total 765 1215 Balance -745 -1215 Weight 74.5 kg Intake: IV 20 Lactated Ringers 1,000 ml 20 @ 20 mls/hr IV .Q24H [facility] Rx#:[id number] Output: Chest Tube Drainage 140 140 RT and LT Pleural 50 60 medistinal 90 80 Urine 625 1075 Other: Voiding Method Indwelling Catheter Urinal # Bowel Movements 1 ABP, PAP, CO, CI - Last Documented Arterial Blood Pressure 167/66 Pulmonary Artery Pressure 19/8 Cardiac Output 11.1 Cardiac Index 6.1 - Labs CBC & Chem 7: 02/04/22 06:19 02/04/22 06:19 Labs: Abnormal Lab Results - Last 24 Hours (Table) 02/03/22 02/03/22 02/03/22 Range/Units 11:21 16:38 20:27 WBC (3.8-10.6) k/uL RBC (4.30-5.90) m/uL Hgb (13.0-17.5) gm/dL Hct (39.0-53.0) % Neutrophils # (1.3-7.7) k/uL Lymphocytes # (1.0-4.8) k/uL Sodium (137-145) mmol/L POC Glucose (mg/dL) 112 H 132 H 138 H (70-110) mg/dL Calcium (8.4-10.2) mg/dL Total Protein (6.3-8.2) g/dL Albumin (3.5-5.0) g/dL 02/04/22 02/04/22 Range/Units 06:19 06:19 WBC 11.4 H (3.8-10.6) k/uL RBC 3.19 L (4.30-5.90) m/uL Hgb 10.3 L (13.0-17.5) gm/dL Hct 30.2 L (39.0-53.0) % Neutrophils # 9.0 H (1.3-7.7) k/uL Lymphocytes # 0.8 L (1.0-4.8) k/uL Sodium 136 L (137-145) mmol/L POC Glucose (mg/dL) (70-110) mg/dL Calcium 8.3 L (8.4-10.2) mg/dL Total Protein 5.5 L (6.3-8.2) g/dL Albumin 3.4 L (3.5-5.0) g/dL
--- NOTE | 2022-02-04 07:51 | P.PN ---
Subjective Progress Note Date: 02/04/22 Principal diagnosis: Triple-vessel coronary artery disease, non-STEMI this admission. Previous medical history of hypertension, hyperlipidemia, bilateral internal carotid artery stenosis 50-69%, hepatitis C, current tobacco dependence, current marijuana use, current EtOH use, seizure approximately 3 years ago, neurofibromatosis, previous heroin use with cessation 10 years ago and family history of premature coronary artery disease POD #3 off-pump CABG 3 with left internal mammary artery to the left anterior descending artery, right internal mammary artery to the right coronary artery, left radial artery graft to the intermediate coronary artery with endovascular radial artery harvest and ligation of the left atrial appendage with 40 mm AtriCure clip The patient was seen and examined this morning sitting up in a recliner in the intensive care unit in no acute distress eating breakfast. Remains in sinus rhythm and hemodynamically stable. Patient states pain is controlled on current medication regimen, denies shortness of breath. Currently on room air with ox ygen saturation in the mid 90s, able to achieve 2500 mL on his incentive spirometry. Good urine output, positive bowel movement. Patient has ambulated multiple times all the way around the hallway without difficulty. Mediastinal/left/right pleural chest tubes remain present. [facility], no bed availability. No other new concerns. Objective - Vital Signs Vital signs: Vital Signs Temp 97.7 F 02/04/22 04:00 Pulse 90 02/04/22 07:29 Resp 19 02/04/22 04:00 BP 121/71 02/04/22 04:00 Pulse Ox 98 02/04/22 07:29 FiO2 50 02/01/22 18:06 Intake & Output 02/03/22 02/04/22 02/04/22 18:59 06:59 18:59 Intake Total 20 Output Total 765 1215 Balance -745 -1215 Weight 74.5 kg Intake: IV 20 Lactated Ringers 1,000 ml 20 @ 20 mls/hr IV .Q24H [facility] Rx#:[id number] Output: Chest Tube Drainage 140 140 RT and LT Pleural 50 60 medistinal 90 80 Urine 625 1075 Other: Voiding Method Indwelling Catheter Urinal # Bowel Movements 1 ABP, PAP, CO, CI - Last Documented Arterial Blood Pressure 167/66 Pulmonary Artery Pressure 19/8 Cardiac Output 11.1 Cardiac Index 6.1 - Exam CONSTITUTIONAL: Appears comfortable, cooperative, no acute distress RESPIRATORY: Lungs sounds diminished bilaterally. Respirations even, nonlabored. Currently on room air with oxygen saturation 96%. Able to achieve 2500 mL on incentive spirometry. Strong cough. CARDIOVASCULAR: S1, S2 present. Regular rate and rhythm, sinus rhythm on telemetry. Sternum stable. Palpable peripheral pulses bilaterally. No edema present. No calf pain or tenderness noted. Heart hugger in place with patient demonstrating appropriate use. Antiembolism stockings, SCDs present. GASTROINTESTINAL: Abdomen soft, nontender, nondistended. Active bowel sounds present 4 quadrants. Tolerating diet. Positive bowel movement this morning GENITOURINARY: Aldrich discontinued yesterday, continues to void, output 1700 mL in the last 24 hours INTEGUMENTARY: Skin is warm and dry with evidence of good perfusion. Anterior chest incision well approximated and covered with dry intact dressing. Left radial artery harvest site site well approximated without redness NEUROLOGIC: Cranial nerves II through XII intact MUSKULOSKELETAL: Able to move all extremities, strength equal bilaterally, gait normal PSYCHIATRIC: Alert and oriented to person place and time, appropriate affect, intact judgment and insight INVASIVE LINES AND TUBES: Mediastinal/left/right pleural chest tubes present to waterseal, no air leak present. Mediastinal tube with 70 mL serosanguineous drainage overnight, 180 mL in the last 24 hours. Left/right pleural chest tubes with 50 mL serosanguineous drainage overnight, 120 mL in the last 24 hours. - Allied health notes Allied health notes reviewed: nursing - Labs CBC & Chem 7: 02/04/22 06:19 02/04/22 06:19 Labs: Abnormal Lab Results - Last 24 Hours (Table) 02/03/22 02/03/22 02/03/22 Range/Units 11:21 16:38 20:27 WBC (3.8-10.6) k/uL RBC (4.30-5.90) m/uL Hgb (13.0-17.5) gm/dL Hct (39.0-53.0) % Neutrophils # (1.3-7.7) k/uL Lymphocytes # (1.0-4.8) k/uL Sodium (137-145) mmol/L POC Glucose (mg/dL) 112 H 132 H 138 H (70-110) mg/dL Calcium (8.4-10.2) mg/dL Total Protein (6.3-8.2) g/dL Albumin (3.5-5.0) g/dL 02/04/22 02/04/22 Range/Units 06:19 06:19 WBC 11.4 H (3.8-10.6) k/uL RBC 3.19 L (4.30-5.90) m/uL Hgb 10.3 L (13.0-17.5) gm/dL Hct 30.2 L (39.0-53.0) % Neutrophils # 9.0 H (1.3-7.7) k/uL Lymphocytes # 0.8 L (1.0-4.8) k/uL Sodium 136 L (137-145) mmol/L POC Glucose (mg/dL) (70-110) mg/dL Calcium 8.3 L (8.4-10.2) mg/dL Total Protein 5.5 L (6.3-8.2) g/dL Albumin 3.4 L (3.5-5.0) g/dL - Imaging and Cardiology Chest x-ray: report reviewed, image reviewed Assessment and Plan Assessment: 1. Triple-vessel coronary artery disease, non-STEMI this admission, status post three-vessel CABG 2. Hypertension 3. Hyperlipidemia, previously untreated, cholesterol 264, LDL 144 4. Bilateral internal carotid artery stenosis 50-69% 5. Hepatitis C, IgG Ab reactive, hep C virus RNA negative 6. Current tobacco dependence, preoperative FEV1 113% of predicted 7. Current marijuana use 8. Current EtOH use greater than 8 drinks per week 9. Seizure approximately 3 years ago 10. Neurofibromatosis 11. Previous heroin use with cessation 10 years ago 12. Family history of premature coronary artery disease Plan: 1. Continue to maximize medical therapy with aspirin, statin, Plavix, beta marie. Will increase beta marie therapy as tolerated. Will add in low-dose Jesus for afterload reduction 2. Continue oral calcium channel marie for radial artery spasm prophylaxis 3. Continue amiodarone for A. fib prophylaxis 4. Encourage incentive spirometry 10 times every hour while awake. Bronchodilators per pulmonology 5. Increase activity, ambulate as tolerated. PT/OT/cardiac rehab following 6. Will monitor daily labs and x-rays. Electric replacement per protocol 7. Pain control with current medication regimen 8. Insulin management per primary care service. Patient is not a diabetic, hemoglobin A1c 4.9% 9. Will discontinue mediastinal tube, split and continue pleural chest tubes to water seal for another 24 hours 10. Strict accurate intake and output. Daily weights 11. Smoking cessation education and counseling provided, patient strongly encouraged to quit smoking including marijuana, decrease EtOH use 12. [facility] May transfer when bed available 13. More recommendations to follow
[2022-02-04] MEDS: CLOPIDOGREL 75 MG TAB PO SCH (08:11)
[2022-02-04] MEDS: ASPIRIN 325 MG TAB PO SCH (08:11)
[2022-02-04] MEDS: HEPARIN SODIUM,PORCINE/PF 5,000 UNIT/0.5 ML SYRINGE SQ SCH ×3 (08:11→23:51)
[2022-02-04] MEDS: AMIODARONE 200 MG TAB PO SCH ×2 (08:11→20:49)
[2022-02-04] MEDS: METOPROLOL TARTRATE 25 MG TAB PO SCH ×2 (08:11→20:49)
[2022-02-04] MEDS: ATORVASTATIN 80 MG TAB PO SCH (08:11)
[2022-02-04 11:28] LABS: Glucose,Whole Blood 134 mg/dL (70-110)
[2022-02-04] MEDS: amLODIPine 10 MG TAB PO SCH (12:08)
--- NOTE | 2022-02-04 13:04 | P.PN ---
Subjective Progress Note Date: 02/04/22 Principal diagnosis: Chest pain follow up Patient is seen and examined by the bedside today. Patient is still in the surgical ICU. No evidence overnight. Patient is alert and oriented. Denied chest pain nausea vomiting or abdominal pain. Objective - Vital Signs Vital signs: Vital Signs Temp 98.2 F 02/04/22 12:00 Pulse 81 02/04/22 12:00 Resp 21 02/04/22 12:00 BP 127/63 02/04/22 12:00 Pulse Ox 98 02/04/22 12:00 FiO2 50 02/01/22 18:06 Intake & Output 02/03/22 02/04/22 02/04/22 18:59 06:59 18:59 Intake Total 20 Output Total 765 1215 250 Balance -745 -1215 -250 Weight 74.5 kg 74.5 kg Intake: IV 20 Lactated Ringers 1,000 ml 20 @ 20 mls/hr IV .Q24H [facility] Rx#:[id number] Output: Chest Tube Drainage 140 140 RT and LT Pleural 50 60 medistinal 90 80 Urine 625 1075 250 Other: Voiding Method Indwelling Catheter Urinal Urinal # Bowel Movements 1 ABP, PAP, CO, CI - Last Documented Arterial Blood Pressure 167/66 Pulmonary Artery Pressure 19/8 Cardiac Output 11.1 Cardiac Index 6.1 - Exam General: The patient is alert and oriented 4. Noted distress. Significant bed looks comfortable. Neck supple no JVD. Central line. Chest, multiple tubes. Surgical dressing. Heart in sinus rhythm. Lungs: There is auscultation. No crackles or wheezing Abdomen: Soft. Nondistended nontender positive bowel sounds genitourinary: Aldrich catheter in place. Extremities: No swelling bilaterally. - Labs CBC & Chem 7: 02/04/22 06:19 02/04/22 06:19 Labs: Abnormal Lab Results - Last 24 Hours (Table) 02/03/22 02/03/22 02/04/22 Range/Units 16:38 20:27 06:19 WBC (3.8-10.6) k/uL RBC (4.30-5.90) m/uL Hgb (13.0-17.5) gm/dL Hct (39.0-53.0) % Neutrophils # (1.3-7.7) k/uL Lymphocytes # (1.0-4.8) k/uL Sodium 136 L (137-145) mmol/L POC Glucose (mg/dL) 132 H 138 H (70-110) mg/dL Calcium 8.3 L (8.4-10.2) mg/dL Total Protein 5.5 L (6.3-8.2) g/dL Albumin 3.4 L (3.5-5.0) g/dL 02/04/22 02/04/22 Range/Units 06:19 11:26 WBC 11.4 H (3.8-10.6) k/uL RBC 3.19 L (4.30-5.90) m/uL Hgb 10.3 L (13.0-17.5) gm/dL Hct 30.2 L (39.0-53.0) % Neutrophils # 9.0 H (1.3-7.7) k/uL Lymphocytes # 0.8 L (1.0-4.8) k/uL Sodium (137-145) mmol/L POC Glucose (mg/dL) 134 H (70-110) mg/dL Calcium (8.4-10.2) mg/dL Total Protein (6.3-8.2) g/dL Albumin (3.5-5.0) g/dL Assessment and Plan Assessment: NSTEMI with triple-vessel CAD HTN urgency RIght ICA stenosis HLD - ASA, Lipitor, Lisinopril, metoprolol, norvasc - echo with preserved EF, PFT with normal lung function - CT surgery recs: Status post CABG 02/01/2022. Currently management is under ICU care. - insulin SSI for tight BS control. Nicotine dependency ETOH misuse Marijuana use - encourage cessation Hep C Antibody + - Viral RNA is non reactive Leukocytosis, resolved 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 Hyponatremia, improved Management by ICU team Time with Patient: Less than 30
--- NOTE | 2022-02-04 14:14 | P.PN ---
Subjective Progress Note Date: 02/04/22 On today's evaluation of a day. 2021, the patient is being seen for a follow- up. The patient is post acute non-STEMI for triple vessel disease in a patient undergone coronary artery bypass surgery and the patient is currently postop day #3. The patient underwent NICHOLS to LAD and TOMMY to RCA and left radial to ramus intermedius. The patient is doing well for now. Is a chronic smoker. He still has the chest tubes in place. He is using incentive spirometer and he is pulling approximately 2500 on his I asked. No nausea. No vomiting. No chest pain. Note that the patient has a mediastinal and bilateral pleural chest tubes. He has other comorbidities which include COPD, hypertension, hyperlip idemia, and the patient has coronary artery disease in the order of 50-69%. He also has history of neurofibromatosis. He is a previous heroin user and he is a chronic tobacco user. No signs of delirium tremens. No cardiac arrhythmias. He is ambulating. Is quite cooperative with ongoing treatment. Output from the chest tubes have been noted in the mediastinal chest tube has produced 70 mL ov er the past 8 hours and 180 mL over the past 24 hours. Output from the left and the right pleural chest tubes have been in the order of 120 mL over the past 24 hours. He is afebrile. Hemodynamics is stable. His hemoglobin is at 10.3 with a platelet count of 259. BNP is at 80 with a creatinine of 0.7 and his sodium level is at 136. Cardiac rhythm is sinus. Objective - Vital Signs Vital signs: Vital Signs Temp 98.4 F 02/04/22 08:00 Pulse 93 02/04/22 08:00 Resp 10 L 02/04/22 08:00 BP 132/72 02/04/22 08:00 Pulse Ox 99 02/04/22 08:00 FiO2 50 02/01/22 18:06 Intake & Output 02/03/22 02/04/22 02/04/22 18:59 06:59 18:59 Intake Total 20 Output Total 765 1215 Balance -745 -1215 Weight 74.5 kg Intake: IV 20 Lactated Ringers 1,000 ml 20 @ 20 mls/hr IV .Q24H [facility] Rx#:[id number] Output: Chest Tube Drainage 140 140 RT and LT Pleural 50 60 medistinal 90 80 Urine 625 1075 Other: Voiding Method Indwelling Catheter Urinal # Bowel Movements 1 ABP, PAP, CO, CI - Last Documented Arterial Blood Pressure 167/66 Pulmonary Artery Pressure 19/8 Cardiac Output 11.1 Cardiac Index 6.1 - Exam No acute distress, oriented 3. Room air saturation is 96 %. Head exam was generally normal. There was no scleral icterus or corneal arcus. Mucous membranes were moist. HEENT examination is grossly unremarkable. Neck supple. Full range of motion. No adenopathy thyromegaly or neck vein distention. Cardiovascular examination reveals regular rhythm rate. S1-S2 normal. No S3 or S4. No discernible murmur noted. Sternum stable clean and intact and the patient has mediastinal and the right and left pleural chest tubes. Breath sounds are quite diminished in lung bases bilaterally. Mild scattered rhonchi. No wheezes or crackles. Breath sounds equal bilaterally. Surgical wound is dry clean and intact. Abdomen soft bowel sounds are heard. No masses or tenderness. Extremities are intact. No cyanosis clubbing or edema. Skin is without rash or lesion. Neurologic examination is brief but nonfocal - Labs CBC & Chem 7: 02/04/22 06:19 02/04/22 06:19 Labs: Abnormal Lab Results - Last 24 Hours (Table) 02/03/22 02/03/22 02/03/22 Range/Units 11:21 16:38 20:27 WBC (3.8-10.6) k/uL RBC (4.30-5.90) m/uL Hgb (13.0-17.5) gm/dL Hct (39.0-53.0) % Neutrophils # (1.3-7.7) k/uL Lymphocytes # (1.0-4.8) k/uL Sodium (137-145) mmol/L POC Glucose (mg/dL) 112 H 132 H 138 H (70-110) mg/dL Calcium (8.4-10.2) mg/dL Total Protein (6.3-8.2) g/dL Albumin (3.5-5.0) g/dL 02/04/22 02/04/22 Range/Units 06:19 06:19 WBC 11.4 H (3.8-10.6) k/uL RBC 3.19 L (4.30-5.90) m/uL Hgb 10.3 L (13.0-17.5) gm/dL Hct 30.2 L (39.0-53.0) % Neutrophils # 9.0 H (1.3-7.7) k/uL Lymphocytes # 0.8 L (1.0-4.8) k/uL Sodium 136 L (137-145) mmol/L POC Glucose (mg/dL) (70-110) mg/dL Calcium 8.3 L (8.4-10.2) mg/dL Total Protein 5.5 L (6.3-8.2) g/dL Albumin 3.4 L (3.5-5.0) g/dL Assessment and Plan Plan: acute Non-ST segment elevation myocardial infarction. Severe three-vessel coronary disease, S/P 3 vessel bypass grafting, including NICHOLS to LAD, TOMMY to RCA, and left radial artery to ramus intermedius, Postop day # 3 Routine postoperative ventilator management. She currently has O2 at room air and the patient has chest tubes in place and this includes a right pleural chest tube, left pleural chest tube and mediastinal chest tube. Output from the chest tubes have been noted. Output is minimal at this point in time of the mediastinal chest tubes will be removed, using incentive spirometer. Breathing is nonlabored. History of chronic nicotine dependence. Excellent pulmonary function testing, suggesting the patient at no increased operative risk for bypass grafting. Family history of CAD. Prior history of heroin use. Triple-vessel disease Hypertension Hyperlipidemia Bilateral carotid artery disease in the order of 50-69% Remote history of seizure disorder Neurofibromatosis Plan: Continue using incentive spirometer We'll discontinue mediastinal chest tubes We'll keep the pleural chest tubes and tubes Pain control Continue aspirin and Plavix Patient was started on beta blockers which is able to tolerate an LOPEZ inhibitor will be also started. The patient is currently on metoprolol 75 mg by mouth twice a day lisinopril will be added at 2.5 mg by mouth daily basis Chest x-ray was noted Continue using incentive spirometer Hemoglobin is stable Cardiac rhythm is sinus We'll continue to follow
[2022-02-04 16:49] LABS: Glucose,Whole Blood 108 mg/dL (70-110)
[2022-02-04] MEDS ORDERED: LORazepam 1 MG TAB PO PRN ×2 (18:53→18:54)
[2022-02-04 20:01] LABS: Glucose,Whole Blood 137 mg/dL (70-110)
[2022-02-04] MEDS: HYDROcodone/APAP 5-325MG 1 EACH TAB PO PRN (20:48)
[2022-02-04] MEDS: SENNOSIDES-DOCUSATE SODIUM 1 EACH TAB PO SCH (20:49)
[2022-02-05 05:55] LABS: Glucose,Whole Blood 109 mg/dL (70-110)
[2022-02-05] MEDS: INSULIN ASPART (NovoLOG) 100 UNIT/ML VIAL SQ SCH ×2 (06:10→12:06)
[2022-02-05] MEDS: THIAMINE 100 MG TAB PO SCH ×2 (06:33→17:14)
[2022-02-05] MEDS: PANTOPRAZOLE 40 MG TABLET PO SCH (06:33)
[2022-02-05] MEDS: ACETAMINOPHEN TAB 500 MG TAB PO PRN ×2 (07:01→22:33)
[2022-02-05] MEDS: IPRATROPIUM-ALBUTEROL 3 ML NEB INHALATION SCH ×4 (07:40→19:33)
--- NOTE | 2022-02-05 08:29 | XR ---
EXAMINATION TYPE: XR chest 2V DATE OF EXAM: 02/05/2022 COMPARISON: 02/04/2022 TECHNIQUE: PA and lateral views submitted. HISTORY: Postop FINDINGS: Left-sided chest tube is seen with postsurgical changes. Mediastinal drain noted. Small amount of pne umomediastinum suspected. Bilateral consolidation and small effusion. Right-sided chest tube seen. Th ere is subcutaneous emphysema. No definitive pneumothorax on today's exam. Heart mildly enlarged. Cor relate for mild venous congestion. Underlying COPD suspected. Chronic rib deformities noted. Subcutan eous emphysema along the soft tissues of the right neck. IMPRESSION: 1. No definite pneumothorax on today's exam. Postsurgical change with bilateral effusion stable. Inte rstitium appears improved. 2. Correlate for COPD..
[2022-02-05] MEDS: METOPROLOL TARTRATE 25 MG TAB PO SCH ×2 (08:56→21:37)
[2022-02-05] MEDS: AMIODARONE 200 MG TAB PO SCH ×2 (08:56→21:37)
[2022-02-05] MEDS: HEPARIN SODIUM,PORCINE/PF 5,000 UNIT/0.5 ML SYRINGE SQ SCH ×2 (08:57→17:14)
[2022-02-05] MEDS: ATORVASTATIN 80 MG TAB PO SCH (08:57)
[2022-02-05] MEDS: ASPIRIN 325 MG TAB PO SCH (08:57)
[2022-02-05] MEDS: CLOPIDOGREL 75 MG TAB PO SCH (08:57)
[2022-02-05 09:04] LABS: HCT 29.4 % (39.0-53.0); HGB 9.9 gm/dL (13.0-17.5); MCH 31.6 pg (25.0-35.0); MCHC 33.6 g/dL (31.0-37.0); MCV 93.9 fL (80.0-100.0); Mean Platelet Volume 8.5; Platelet Count 341 k/uL (150-450); RBC 3.12 m/uL (4.30-5.90); RDW 13.2 % (11.5-15.5); WBC 13.2 k/uL (3.8-10.6)
[2022-02-05 09:26] LABS: African American GFR (CKD) >90 (>60 ml/min/1.73 sqM); Anion Gap 11 mmol/L; Blood Urea Nitrogen 14 mg/dL (9-20); Calcium 8.5 mg/dL (8.4-10.2); Carbon Dioxide 22 mmol/L (22-30); Chloride 101 mmol/L (98-107); Glucose 107 mg/dL (74-99); Non-African American GFR(CKD) >90 (>60 ml/min/1.73 sqM); Sodium 134 mmol/L (137-145)
--- NOTE | 2022-02-05 10:44 | P.PN ---
Subjective Progress Note Date: 02/05/22 Principal diagnosis: Triple-vessel coronary artery disease with non-ST elevated myocardial infarction this admission and hepatitis C IgG Ab reactive, hepatitis C viral RNA not dete cted. Past medical history significant for hypertension, bilateral internal carotid artery stenosis 50-69%, chronic ongoing tobacco dependence, current marijuana use, EtOH use with greater than 8 drinks per week, seizure approximately 3 years ago, neurofibromatosis, remote history of heroin use with cessation 10 years ago, and family history of premature coronary artery disease with his father having PCI in his 50s and his mother from [facility] at age 5151 years old. POD #4 off-pump CABG 3 with left internal mammary artery to the left anterior descending artery, right internal mammary artery to the right coronary artery, left radial artery graft to the intermediate coronary artery with endovascular radial artery harvest and ligation of the left atrial appendage with 40 mm AtriCure clip. Postoperative acute blood loss anemia, expected given hemodilution. The patient was seen and examined in follow-up today 02/05/2022 at his bedside on the cardiac stepdown unit. Currently the patient is sitting up to the bedside chair, he is awake, alert, oriented 3 and is in no acute apparent distress. He denies any complaints of shortness of breath at this time although is complaining of some surgical type pain to his chest tube insertion sites. Currently rates his pain 5 out of 10 on the pain scale. Oxygen saturations are 99% on room air and he is achieving 2500 mL on his incentive spirometry with encouragement. Left and right pleural chest tubes remain in place and are currently on waterseal. No air leak is present. Draining thin serosanguineous drainage with 50 mL output in the last 24 hours from his left pleural chest tube and 230 mL output in the last 24 hours from his right pleural chest tube. The patient continues to avoid with 1075 ml urine output in the last 8 hours. Remote telemetry is showing normal sinus rhythm heart rate 72 BPM. He remains afebrile in the last 24 hours with his T-max temperature 99.2F. Laboratory results this morning show a WBC count 13.2, hemoglobin 9.9, hematocrit 29.4, platelets 341, sodium 134, potassium 4.0, BUN 14, creatinine 0.74, glucose 107, calcium 8.5 and magnesium 2.0. The patient reports he has been up ambulating in the cardiac stepdown unit hallway with standby assistance from nursing staff and tolerating well. Objective - Vital Signs Vital signs: Vital Signs Temp 98.2 F 02/05/22 03:40 Pulse 80 02/05/22 07:49 Resp 20 02/05/22 03:40 BP 140/68 02/05/22 03:40 Pulse Ox 99 02/05/22 07:41 FiO2 50 02/01/22 18:06 Intake & Output 02/04/22 02/05/22 02/05/22 18:59 06:59 18:59 Intake Total 180 150 240 Output Total 665 1306 625 Balance -194 -1156 -385 Weight 74.5 kg 73.7 kg Intake: Oral 180 150 240 Output: Chest Tube Drainage 40 231 Chest Tube Left 30 Chest Tube Right 201 RT and LT Pleural 40 Urine 625 1075 625 Other: Voiding Method Urinal Urinal # Bowel Movements 1 1 ABP, PAP, CO, CI - Last Documented Arterial Blood Pressure 167/66 Pulmonary Artery Pressure 19/8 Cardiac Output 11.1 Cardiac Index 6.1 - Exam CONSTITUTIONAL: Sitting up to the bedside chair on the cardiac stepdown unit, appears comfortable, cooperative, no apparent acute distress. HEENT: Neck is supple, no JVD, no lymphadenopathy. RESPIRATORY: Lungs sounds essentially clear throughout, diminished to his bilateral bases. Respirations are symmetrical and nonlabored. Currently on room air with oxygen saturations 99%. Able to achieve 2500 mL on his incentive spirometry. Strong cough. CARDIOVASCULAR: Regular rhythm and rate. S1 and S2 present, negative for S3, gallop or murmur. Sternum is stable. Palpable peripheral pulses bilaterally, no edema to his bilateral lower extremities. No calf pain or tenderness noted. Heart hugger in place with patient demonstrating appropriate use. Knee-high ALANA hose and sequential compression devices in place to his bilateral lower extremities. GASTROINTESTINAL: Abdomen soft, nontender, nondistended. Active bowel sounds present 4 quadrants. Tolerating diet. Passing flatus. No guarding or rigidity. Bowel movement this a.m. GENITOURINARY: Continues to void. Urine output 1075 mL in the last 8 hours INTEGUMENTARY: Skin is warm and dry with no evidence of clubbing or cyanosis. Midline sternal incision clean dry and well approximated, covered with dry intact dressing. Left arm radial artery harvest sites clean, dry and approxim ated. No drainage or redness is present. NEUROLOGIC: Cranial nerves II through XII intact. No focal deficits. MUSKULOSKELETAL: Able to move all extremities, strength equal bilaterally. PSYCHIATRIC: Alert and oriented to person place and time, appropriate affect, intact judgment and insight. INVASIVE LINES AND TUBES: Right/left pleural chest tubes present and connected to low continuous wall suction, no air leaks present. Right pleural chest tube with 170 mL of thin serosanguineous drainage overnight, 230 mL output in the last 24 hours. Left pleural chest tube with 50 mL of thin serosanguineous in the last 24 hours. - Allied health notes Allied health notes reviewed: nursing - Labs CBC & Chem 7: 02/05/22 08:29 02/05/22 08:29 Labs: Abnormal Lab Results - Last 24 Hours (Table) 02/04/22 02/04/22 02/05/22 Range/Units 11:26 20:00 08:29 WBC 13.2 H (3.8-10.6) k/uL RBC 3.12 L (4.30-5.90) m/uL Hgb 9.9 L (13.0-17.5) gm/dL Hct 29.4 L (39.0-53.0) % Sodium (137-145) mmol/L Glucose (74-99) mg/dL POC Glucose (mg/dL) 134 H 137 H (70-110) mg/dL 02/05/22 Range/Units 08:29 WBC (3.8-10.6) k/uL RBC (4.30-5.90) m/uL Hgb (13.0-17.5) gm/dL Hct (39.0-53.0) % Sodium 134 L (137-145) mmol/L Glucose 107 H (74-99) mg/dL POC Glucose (mg/dL) (70-110) mg/dL - Imaging and Cardiology Chest x-ray: report reviewed, image reviewed Assessment and Plan Assessment: 1. Triple-vessel coronary artery disease, non-STEMI this admission, status post three-vessel CABG 2. Hypertension 3. Hyperlipidemia, previously untreated, cholesterol 264, LDL 144 4. Bilateral internal carotid artery stenosis 50-69% 5. Hepatitis C, IgG Ab reactive, hep C virus RNA negative 6. Current tobacco dependence, preoperative FEV1 113% of predicted 7. Current marijuana use 8. Current EtOH use greater than 8 drinks per week 9. Seizure approximately 3 years ago 10. Neurofibromatosis 11. Remote history of heroin use with cessation 10 years ago 12. Family history of premature coronary artery disease 13. Postoperative acute blood loss anemia, expected given hemodilution Plan: 1. Continue to maximize medical therapy with aspirin, statin, Plavix, and beta marie. Will increase metoprolol tartrate as tolerated. 2. Continue oral amlodipine 10 mg by mouth daily for radial artery spasm prophylaxis. Please do not discontinue without checking with cardiothoracic surgery service first please 3. Continue amiodarone for atrial fibrillation prophylaxis. 4. Encourage incentive spirometry 10 times every hour while awake. Bronchodilators per pulmonology. 5. Increase activity, ambulate as tolerated. PT/OT/cardiac rehab following 6. Will monitor daily labs and chest x-rays. Electrolyte replacement per protocol 7. Pain control with current medication regimen. We will discontinue his Crystal today after his chest tubes have been removed. 8. Insulin management per primary care service. Patient is not a diabetic, hemoglobin A1c 4.9% 9. Will discontinue right and left pleural chest tubes today. 10. Strict accurate intake and output. Daily weights. 11. The importance of risk modification discussed with the patient. Smoking cessation education and counseling provided, patient strongly encouraged to quit smoking including marijuana, decrease EtOH use. 12. Continue lisinopril for afterload reduction. We will increase to 5 mg by mouth daily. 13. Discharge planning is in place. Anticipate discharge home with home health care in the next 24-48 hours. 14. More recommendations to follow based on patient's clinical course. Time with Patient: Greater than 30
[2022-02-05 11:55] LABS: Glucose,Whole Blood 103 mg/dL (70-110)
[2022-02-05] MEDS: amLODIPine 10 MG TAB PO SCH (12:10)
--- NOTE | 2022-02-05 12:44 | P.PN ---
Subjective Progress Note Date: 02/05/22 HISTORY OF PRESENT ILLNESS: Patient is status post CABG 3 vessels. Patient examined this morning. He is sitting up in the chair. Patient denies any chest pain or pressure. He denies shortness of breath. He reports some discomfort at the chest tube insertion sites. Patient continues to have chest tube 2. He is using his incentive spirometer and pulling 2500 mL. Telemetry reveals sinus mechanism. Vital signs are stable. PHYSICAL EXAM: VITAL SIGNS: Reviewed. GENERAL: Well-developed in no acute distress. NECK: Supple. No JVD or thyromegaly LUNGS: Respirations even and unlabored. Lungs diminished. HEART: Regular rate and rhythm. S1 and S2 heard. EXTREMITIES: Normal range of motion. No clubbing or cyanosis. Peripheral pulses intact. No lower extremity edema ASSESSMENT: Non-STEMI, s/p CABG x 3 vessels Hypertension Hyperlipidemia Bilateral carotid artery stenosis History of seizures Nicotine dependence Current marijuana use Current alcohol use PLAN: Continue postoperative management per cardiothoracic surgery Chest tube management per cardiothoracic surgery Continue current cardiac medications Increase activity as tolerated Encouraged use of incentive spirometer Further recommendations pending patient's course Patient to follow-up post discharge with Dr. Woo Nurse practitioner note has been reviewed by physician. Signing provider agrees with the documented findings, assessment, and plan of care. Objective - Vital Signs Vital signs: Vital Signs Temp 98 F 02/05/22 12:04 Pulse 76 02/05/22 12:04 Resp 20 02/05/22 12:04 BP 118/52 02/05/22 12:04 Pulse Ox 100 02/05/22 12:04 FiO2 50 02/01/22 18:06 Intake & Output 02/04/22 02/05/22 02/05/22 18:59 06:59 18:59 Intake Total 180 150 240 Output Total 661 1306 625 Balance -485 -1156 -385 Weight 74.5 kg 73.7 kg Intake: Oral 180 150 240 Output: Chest Tube Drainage 40 231 Chest Tube Left 30 Chest Tube Right 201 RT and LT Pleural 40 Urine 625 1075 625 Other: Voiding Method Urinal Urinal # Bowel Movements 1 1 ABP, PAP, CO, CI - Last Documented Arterial Blood Pressure 167/66 Pulmonary Artery Pressure 19/8 Cardiac Output 11.1 Cardiac Index 6.1 - Labs CBC & Chem 7: 02/05/22 08:29 02/05/22 08:29 Labs: Abnormal Lab Results - Last 24 Hours (Table) 02/04/22 02/05/22 02/05/22 Range/Units 20:00 08:29 08:29 WBC 13.2 H (3.8-10.6) k/uL RBC 3.12 L (4.30-5.90) m/uL Hgb 9.9 L (13.0-17.5) gm/dL Hct 29.4 L (39.0-53.0) % Sodium 134 L (137-145) mmol/L Glucose 107 H (74-99) mg/dL POC Glucose (mg/dL) 137 H (70-110) mg/dL
--- NOTE | 2022-02-05 13:42 | P.PN ---
Subjective Progress Note Date: 02/05/22 On today's evaluation of a day. 2021, the patient is being seen for a follow- up. The patient is post acute non-STEMI for triple vessel disease in a patient undergone coronary artery bypass surgery and the patient is currently postop day #3. The patient underwent NICHOLS to LAD and TOMMY to RCA and left radial to ramus intermedius. The patient is doing well for now. Is a chronic smoker. He still has the chest tubes in place. He is using incentive spirometer and he is pulling approximately 2500 on his I asked. No nausea. No vomiting. No chest pain. Note that the patient has a mediastinal and bilateral pleural chest tubes. He has other comorbidities which include COPD, hypertension, hyperlip idemia, and the patient has coronary artery disease in the order of 50-69%. He also has history of neurofibromatosis. He is a previous heroin user and he is a chronic tobacco user. No signs of delirium tremens. No cardiac arrhythmias. He is ambulating. Is quite cooperative with ongoing treatment. Output from the chest tubes have been noted in the mediastinal chest tube has produced 70 mL ov er the past 8 hours and 180 mL over the past 24 hours. Output from the left and the right pleural chest tubes have been in the order of 120 mL over the past 24 hours. He is afebrile. Hemodynamics is stable. His hemoglobin is at 10.3 with a platelet count of 259. BNP is at 80 with a creatinine of 0.7 and his sodium level is at 136. Cardiac rhythm is sinus. 02/05/2022, the patient is doing well. The patient has completed coronary artery bypass surgery. The patient is postop day #4. He is ambulating. The mediastinal chest tubes have been removed and the patient has a right pleural and left pleural chest tube in place. He is using incentive spirometer. His pain is under adequate control for now and it's probably 4 out of 10 in severity. He is on room air oxygen with a pulse ox of 99% is using incentive spirometer pulling more than 2000. Note that the output from the chest tubes. There is no evidence of any air leak. Left-sided pleural chest tube and drain around 50 mL over the past 24 hours and the right-sided chest tube is draining 250 mL over the past 24 hours. The patient is afebrile. The patient is hemodynamic stable. The patient has a BUN of 40 with a creatinine of 0.7. Calcium is at 8.5. The white cell count is at 15.3 and hemoglobin stable at 9.9 with a platelet count of 341. He is ambulating. No cardiac arrhythmias noted. No syncope. The cardiac rhythm remains sinus. Objective - Vital Signs Vital signs: Vital Signs Temp 98 F 02/05/22 12:04 Pulse 76 02/05/22 12:04 Resp 20 02/05/22 12:04 BP 118/52 02/05/22 12:04 Pulse Ox 100 02/05/22 12:04 FiO2 50 02/01/22 18:06 Intake & Output 02/04/22 02/05/22 02/05/22 18:59 06:59 18:59 Intake Total 180 150 240 Output Total 665 1306 625 Balance -485 -0974 -151 Weight 74.5 kg 73.7 kg Intake: Oral 180 150 240 Output: Chest Tube Drainage 40 231 Chest Tube Left 30 Chest Tube Right 201 RT and LT Pleural 40 Urine 625 1075 625 Other: Voiding Method Urinal Urinal # Bowel Movements 1 1 ABP, PAP, CO, CI - Last Documented Arterial Blood Pressure 167/66 Pulmonary Artery Pressure 19/8 Cardiac Output 11.1 Cardiac Index 6.1 - Exam No acute distress, oriented 3. Room air saturation is 96 %. Head exam was generally normal. There was no scleral icterus or corneal arcus. Mucous membranes were moist. HEENT examination is grossly unremarkable. Neck supple. Full range of motion. No adenopathy thyromegaly or neck vein distention. Cardiovascular examination reveals regular rhythm rate. S1-S2 normal. No S3 or S4. No discernible murmur noted. Sternum stable clean and intact and the patient has mediastinal and the right and left pleural chest tubes. Breath sounds are quite diminished in lung bases bilaterally. Mild scattered rhonchi. No wheezes or crackles. Breath sounds equal bilaterally. Surgical wound is dry clean and intact. Abdomen soft bowel sounds are heard. No masses or tenderness. Extremities are intact. No cyanosis clubbing or edema. Skin is without rash or lesion. Neurologic examination is brief but nonfocal - Labs CBC & Chem 7: 02/05/22 08:29 02/05/22 08:29 Labs: Abnormal Lab Results - Last 24 Hours (Table) 02/04/22 02/05/22 02/05/22 Range/Units 20:00 08:29 08:29 WBC 13.2 H (3.8-10.6) k/uL RBC 3.12 L (4.30-5.90) m/uL Hgb 9.9 L (13.0-17.5) gm/dL Hct 29.4 L (39.0-53.0) % Sodium 134 L (137-145) mmol/L Glucose 107 H (74-99) mg/dL POC Glucose (mg/dL) 137 H (70-110) mg/dL Assessment and Plan Plan: acute Non-ST segment elevation myocardial infarction. Severe three-vessel coronary disease, S/P 3 vessel bypass grafting, including NICHOLS to LAD, TOMMY to RCA, and left radial artery to ramus intermedius, Postop day # 3 4 Routine postoperative ventilator management. Patient is currently on oxygen and output from the chest tubes are minimal at this point in time. No evidence of any air leak. The chest x-ray from today shows no evidence of pneumothorax. History of chronic nicotine dependence. Excellent pulmonary function testing, suggesting the patient at no increased operative risk for bypass grafting. Family history of CAD. Prior history of heroin use. Triple-vessel disease Hypertension Hyperlipidemia Bilateral carotid artery disease in the order of 50-69% Remote history of seizure disorder Neurofibromatosis Plan: We will be removing the chest tubes Continue using incentive spirometer Pain control Continue aspirin and Plavix metoprolol 75 mg by mouth twice a day lisinopril will be added at 2.5 mg by mouth daily basis Continue Lipitor 80 mg daily Chest x-ray was noted Continue using incentive spirometer Hemoglobin is stable Cardiac rhythm is sinus We'll continue to follow
[2022-02-05 16:19] LABS: Glucose,Whole Blood 126 mg/dL (70-110)
--- NOTE | 2022-02-05 16:35 | P.PN ---
Subjective Progress Note Date: 02/05/22 (delayed charting seen at 1030) Principal diagnosis: chest pain The patient is a 46-year-old male withhypertension who presented to the emergency room with complaints of chest discomfort. On arrival to the emergency department his pulse was 105 and blood pressure was 169/100. He was satting 98% on room air. Chest x-ray the emergency room was unremarkable. EKG showed sinus tachycardia 104 bpm with no acute ST/T-wave changes noted as reviewed by me. Laboratory evaluation was remarkable for troponin 0.034, sodium 132, and WBC count 15.5. He is admitted for chest pain observation. His troponin began to elevate on the morning of 81 was 1.93. He was taken urgently for cardiac catheterization was found to have triple-vessel disease, with total occlusion of the RCA and left circumflex. There is critical disease involving the proximal and mid LAD. Cardiology did recommend cardiothoracic consult which has been obtained. Pulmonary consulted for pre-op PFTs which came back normal Patient seen and examined at bedside. He denies any current chest pain but is feeling very tired and overwhelmed. General: nontoxic, no distress, appears at stated age Derm: warm, dry Head: atraumatic, normocephalic, symmetric Eyes: EOMI, no lid lag, anicteric sclera Mouth: no lip lesion, mucus membranes moist Cardiovascular: S1S2 reg, no murmur, positive posterior tibial pulse bilateral, Lungs: CTA bilateral, no rhonchi, no rales , no accessory muscle use, chest tube inplace Abdominal: soft, nontender to palpation, no guarding, no appreciable organomegaly Ext: no gross muscle atrophy, no edema, no contractures Neuro: CN II-XI grossly intact, no focal neuro deficits Psych: Alert, oriented, appropriate affect Assessment/plan: NSTEMI with severe triple-vessel CAD s/p CABG X 3 HTN urgency bilateral carotid artery disease HLD - ASA, Lipitor, Lisinopril, metoprolol - echo with preserved EF, PFT with normal lung function - CT surgery recs: Plan is for CABG on 02/01/22 - ken[place] Renae Acute blood loss anemia -Anticipated outcome of surgery -Follow CBC Nicotine dependency ETOH misuse Marijuana use - encourage cessation Hep C Antibody +, consistent with cleared infection Leukocytosis, resolved 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 Hyponatremia, improved Objective - Vital Signs Vital signs: Vital Signs Temp 98 F 02/05/22 12:04 Pulse 86 02/05/22 15:56 Resp 20 02/05/22 12:04 BP 118/52 02/05/22 12:04 Pulse Ox 100 02/05/22 12:04 FiO2 50 02/01/22 18:06 Intake & Output 02/04/22 02/05/22 02/05/22 18:59 06:59 18:59 Intake Total 180 150 480 Output Total 665 1306 1025 Balance -485 -1156 -545 Weight 74.5 kg 73.7 kg Intake: Oral 180 150 480 Output: Chest Tube Drainage 40 231 Chest Tube Left 30 Chest Tube Right 201 RT and LT Pleural 40 Urine 625 1075 1025 Other: Voiding Method Urinal Urinal # Voids 1 # Bowel Movements 1 1 ABP, PAP, CO, CI - Last Documented Arterial Blood Pressure 167/66 Pulmonary Artery Pressure 19/8 Cardiac Output 11.1 Cardiac Index 6.1 - Labs CBC & Chem 7: 02/05/22 08:29 02/05/22 08:29 Labs: Abnormal Lab Results - Last 24 Hours (Table) 02/04/22 02/05/22 02/05/22 Range/Units 20:00 08:29 08:29 WBC 13.2 H (3.8-10.6) k/uL RBC 3.12 L (4.30-5.90) m/uL Hgb 9.9 L (13.0-17.5) gm/dL Hct 29.4 L (39.0-53.0) % Sodium 134 L (137-145) mmol/L Glucose 107 H (74-99) mg/dL POC Glucose (mg/dL) 137 H (70-110) mg/dL 02/05/22 Range/Units 16:18 WBC (3.8-10.6) k/uL RBC (4.30-5.90) m/uL Hgb (13.0-17.5) gm/dL Hct (39.0-53.0) % Sodium (137-145) mmol/L Glucose (74-99) mg/dL POC Glucose (mg/dL) 126 H (70-110) mg/dL
[2022-02-05] MEDS: SENNOSIDES-DOCUSATE SODIUM 1 EACH TAB PO SCH (21:36)
[2022-02-06] MEDS: THIAMINE 100 MG TAB PO SCH (07:08)
[2022-02-06] MEDS: PANTOPRAZOLE 40 MG TABLET PO SCH (07:08)
[2022-02-06] MEDS: IPRATROPIUM-ALBUTEROL 3 ML NEB INHALATION SCH ×2 (07:54→11:23)
--- NOTE | 2022-02-06 08:00 | XR ---
EXAMINATION TYPE: XR chest 2V DATE OF EXAM: 02/06/2022 COMPARISON: 02/05/2022 TECHNIQUE: PA and lateral views submitted. HISTORY: Postop FINDINGS: Left-sided chest tube is seen with postsurgical changes. Mediastinal drain noted. Bilateral consolida tion and small effusion. Chest tubes have been removed. There is subcutaneous emphysema. No definitiv e pneumothorax on today's exam. Heart mildly enlarged. Correlate for mild venous congestion. Underlyi ng COPD suspected. Chronic rib deformities noted. Subcutaneous emphysema along the soft tissues of th e right neck. Chronic upper rib deformities noted. IMPRESSION: 1. COPD with bilateral pleural effusion. 2. No sizable pneumothorax.
--- NOTE | 2022-02-06 08:45 | P.PN ---
Subjective Progress Note Date: 02/06/22 Principal diagnosis: Triple-vessel coronary artery disease, non-STEMI this admission. Previous medical history of hypertension, hyperlipidemia, bilateral internal carotid artery stenosis 50-69%, hepatitis C, current tobacco dependence, current marijuana use, current EtOH use, seizure approximately 3 years ago, neurofibromatosis, previous heroin use with cessation 10 years ago and family history of premature coronary artery disease POD #5 off-pump CABG 3 with left internal mammary artery to the left anterior descending artery, right internal mammary artery to the right coronary artery, left radial artery graft to the intermediate coronary artery with endovascular radial artery harvest and ligation of the left atrial appendage with 40 mm AtriCure clip The patient was seen and examined this morning sitting up in a recliner on the cardiac stepdown unit in no acute distress eating breakfast. Remains in sinus rhythm and hemodynamically stable. Patient states pain is controlled on current medication regimen, denies shortness of breath. Currently on room air with oxygen saturation in the mid 90s, able to achieve 2500 mL on his incentive spirometry. Good urine output, positive bowel movement. Patient continues to ambulate multiple times around the hallway without difficulty. Wants to go home today. No other new concerns. Objective - Vital Signs Vital signs: Vital Signs Temp 98.7 F 02/06/22 04:05 Pulse 87 02/06/22 08:09 Resp 18 02/06/22 04:05 BP 144/71 02/06/22 04:05 Pulse Ox 100 02/06/22 04:05 FiO2 50 02/01/22 18:06 Intake & Output 02/05/22 02/06/22 02/06/22 18:59 06:59 18:59 Intake Total 480 180 Output Total 1025 2450 Balance -545 -2450 180 Weight 72.4 kg Intake: Oral 480 180 Output: Urine 1025 2450 Other: Voiding Method Urinal # Voids 1 ABP, PAP, CO, CI - Last Documented Arterial Blood Pressure 167/66 Pulmonary Artery Pressure 19/8 Cardiac Output 11.1 Cardiac Index 6.1 - Exam CONSTITUTIONAL: Appears comfortable, cooperative, no acute distress RESPIRATORY: Lungs sounds diminished bilaterally. Respirations even, no nlabored. Currently on room air with oxygen saturation 100%. Able to achieve 2500 mL on incentive spirometry. Strong cough. CARDIOVASCULAR: S1, S2 present. Regular rate and rhythm, sinus rhythm on telemetry. Sternum stable. Palpable peripheral pulses bilaterally. No edema present. No calf pain or tenderness noted. Heart hugger in place with patient demonstrating appropriate use. Antiembolism stockings, SCDs present. GASTROINTESTINAL: Abdomen soft, nontender, nondistended. Active bowel sounds present 4 quadrants. Tolerating diet. Positive bowel movement GENITOURINARY: Continues to void INTEGUMENTARY: Skin is warm and dry with evidence of good perfusion. Anterior chest incision well approximated and covered with dry intact dressing. Left radial artery harvest site site well approximated without redness NEUROLOGIC: Cranial nerves II through XII intact MUSKULOSKELETAL: Able to move all extremities, strength equal bilaterally, gait normal PSYCHIATRIC: Alert and oriented to person place and time, appropriate affect, intact judgment and insight - Allied health notes Allied health notes reviewed: nursing - Labs CBC & Chem 7: 02/05/22 08:29 02/05/22 08:29 Labs: Abnormal Lab Results - Last 24 Hours (Table) 02/05/22 02/05/22 02/05/22 Range/Units 08:29 08:29 16:18 WBC 13.2 H (3.8-10.6) k/uL RBC 3.12 L (4.30-5.90) m/uL Hgb 9.9 L (13.0-17.5) gm/dL Hct 29.4 L (39.0-53.0) % Sodium 134 L (137-145) mmol/L Glucose 107 H (74-99) mg/dL POC Glucose (mg/dL) 126 H (70-110) mg/dL - Imaging and Cardiology Chest x-ray: report reviewed, image reviewed Assessment and Plan Assessment: 1. Triple-vessel coronary artery disease, non-STEMI this admission, status post three-vessel CABG 2. Hypertension 3. Hyperlipidemia, previously untreated, cholesterol 264, LDL 144 4. Bilateral internal carotid artery stenosis 50-69% 5. Hepatitis C, IgG Ab reactive, hep C virus RNA negative 6. Current tobacco dependence, preoperative FEV1 113% of predicted 7. Current marijuana use 8. Current EtOH use greater than 8 drinks per week 9. Seizure approximately 3 years ago 10. Neurofibromatosis 11. Previous heroin use with cessation 10 years ago 12. Family history of premature coronary artery disease Plan: 1. Continue to maximize medical therapy with aspirin, statin, Plavix, beta blo cker, Jesus 2. Continue oral calcium channel marie for radial artery spasm prophylaxis 3. Continue amiodarone for A. fib prophylaxis, will taper dose 4. Encourage incentive spirometry 10 times every hour while awake. Bronchodilators per pulmonology 5. Increase activity, ambulate as tolerated. PT/OT/cardiac rehab following 6. Will monitor daily labs and x-rays. Electric replacement per protocol 7. Pain control with current medication regimen 8. Insulin management per primary care service. Patient is not a diabetic, hemoglobin A1c 4.9% 9. Strict accurate intake and output. Daily weights 10. Smoking cessation education and counseling provided, patient strongly encouraged to quit smoking including marijuana, decrease EtOH use 11. Discharge planning in progress. Anticipate discharge to home with home care this afternoon 12. More recommendations to follow
[2022-02-06] MEDS ORDERED: lisinopriL 5 MG TAB PO SCH (09:00)
[2022-02-06 09:21] LABS: HCT 29.3 % (39.0-53.0); HGB 9.9 gm/dL (13.0-17.5); MCH 31.6 pg (25.0-35.0); MCHC 33.7 g/dL (31.0-37.0); MCV 93.8 fL (80.0-100.0); Mean Platelet Volume 8.2; Platelet Count 478 k/uL (150-450); RBC 3.12 m/uL (4.30-5.90); RDW 13.4 % (11.5-15.5); WBC 13.5 k/uL (3.8-10.6)
[2022-02-06 09:35] LABS: African American GFR (CKD) >90 (>60 ml/min/1.73 sqM); Anion Gap 13 mmol/L; Blood Urea Nitrogen 15 mg/dL (9-20); Calcium 8.9 mg/dL (8.4-10.2); Carbon Dioxide 23 mmol/L (22-30); Chloride 102 mmol/L (98-107); Glucose 97 mg/dL (74-99); Non-African American GFR(CKD) >90 (>60 ml/min/1.73 sqM); Potassium 3.9 mmol/L (3.5-5.1); Sodium 138 mmol/L (137-145)
--- NOTE | 2022-02-06 10:55 | P.DS ---
Providers Date of admission: 01/28/22 09:21 Expected date of discharge: 02/06/22 Attending physician: Dong Aragon Consults: 01/28/22 00:28 Consult Physician Urgent Consulting Provider: Demetrio Bacon Consult Reason/Comments: cp Do you want consulting provider notified?: Yes 01/28/22 10:32 Consult Physician Routine Consulting Provider: Dong Aragon Consult Reason/Comments: CAD, CABG Do you want consulting provider notified?: Already Contacted 01/28/22 10:40 Consult Physician Routine Consulting Provider: Connor Camacho Consult Reason/Comments: preop cabg Do you want consulting provider notified?: Already Contacted 01/29/22 10:31 Consult to Anesthesia Routine Consulting Provider: Anesthesia,Services Consult Reason/Comments: Cardiac Surgery Pre-Op, patient scheduled 02/01/2022 for off-pump CABG 02/01/22 13:28 Consult Physician Routine Consulting Provider: Brenda Bella Consult Reason/Comments: med mgmt Do you want consulting provider notified?: Already Contacted Primary care physician: Stated None Hospital Course: FINAL DIAGNOSIS: 1. Triple-vessel coronary artery disease, non-STEMI this admission 2. Hypertension 3. Hyperlipidemia, previous and treated, cholesterol 264, LDL 144 4. Bilateral internal carotid artery stenosis 50-69% 5. Hepatitis C, IgG AB reactive, hep C virus RNA negative 6. Current tobacco dependence, preoperative FEV1 113% of predicted 7. Current marijuana use 8. Current EtOH use greater than 8 drinks per week 9. Seizure approximately 3 years ago 10. Neurofibromatosis 11. Previous heroin use with cessation 10 years ago 12. Family history of premature coronary artery disease PRINCIPAL PROCEDURE: 1. Off-pump coronary artery bypass 3 with left internal mammary artery to the left anterior descending artery, right internal mammary artery to the right coronary artery, left radial artery graft to the intermediate coronary artery 2. Endovascular radial artery harvest 3. Ligation of the left atrial appendage with a 40 mm AtriCure clip HISTORY OF PRESENT ILLNESS: This is a 46-year-old gentleman who does not follow on an outpatient basis with a primary care physician. He presented to [facility] emergency room with complaints of chest pain with radiation down his left arm, relieved with sublingual nitroglycerin, he denied any significant shortness of breath, nausea, lower extremity edema, or any other symptomatology. Troponins were elevated and he was ruled in for non-STEMI. Subsequently he was taken to the Shuttle Route Vehicle Operator by Dr. Woo revealing mid RCA complete occlusion with fills by collateral, chronic total occlusion of the distal circumflex coronary artery, severe disease in the proximal ramus, and 80-90% stenosis of the proximal and mid LAD. Consultation was placed to Dr. Aragon from cardiothoracic surgery. He was recommended to undergo surgical myocardial revascularization. The usual perioperative course was discussed in detail with the patient, all risks and benefits were explained, all questions were answered, and consent was obtained to proceed with surgery. The patient was kept inpatient due to the nature of his disease process. HOSPITAL COURSE: The patient was brought to the preoperative area, prepared in the usual fashion, and subsequently taken to the operating room where Dr. Aragon performed three-vessel off-pump CABG. Upon completion of surgery the patient was transferred to the cardiovascular intensive care unit where he was recovered and monitored hemodynamically. He was extubated, all lines, tubes, and drips were discontinued when appropriate, and he was transferred to 3 S. cardiac stepdown unit for further monitoring and rehabilitation. His oxygen was titrated down, he continued to work with physical and occupational therapy, he was tolerating oral diet, his pain was controlled, and he was ready to be discharged to home with [facility] on postoperative day #5. He received written and verbal instruction regarding his medications, activity restrictions, signs and symptoms requiring physician notification, and follow-up appointments. Patient Condition at Discharge: Stable Plan - Discharge Summary Discharge Rx Participant: Yes New Discharge Prescriptions: New Clopidogrel [Plavix] 75 mg PO DAILY #30 tab Pantoprazole [Protonix] 40 [facility] tab Aspirin 325 mg PO DAILY #30 tab Amiodarone [Cordarone] 400 mg PO BID #32 tab Atorvastatin [Lipitor] 80 mg PO DAILY #30 tab Metoprolol Tartrate [Lopressor] 75 mg PO BID #120 tab amLODIPine [Norvasc] 10 mg PO DAILY@1200 #30 tab Sennosides-Docusate Sodium [Senokot-S] 2 each PO HS PRN tab PRN Reason: Constipation Acetaminophen Tab [Tylenol] 1,000 mg PO Q6HR PRN tab PRN Reason: Fever And/ Or Pain lisinopriL [Zestril] 5 mg PO DAILY #30 tab Discharge Medication List Acetaminophen Tab [Tylenol] 1,000 mg PO Q6HR PRN tab 02/06/22 [Rx] Amiodarone [Cordarone] 400 mg PO BID #32 tab 02/06/22 [Rx] Aspirin 325 mg PO DAILY #30 tab 02/06/22 [Rx] Atorvastatin [Lipitor] 80 mg PO DAILY #30 tab 02/06/22 [Rx] Clopidogrel [Plavix] 75 mg PO DAILY #30 tab 02/06/22 [Rx] Metoprolol Tartrate [Lopressor] 75 mg PO BID #120 tab 02/06/22 [Rx] Pantoprazole [Protonix] 40 mg PO [facility] #30 tab 02/06/22 [Rx] Sennosides-Docusate Sodium [Senokot-S] 2 each PO HS PRN tab 02/06/22 [Rx] amLODIPine [Norvasc] 10 mg PO DAILY@1200 #30 tab 02/06/22 [Rx] lisinopriL [Zestril] 5 mg PO DAILY #30 tab 02/06/22 [Rx] Follow up Appointment(s)/Referral(s): [facility],Cardiac [NON-STAFF] - 4 Weeks (You will receive a phone call in approximately 4-6 weeks for evaluation for cardiac rehab) Wilda Spencer NPC [Nurse Practitioner] - 02/20/22 9:30 am Dong Aragon MD [STAFF PHYSICIAN] - 03/21/22 9:30 am () Viet Warren NPC [Nurse Practitioner] - 02/13/22 11:30 am [facility], [NON-STAFF] - ([facility] will contact you to arrange a visit) None,Stated [Primary Care Provider] - 1-2 days Erick Woo MD [STAFF PHYSICIAN] - 2 Weeks (Dr. Woo's office will call with a follow-up appointment) Ambulatory/Diagnostic Orders: Complete Blood Count w/diff [LAB.AMB] Time Frame: 3 Days, Location: None Selected Comprehensive Metabolic Panel [LAB.AMB] Time Frame: 3 Days, Location: None Selected Activity/Diet/Wound Care/Special Instructions: DISCHARGE INSTRUCTIONS: 1. No driving for 4 weeks, or until physician gives their ok. 2. The patient should sleep in their own bed, no medical bed needed. 3. Stairs are not an issue. If the bedroom is upstairs, it is advised that the patient go up at night and down in the morning for the first week. Go slowly, using handrail and take 1 step at a time. 4. ALANA hose are to be worn for 30 days or until physician discontinues. 5. Heart hugger is to be worn 100% of the time until physician discontinues.(except when showering) 6. No lifting, pushing, or pulling more than 10 pounds for 12 weeks. The physician will advise of any restriction changes. 7. The patient is expected to continue the prescribed walking program. 8. Continue pain control per as needed orders. 9. Continue with incentive spirometry and splinting/heart hugger until otherwise directed by the physician. 10. Must shower daily using liquid antibacterial soap and a separate white washcloth for each individual incision. 11. Routine sternal incision care. No powders, lotions, ointments on incisions. No dressings are necessary on incisions unless they are draining. Dermabond tape is to remain on sternal incision until surgeon follow-up. 12. Please call surgeon/CIRCUS SUPERVISOR for temp greater than 101 F or purulent drainage from incisions. 13. You should weigh yourself daily, record and bring log with you to follow up appointments. 14. All prescriptions given by surgeon for 30 days. Refills need to be filled through business information consultant/primary care physician. 15. A Red armband has been placed on the patient. It should be worn for 30 days post surgery and will be removed by the cardiac surgeons. If an ER visit is necessary, please make sure the number on the Red armband is called. 16. You have been referred to and are expected to begin Cardiac Rehab in approximately 4-6 weeks. HOME HEALTH SERVICES TO PROVIDE: RN SKILLED HOME CARE SERVICES FOR POST-OP SURGICAL PATIENTS WITH THE FOLLOWING: Coronary Artery Bypass Surgery (CABG), Mitral Valve Replacement/Repai r ( MVR), Aortic Valve Replacement/Repair (AVR) RN TO CONTINUE EDUCATION FROM ``ROAD TO A HEALTH HEART PATIENT EDUCATION MANUAL (GIVEN TO PATIENT IN THE HOSPITAL) MEDICATION RECONCILIATION WITH EDUCATION NEEDED ON FIRST HOME VISIT EMPHASIZE IMPORTANCE OF WEARING BREAST SUPPORT/HEART HUGGER ENCOURAGE USE OF INCENTIVE SPIROMETER 10 X EVERY HOUR WHILE AWAKE ENCOURAGE UTILIZATION OF LOWER EXTREMITY COMPRESSION STOCKINGS/ALANA HOSE and ELEVATE LEGS ABOVE LEVEL OF HEART WHILE AT REST. ENCOURAGE AMBULATION 3-5x/day INCREASING TOLERATES, WHILE AVOIDING EXTREMES IN TEMPERATURE FREQUENCY: RN TO OPEN THE PATIENT WITHIN 24 HOURS OF DISCHARGE FROM THE HOSPITAL WITH [place]LEHEALTH [place] [facility] [place]IT 2-3 X A WEEK FOR 4 WEEKS ESTABLISHED BY PATIENT NEEDS. LABORATORY: CBC, CMP TO BE DRAWN ON THE THIRD DAY HOME, (RAN STAT) FAX RESULTS TO [phone]. TELEHEALTH PARAMETERS: WEIGHT: NOTIFY MD OF WEIGHT GAIN OF 2 LBS IN 24 HOURS OR 5 LBS IN ONE WEEK HR: NOTIFY MD OF HR <55 BPM OR HR>100 BPM BP: NOTIFY MD IF BP <90/55 OR BP>140/100 O2 SAT: NOTIFY MD IF PO2<93% ON ROOM AIR SEND TELEHEALTH REPORT TO TANK TRUCK MILK RECEIVER AND CARDIOVASCULAR SURGEON THE FIRST WEEK OF CARE AND THEN BI-WEEKLY. PLEASE ADDITIONALLY COMMUNICATE ANY ABNORMALS AND NEW FINDINGS TO THE SURGEONS OFFICE. Discharge Disposition: HOME WITH HOME HEALTH SERVICES
[2022-02-06] MEDS: ASPIRIN 325 MG TAB PO SCH ×2 (11:22→11:33)
[2022-02-06] MEDS: lisinopriL 10 MG TAB PO SCH (11:22)
[2022-02-06] MEDS: NITROGLYCERIN OINT 1 INCH/GM PACKET TOPICAL SCH (11:22)
[2022-02-06] MEDS: amLODIPine 10 MG TAB PO SCH ×2 (11:22→11:33)
[2022-02-06] MEDS: MUPIROCIN 2% OINT 22 GM TUBE NASAL SCH (11:22)
[2022-02-06] MEDS: HEPARIN SODIUM,PORCINE/PF 5,000 UNIT/0.5 ML SYRINGE SQ SCH ×2 (11:32)
[2022-02-06] MEDS: METOPROLOL TARTRATE 25 MG TAB PO SCH (11:32)
[2022-02-06] MEDS: ATORVASTATIN 80 MG TAB PO SCH (11:33)
[2022-02-06] MEDS: AMIODARONE 200 MG TAB PO SCH (11:33)
[2022-02-06] MEDS: CLOPIDOGREL 75 MG TAB PO SCH (11:33)
[2022-02-06] MEDS: ACETAMINOPHEN TAB 500 MG TAB PO PRN (11:34)
--- NOTE | 2022-02-06 11:48 | P.PN ---
Subjective Progress Note Date: 02/06/22 HISTORY OF PRESENT ILLNESS: Patient is status post CABG 3 vessels. Patient examined this morning. He is sitting up in the chair. Patient denies any chest pain or pressure. He denies shortness of breath. He reports some discomfort at the chest tube insertion sites. Patient continues to have chest tube 2. He is using his incentive spirometer and pulling 2500 mL. Telemetry reveals sinus mechanism. Vital signs are stable. 02/06/2022 Patient examined this morning. Patient is sitting up in the chair. Patient has been ambulating around the nursing unit multiple times this morning. His chest tubes have been discontinued. He denies chest pain or pressure. He denies sh ortness of breath. Vital signs are stable. PHYSICAL EXAM: VITAL SIGNS: Reviewed. GENERAL: Well-developed in no acute distress. NECK: Supple. No JVD or thyromegaly LUNGS: Respirations even and unlabored. Lungs diminished. HEART: Regular rate and rhythm. S1 and S2 heard. EXTREMITIES: Normal range of motion. No clubbing or cyanosis. Peripheral pulses intact. No lower extremity edema ASSESSMENT: Non-STEMI, s/p CABG x 3 vessels Hypertension Hyperlipidemia Bilateral carotid artery stenosis History of seizures Nicotine dependence Current marijuana use Current alcohol use PLAN: Continue postoperative management per cardiothoracic surgery Continue current cardiac medications Increase activity as tolerated Encouraged use of incentive spirometer Patient is stable for discharge home today from a cardiac standpoint Patient to follow-up post discharge with Dr. Woo Nurse practitioner note has been reviewed by physician. Signing provider agrees with the documented findings, assessment, and plan of care. Objective - Vital Signs Vital signs: Vital Signs Temp 98.7 F 02/06/22 04:05 Pulse 95 02/06/22 11:36 Resp 18 02/06/22 04:05 BP 144/71 02/06/22 04:05 Pulse Ox 100 02/06/22 04:05 FiO2 50 02/01/22 18:06 Intake & Output 02/05/22 02/06/22 02/06/22 18:59 06:59 18:59 Intake Total 480 180 Output Total 1025 2450 Balance -545 -2450 180 Weight 72.4 kg Intake: Oral 480 180 Output: Urine 1025 2450 Other: Voiding Method Urinal # Voids 1 ABP, PAP, CO, CI - Last Documented Arterial Blood Pressure 167/66 Pulmonary Artery Pressure 19/8 Cardiac Output 11.1 Cardiac Index 6.1 - Labs CBC & Chem 7: 02/06/22 08:37 02/06/22 08:37 Labs: Abnormal Lab Results - Last 24 Hours (Table) 02/05/22 02/06/22 Range/Units 16:18 08:37 WBC 13.5 H (3.8-10.6) k/uL RBC 3.12 L (4.30-5.90) m/uL Hgb 9.9 L (13.0-17.5) gm/dL Hct 29.3 L (39.0-53.0) % Plt Count 478 H (150-450) k/uL POC Glucose (mg/dL) 126 H (70-110) mg/dL
[2022-02-06 12:12] VITALS: RESP 17
[2022-02-06 12:17] VITALS: BP 134/65; PULSE 96; TEMP 97.7
--- NOTE | 2022-02-06 14:23 | P.PN ---
Subjective Progress Note Date: 02/06/22 On today's evaluation of a day. 2021, the patient is being seen for a follow- up. The patient is post acute non-STEMI for triple vessel disease in a patient undergone coronary artery bypass surgery and the patient is currently postop day #3. The patient underwent NICHOLS to LAD and TOMMY to RCA and left radial to ramus intermedius. The patient is doing well for now. Is a chronic smoker. He still has the chest tubes in place. He is using incentive spirometer and he is pulling approximately 2500 on his I asked. No nausea. No vomiting. No chest pain. Note that the patient has a mediastinal and bilateral pleural chest tubes. He has other comorbidities which include COPD, hypertension, hyperlip idemia, and the patient has coronary artery disease in the order of 50-69%. He also has history of neurofibromatosis. He is a previous heroin user and he is a chronic tobacco user. No signs of delirium tremens. No cardiac arrhythmias. He is ambulating. Is quite cooperative with ongoing treatment. Output from the chest tubes have been noted in the mediastinal chest tube has produced 70 mL ov er the past 8 hours and 180 mL over the past 24 hours. Output from the left and the right pleural chest tubes have been in the order of 120 mL over the past 24 hours. He is afebrile. Hemodynamics is stable. His hemoglobin is at 10.3 with a platelet count of 259. BNP is at 80 with a creatinine of 0.7 and his sodium level is at 136. Cardiac rhythm is sinus. 02/05/2022, the patient is doing well. The patient has completed coronary artery bypass surgery. The patient is postop day #4. He is ambulating. The mediastinal chest tubes have been removed and the patient has a right pleural and left pleural chest tube in place. He is using incentive spirometer. His pain is under adequate control for now and it's probably 4 out of 10 in severity. He is on room air oxygen with a pulse ox of 99% is using incentive spirometer pulling more than 2000. Note that the output from the chest tubes. There is no evidence of any air leak. Left-sided pleural chest tube and drain around 50 mL over the past 24 hours and the right-sided chest tube is draining 250 mL over the past 24 hours. The patient is afebrile. The patient is hemodynamic stable. The patient has a BUN of 40 with a creatinine of 0.7. Calcium is at 8.5. The white cell count is at 15.3 and hemoglobin stable at 9.9 with a platelet count of 341. He is ambulating. No cardiac arrhythmias noted. No syncope. The cardiac rhythm remains sinus. 02/06/2022, the patient is emanating on room air oxygen and the patient is po stop day #5 and all of the chest is a been removed. No complaints. Using incentive spirometer. No respiratory difficulties. Hemoglobin stable at 9.9 with a white cell count 15.5. The rest of the electrodes are all within normal limits. The chest x-ray from today shows no acute abnormalities and there is some small bilateral pleural effusions. No evidence of any pneumothorax. Surgical wound site is dry clean and intact. Objective - Vital Signs Vital signs: Vital Signs Temp 97.7 F 02/06/22 11:25 Pulse 95 02/06/22 11:36 Resp 17 02/06/22 11:25 BP 134/65 02/06/22 11:25 Pulse Ox 100 02/06/22 11:25 FiO2 50 02/01/22 18:06 Intake & Output 02/05/22 02/06/22 02/06/22 18:59 06:59 18:59 Intake Total 480 360 Output Total 1025 2450 Balance -545 -2450 360 Weight 72.4 kg Intake: Oral 480 360 Output: Urine 1025 2450 Other: Voiding Method Urinal Urinal # Voids 1 2 # Bowel Movements 1 ABP, PAP, CO, CI - Last Documented Arterial Blood Pressure 167/66 Pulmonary Artery Pressure 19/8 Cardiac Output 11.1 Cardiac Index 6.1 - Exam Gen. appearance the patient is calm and comfortable not in acute respiratory distress Head exam was generally normal. There was no scleral icterus or corneal arcus. Mucous membranes were moist. HEENT examination is grossly unremarkable. Neck supple. Full range of motion. No adenopathy thyromegaly or neck vein distention. Cardiovascular examination reveals regular rhythm rate. S1-S2 normal. No S3 or S4. No discernible murmur noted. Sternum stable clean and intact and the chest tubes have been removed and the chest tube exit sites are all dry and clean and intact Breath sounds are quite diminished in lung bases bilaterally. Mild scattered rhonchi. No wheezes or crackles. Breath sounds equal bilaterally. Surgical wound is dry clean and intact. Abdomen soft bowel sounds are heard. No masses or tenderness. Extremities are intact. No cyanosis clubbing or edema. Skin is without rash or lesion. Neurologic examination is brief but nonfocal - Labs CBC & Chem 7: 02/06/22 08:37 02/06/22 08:37 Labs: Abnormal Lab Results - Last 24 Hours (Table) 02/05/22 02/06/22 Range/Units 16:18 08:37 WBC 13.5 H (3.8-10.6) k/uL RBC 3.12 L (4.30-5.90) m/uL Hgb 9.9 L (13.0-17.5) gm/dL Hct 29.3 L (39.0-53.0) % Plt Count 478 H (150-450) k/uL POC Glucose (mg/dL) 126 H (70-110) mg/dL Assessment and Plan Plan: acute Non-ST segment elevation myocardial infarction, currently free of any chest pain hemodynamically stable Severe three-vessel coronary disease, S/P 3 vessel bypass grafting, including NICHOLS to LAD, TOMMY to RCA, and left radial artery to ramus intermedius, Postop day # 5 Routine postoperative ventilator management. Patient is currently on oxygen and output from the chest tubes are minimal at this point in time. No evidence of any air leak. The chest x-ray from today shows no evidence of pneumothorax. History of chronic nicotine dependence. Excellent pulmonary function testing, suggesting the patient at no increased operative risk for bypass grafting. Family history of CAD. Prior history of heroin use. Triple-vessel disease Hypertension Hyperlipidemia Bilateral carotid artery disease in the order of 50-69% Remote history of seizure disorder Neurofibromatosis Plan: Clinically stable Ambulating Continue using incentive spirometer Pain control Continue aspirin and Plavix metoprolol 75 mg by mouth twice a day lisinopril 5 mg by mouth daily Continue Lipitor 80 mg daily Chest x-ray was noted Continue using incentive spirometer Hemoglobin is stable Cardiac rhythm is sinus We'll continue to follow Clear for discharge from the pulmonary standpoint
--- NOTE | 2022-02-06 15:52 | P.PN ---
Subjective Progress Note Date: 02/06/22 Principal diagnosis: chest pain The patient is a 46-year-old male withhypertension who presented to the emergency room with complaints of chest discomfort. On arrival to the emergency department his pulse was 105 and blood pressure was 169/100. He was satting 98% on room air. Chest x-ray the emergency room was unremarkable. EKG showed sinus tachycardia 104 bpm with no acute ST/T-wave changes noted as reviewed by me. Laboratory evaluation was remarkable for troponin 0.034, sodium 132, and WBC count 15.5. He is admitted for chest pain observation. His troponin began to elevate on the morning of 81 was 1.93. He was taken urgently for cardiac catheterization was found to have triple-vessel disease, with total occlusion of the RCA and left circumflex. There is critical disease involving the proximal and mid LAD. Patient ultimately underwent CABG. Patient seen and examined at bedside. He denies any current chest pain but is feeling very tired and overwhelmed. Plan is for patient to be discharged today. Doing well, all questions answered. He is aware of the importance on follow-up and not missing medications. He is aware on the importance of following up on medicaid application. General: nontoxic, no distress, appears at stated age Derm: warm, dry Head: atraumatic, normocephalic, symmetric Eyes: EOMI, no lid lag, anicteric sclera Mouth: no lip lesion, mucus membranes moist Cardiovascular: S1S2 reg, no murmur, positive posterior tibial pulse bilateral, Lungs: CTA bilateral, no rhonchi, no rales , no accessory muscle use Abdominal: soft, nontender to palpation, no guarding, no appreciable organomegaly Ext: no gross muscle atrophy, no edema, no contractures Neuro: CN II-XI grossly intact, no focal neuro deficits Psych: Alert, oriented, appropriate affect Assessment/plan: NSTEMI with severe triple-vessel CAD s/p CABG X 3 HTN urgency bilateral carotid artery disease HLD - ASA, Lipitor, Lisinopril, metoprolol - echo with preserved EF, PFT with normal lung function - CT surgery recs - Amio, norvasc Acute blood loss anemia -Anticipated outcome of surgery -Follow CBC Nicotine dependency ETOH misuse Marijuana use - encourage cessation Social stressors - no insurance - will follow with [facility] on [place] - medicaid polo started Hep C Antibody +, consistent with cleared infection -- patient aware that his AB will stay positive Leukocytosis, resolved 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 Hyponatremia, improved Objective - Vital Signs Vital signs: Vital Signs Temp 97.7 F 02/06/22 11:25 Pulse 95 02/06/22 11:36 Resp 17 02/06/22 11:25 BP 134/65 02/06/22 11:25 Pulse Ox 100 02/06/22 11:25 FiO2 50 02/01/22 18:06 Intake & Output 02/05/22 02/06/22 02/06/22 18:59 06:59 18:59 Intake Total 480 360 Output Total 1025 2450 Balance -545 -2450 360 Weight 72.4 kg Intake: Oral 480 360 Output: Urine 1025 2450 Other: Voiding Method Urinal Urinal # Voids 1 2 # Bowel Movements 1 ABP, PAP, CO, CI - Last Documented Arterial Blood Pressure 167/66 Pulmonary Artery Pressure 19/8 Cardiac Output 11.1 Cardiac Index 6.1 - Labs CBC & Chem 7: 02/06/22 08:37 02/06/22 08:37 Labs: Abnormal Lab Results - Last 24 Hours (Table) 02/05/22 02/06/22 Range/Units 16:18 08:37 WBC 13.5 H (3.8-10.6) k/uL RBC 3.12 L (4.30-5.90) m/uL Hgb 9.9 L (13.0-17.5) gm/dL Hct 29.3 L (39.0-53.0) % Plt Count 478 H (150-450) k/uL POC Glucose (mg/dL) 126 H (70-110) mg/dL
== END 2022-02-06 14:56 | disposition home health service (06) | DRG 234 ==
LOC: EC 23:40 → 6NMEDSUR 01-28 00:28 → 3SCARD 01-28 04:37 → 2SICU 01-28 09:04 → OBSVTOIN 01-28 09:21 → 2SICU 01-28 09:35 → 3SCARD 02-04 12:26
PROVIDERS: ADMIT Thoracic Surgery (Cardiothoracic Vascular Surgery); ATTEND Thoracic Surgery (Cardiothoracic Vascular Surgery)
PROC: B2111ZZ Fluoroscopy of Multiple Coronary Arteries using Low Osmolar Contrast (ICD-10-PCS; 2022-01-28)
PROC: 4A023N7 Measurement of Cardiac Sampling and Pressure, Left Heart, Percutaneous Approach (ICD-10-PCS; 2022-01-28)
PROC: 03BC3ZZ Excision of Left Radial Artery, Percutaneous Approach (ICD-10-PCS; principal; 2022-02-01 08:00)
PROC: 02100Z9 Bypass Coronary Artery, One Artery from Left Internal Mammary, Open Approach (ICD-10-PCS; principal; 2022-02-01 08:00)
PROC: 02L70CK Occlusion of Left Atrial Appendage with Extraluminal Device, Open Approach (ICD-10-PCS; principal; 2022-02-01 08:00)
PROC: 02100A3 Bypass Coronary Artery, One Artery from Coronary Artery with Autologous Arterial Tissue, Open Approach (ICD-10-PCS; principal; 2022-02-01 08:00)
PROC: 02100Z8 Bypass Coronary Artery, One Artery from Right Internal Mammary, Open Approach (ICD-10-PCS; principal; 2022-02-01 08:00)
DX: I21.4 Non-ST elevation (NSTEMI) myocardial infarction (principal); D62 Acute posthemorrhagic anemia; E87.1 Hypo-osmolality and hyponatremia; I65.23 Occlusion and stenosis of bilateral carotid arteries; I16.0 Hypertensive urgency; I11.9 Hypertensive heart disease without heart failure; F41.9 Anxiety disorder, unspecified; F17.210 Nicotine dependence, cigarettes, uncomplicated; Z71.6 Tobacco abuse counseling; Z71.41 Alcohol abuse counseling and surveillance of alcoholic; F11.11 Opioid abuse, in remission; J43.9 Emphysema, unspecified; Q85.00 Neurofibromatosis, unspecified; I25.10 Atherosclerotic heart disease of native coronary artery without angina pectoris; B19.20 Unspecified viral hepatitis C without hepatic coma; D72.829 Elevated white blood cell count, unspecified; E78.5 Hyperlipidemia, unspecified; Z79.82 Long term (current) use of aspirin; Z82.3 Family history of stroke; Z82.49 Family history of ischemic heart disease and other diseases of the circulatory system; Z83.3 Family history of diabetes mellitus; Z91.19 Patient's noncompliance with other medical treatment and regimen
CPT/HCPCS: 36415; 71045; 71046; 80048; 80053; 80061; 80074; 81001; 82330; 82805; 83036; 83735; 84443; 84484; 85025; 85027; 85520; 85610; 85730; 86850; 86891; 86900; 86901; 86920; 87070; 87522; 88305; 88307; 93005; 93306; 93458; 93880; 93970; 94150; 94640; 94760; 96365; 96366; 99285

== ENCOUNTER 2023-11-04 03:40 | Emergency (ER) | payer OTHER ==
--- NOTE | 2023-11-04 03:49 | ED ---
Syncope HPI - General Chief Complaint: Syncope Stated Complaint: Syncope Time Seen by Provider: 11/04/23 03:42 Source: EMS, RN notes reviewed, old records reviewed Mode of arrival: EMS Limitations: no limitations - History of Present Illness Initial Comments: This is a 47-year-old male coming to the ER today for evaluation of syncopal event syncopal versus seizure. Patient has history of seizures concerned that his seizure again today significantly, patient has no headache chest pain shortness with abdominal pain. Patient is significantly diaphoretic currently MD Complaint: loss of consciousness, collapsed, seizure (Questionable seizure with history of seizures) -: minutes(s) Prodromal Symptoms: lightheaded, palpitations, diaphoresis -: second(s) Witnessed: yes - by bystander Injuries Sustained Associated with Event: None Current Symptoms: lightheaded History: seizure disorder, previous syncopal episode - Related Data Previous Rx's Medication Instructions Recorded Acetaminophen Tab [Tylenol] 1,000 mg PO Q6HR PRN tab 02/06/22 Amiodarone [Cordarone] 400 mg PO BID #32 tab 02/06/22 Aspirin 325 mg PO DAILY #30 tab 02/06/22 Atorvastatin [Lipitor] 80 mg PO DAILY #30 tab 02/06/22 Clopidogrel [Plavix] 75 mg PO DAILY #30 tab 02/06/22 Metoprolol Tartrate [Lopressor] 75 mg PO BID #120 tab 02/06/22 Pantoprazole [Protonix] 40 mg PO AC-BRKFST #30 tab 02/06/22 Sennosides-Docusate Sodium 2 each PO HS PRN tab 02/06/22 [Senokot-S] amLODIPine [Norvasc] 10 mg PO DAILY@1200 #30 tab 02/06/22 lisinopriL [Zestril] 5 mg PO DAILY #30 tab 02/06/22 amLODIPine [Norvasc] 5 mg PO DAILY #30 tab 02/14/22 Allergies Allergy/AdvReac Type Severity Reaction Status Date / Time No Known Allergies Allergy Verified 11/04/23 03:47 Review of Systems ROS Statement: Those systems with pertinent positive or pertinent negative responses have been documented in the HPI. ROS Other: All systems not noted in ROS Statement are negative. Past Medical History Past Medical History: Coronary Artery Disease (CAD), Hypertension Additional Past Medical History / Comment(s): Seizure approximately 3 years ago; neurofibromatosis History of Any Multi-Drug Resistant Organisms: None Reported Past Surgical History: No Surgical Hx Reported Additional Past Surgical History / Comment(s): triple bypass, cardiac stents Past Anesthesia/Blood Transfusion Reactions: No Reported Reaction Past Psychological History: No Psychological Hx Reported Smoking Status: Current every day smoker Past Alcohol Use History: Occasional Past Drug Use History: Heroin, Marijuana - Past Family History Mother Family Medical History: Coronary Artery Disease (CAD), CVA/TIA, Diabetes Mellitus, Myocardial Infarction ([place]) Additional Family Medical History / Comment(s): from myocardial infarction/CVA at 51 years old Father Family Medical History: Coronary Artery Disease (CAD) Additional Family Medical History / Comment(s): Brother had PCI in his 50s; from sepsis General Exam General appearance: alert, in no apparent distress Head exam: Present: atraumatic, normocephalic, normal inspection Eye exam: Present: normal appearance, PERRL, EOMI. Absent: scleral icterus, conjunctival injection, periorbital swelling ENT exam: Present: normal exam, mucous membranes moist Neck exam: Present: normal inspection. Absent: tenderness, meningismus, lymphadenopathy Respiratory exam: Present: normal lung sounds bilaterally. Absent: respiratory distress, wheezes, rales, rhonchi, stridor Cardiovascular Exam: Present: regular rate, normal rhythm, normal heart sounds. Absent: systolic murmur, diastolic murmur, rubs, gallop, clicks GI/Abdominal exam: Present: soft, normal bowel sounds. Absent: distended, tenderness, guarding, rebound, rigid Extremities exam: Present: normal inspection, full ROM, normal capillary refill. Absent: tenderness, pedal edema, joint swelling, calf tenderness Back exam: Present: normal inspection Neurological exam: Present: alert, oriented X3, CN II-XII intact Psychiatric exam: Present: normal affect, normal mood Skin exam: Present: warm, dry, intact, normal color. Absent: rash Course Vital Signs 11/04/23 11/04/23 11/04/23 03:41 04:41 04:49 Temperature 98.4 F Pulse Rate 69 75 78 Respiratory 19 16 16 Rate Blood Pressure 163/89 153/80 153/80 O2 Sat by Pulse 98 100 100 Oximetry 11/04/23 05:30 Temperature Pulse Rate 84 Respiratory 16 Rate Blood Pressure 158/78 O2 Sat by Pulse 100 Oximetry - Reevaluation(s) Reevaluation #1: 11/04/23 04:20 Medical records reviewed Reevaluation #2: 11/04/23 04:20 Patient symptoms are improved no recurrent seizure Reevaluation #3: Patient informed of results questions answered Reevaluation #4: Was pt. sent in by a medical professional or institution (, [facility], SURGICAL ASST, urgent care, hospital, or alf...) When possible be specific @ -no Did you speak to anyone other than the patient for history (EMS, parent, family, police, friend...)? What history was obtained from this source @ -no Did you review nursing and triage notes (agree or disagree)? Why? @ -agree Are old charts reviewed (outside hosp., previous admission, EMS record, old EKG, old radiological studies, urgent care reports/EKG's, alf records)? Report findings @ -yes Differential Diagnosis (chest pain, altered mental status, abdominal pain women, abdominal pain men, vaginal bleeding, weakness, fever, dyspnea, syncope, headache, dizziness, GI bleed, back pain, seizure, CVA, palpatations, mental health, musculoskeletal)? @ -prior EKG interpreted by me (3pts min.). @ -yes X-rays interpreted by me (1pt min.). @ -no CT interpreted by me (1pt min.). @ -no U/S interpreted by me (1pt. min.). @ -no What testing was considered but not performed or refused? (CT, X-rays, U/S, labs)? Why? @ -none What meds were considered but not given or refused? Why? @ -none Did you discuss the management of the patient with other professionals (professionals i.e. [facility] Sylvester, SURGICAL ASST, lab, RT, psych nurse, executive secretary social welfare, production floater, teacher, fisheries enforcement officer, watch caser)? Give summary @ -no Was smoking cessation discussed for >3mins.? @ -no Was critical care preformed (if so, how long)? @ -no Were there social determinants of health that impacted care today? How? (Homelessness, low income, unemployed, alcoholism, drug addiction, transportation, low edu. Level, literacy, decrease access to med. care, halfway, rehab)? @ -none Was there de-escalation of care discussed even if they declined (Discuss DNR or withdrawal of care, Hospice)? DNR status @ -no What co-morbidities impacted this encounter? (DM, HTN, Smoking, COPD, CAD, Cancer, CVA, ARF, Chemo, Hep., AIDS, mental health diagnosis, sleep apnea, mor bid obesity)? @ -none Was patient admitted / discharged? Hospital course, mention meds given and ro sy, prescriptions, significant lab abnormalities, going to OR and other pertinent info. @ - 47 male to ER for syncope versus seizure. Patient is awake and alert here in the ER with no complaints of any chest pain shortness with abdominal pain, patient feels well can be discharged home Discharge Undiagnosed new problem with uncertain prognosis? @ -no Drug Therapy requiring intensive monitoring for toxicity (Heparin, Nitro, Insulin, Cardizem)? @ -no Were any procedures done? @ -no Diagnosis/symptom? @ -Syncope versus seizure Acute, or Chronic, or Acute on Chronic? @ -Acute Uncomplicated (without systemic symptoms) or Complicated (systemic symptoms)? @ -Complicated Side effects of treatment? @ -no Exacerbation, Progression, or Severe Exacerbation? @ -exacerbation Poses a threat to life or bodily function? How? (Chest pain, [place], [place], pneumonia, PE, COPD, DKA, ARF, appy, cholecystitis, CVA, Diverticulitis, Homicidal, Suicidal, threat to staff... and all critical care pts) @ -yes with cause of syncope Reevaluation #5: Differential Seizure: Recurrent seizure disorder, febrile seizure, alcohol withdrawal, stimulants, meningitis, encephalitis, intercranial hemorrhage, intracranial tumor, stroke, eclampsia, thyrotoxicosis, hypocalcemia, hyponatremia, hypernatremia, hypomagnesemia, psychogenic, this is not meant to be an all-inclusive list. Differential Syncope: Valvular disease, hypertrophic cardiomyopathy, pulmonary embolism, tamponade, tachycardia, bradycardia, [place], hypovolemia, hemorrhage, dissection, anemia, intracranial hemorrhage, seizure, hypoglycemia, carbon monoxide poisoning, this is not meant to be an all-inclusive list. EKG Findings - EKG Comments: EKG Findings:: EKG sinus 66 IN 149 QRS 96 QTc 423 - EKG Results: EKG: interpreted by ERMD Medical Decision Making - Medical Decision Making 47 male to ER for syncope versus seizure. Patient is awake and alert here in the ER with no complaints of any chest pain shortness with abdominal pain, patient feels well can be discharged home - Lab Data Result diagrams: 11/04/23 03:51 11/04/23 03:51 Lab Results 11/04/23 11/04/23 11/04/23 Range/Units 03:51 03:51 03:51 WBC 10.8 H (3.8-10.6) k/uL RBC 5.40 (4.30-5.90) m/uL Hgb 16.2 (13.0-17.5) gm/dL Hct 49.5 (39.0-53.0) % MCV 91.7 (80.0-100.0) fL MCH 30.0 (25.0-35.0) pg MCHC 32.7 (31.0-37.0) g/dL RDW 13.8 (11.5-15.5) % Plt Count 288 (150-450) k/uL MPV 7.3 Neutrophils % 81 % Lymphocytes % 9 % Monocytes % 7 % Eosinophils % 1 % Basophils % 1 % Neutrophils # 8.7 H (1.3-7.7) k/uL Lymphocytes # 1.0 (1.0-4.8) k/uL Monocytes # 0.7 (0-1.0) k/uL Eosinophils # 0.1 (0-0.7) k/uL Basophils # 0.1 (0-0.2) k/uL PT 10.2 (10.0-12.5) sec INR 0.9 (<1.2) APTT 22.2 (22.0-30.0) sec D-Dimer 0.45 (<0.60) mg/L FEU Sodium 138 (137-145) mmol/L Potassium 4.2 (3.5-5.1) mmol/L Chloride 106 (98-107) mmol/L Carbon Dioxide 21 L (22-30) mmol/L Anion Gap 11 mmol/L BUN 18 (9-20) mg/dL Creatinine 0.85 (0.66-1.25) mg/dL Est GFR (CKD-EPI)AfAm >90 (>60 ml/min/1.73 sqM) Est GFR (CKD-EPI)NonAf >90 (>60 ml/min/1.73 sqM) Glucose 102 H (74-99) mg/dL Plasma Lactic Acid Jason (0.7-2.0) mmol/L Calcium 9.3 (8.4-10.2) mg/dL Phosphorus 3.9 (2.5-4.5) mg/dL Magnesium 1.9 (1.6-2.3) mg/dL Total Bilirubin 0.6 (0.2-1.3) mg/dL AST 29 (17-59) U/L ALT 24 (4-49) U/L Alkaline Phosphatase 71 (38-126) U/L Troponin I (0.000-0.034) ng/mL NT-Pro-B Natriuret Pep 161 pg/mL Total Protein 7.3 (6.3-8.2) g/dL Albumin 4.6 (3.5-5.0) g/dL 11/04/23 11/04/23 Range/Units 03:51 03:51 WBC (3.8-10.6) k/uL RBC (4.30-5.90) m/uL Hgb (13.0-17.5) gm/dL Hct (39.0-53.0) % MCV (80.0-100.0) fL MCH (25.0-35.0) pg MCHC (31.0-37.0) g/dL RDW (11.5-15.5) % Plt Count (150-450) k/uL MPV Neutrophils % % Lymphocytes % % Monocytes % % Eosinophils % % Basophils % % Neutrophils # (1.3-7.7) k/uL Lymphocytes # (1.0-4.8) k/uL Monocytes # (0-1.0) k/uL Eosinophils # (0-0.7) k/uL Basophils # (0-0.2) k/uL PT (10.0-12.5) sec INR (<1.2) APTT (22.0-30.0) sec D-Dimer (<0.60) mg/L FEU Sodium (137-145) mmol/L Potassium (3.5-5.1) mmol/L Chloride (98-107) mmol/L Carbon Dioxide (22-30) mmol/L Anion Gap mmol/L BUN (9-20) mg/dL Creatinine (0.66-1.25) mg/dL Est GFR (CKD-EPI)AfAm (>60 ml/min/1.73 sqM) Est GFR (CKD-EPI)NonAf (>60 ml/min/1.73 sqM) Glucose (74-99) mg/dL Plasma Lactic Acid Jason 1.5 (0.7-2.0) mmol/L Calcium (8.4-10.2) mg/dL Phosphorus (2.5-4.5) mg/dL Magnesium (1.6-2.3) mg/dL Total Bilirubin (0.2-1.3) mg/dL AST (17-59) U/L ALT (4-49) U/L Alkaline Phosphatase (38-126) U/L Troponin I <0.012 (0.000-0.034) ng/mL NT-Pro-B Natriuret Pep pg/mL Total Protein (6.3-8.2) g/dL Albumin (3.5-5.0) g/dL - EKG Data -: EKG Interpreted by Me Disposition Clinical Impression: Syncope, Seizure Disposition: HOME SELF-CARE Condition: Good Instructions (If sedation given, give patient instructions): Seizure/Epilepsy Discharge Instructions & Follow-Up, Recurrent Seizures in Adults (ED), New-Onset Seizure in Adults (ED) Is patient prescribed a controlled substance at d/c from ED?: No Referrals: Tanya Richard MD [Medical Doctor] - 1-2 days Thien Chacon MD [STAFF PHYSICIAN] - 1-2 days Time of Disposition: 05:30
[2023-11-04 04:02] LABS: Basophils # (A) 0.1 k/uL (0-0.2); Basophils % (A) 1 %; Eosinophils # (A) 0.1 k/uL (0-0.7); Eosinophils % (A) 1 %; HCT 49.5 % (39.0-53.0); HGB 16.2 gm/dL (13.0-17.5); Lymphocytes % (A) 9 %; MCHC 32.7 g/dL (31.0-37.0); MCV 91.7 fL (80.0-100.0); Mean Platelet Volume 7.3; Monocytes # (A) 0.7 k/uL (0-1.0); Monocytes % (A) 7 %; Neutrophils # (A) 8.7 k/uL (1.3-7.7); Neutrophils % (A) 81 %; Platelet Count 288 k/uL (150-450); RDW 13.8 % (11.5-15.5); WBC 10.8 k/uL (3.8-10.6)
[2023-11-04] MEDS: SODIUM CHLORIDE 0.9% 1,000 ML IV STA ×2 (04:05→04:40)
[2023-11-04 04:16] LABS: ALT 24 U/L (4-49); AST 29 U/L (17-59); African American GFR (CKD) >90 (>60 ml/min/1.73 sqM); Albumin 4.6 g/dL (3.5-5.0); Alkaline Phosphatase 71 U/L (38-126); Anion Gap 11 mmol/L; Blood Urea Nitrogen 18 mg/dL (9-20); Calcium 9.3 mg/dL (8.4-10.2); Carbon Dioxide 21 mmol/L (22-30); Chloride 106 mmol/L (98-107); Glucose 102 mg/dL (74-99); Magnesium 1.9 mg/dL (1.6-2.3); Non-African American GFR(CKD) >90 (>60 ml/min/1.73 sqM); Phosphorus 3.9 mg/dL (2.5-4.5); Potassium 4.2 mmol/L (3.5-5.1); Sodium 138 mmol/L (137-145); Total Bilirubin 0.6 mg/dL (0.2-1.3); Total Protein 7.3 g/dL (6.3-8.2)
[2023-11-04 04:24] LABS: NT-Pro-B-Type Natriuretic Pept 161 pg/mL
[2023-11-04 04:26] VITALS: TEMP 98.4
[2023-11-04 04:45] LABS: INR 0.9 (<1.2); Partial Thromboplastin Time 22.2 sec (22.0-30.0); Prothrombin Time 10.2 sec (10.0-12.5)
[2023-11-04 05:10] VITALS: RESP 16
[2023-11-04 05:54] VITALS: BP 158/78; PULSE 84
== END 2023-11-04 05:53 | disposition home or self-care (01) ==
LOC: EC 03:40
DX: G40.909 Epilepsy, unspecified, not intractable, without status epilepticus (principal); R55 Syncope and collapse; F17.200 Nicotine dependence, unspecified, uncomplicated; Z95.5 Presence of coronary angioplasty implant and graft
CPT/HCPCS: 36415; 93005; 85379; 83880; 80053; 83605; 83735; 84100; 84484; 85025; 85610; 85730; 99285; 96374; 96361 ×2; J3360